=== PATIENT | female | born 1960 | race Caucasian/White ===

== ENCOUNTER 2019-03-14 04:57 | Observation (INO) | payer BC, OTHER ==
[2019-03-14] MEDS ORDERED: NA CHLORIDE 0.9% 2,000 ML ONE (05:56)
[2019-03-14] MEDS ORDERED: ONDANSETRON 4 MG/2 ML VIAL ONE (05:56)
[2019-03-14 05:59] LABS: Absolute Lymphocytes (CBC) 0.4 K/uL (0.7-4.9); Basophils % 0.5 % (0-1.3); Hematocrit 37.8 % (36.0-45.0); Lymphocytes % 5.3 % (15.3-44.8); MPV 9.5 fL (7.6-11.3); RBC Red Blood Cell Count 4.26 M/uL (3.86-4.86)
[2019-03-14 06:11] LABS: Albumin 3.9 g/dL (3.4-5.0); Bilirubin Direct 0.2 mg/dL (0-0.2); Bilirubin Total 0.5 mg/dL (0.2-1.0); Potassium 3.5 mmol/L (3.5-5.1); Protein, Total 7.3 g/dL (6.4-8.2)
[2019-03-14] MEDS ORDERED: PANTOPRAZOLE 40 MG INJ ONE (06:25)
[2019-03-14] MEDS ORDERED: PROMETHAZINE 25 MG/ML VIAL ONE ×2 (06:25→08:13)
[2019-03-14 06:44] LABS: Blood Morphology Comment NOT SEEN (NOT SEEN); Platelet Estimate ADEQ
--- NOTE | 2019-03-14 07:35 | EDPHYS ---
Physician Documentation [facility] Name: Treasure Varela Age: 58 yrs Sex: Female : 1960 Arrival Date: 03/14/2019 Time: 04:59 Bed 17 Private MD: ED Physician Geovanni Wolf HPI: 03/14 05:59 This 58 yrs old Female presents to ER via Wheelchair with complaints of tomy Vomiting. 05:59 The patient presents to the emergency department with nausea, vomiting, diarrhea, that tomy is intermittent. Onset: The symptoms/episode began/occurred yesterday. Possible causes: unknown. The symptoms are aggravated by nothing. The symptoms are alleviated by nothing. Severity of symptoms: At their worst the symptoms were. The patient has not experienced similar symptoms in the past. Historical: - Allergies: 05:00 No Known Allergies; cc3 - Home Meds: 05:00 Dexilant 60 mg Oral CpDB 1 cap once daily [Active]; cc3 - PMHx: 05:00 GERD; LOW POTASSIUM; cc3 - Immunization history:: Adult Immunizations up to date. - Social history:: Smoking status: Patient/guardian denies using tobacco, never smoked. - Ebola Screening: : No symptoms or risks identified at this time. - Family history:: not pertinent. ROS: 05:59 Constitutional: Negative for fever, chills, and weight loss, Eyes: Negative for injury, tomy pain, redness, and discharge, ENT: Negative for injury, pain, and discharge, Neck: Negative for injury, pain, and swelling, Cardiovascular: Negative for chest pain, palpitations, and edema, Respiratory: Negative for shortness of breath, cough, wheezing, and pleuritic chest pain, Back: Negative for injury and pain, : Negative for injury, bleeding, discharge, and swelling, MS/Extremity: Negative for injury and deformity, Skin: Negative for injury, rash, and discoloration, Neuro: Negative for headache, weakness, numbness, tingling, and seizure, Psych: Negative for depression, anxiety, suicide ideation, homicidal ideation, and hallucinations, Allergy/Immunology: Negative for hives, rash, and allergies, Endocrine: Negative for neck swelling, polydipsia, polyuria, polyphagia, and marked weight changes, Hematologic/Lymphatic: Negative for swollen nodes, abnormal bleeding, and unusual bruising. 05:59 Abdomen/GI: Positive for nausea and vomiting, diarrhea. Exam: 05:59 Constitutional: This is a well developed, well nourished patient who is awake, alert, tomy and in no acute distress. Head/Face: Normocephalic, atraumatic. Eyes: Pupils equal round and reactive to light, extra-ocular motions intact. Lids and lashes normal. Conjunctiva and sclera are non-icteric and not injected. Cornea within normal limits. Periorbital areas with no swelling, redness, or edema. ENT: Nares patent. No nasal discharge, no septal abnormalities noted. Tympanic membranes are normal and external auditory canals are clear. Oropharynx with no redness, swelling, or masses, exudates, or evidence of obstruction, uvula midline. Mucous membranes moist. Neck: Trachea midline, no thyromegaly or masses palpated, and no cervical lymphadenopathy. Supple, full range of motion without nuchal rigidity, or vertebral point tenderness. No Meningismus. Chest/axilla: Normal chest wall appearance and motion. Nontender with no deformity. No lesions are appreciated. Cardiovascular: Regular rate and rhythm with a normal S1 and S2. No gallops, murmurs, or rubs. Normal PMI, no JVD. No pulse deficits. Respiratory: Lungs have equal breath sounds bilaterally, clear to auscultation and percussion. No rales, rhonchi or wheezes noted. No increased work of breathing, no retractions or nasal flaring. Abdomen/GI: Soft, non-tender, with normal bowel sounds. No distension or tympany. No guarding or rebound. No evidence of tenderness throughout. Back: No spinal tenderness. No costovertebral tenderness. Full range of motion. Skin: Warm, dry with normal turgor. Normal color with no rashes, no lesions, and no evidence of cellulitis. MS/ Extremity: Pulses equal, no cyanosis. Neurovascular intact. Full, normal range of motion. Neuro: Awake and alert, GCS 15, oriented to person, place, time, and situation. Cranial nerves II-XII grossly intact. Motor strength 5/5 in all extremities. Sensory grossly intact. Cerebellar exam normal. Normal gait. Psych: Awake, alert, with orientation to person, place and time. Behavior, mood, and affect are within normal limits. 05:59 Neck: ROM/movement: is normal, no acute changes, Meningeal signs: are not present, Kernig's sign is negative, Brudzinski's sign is negative. Vital Signs: 05:00 BP 109 / 57; Pulse 81; Resp 18 S; Temp 99.2(O); Pulse Ox 100% on R/A; Weight 67.13 kg cc3 (R); Height 5 ft. 3 in. (160.02 cm) (R); Pain 8/10; 06:15 BP 117 / 69; Pulse 74; Resp 18 S; Pulse Ox 100% on R/A; cc3 08:28 BP 126 / 77; Pulse 76; Resp 18; Pulse Ox 99% on R/A; em 09:48 BP 119 / 68; Pulse 73; Resp 16; Temp 99.2(O); Pulse Ox 99% on R/A; Pain 6/10; em 05:00 Body Mass Index 26.22 (67.13 kg, 160.02 cm) cc3 MDM: 05:32 Patient medically screened. [facility] 05:59 Data reviewed: vital signs, nurses notes, lab test result(s), EKG, radiologic studies, [facility] CT scan, plain films. 03/14 05:19 Order name: Basic Metabolic Panel; Complete Time: 06:14 03/14 05:19 Order name: CBC with Diff; Complete Time: 06:52 03/14 05:19 Order name: Creatinine for Radiology; Complete Time: 06:14 03/14 05:19 Order name: Hepatic Function; Complete Time: 06:14 03/14 05:19 Order name: Lipase; Complete Time: 06:14 03/14 06:13 Order name: Troponin (emerg Dept Use Only); Complete Time: 06:52 [facility] 03/14 05:59 Order name: CT Head Brain wo Cont [facility] 03/14 05:59 Order name: Abdomen with Erect XRAY [facility] 03/14 06:45 Order name: Manual Differential; Complete Time: 06:52 EDMS 03/14 05:19 Order name: IV Saline Lock; Complete Time: 05:48 03/14 05:19 Order name: Labs collected and sent; Complete Time: 05:48 03/14 05:19 Order name: Urine Dipstick-Ancillary (obtain specimen); Complete Time: 05:36 bb Administered Medications: 05:31 CANCELLED (Duplicate Order): NS 0.9% 1000 ml IV at 1 bolus Per protocol; 1000 mL bolus tomy 05:40 Drug: Zofran 2 mg Route: IVP; Site: left antecubital; cc3 06:00 Follow up: Response: No adverse reaction; Nausea unchanged cc3 05:40 Drug: NS 0.9% 1000 ml Route: IV; Rate: 1 bolus; Site: left antecubital; cc3 09:00 Follow up: IV Status: Completed infusion iw 06:00 Drug: NS 0.9% 1000 ml Route: IV; Rate: 125 ml/hr; Site: left antecubital; cc3 10:09 Follow up: IV Status: Infusion continued upon admission iw 06:10 Drug: Phenergan 12.5 mg Route: IVP; Site: left antecubital; cc3 06:40 Follow up: Response: No adverse reaction; Nausea is decreased cc3 06:13 Drug: ProTONIX 40 mg Route: IVP; Site: left antecubital; cc3 06:17 Follow up: Response: No adverse reaction cc3 08:10 Drug: TORadol 30 mg Route: IVP; Site: left antecubital; iw 09:30 Follow up: Response: No adverse reaction em 08:10 Drug: Phenergan 12.5 mg Route: IVP; Site: left antecubital; iw 09:31 Follow up: Response: No adverse reaction; Nausea is decreased em 08:13 Drug: NS 0.9% 1000 ml Route: IV; Rate: 1 bolus; Site: left antecubital; em 09:50 Follow up: IV Status: Completed infusion; IV Intake: 1000ml em Disposition: 03/14/19 08:08 Hospitalization ordered by Edis Vergara for Inpatient Admission. Preliminary diagnosis are Vomiting - intractable, Diarrhea, unspecified, Headache. - Bed requested for Telemetry/MedSurg (Inpatient). - Status is Inpatient Admission. em - Condition is Fair. - Problem is new. - Symptoms have improved. UTI on Admission? No Signatures: Dispatcher [employer] Geovanni Warren MD MD cha Munoz, Edgar, PHYSICIAN EXECUTIVE PHYSICIAN EXECUTIVE em Tarah Sarmiento RN GLORIA bb Tori Yao RN RN iw Tony Perez RN RN ja1 Mirlande Ugarte cc3 Corrections: (The following items were deleted from the chart) 05:31 05:31 NS 0.9% 1000 ml IV at 1 bolus Per protocol; 1000 mL bolus ordered. pending sale to [facility] 07:46 07:03 MR STROKE PROTOCOL+MRI.RAD.BRZ ordered. EDMT EDMS 08:03 07:34 03/14/2019 07:34 Discharged to Home. Impression: Vomiting; Diarrhea, unspecified. [facility] Condition is Stable. Discharge Instructions: Food Choices to Help Relieve Diarrhea, Adult, Diarrhea, Adult, Nausea and Vomiting, Adult, Nausea and Vomiting, Adult, [id number], Diarrhea, Adult, [id number]. Prescriptions for promethazine 25 mg Oral Tablet - take 1 tablet by ORAL route every 6 hours As needed; 20 tablet. and Forms are Medication Reconciliation Form, Thank You Letter, Antibiotic Education, Prescription Opioid Use. Follow up: Private Physician; When: 2 - 3 days; Reason: Recheck today's complaints, Continuance of care, Re-evaluation by your physician. Problem is new. Symptoms have improved. [facility] 08:25 08:08 Hospitalization Ordered by Gentry Truong MD for Inpatient Admission. Preliminary tomy diagnosis is Vomiting - intractable; Diarrhea, unspecified; Headache. Bed requested for Telemetry/MedSurg (Inpatient). Status is Inpatient Admission. Condition is Fair. Problem is new. Symptoms have improved. UTI on Admission? No. tomy 09:37 08:25 03/14/2019 08:08 Hospitalization Ordered by Edis Vergara MD for Inpatient ja1 Admission. Preliminary diagnosis is Vomiting - intractable; Diarrhea, unspecified; Headache. Bed requested for Telemetry/MedSurg (Inpatient). Status is Inpatient Admission. Condition is Fair. Problem is new. Symptoms have improved. UTI on Admission? No. tomy 10:10 09:37 03/14/2019 08:08 Hospitalization Ordered by Edis Vergara MD for Inpatient em Admission. Preliminary diagnosis is Vomiting - intractable; Diarrhea, unspecified; Headache. Bed requested for Telemetry/MedSurg (Inpatient). Status is Inpatient Admission. Condition is Fair. Problem is new. Symptoms have improved. UTI on Admission? No. ja1
--- NOTE | 2019-03-14 07:35 | ER ---
Nurse's Notes [facility] Name: Treasure Varela Age: 58 yrs Sex: Female : 1960 Arrival Date: 03/14/2019 Time: 04:59 Bed 17 Private MD: Diagnosis: Vomiting-intractable;Diarrhea, unspecified;Headache Presentation: 03/14 05:00 Presenting complaint: Patient states: "I throw up more than 20x since 4PM yesterday and cc3 had two episodes of loose bowel motion. I don't have abdominal pain right now but I have a headache with NRS 8/10". Transition of care: patient was not received from another setting of care. Onset of symptoms was March 13, 2019. Risk Assessment: Do you want to hurt yourself or someone else? Patient reports no desire to harm self or others. Initial Sepsis Screen: Does the patient meet any 2 criteria? No. Patient's initial sepsis screen is negative. Does the patient have a suspected source of infection? No. Patient's initial sepsis screen is negative. Care prior to arrival: Medication(s) given: zofran taken at home at 0100H this morning. 05:00 Method Of Arrival: Wheelchair cc3 05:00 Acuity: AMANDA 3 cc3 Triage Assessment: 05:00 General: Appears in no apparent distress. uncomfortable, Behavior is calm, cooperative. cc3 Pain: Complains of pain in head Pain does not radiate. Pain currently is 8 out of 10 on a pain scale. Quality of pain is described as aching. EENT: No signs and/or symptoms were reported regarding the EENT system. Neuro: Level of Consciousness is awake, alert, obeys commands, Oriented to person, place, time, situation, Appropriate for age. Cardiovascular: Denies chest pain, Patient's skin is warm and dry. Respiratory: Airway is patent Respiratory effort is even, unlabored, Respiratory pattern is regular, symmetrical. GI: Reports nausea, vomiting, since yesterday afternoon. : No signs and/or symptoms were reported regarding the genitourinary system. Derm: Skin is intact, is healthy with good turgor, Skin is pink, warm \\T\\ dry. normal. Musculoskeletal: Circulation, motion, and sensation intact. Range of motion: intact in all extremities. Historical: - Allergies: 05:00 No Known Allergies; cc3 - Home Meds: 05:00 Dexilant 60 mg Oral CpDB 1 cap once daily [Active]; cc3 - PMHx: 05:00 GERD; LOW POTASSIUM; cc3 - Immunization history:: Adult Immunizations up to date. - Social history:: Smoking status: Patient/guardian denies using tobacco, never smoked. - Ebola Screening: : No symptoms or risks identified at this time. - Family history:: not pertinent. Screenin:00 Abuse screen: Denies threats or abuse. Denies injuries from another. Nutritional cc3 screening: No deficits noted. Tuberculosis screening: No symptoms or risk factors identified. Fall Risk Ambulatory Aid- None/Bed Rest/Nurse Assist (0 pts). Gait- Normal/Bed Rest/Wheelchair (0 pts) Mental Status- Oriented to own ability (0 pts). Assessment: 05:00 General: see triage assessment. cc3 06:15 Reassessment: Patient appears in no apparent distress at this time. Patient and/or cc3 family updated on plan of care and expected duration. Pain level reassessed. Patient is alert, oriented x 3, equal unlabored respirations, skin warm/dry/pink. Called lab at extension [id number] to add Troponin for it was newly ordered by Dr. Wolf and feed mill lab technician Gustavo said he will add the Troponin and no need to send the labels. 06:20 Reassessment: Patient appears in no apparent distress at this time. Patient and/or cc3 family updated on plan of care and expected duration. Pain level reassessed. Patient is alert, oriented x 3, equal unlabored respirations, skin warm/dry/pink. Patient taken by xray deployment technician to their department by wheelchair. 06:45 Reassessment: Patient appears in no apparent distress at this time. Patient and/or cc3 family updated on plan of care and expected duration. Pain level reassessed. Patient is alert, oriented x 3, equal unlabored respirations, skin warm/dry/pink. Patient came back from xray and CT scan department, awaiting result. Patient states symptoms have improved. 07:21 Reassessment: Patient appears in no apparent distress at this time. Patient and/or em family updated on plan of care and expected duration. Pain level reassessed. Patient is alert, oriented x 3, equal unlabored respirations, skin warm/dry/pink. currently states that nausea has returned, but does not want medication at this time. 08:00 Reassessment: Patient appears in no apparent distress at this time. I agree with above iw assessment by Gerson Encarnacion LVN. 08:28 Reassessment: Patient appears in no apparent distress at this time. Patient and/or em family updated on plan of care and expected duration. Pain level reassessed. Patient is alert, oriented x 3, equal unlabored respirations, skin warm/dry/pink. 09:48 Reassessment: Patient appears in no apparent distress at this time. Patient and/or em family updated on plan of care and expected duration. Pain level reassessed. Patient is alert, oriented x 3, equal unlabored respirations, skin warm/dry/pink. rates pain 6/10 Patient states feeling better. Patient states symptoms have improved. Vital Signs: 05:00 BP 109 / 57; Pulse 81; Resp 18 S; Temp 99.2(O); Pulse Ox 100% on R/A; Weight 67.13 kg cc3 (R); Height 5 ft. 3 in. (160.02 cm) (R); Pain 8/10; 06:15 BP 117 / 69; Pulse 74; Resp 18 S; Pulse Ox 100% on R/A; cc3 08:28 BP 126 / 77; Pulse 76; Resp 18; Pulse Ox 99% on R/A; em 09:48 BP 119 / 68; Pulse 73; Resp 16; Temp 99.2(O); Pulse Ox 99% on R/A; Pain 6/10; em 05:00 Body Mass Index 26.22 (67.13 kg, 160.02 cm) cc3 ED Course: 04:59 Patient arrived in ED. ds1 05:00 Patient has correct armband on for positive identification. Placed in gown. Bed in low cc3 position. Call light in reach. Side rails up X 1. Pulse ox on. NIBP on. 05:00 Arm band placed on right wrist. Patient notified of wait time. cc3 05:09 Mirlande Ugarte is Primary Nurse. cc3 05:18 Triage completed. cc3 05:30 Geovanni Wolf MD is Attending Physician. otmy 05:46 Missed attempt(s): 20 gauge in right antecubital area. lt1 05:46 Initial lab(s) drawn, by me, sent to lab. Inserted saline lock: 20 gauge in left lt1 antecubital area, using aseptic technique. 06:[address] via wheelchair. kw 06:29 Patient moved to radiology via wheelchair. kw 06:30 X-ray completed. Patient tolerated procedure well. kw 06:31 Abdomen with Erect XRAY In Process Unspecified. EDMS 06:31 Patient moved back from radiology. kw 06:37 CT completed. Patient tolerated procedure well. Patient moved back from CT. eh 06:41 CT Head Brain wo Cont In Process Unspecified. EDMS 07:00 Report given to MEAGHAN Nieto. cc3 07:16 Gerson Encarnacion LVN is Primary Nurse. em 08:06 Gentry Truong MD is Hospitalizing Provider. tomy 08:24 Edis Vergara MD is Hospitalizing Provider. tomy 10:08 No provider procedures requiring assistance completed. Patient admitted, IV remains in iw place. Administered Medications: 05:31 CANCELLED (Duplicate Order): NS 0.9% 1000 ml IV at 1 bolus Per protocol; 1000 mL bolus tomy 05:40 Drug: Zofran 2 mg Route: IVP; Site: left antecubital; cc3 06:00 Follow up: Response: No adverse reaction; Nausea unchanged cc3 05:40 Drug: NS 0.9% 1000 ml Route: IV; Rate: 1 bolus; Site: left antecubital; cc3 09:00 Follow up: IV Status: Completed infusion iw 06:00 Drug: NS 0.9% 1000 ml Route: IV; Rate: 125 ml/hr; Site: left antecubital; cc3 10:09 Follow up: IV Status: Infusion continued upon admission iw 06:10 Drug: Phenergan 12.5 mg Route: IVP; Site: left antecubital; cc3 06:40 Follow up: Response: No adverse reaction; Nausea is decreased cc3 06:13 Drug: ProTONIX 40 mg Route: IVP; Site: left antecubital; cc3 06:17 Follow up: Response: No adverse reaction cc3 08:10 Drug: TORadol 30 mg Route: IVP; Site: left antecubital; iw 09:30 Follow up: Response: No adverse reaction em 08:10 Drug: Phenergan 12.5 mg Route: IVP; Site: left antecubital; iw 09:31 Follow up: Response: No adverse reaction; Nausea is decreased em 08:13 Drug: NS 0.9% 1000 ml Route: IV; Rate: 1 bolus; Site: left antecubital; em 09:50 Follow up: IV Status: Completed infusion; IV Intake: 1000ml em Intake: 09:50 IV: 1000ml; Total: 1000ml. em Outcome: 07:34 Discharge ordered by . tomy 08:08 Decision to Hospitalize by Provider. tomy 10:09 Admitted to Med/surg accompanied by tech, via wheelchair, room 423, with chart. iw 10:09 Condition: good 10:09 Discharge instructions given to patient, family, Instructed on the need for admit, Demonstrated understanding of instructions. 10:10 Patient left the ED. em Signatures: Dispatcher [employer] Geovanni Warren MD MD cha Hagler, Wing Encarnacion, Gerson, ASSISTANT ART DIRECTOR ASSISTANT ART DIRECTOR em Kelly Phan ds1 Tori Yao, GLORIA RN Kristine Chan Charlene cc3 Lackey, Stacey lt1 Corrections: (The following items were deleted from the chart) 06:23 05:00 Pulse 81bpm; Resp 18bpm; Spontaneous; Pulse Ox 100% RA; Temp 99.2F Oral; 67.13 kg cc3 Reported; Height 5 ft. 3 in. Reported; BMI: 26.2; Pain 8/10; cc3
[2019-03-14] MEDS ORDERED: KETOROLAC 30 MG/ML INJ ONE (08:13)
--- NOTE | 2019-03-14 09:06 | RAD REPORT ---
EXAM DESCRIPTION: CT - Head Brain Wo Cont - 03/14/2019 6:40 am CLINICAL HISTORY: Dizziness COMPARISON: 2011 TECHNIQUE: Computed axial tomography of the head was obtained. IV contrast was not requested. All CT scans are performed using dose optimization technique as appropriate and may include automated exposure control or mA/KV adjustment according to patient size. FINDINGS: An intracranial bleed is not seen . The ventricles are normal in caliber. No extra-axial fluid collection is noted. Fluid within the sinuses/ mastoids is not seen. IMPRESSION: No acute intracranial abnormality is seen. If patient's symptoms persist MRI of the bra in would be recommended.
--- NOTE | 2019-03-14 09:24 | RAD REPORT ---
EXAM DESCRIPTION: RAD - Abdomen W Erect - 03/14/2019 6:35 am CLINICAL HISTORY: Abdominal pain FINDINGS: Mild dilatation of a loop of jejunum. Remainder the bowel gas pattern is unremarkable. This is a nonspecific bowel gas pattern. It probably represents an ileus or enteritis. If patient's symptoms persist followup abdominal plain film series would be recommended Free air is not seen beneath the diaphragm. . Multiple mostly round calcifications in the pelvis probably represent phleboliths
[2019-03-14] MEDS ORDERED: ONDANSETRON 4 MG/2 ML VIAL IV PRN (10:02)
[2019-03-14] MEDS ORDERED: NA CHLORIDE 0.9% 1,000 ML IV SCH (10:02)
[2019-03-14 10:28] VITALS: BMI 26.1
[2019-03-14 10:40] VITALS: O2SAT 96
[2019-03-14] MEDS ORDERED: KCL 20 MEQ/100 mL IVPB 20 MEQ/100 ML BAG IV SCH (12:00)
[2019-03-14 13:39] VITALS: BP 116/69; TEMP 97.9
--- NOTE | 2019-03-14 16:30 | P.HP ---
Certification for Inpatient Patient admitted to: Observation With expected LOS: <2 Midnights Practitioner: I am a practitioner with admitting privileges, knowledge of patient current condition, hospital course, and medical plan of care. Services: Services provided to patient in accordance with Admission requirements found in Title 42 Section 412.3 of the Code of Federal Regulations Patient History Date of Service: 03/14/19 Reason for admission: Intractable nausea and vomiting intractable nausea and vomiting History of Present Illness: This is a 58-year-old female with no oral past medical history other than migraine and dyspepsia admitted for intractable nausea and vomiting. Per patient this started 1 day ago, was unable to tolerate an oral diet therefore came to the ER. She states that she has a similar history, where she gets low potassium levels all the time. She has had a colonoscopy done over 8-10 years ago. She has not had any recent outpatient GI followup. She denies any abdominal pain, fevers, chills, complaints. In the ER, she was hemodynamically stable, labs were stable. Abdominal x-ray was done, showed questionable ileus versus enteritis. She continued to have nausea, vomiting did resolve. At the time of my exam, she was alert oriented x2, in mild to moderate distress due to nausea but hemodynamically stable. She was admitted as observation for intractable nausea, unable to take p.o.. Allergies No Known Allergies Allergy (Unverified 03/14/19 12:01) Home medications list reviewed: Yes Home Medications: Dexlansoprazole [Dexilant] 30 mg PO DAILY 03/14/19 - Past Medical/Surgical History Diabetic: No -: GERD -: Hypokalemia -: Tubal Ligation -: Appendectomy - Family History Mother -: Cancer Notes: - colon and pancreatic cancer, CABG Father Notes: - lung cancer, CABG - Social History Smoking Status: Never smoker Alcohol use: No CD- Drugs: No Caffeine use: Yes Place of Residence: Home Review of Systems 10-point ROS is otherwise unremarkable Physical Examination - Vital Signs Temperature: 97.9 F Blood Pressure: 116/69 Pulse: 74 Respirations: 14 Pulse Ox (%): 100 - Physical Exam General: Alert, Oriented x3, Mild distress, Moderate distress HEENT: Atraumatic, PERRLA, Mucous membr. moist/pink, EOMI, Sclerae nonicteric Neck: Supple, 2+ carotid pulse no bruit, No LAD, Without JVD or thyroid abnormality Respiratory: Clear to auscultation bilaterally, Normal air movement Cardiovascular: Regular rate/rhythm, Normal S1 S2 Gastrointestinal: Normal bowel sounds, No tenderness Musculoskeletal: No tenderness Integumentary: No rashes Neurological: Normal gait, Normal speech, Normal strength at 5/5 x4 extr, Normal tone, Normal affect Lymphatics: No axilla or inguinal lymphadenopathy - Studies Laboratory Data (last 24 hrs) 03/14/19 05:45: Creatinine 0.78 03/14/19 05:45: WBC 7.0, Hgb 12.7, Hct 37.8, Plt Count 329 03/14/19 05:45: Sodium 140, Potassium 3.5, BUN 15, Creatinine 0.81, Glucose 119 H, Total Bilirubin 0.5, AST 23, ALT 17, Alkaline Phosphatase 83, Lipase 140 Assessment and Plan - Problems (Diagnosis) (1) Intractable nausea and vomiting Current Visit: Yes Status: Acute Qualifiers: Vomiting type: unspecified Qualified Code(s): R11.2 - Nausea with vomiting , unspecified (2) GERD (gastroesophageal reflux disease) Current Visit: Yes Status: Acute - Plan Nausea likely secondary to GERD/dyspepsia. Admit patient for IV fluids, symptom management. Will start diet once patient's nausea improves. She can be discharged home once able to tolerate an oral diet. She will need outpatient GI followup once she is discharged from here. DVT prophylaxis: Lovenox GI prophylaxis: Protonix Diet: NPO, advance as tolerated Disposition: Pending symptomatic improvement. Anticipate discharge within the next 24 hr. Discharge Plan: Home Plan to discharge in: 24 Hours - Advance Directives Does patient have a Living Will: No Does patient have a Durable POA for Healthcare: No
--- NOTE | 2019-03-14 18:12 | P.SSS ---
Patient History Date of Service: 03/14/19 Reason for admission: Intractable nausea and vomiting intractable nausea and vomiting History of Present Illness: This is a 58-year-old female with no oral past medical history other than migraine and dyspepsia admitted for intractable nausea and vomiting. Per patient this started 1 day ago, was unable to tolerate an oral diet therefore came to the ER. She states that she has a similar history, where she gets low potassium levels all the time. She has had a colonoscopy done over 8-10 years ago. She has not had any recent outpatient GI followup. She denies any abdominal pain, fevers, chills, complaints. In the ER, she was hemodynamically stable, labs were stable. Abdominal x-ray was done, showed questionable ileus versus enteritis. She continued to have nausea, vomiting did resolve. At the time of my exam, she was alert oriented x2, in mild to moderate distress due to nausea but hemodynamically stable. She was admitted as observation for intractable nausea, unable to take p.o.. Allergies No Known Allergies Allergy (Unverified 03/14/19 12:01) Home Medications: Dexlansoprazole [Dexilant] 30 mg PO DAILY 03/14/19 - Past Medical/Surgical History Diabetic: No -: GERD -: Hypokalemia -: Tubal Ligation -: Appendectomy - Family History Mother -: Cancer Notes: - colon and pancreatic cancer, CABG Father Notes: - lung cancer, CABG - Social History Smoking Status: Never smoker Alcohol use: No CD- Drugs: No Caffeine use: Yes Place of Residence: Home Review of Systems 10-point ROS is otherwise unremarkable Physical Examination - Vital Signs Temperature: 97.9 F Blood Pressure: 116/69 Pulse: 74 Respirations: 14 Pulse Ox (%): 100 - Physical Exam General: Alert, In no apparent distress HEENT: Atraumatic, PERRLA, Mucous membr. moist/pink, EOMI, Sclerae nonicteric Neck: Supple, 2+ carotid pulse no bruit, No LAD, Without JVD or thyroid abnormality Respiratory: Clear to auscultation bilaterally, Normal air movement Cardiovascular: Regular rate/rhythm, Normal S1 S2 Gastrointestinal: Normal bowel sounds, No tenderness Musculoskeletal: No tenderness Integumentary: No rashes Neurological: Normal gait, Normal speech, Normal strength at 5/5 x4 extr, Normal tone, Normal affect Lymphatics: No axilla or inguinal lymphadenopathy - Studies Laboratory Data (last 24 hrs) 03/14/19 05:45: Creatinine 0.78 03/14/19 05:45: WBC 7.0, Hgb 12.7, Hct 37.8, Plt Count 329 03/14/19 05:45: Sodium 140, Potassium 3.5, BUN 15, Creatinine 0.81, Glucose 119 H, Total Bilirubin 0.5, AST 23, ALT 17, Alkaline Phosphatase 83, Lipase 140 - Diagnosis (Problem(s)) (1) Intractable nausea and vomiting Current Visit: Yes Status: Acute Qualifiers: Vomiting type: unspecified Qualified Code(s): R11.2 - Nausea with vomiting , unspecified (2) GERD (gastroesophageal reflux disease) Current Visit: Yes Status: Acute Treatment Summary: Patient was provided with IV fluids and IV Zofran. She felt better, she tolerated oral diet. . She will follow up with outpatient gastroenterology for further management if symptoms reappear or if they worsen. he remained hemodynamically stable throughout the stay Prior to discharge, his symptoms had completely resolved, she was tolerating oral diet and she was hemodynamically stable. She wanted to go home, therefore was discharged home in a safe and stable manner. - Disposition Disposition: ROUTINE DISCHARGE Condition: GOOD Diet: Regular Activity: Ad halina Time Spent Managing Pts Care (In Minutes): 45
[2019-03-14] MEDS ORDERED: PROMETHAZINE 25 MG TABLET PO ONE (18:46)
[2019-03-15] MEDS ORDERED: ENOXAPARIN 40 MG/0.4 ML SQ SCH (09:00)
== END 2019-03-14 18:59 | disposition home or self-care (01) ==
LOC: ER 04:57 → ERHOLD 09:15 → 4TH 10:01
PROVIDERS: ADMIT Family Medicine; ATTEND Family Medicine
DX: R11.2 Nausea with vomiting, unspecified (principal); K21.9 Gastro-esophageal reflux disease without esophagitis; R19.7 Diarrhea, unspecified; R51 Headache; Z86.69 Personal history of other diseases of the nervous system and sense organs
CPT/HCPCS: 36415; 70450; 74019; 80048; 80076; 83690; 84484; 85025; 94760; 96361; 96374; 96375; 99285; C9113; G0378; J2405; J2550; J7030

== ENCOUNTER 2020-01-21 11:45 | Emergency (ER) | payer BC ==
[2020-01-21] MEDS ORDERED: MORPHINE 4 MG/ML SYR ONE (12:06)
[2020-01-21] MEDS ORDERED: ASPIRIN 81 MG CHEWABLE TABLET ONE (12:06)
[2020-01-21] MEDS ORDERED: ONDANSETRON 4 MG/2 ML VIAL ONE ×2 (12:06→13:59)
[2020-01-21 12:11] LABS: Absolute Lymphocytes (CBC) 2.9 K/uL (0.7-4.9); Basophils % 1.1 % (0-1.3); Lymphocytes % 44.8 % (15.3-44.8); MPV 8.7 fL (7.6-11.3); RBC Red Blood Cell Count 4.04 M/uL (3.86-4.86)
[2020-01-21 12:25] LABS: Protime INR 0.93
[2020-01-21 12:31] LABS: ALT/SGPT 16 U/L (12-78); AST/SGOT 12 U/L (15-37); Albumin 3.9 g/dL (3.4-5.0); Alkaline Phosphatase 82 U/L (45-117); BUN Blood Urea Nitrogen 10 mg/dL (7-18); Bicarbonate 24 mmol/L (21-32); Bilirubin Direct < 0.1 mg/dL (0-0.2); Bilirubin Total 0.3 mg/dL (0.2-1.0); Glucose Level 114 mg/dL (74-106); Magnesium 2.1 mg/dL (1.8-2.4); NT PRO-BNP 148 pg/mL (<125); Potassium 3.1 mmol/L (3.5-5.1); Protein, Total 7.6 g/dL (6.4-8.2); Sodium Level 140 mmol/L (136-145); Troponin (Emerg Dept Use Only) < 0.02 ng/mL (0.0-0.045)
[2020-01-21] MEDS ORDERED: MECLIZINE HCL 12.5 MG TAB ONE (12:45)
--- OUTSIDE RECORDS SUMMARY | 2020-01-21 12:46 | XMS REPORT | Continuity of Care Document ---
:1960 Author Organization [facility] t Address [address] [place] [address] Care Team Providers Name Role Phone Juve AMEZCUA Attending Clinician Oren Hall Attending Clinician Yasir AMEZCUA Attending Clinician Yasir AMEZCUA Admitting Clinician Problems This patient has no known problems. Allergies, Adverse Reactions, Alerts This patient has no known allergies or adverse reactions. Medications This patient has no known medications. Procedures This patient has no known procedures. Encounters Start End Encounter Admission Attending Care Care Encounter Source Date/Time Date/Time Type Type Clinicians Facility Department ID 2019-12-03 2019-12-03 Telephone Juve [facility] [id number] 00:00:00 00:00:00 Elmo Villegas [id number] [place] [id number] [facility] [id number] [address] 2019-11-24 2019-11-25 [facility] Hector Prasad [facility] [id number] 10:55:57 14:00:00 Encounter Philip Cooley [id number] [place] [id number] [place] [id number] Results This patient has no known results.
--- OUTSIDE RECORDS SUMMARY | 2020-01-21 12:47 | XMS REPORT | Summary of Care ---
:1960 Author Organization [facility] Address [address] [place] [id number] Care Team Providers Name Role Phone Pcp, Patient Does Not Have A Insurance Hmo [phone] Paula Marrero Primary Care Provider Reason for Referral Other (Routine) Status Reason Specialty Diagnoses / Referred By Referred To Procedures Contact Contact New Request Diagnoses Chest pain, unspecified type Philip Cooley MD Cai, Qiangjun, MD Procedures Discharge Follow-up: Specialty Provider ELMO BEY; 4-6 Weeks [address] [facility] [address] [place], [place] [address] [address] [address] Phone: [place], [place] [phone] Fax: (Routine) Status Reason Specialty Diagnoses / Referred By Referred To Procedures Contact Contact Pending Review Diagnoses Chest pain, unspecified type Philip Cooley MD Burns, William E Procedures Discharge Follow-up: PCP KIMMIE MARRERO; [address] [place] [address] [address] [phone] [place], [place] Phone: [phone] Phone: Radiology Services (Routine) Status Reason Specialty Diagnoses / Procedures Referred By C cleo Referred To Contact Closed Radiology Diagnoses Chest pain, unspecified type Chest pain, unspecified type Elmo Bey MD Adc Nuclear Procedures NM MYOCARDIUM PERFUSION STRESS AND REST CHG MYOCARDIAL SPECT MULTIPLE STUDIES [address] [place] [address] [address] [facility] [address] [place] [phone] Phone: Fax: Radiology Services (STAT) Status Reason Specialty Diagnoses / Referred By Referred To Procedures Contact Contact New Request Diagnostic Diagnoses Chest pain, unspecified type Bahman Viera, Radiology Procedures XR CHEST 1 VW CARDIAC CARE NURSE [address] [place] [address] Reason for Visit Reason Comments Chest Pain Auth/Cert Status Reason Specialty Diagnoses / Referred By Referred To Procedures Contact Contact Emergency Medicine Diagnoses CHEST PAIN [facility] Emergency Dept [address] [place] [address] [place] [address] Fax: Encounter Details Date Type Department Care Team Description 11/24/2019 - Hospital Encounter [facility] Medicine Surgery OsmarRianna, CARDIAC CARE NURSE [address] [place] [address] Other chest pain 11/25/2019 Unit Philip Cooley MD [address] [place] [address] [place] [address] [place], [place] [phone] Allergies No Known Allergiesdocumented as of this encounter (statuses as of 11/25/2019) Medications Medication Sig Dispensed Refills Start Date End Date Status vitamin B-12 1,000 Take 1 30 tablet 0 11/25/2019 12/25/2019 Active mcg tablet by tabletIndications: mouth daily Vitamin B12 for 30 days. deficiency ferrous sulfate 325 Take 1 90 tablet 0 11/25/2019 0 Active mg (65 mg iron) tablet by tabletIndications: mouth 3 Iron deficiency (three) times daily with meals for 30 days. Dexlansoprazole Take 60 mg 0 11/25/2019 Di scontinued (DEXILANT) 60 mg by mouth capsule daily. documented as of this encounter (statuses as of 11/25/2019) Active Problems Problem Noted Date Other chest pain 11/24/2019 Family history of coronary artery disease 11/24/2019 Other hyperlipidemia 11/24/2019 Chest pain 11/24/2019 documented as of this encounter (statuses as of 11/25/2019) Resolved Problems Problem Noted Date Resolved Date V-tach 11/24/2019 11/24/2019 documented as of this encounter (statuses as of 11/25/2019) Social History Tobacco Use Types Packs/Day Years Used Date Former Smoker Smokeless Tobacco: Never Used Sex Assigned at Date Recorded Not on file Job Start Date Occupation Industry Not on file Not on file Not on file Travel History Travel Start Travel End No recent travel history available. documented as of this encounter Last Filed Vital Signs Vital Sign Reading Time Taken Comments Blood Pressure 153/89 11/25/2019 11:50 AM CDT Pulse 77 11/25/2019 11:50 AM CDT Temperature 36.6 C (97.8 F) 11/25/2019 11:50 AM CDT Respiratory Rate 20 11/25/2019 11:50 AM CDT Oxygen Saturation 98% 11/25/2019 11:50 AM CDT Inhaled Oxygen Concentration - - Weight 73.9 kg (163 lb) 11/25/2019 9:44 AM CDT Height 160 cm (5' 3") 11/25/2019 9:44 AM CDT Body Mass Index 28.87 11/25/2019 9:44 AM CDT documented in this encounter Discharge Summaries Philip Cooley MD - 11/25/2019 12:03 PM CDT [facility] Medicine Discharge Summary PATIENT NAME: Treasure Varela : 1960 AGE: [age] year old PRIMARY CARE PHYSICIAN: Kimmie Marrero ADMITTING PHYSICIAN: Philip Cooley MD DISCHARGE PHYSICIAN: Philip Cooley MD ADMISSION DATE: 11/24/2019 DISCHARGE DATE: 11/25/2019 DISCHARGE DIAGNOSES: Principal Problem: Other chest pain Active Problems: Family history of coronary artery disease Other hyperlipidemia Chest pain Vit B12 deficiency Iron deficiency HPI Treasure Varela is a 59 year old female with history of GERD who presents with gradual onset of chestpain and dizziness that started 2 days ago. Patient reports worsened lightheadedness, dizziness withincreased chest pressure. Patient denies, SOB, fever, leg or calf pain. Patient follows Dr Ventura. HOSPITAL COURSE: Pt was admitted for intermittent CP, chest heaviness, and dizziness. Troponin, EKG, and Echo were unremarkable. NM stress test was negative. Pt was cleared by cardiologyfor discharge. Found to have vitamin B12 deficiency and iron deficiency. She was not anemic. She has h/o GERD due to hiatal hernia, on Dexilant. It is possible that vitamin B12 deficiency and iron deficiency were related to dexilant. She also had chronic headache, which could be due to side effect of dexilant. Patient was instructed to hold dexilant on discharge. Iron and vit B12 suppl. Follow with PCP. REVIEW OF SYSTEMS: General: (-) fever, (-) chills, (-) weight loss, (-) weight gain, (-) fatigue, (-) malaise Skin: (-) rash, (-) lesion HEENT: (-) headache, (-) change in hearing, (-) change in vision, (-) nasal discharge, (-) sore throat Neck: (-) pain, (-) difficulty swallowing, (-) mass Heme: (-) bleeding disorder Resp: (-) cough, (-) shortness of breath, (-) dyspnea on exertion Cardio: (-) chest pain, (-) palpitations, (-) syncope GI: (-) abdominal pain, (-) nausea, (-) vomiting, (-) diarrhea, (-) constipation, (-) melena, (-) hematochezia, (-) hematemesis : (-) dysuria, (-) hematuria, (-) increased frequency, (-) difficulty urinating, (-) difficulty initiating Endo: (-) heat intolerance, (-) cold intolerance, (-) polyuria, (-) polydipsia Neuro: (-) numbness, (-) tingling, (-) weakness Back: (-) pain, (-)spasms CHRISTAL: (-) muscle pain, (-) joint pain, (-) claudication Psych: (-) anxiety, (-) depression, (-) psychiatric disorder DISCHARGE PHYSICAL EXAM: Most recent vital signs: Temp: (ALL VS noted in EKG recording) - BP: 127/90 - Pulse: 63 - Resp: 18 - SpO2: 97 % General: alert and oriented x 4 (person, place, date/time and situation); no apparent distress HEENT: pupils equal, round, reactive to light; extraocular movements intact; oropharynx clear; moistmucous membranes Neck: supple, no lymphadenopathy, no bruits, no JVD Lungs: clear to auscultation bilaterally Cardio: S1, S2 normal; no murmurs, rubs or gallops Abdomen: soft; non-tender; non-distended; normoactive bowel sounds Extremities: no clubbing, cyanosis, or edema Skin: no rashes Neuro: cranial nerves II through XII grossly intact; sensation grossly intact; muscle strength 5 outof 5 in all four extremities, no focal deficits, alert and oriented x 3 CONSULTS: Cardiology PROCEDURES: NM stress test LABS PENDING: None DIET: regular ACTIVITY: as tolerated MEDS: Current Discharge Medication List START taking these medications Details ferrous sulfate 325 mg Take 325 mg by mouth 3 (three) times daily with meals. Qty: 90 tablet, Refills: 0 Start date: 11/25/2019, End date: 12/25/2019 Associated Diagnoses: Iron deficiency vitamin B-12 (CYANOCOBALAMIN) 1,000 mcg Take 1,000 mcg by mouth daily. Qty: 30 tablet, Refills: 0 Start date: 11/25/2019, End date: 12/25/2019 Associated Diagnoses: Vitamin B12 deficiency STOP taking these medications Dexlansoprazole (DEXILANT) 60 mg Comments: Reason for Stopping: SIGNIFICANT LAB/X-RAYS: Lab results: CBC BMP PT/INR WBC (10*3/L) Date Value 11/24/2019 5.88 NA (mmol/L) Date Value 11/24/2019 140 No results found for: PT RBC (10*6/L) Date Value 11/24/2019 3.99 K (mmol/L) Date Value 11/24/2019 4.1 INR (no units) Date Value 11/24/2019 1.1 PLT (10*3/L) Date Value 11/24/2019 301 CALCIUM (mg/dL) Date Value 11/24/2019 9.3 HGB (g/dL) Date Value 11/24/2019 11.7 CL (mmol/L) Date Value 11/24/2019 104 aPTT HCT (%) Date Value 11/24/2019 35.9 BUN (mg/dL) Date Value 11/24/2019 11 APTT Patient (Seconds) Date Value 11/24/2019 24 CREATININE (mg/dL) Date Value 11/24/2019 0.72 GLUCOSE (mg/dL) Date Value 11/24/2019 99 CO2 TOTAL (mmol/L) Date Value 11/24/2019 30 Imaging results: No final results containing an impression from the past 30 days were found. DISPOSITION: home CONDITION: Good FOLLOW-UP: PCP Cardiology I spent 45 minutes including a [id number] visit, discussing the plan of care with the patient, patient education regarding medication compliance, exam, and coordination of discharge Electronically Signed by: Philip Cooley MD 11/25/2019 12:03 PM documented in this encounter Discharge Instructions InstructionsCoPrisca linder RN - 11/25/2019 Patient Discharge Instructions Discharge date: 11/25/2019 Procedure(s): Discharge Orders Discharge Follow-up: PCP KIMMIE MARRERO; 1 Week To PCP: KIMMIE MARRERO [[id number]] Patient's Preferred Location: [facility] - Specify Comments Discharge Disposition: HOME, (AHR) When (Patients with risk for unplanned readmission score over 16 or those noted as Hospital Dependent should follow up within 7 days with PCP or primary DX specialist): 1 Week Risk of Unplanned Readmission:( Score greater than 16 indicates high risk) 8 Regular Diet; Texture: Regular. Texture Regular. Diabetic: No Discharge Condition - Discharge Condition: GOOD Discharge Activity Discharge Activity: As Tolerated Discharge Follow-up: Specialty Provider ELMO BYE; 4-6 Weeks To Provider: ELMO BEY [[id number]] Patient's Preferred Location: [place] Discharge Disposition: HOME, (AHR) When (Patients with risk for unplanned readmission score over 16 or those noted as Hospital Dependent should follow up within 7 days with PCP or primary DX specialist): 4-6 Weeks Risk of Unplanned Readmission:( Score greater than 16 indicates high risk) 8 VTE Propylaxis- Was ordered during hospitalization WORK/SCHOOL RELEASE Date patient may return to work/school: 12/01/2019 Follow instructions as indicated below: 1. The medication that was used will be acting in your system for the next 24 hours, so you might feel a little drowsy, with impaired judgment and or motor function. This feeling should go wear off. Because the medication is still in your system for the next 24 hours you SHOULD NOT: Drive a car, operate machinery or power tool. Drink any alcohol beverages (including beer or wine). Make any important decisions or sign any legal documents. 2. You should rest the remainder of the day and not engage in any physical activity. Move slowly today. After lying down, sit on the edge of the bed for a moment before standing. YOU ARE RESPONSIBLEFOR HAVING SOMEONE AT HOME WITH YOU DURING THE AFTERNOON AND NIGHT IMMEDIATELY FOLLOWING YOUR SURGERY. Patient should cough and deep breathe every 2-4 hours while awake to avoid respiratory complications. 4. Lifting: {IP DISCHARGE INSTRUCTIONS LIFTIN::"No medical restrictions"} 5. Weight: In general, sudden weight gains or losses should be reported to your provider. Cardiac patients should weigh daily and notify their provider for a weight gain of 3 pounds per day or 5 pounds per week. 6. Tobacco Avoidance: Follow recommendations below 7. Because the medications used could procedure some residual nausea and vomiting after you go home,you should eat lightly today, starting with clear liquids (broth, soft drinks, apple juice, jello) and toast or crackers, progressing to bland solid foods and then to your normal diet as tolerated, unle ss otherwise stated by your surgeon. If you get sick, wait a couple of hours and then begin to eat. After 24 hours the nausea should be gone. 8. You may experience some pain and your physician will advise you on what to take for discomfort. This should be taken as directed. If the pain is not relieved, contact your physician. You may alsohave a sore throat from the airway that was in place. You may uses lozenges, throat spray (such as C hloraseptic), or warm salt water gargles for symptomatic relief. 9. If you feel warm, take your temperature. If it is 101 degrees or above call your physician. 10. If you are unable to urinate within five hours after your procedure, call your physician. 11. The type of surgery performed will determine how much bleeding (if any) to expect. Normally, some spotting might occur. If your dressing pad becomes saturated, notify your physician. Elevate surgical site, if applicable, to reduced swelling and pain. 12. Wound/dressing care: Tips on preventing a surgical site infection.. Dont smoke. It is best to quit at least 30 days before surgery, but quitting after surgery is also helpful. If you are diabetic, keep your blood sugar well controlled. WASH YOUR HANDS. Keep your wound clean and remember to wash your hands before and after contact with the area. All health care workers should also wash their hands or use an alcohol based hand rub prior to examining you. If antibiotics are prescribed, take them as directed. Finish the entire course of antibiotics. Call your doctor if you have signs of infection: ? Increased tenderness at the surgical site ? Red streaks or increased redness of the area ? Bad-smelling discharge from the incision ? Fever of 101F or higher ? General tired feeling that doesnt improve 13. Other discharge instructions: {DC IP DISCHARGE INSTRUCTIONS OTHER:17510} 14. Special Instructions: Take Home Medications These are medications ordered for you by your healthcare provider. Do not take any other medications or supplements unless advised by your healthcare provider. Current Discharge Medication List START taking these medications Details ferrous sulfate 325 mg (65 mg iron) tablet Take 1 tablet by mouth 3 (three) times daily with meals for 30 days. Qty: 90 tablet, Refills: 0 Associated Diagnoses: Iron deficiency vitamin B-12 1,000 mcg tablet Take 1 tablet by mouth daily for 30 days. Qty: 30 tablet, Refills: 0 Associated Diagnoses: Vitamin B12 deficiency STOP taking these medications Dexlansoprazole (DEXILANT) 60 mg capsule Comments: Reason for Stopping: Follow-up appointments: Your follow up appointment with your surgeon has been made. Appointment Date: , Appointment Time . For questions regarding follow-up instructions call the [employer] Hotline at or If you experience any of the following symptoms , please follow up with . For worsening symptoms/changing condition/problems or questions: Non-emergency/urgent: Call the [employer]line at or or Emergency: Go to the closest emergency room or call 604 Translated by Date Time If you receive the patient satisfaction survey by mail please complete and return and let us know how we are doing. TOBACCO AVOIDANCE Exposure to tobacco either from smoking or from second hand (environmental) smoke or smokeless tobacco (snuff) is damaging to your health. This information is to encourage everyone to avoid tobacco exposure. It is recommended that you: ? If you smoke or use smokeless tobacco, we encourage you to quit. ? If you have already quit smoking, continue your good work! ? If you do not smoke or use smokeless tobacco, do not start. ? Avoid secondhand smoke. Additional Resources You may want to contact these organizations for further information on smoking and how to quit. [place] [employer], http://www.lungusa.org/stop-smoking/ [place] [employer], http://www.cancer.org/Healthy/StayAwayfromTobacco/index [place] [employer], http://www.heart.org/HEARTORG/GettingHealthy/QuitSmoking/Quit-Smoking_[facility] _001085_SubHomePage.jsp AttachmentsThe following attachments cannot be sent through Care Everywhere. Chest Pain, Noncardiac (Palestinian)Iron tablets, capsules, extended-release tablets (Palestinian)Vitamin B12 oral (Palestinian)documented in this encounter Progress Notes Rocio Mata RN - 11/25/2019 10:50 AM CDTAny issues or concerns with obtaining/affording your medications at home: no. Are you or your support system able to sisal picker medications at discharge: yes. Describe: Pt will be able to sisal picker medications. JIMMY Landaverde, RN, [facility] Outpatient Computer Network Support SpecialistCasting And Locker Room ServicerPending Sale To [facility] O: [phone] M: [phone] Rocio Connelly RN - 11/25/2019 9:00 AM CDTHave you or family you live with or family that is with you here in the hospital had: ? Recent history of travel to a high-risk area: no (example [place], [place]) ? Recent sick contacts before or during admission: no ? Contact with a proven COVID-19 case: no ? Symptoms: fever, dry cough, fatigue, difficulty breathing: no ? Attended recent events with a gatherings of > 10 people: no Do you have at least 30 days of all your medications available? yes Do you have My Chart set up? no Patient notified that they may be receiving a call regarding a follow-up visit after discharge. Yes;patient's PCP is outside of [facility]. Visitor policy was reviewed with patient/family. yes Due to the no visitor policy is there anyone you would like to list that needs to be updated regarding your care and plan for discharge. No. JIMMY Landaverde, RN, [facility] Outpatient Computer Network Support SpecialistCasting And Locker Room ServicerPending Sale To [facility] O: [phone] M: [phone] TCElmo gaytan MD - 11/25/2019 8:33 AM CDT [facility] Cardiology progress note Date of Service: 11/25/2019 Treasure Varela is a 59 years old female hospitalized for chest pain. Still has right sided chest pain 11/27. NTG paste helped some but it was removed due to headache. PHYSICAL EXAM Vitals: 11/24/19200111/24/19 2325 11/25/19 0429 11/25/19 0800 BP: 109/74 124/80 (!) 145/84 127/90 Pulse: 67 64 69 63 Resp: 20 18 16 18 Temp: 36.1 C (97 F) 36.2 C (97.2 F) 36.6 C (97.9 F) 36.7 C (98.1 F) TempSrc: Temporal Artery Temporal Artery Temporal Artery Tympanic SpO2: 96% 97% 94% 97% Weight: Height: General: alert and oriented x 3 (person, place and date/time); no apparent distress HEENT: normocephalic atraumatic Neck: supple, no lymphadenopathy, no bruits, no JVD Lungs: clear to auscultation bilaterally Cardio: S1, S2, normal rate, regular; no murmurs, rubs or gallops Abdomen: non-distended : not examined Rectal: not examined Extremities: no clubbing, cyanosis, or edema Skin: no rashes Neuro: no focal deficits Medications: I have reviewed the patient's medications; see Medication Reconciliation. Labs: I have reviewed the patient's labs. ASSESSMENT AND PLAN Principal Problem: Other chest pain Active Problems: Family history of coronary artery disease Other hyperlipidemia Chest pain Risk factors of age, HLD and family history. Chest pain is atypical--constant for 2-3 days with normal EKG and troponin. ECHO showed normal LVEF and wall motion. Will get a treadmill nuclear stress test to assess ischemia today. Avoid caffeine. NPO. Elmo Bey MD, FAC, LAZARO Diffusion Furnace Operator, Division of Cardiology [facility] documented in this encounter Plan of Treatment Name Type Priority Associated Diagnoses Date/Ti me NM MYOCARDIUM PERFUSION IMAGING Routine Chest pain, unspe cified 11/25/2019 11:11 AM STRESS AND REST type CDT Name Type Priority Associated Diagnoses Order S chedule NM MYOCARDIUM IMAGING Routine Chest pain, unspecified ONC E for 1 Occurrences PERFUSION STRESS AND type startin g 11/25/2019 REST until 0 Health Maintenance Due Date Last Done Comments HEPATITIS C (HCV) SCREEN 1960 DTaP,Tdap,and Td Vaccines (1 - 11/06/1971 Tdap) PAP SMEAR 1981 Breast Cancer Screening 2000 (MAMMOGRAM) COLONOSCOPY 2010 Zoster Recombinant Vaccine 2010 (SHINGRIX) (1 of 2) LUNG CANCER SCREEN: Recommended 11/06/2015 for age 55-80 with 30 + pack year history INFLUENZA VACCINE (#1) 2019 PNEUMOCOCCAL 0-64 YEARS COMBINED Aged Out No longer eligible based on SERIES patient's age to complete this topic documented as of this encounter Procedures Procedure Name Priority Date/Time Associated Comments Diagnosis TROPONIN I Routine 11/25/2019 4:33 Results for this AM CDT procedure are i n the results section. VITAMIN B12, LEVEL Routine 11/24/2019 5:57 Resul ts for this PM CDT procedure are i n the results section. VITAMIN D, 25-OH Routine 11/24/2019 5:56 Results for this PM CDT procedure are i n the results section. IRON PANEL Routine 11/24/2019 5:56 Results for this PM CDT procedure are i n the results section. TROPONIN I Routine 11/24/2019 5:56 Results for this PM CDT procedure are i n the results section. ECHO ROUTINE Routine 11/24/2019 1:54 Chest pain, W/DOPPLER COLOR PM CDT unspecified type CORONAVIRUS COVID-19 STAT 11/24/2019 11:40 Chest pain, Res ults for this TESTING AM CDT unspecified type procedure a re in the results section. XR CHEST 1 VW STAT 11/24/2019 11:38 Chest pain, Results fo r this AM CDT unspecified type procedure a re in the results section. CBC WITH STAT 11/24/2019 11:11 Chest pain, Results for this DIFFERENTIAL AM CDT unspecified type procedure a re in the results section. N-TERMINAL PRO-BNP STAT Add-On 11/24/2019 11:11 Chest pain, Resul ts for this AM CDT unspecified type procedure a re in the results section. ACTIVATED PARTIAL STAT 11/24/2019 11:11 Chest pain, Result s for this THRMPLAS MARIELA AM CDT unspecified type procedure a re in the results section. PROTHROMBIN TIME / STAT 11/24/2019 11:11 Chest pain, Resul ts for this INR AM CDT unspecified type procedure a re in the results section. CBC WITH Routine 11/24/2019 11:11 Chest pain, Results for this DIFFERENTIAL AM CDT unspecified type procedure a re in the results section. LIPID PANEL Add-on 11/24/2019 11:11 Results for this (93915)(TOTAL AM CDT procedure are in CHOLESTEROL, the results TRIGLYCERIDES, HDL) section. COMP. METABOLIC STAT 11/24/2019 11:11 Chest pain, Results for this PANEL (68084) AM CDT unspecified type procedure are in the results section. THYROID STIMULATING Add-on 11/24/2019 11:11 Resu lts for this HORMONE AM CDT procedure are i n the results section. TROPONIN I STAT 11/24/2019 11:11 Chest pain, Results for this AM CDT unspecified type procedure a re in the results section. FERRITIN SERUM Add-on 11/24/2019 11:11 Results f or this AM CDT procedure are i n the results section. MAGNESIUM STAT Add-On 11/24/2019 11:11 Chest pain, Results for this AM CDT unspecified type procedure a re in the results section. LIPASE STAT 11/24/2019 11:11 Chest pain, Results for this AM CDT unspecified type procedure a re in the results section. EKG-12 LEAD STAT 11/24/2019 11:01 AM CDT documented in this encounter Results Troponin I (11/25/2019 4:33 AM CDT) Pathologist Sig nature TROPONIN I 0.005 <=0.034 ng/mL [facility] Specimen Blood - ARM, RIGHT Narrative Performed At Equal or Less than 0.034 ng/ml---Normal [facility] Note: Cardiac troponin begins to rise 3-4 hours after the onset of ischemia. Repeat in 4-6 hours if the sample was drawn within 3-4 hours of the onset of the symptom and found normal. Between 0.035 and 0.120 ng/mL--- Borderline. Questionable myocardial injury or necros is Note: Serial measurement may be necessary to confirm or exclude the diagnosis of myocardial injury or necrosis; Clinical correlation (symptoms, EKGs, imaging studies, and others) required; Repeat in 4-6 hours if clinically indicated. Equal or Higher than 0.121 ng/mL---Abnormal. Myocardial Injury or Necrosis Likely Biotin has been reported to cause a negative bias, interpret results relative to patient's use of biotin. Performing Organization Address [facility] Phone Number [facility] CLIA: [id number], [address] [place], [place] [address] [facility] [address] VITAMIN B12, LEVEL (11/24/2019 5:57 PM CDT) Pathologist Sig nature VIT B12 171 (L) 240 - 930 pg/mL [facility] Specimen Blood - ARM, RIGHT Narrative Performed At Biotin has been reported to cause a positive bias, int erpret [facility] results relative to patient's use of biotin. Performing Organization Address [facility] Phone Number [facility] CLIA: [id number], [address] [place] [address] [address] [facility] VITAMIN D, 25-OH (11/24/2019 5:56 PM CDT) Pathologist Sig nature VIT D 25OH 25 25 - 80 ng/mL [facility] Specimen Blood - ARM, RIGHT Narrative Performed At Deficiency: <20 ng/mL [facility] Insufficiency: 20-24 ng/mL Optimal: 25-80 ng/mL Performing Organization Address City/[facility] Phone Number [facility] CLIA: [id number], [address] [place] [address] [address] [facility] IRON PANEL (11/24/2019 5:56 PM CDT) Pathologist Sig nature IRON 41 (L) 50 - 160 ug/dL [facility] TIBC 386 250 - 410 ug/dL [facility] % FE SAT 11 (L) 20 - 50 % [facility] Specimen Blood - ARM, RIGHT Performing Organization Address [facility] Phone Number [facility] CLIA: [id number], [address] [place] [address] Troponin I (11/24/2019 5:56 PM CDT) Pathologist Sig nature TROPONIN I 0.003 <=0.034 ng/mL [facility] Specimen Blood - ARM, RIGHT Narrative Performed At Equal or Less than 0.034 ng/ml---Normal [facility] Note: Cardiac troponin begins to rise 3-4 hours after the onset of ischemia. Repeat in 4-6 hours if the sample was drawn within 3-4 hours of the onset of the symptom and found normal. Between 0.035 and 0.120 ng/mL--- Borderline. Questionable myocardial injury or necros is Note: Serial measurement may be necessary to confirm or exclude the diagnosis of myocardial injury or necrosis; Clinical correlation (symptoms, EKGs, imaging studies, and others) required; Repeat in 4-6 hours if clinically indicated. Equal or Higher than 0.121 ng/mL---Abnormal. Myocardial Injury or Necrosis Likely Biotin has been reported to cause a negative bias, interpret results relative to patient's use of biotin. Performing Organization Address [facility] Phone Number [facility] CLIA: [id number], [address] [place] [address] CORONAVIRUS COVID-19 TESTING (11/24/2019 11:40 AM CDT) Pathologist Sig nature SARS-CoV-2 Not Detected Not Detected [facility] Specimen Swab - NASOPHARYNGEAL SWAB Narrative Performed At ID NOW COVID-19 Assay is an isothermal nucleic [facility] LAB[facility] acid amplification test intended for the qualitative detection of nucleic acid from SARS-CoV-2 viral RNA in nasopharyngeal (ULTIMATE HOOPS REFEREE) specimens. It is used under Emergency Use Authorization (EUA) by FDA. The limit of detection (LOD) of the assay is 125 Genome Equivalents/mL. A positive result is indicative of the presence of SARS-CoV-2 RNA. Clinical correlation with patient history and other diagnostic information is necessary to determine patient infection status. A negative (Not Detected) result does not preclude SARS-CoV-2 infection and should not be used as the sole basis for patient management decisions. Invalid: Please collect a new specimen for repeat patient testing if clinically indicated. Performing Organization Address [facility]/Zipcode Phone Number [facility] CLIA: [id number], [address] [place] [address] XR CHEST 1 VW (11/24/2019 11:38 AM CDT) Specimen Narrative Performed At CHEST PORTABLE ONE VIEW PACS/VR/DOSE HISTORY:Chest pain TECHNIQUE: Frontal, portable projection of the chest is obtained. FINDINGS: The lungs are clear. The heart size and mediastinal silhouette are normal. No pleural effusion or pneum othorax is seen. CONCLUSIONS: No acute cardiopulmonary di sease. Procedure Note [facility], Radiant Results Inft User - 2019 11:58 AM CDT CHEST PORTABLE ONE VIEW HISTORY:Chest pain TECHNIQUE: Frontal, portable projection of the chest is obtained. FINDINGS: The lungs are clear. The heart size and mediastinal silhouette are normal. No pleural effusion or pneum othorax is seen. CONCLUSIONS: No acute cardiopulmonary di sease. Performing Organization Address [facility] Phone Number PACS/VR/DOSE FERRITIN SERUM (11/24/2019 11:11 AM CDT) Pathologist Sig nature FERRITIN 9.3 (L) 11.0 - 264.0 ng/mL [facility] LABORATORY Specimen Blood - VENOUS Narrative Performed At Biotin has been reported to cause a negative [facility] bias, interpret results relative to patient's use of biotin. Performing Organization Address [facility]/Zipcode Phone Number [facility] CLIA: [id number], [address] [place] [address] Thyroid Stimulating Hormone (TSH) (11/24/2019 11:11 AM CDT) Pathologist Sig nature TSH 5.75 (H)Comment: 0.45 - 4.70 [facility] Biotin has been mIU/L HOSPITAL LAB[facility]ATORY reported to cause a negative bias, interpret results relative to patient's use of biotin. Specimen Blood - VENOUS Performing Organization Address City/[facility] Phone Number [facility] CLIA: [id number], [address] [place] [place] [address] Lipid Panel (Total Cholesterol, Triglycerides, HDL) (11/24/2019 11:11 AM CDT) Pathologist Sig nature CHOL 222 (H) 120 - 200 mg/dL [facility] HDL 47 (L) >50 mg/dL [facility] HDLC RATIO 4.7 (H) <=4.5 [facility] TRIG 101 30 - 170 mg/dL [facility] LDL CHOL 155 <=160 mg/dL [facility] VLDL 20 5 - 60 mg/dL [facility] Specimen Blood - VENOUS Performing Organization Address [facility] Phone Number [facility] CLIA: [id number], [address] [place] [address] MAGNESIUM (11/24/2019 11:11 AM CDT) Pathologist Sig nature MAGNESIUM 2.0 1.7 - 2.4 mg/dL [facility] Specimen Blood - VENOUS Performing Organization Address [facility] Phone Number [facility] CLIA: [id number], [address] [place] [address] N-TERMINAL PRO-BNP (11/24/2019 11:11 AM CDT) Pathologist Sig nature NT-proBNP 182 (H) <=125 pg/mL [facility] Specimen Blood - VENOUS Narrative Performed At Biotin has been reported to cause a negative [facility] bias, interpret results relative to patient's use of biotin. Performing Organization Address [facility] Phone Number [facility] CLIA: [id number], [address] [place] [address] CBC WITH DIFFERENTIAL (11/24/2019 11:11 AM CDT) Pathologist Sig nature WBC 5.88 4.30 - 11.10 [facility] 10*3/L [facility] RBC 3.99 3.93 - 5.25 [facility] 10*6/L [facility] HGB 11.7 11.6 - 15.0 g/dL [facility] HCT 35.9 35.7 - 45.2 % [facility] MCV 90.0 80.6 - 95.5 fL [facility] MCH 29.3 25.9 - 32.8 pg [facility] MCHC 32.6 31.6 - 35.1 g/dL [facility] RDW-SD 43.3 39.0 - 49.9 fL [facility] RDW-CV 13.1 12.0 - 15.5 % [facility] PLT 301 166 - 358 [facility] 10*3/L [facility] MPV 10.4 9.5 - 12.9 fL [facility] NRBC/100 WBC 0.0 0.0 - 10.0 /100 [facility] WBCs [facility] NRBC x10^3 <0.01 10*3/L [facility] GRAN MAT (NEUT) % 62.2 % [facility] IMM GRAN % 0.20 % [facility] LYMPH % 27.0 % [facility] MONO % 7.7 % [facility] EOS % 2.0 % [facility] BASO % 0.9 % [facility] GRAN MAT x10^3(ANC) 3.66 1.88 - 7.09 [facility] 10*3/uL [facility] IMM GRAN x10^3 <0.03 0.00 - 0.06 [facility] 10*3/uL [facility] LYMPH x10^3 1.59 1.32 - 3.29 [facility] 10*3/uL [facility] MONO x10^3 0.45 0.33 - 0.92 [facility] 10*3/uL [facility] EOS x10^3 0.12 0.03 - 0.39 [facility] 10*3/uL [facility] BASO x10^3 0.05 0.01 - 0.07 [facility] 10*3/uL [facility] Specimen Blood - VENOUS Performing Organization Address City/State/Zipcode Phone Number [facility] CLIA: [id number], [address], [place] [address] LIPASE, SERUM (11/24/2019 11:11 AM CDT) Pathologist Sig alka LIPASE 61 0 - 220 U/L [facility] Specimen Blood - VENOUS Performing Organization Address City/State/Zipcode Phone Number [facility] CLIA: [id number], [address], [place] [address] COMP. METABOLIC PANEL ([id number]) (11/24/2019 11:11 AM CDT) Pathologist Sig alka NA 140 135 - 145 mmol/L [facility] K 4.1 3.5 - 5.0 mmol/L [facility] CL 104 98 - 108 mmol/L [facility] CO2 TOTAL 30 23 - 31 mmol/L [facility] AGAP 6 2 - 16 [facility] BUN 11 7 - 23 mg/dL [facility] GLUCOSE 99 70 - 110 mg/dL [facility] CREATININE 0.72 0.50 - 1.04 [facility] mg/[facility] LABORATORY TOTAL BILI 0.3 0.1 - 1.1 mg/dL [facility] CALCIUM 9.3 8.6 - 10.6 mg/dL [facility] T PROTEIN 7.1 6.3 - 8.2 g/dL [facility] ALBUMIN 4.3 3.5 - 5.0 g/dL [facility] ALK PHOS 63 34 - 122 U/L [facility] ALTv 11 5 - 35 U/L [facility] AST(SGOT) 22 13 - 40 U/L [facility] eGFR Calculation 82.9 mL/min/1.73m2 [facility] (Non-) [facility] Y eGFR Calculation 100.5 mL/min/1.73m2 [facility] () [facility] Specimen Blood - VENOUS Narrative Performed At Association of Glomerular Filtration Rate (GFR) [facility] and Staging of Kidney Disease* + + +- + | GFR (mL/min/1.73 m2) | With Kidney Damage | Without Kidney Damage + + +- + | >90 | Stage one | Normal + + +- + | 60-89 | Stage two | Decreased GFR + + +- + | 30-59 | Stage three | Stage three + + +- + | 15-29 | Stage four | Stage four + + +- + | <15 (or dialysis) | Stage five | Stage five + + +- + *Each stage assumes the associated GFR level has been in effect for at least three months. Stages 1 to 5, with or without kidney disease, indicate chronic kidney disease. Notes: Determination of stages one and two (with eGFR >59mL/min/1.73 m2) requires estimation of kidney damage for at least three months as defined by structural or functional abnormalities of the kidney, manifested by either: Pathological abnormalities or Markers of kidney damage (including abnormalities in the composition of the blood or urine or abnormalities in imaging tests). Performing Organization Address [facility] Phone Number [facility] CLIA: [id number], [address] [place] [address] PROTHROMBIN TIME / INR (11/24/2019 11:11 AM CDT) [facility] PROTIME PATIENT 13.4 12.0 - 14.7 [facility] LABORATORY INR 1.1Comment: Normal [facility] INR <1.1; [facility] Therapeutic range LABORATORY 2.0 to 3.0 or 2.5 to 3.5, depending upon the indications. Specimen Blood - VENOUS Performing Organization Address [facility] Phone Number [facility] CLIA: [id number], [address] [place] [address] aPTT (11/24/2019 11:11 AM CDT) [facility] nature APTT Patient 24 23 - 38 Seconds [facility] Specimen Blood - VENOUS Narrative Performed At The [facility] patient population mean normal value [facility] for aPTT is 30 seconds. Performing Organization Address [facility] Phone Number [facility] CLIA: [id number], [address] [place] [address] TROPONIN I (11/24/2019 11:11 AM CDT) [facility] TROPONIN I 0.003 <=0.034 ng/mL [facility] Specimen Blood - VENOUS Narrative Performed At Equal or Less than 0.034 ng/ml---Normal [facility] Note: Cardiac troponin begins to rise 3-4 hours after the onset of ischemia. Repeat in 4-6 hours if the sample was drawn within 3-4 hours of the onset of the symptom and found normal. Between 0.035 and 0.120 ng/mL--- Borderline. Questionable myocardial injury or necros is Note: Serial measurement may be necessary to confirm or exclude the diagnosis of myocardial injury or necrosis; Clinical correlation (symptoms, EKGs, imaging studies, and others) required; Repeat in 4-6 hours if clinically indicated. Equal or Higher than 0.121 ng/mL---Abnormal. Myocardial Injury or Necrosis Likely Biotin has been reported to cause a negative bias, interpret results relative to patient's use of biotin. Performing Organization Address City/State/Zipcode Phone Number [facility] CLIA: [id number], [address], [place] [address] documented in this encounter Visit Diagnoses Diagnosis Chest pain, unspecified type Vitamin B12 deficiency Other B-complex deficiencies Iron deficiency Other disorders of iron metabolism Family history of coronary artery diseas e Family history of ischemic heart disease Other hyperlipidemia documented in this encounter Administered Medications Medication Order MAR Action Action Date Dose Rate Site acetaminophen (TYLENOL) tablet Given 11/25/2019 4:33 AM CDT 500 mg 500 mg 500 mg, Oral, Q6HPRN, Starting Sun11/24/19 at 1522, Until Discontinued, Routine, Pain (scale 1-3), Temp > 38.5 C Given 11/24/2019 11:28 PM CDT 500 mg Given 11/24/2019 3:27 PM CDT 500 mg aspirin chewable tablet 81 mg Given 11/25/2019 11:59 AM CDT 81 mg 81 mg, Oral, DAILY, First dose on Sun11/25/19 at 0900, Until Discontinued, Routine oxeouegjkw-rlliytkbobumc-sflx (ESGIC) Given 11/25/2019 11:59 AM CDT 1 tablet 50-325-40 mg tablet 1 tablet 1 tablet, Oral, Q4HPRN, Starting Sun11/25/19 at 0031, Until Discontinued, Routine, migraine headache Given 11/25/2019 12:41 AM CDT 1 tablet ferrous sulfate tablet 325 mg Given 11/25/2019 12:00 PM CDT 325 mg 325 mg, Oral, TID MEALS, First dose on Sun11/25/19 at 0800, Until Discontinued, Routine nitroglycerin (NITROL) 2 % ointment 1 In ch Applied 11/24/2019 5:56 PM CDT 1 Inch 1 Inch, Transdermal (Apply To Skin), Q6HHOL, First dose on Sun11/24/19 at 1800, Until Discontinued, Routine pantoprazole (PROTONIX) EC tablet 40 mg Given 11/25/2019 11:59 AM CDT 40 mg 40 mg, Oral, DAILY, First dose on Sun11/24/19 at 1515, Until Discontinued, Routine Given 11/24/2019 3:27 PM CDT 40 mg vitamin B-12 (CYANOCOBALAMIN) tablet Given 11/25/2019 12:03 PM C DT 1,000 mcg 1,000 mcg 1,000 mcg, Oral, DAILY, First dose on Sun11/25/19 at 0900, Until Discontinued, Routine Medication Order MAR Action Action Date Dose Rate Site amiodarone 150 mg/100 mL Given 11/24/2019 12:33 PM CDT 150 mg (NEXTERONE) RTU infusion 150 mg 150 mg, IV Piggyback, ONCE, 1 dose, Sun11/24/19 at 1330 famotidine (PEPCID (PF)) injection 20 mg Given 11/24/2019 11:24 AM CDT 20 mg 20 mg, Slow IV Push, ONCE, 1 dose, Sun11/24/19 at 1215, СВЕТЛАНА ketorolac (TORADOL) injection 30 mg Given 11/24/2019 11:38 AM CDT 30 mg 30 mg, Slow IV Push, ONCE, 1 dose, Sun11/24/19 at 1215, СВЕТЛАНА, food service team member approving Restricted medication: BAHMAN VIERAx:diphenhydrAMINE:lidocaine 2 % viscous Given 01/2020 11:23 AM CDT 15 mL 1:1:1 (FIRST-MOUTHWASH BLM) oral suspension 15 mL 15 mL, Oral, ONCE, 1 dose, Sun11/24/19 at 1215, Routine metoprolol tartrate (LOPRESSOR) tablet 12.5 Given 01/2020 3:27 PM CDT 12.5 mg mg 12.5 mg, Oral, BID, First dose on 11/24/19 at 1330, Until Discontinued, Routine NaCl 0.9% (NS) bolus infusion New Bag 11/24/2019 11:29 AM CDT 1,000 mL 999 mL/hr 1,000 mL at 999 mL/hr, 1,000 mL, IV Infusion, ONCE, 1 dose, 11/24/19 at 1215, STAT tc 99m-tetrofosmin (MYOVIEW) Given 11/25/2019 8:15 AM CDT 16.5 millicuries injection 16.5 millicurie 16.5 millicurie, Intravenous, ONCE, 1 dose, 11/25/19 at 0815, Routine tc 99m-tetrofosmin (MYOVIEW) Given 11/25/2019 10:29 AM CDT 43.8 millicuries injection 43.8 millicurie 43.8 millicurie, Intravenous, ONCE, 1 dose, 11/25/19 at 1045, Routine documented in this encounter Insurance Payer Benefit Plan Subscriber ID Effective Dates Phone Address Type / Group [facility] [address] [id number] 2017-Brenda [phone] [address] PPO/POS [place] [employer] t 7 [id number] [place] [address] ([place]) [place] [address] documented as of this encounter
--- OUTSIDE RECORDS SUMMARY | 2020-01-21 12:47 | XMS REPORT | Summary of Care ---
:1960 Author Organization [facility] Address [address] [place] [address] Care Team Providers Name Role Phone Pcp, Patient Does Not Have A Insurance Hmo [phone] Paula Moreland Primary Care Provider Reason for Visit Reason Comments Appointment 4-6 wk cardio hfu Encounter Details Date Type Department Care Team Description 12/03/2019 Telephone [facility] An M D Appointment (4-6 wk Cardiology- [address] cardio hfu ) [address] [place], [place] [id number] [phone] Allergies No Known Allergiesdocumented as of this encounter (statuses as of 12/04/2019) Medications Medication Sig Dispensed Refills Start Date End Date Status vitamin B-12 1,000 Take 1 tablet by 30 tablet 0 11/25/201902/2020 Active mcg mouth daily for tabletIndications: 30 days. Vitamin B12 deficiency ferrous sulfate 325 Take 1 tablet by 90 tablet 0 11/25/2019 Active mg (65 mg iron) mouth 3 (three) tabletIndications: times daily with Iron deficiency meals for 30 days. documented as of this encounter (statuses as of 12/04/2019) Active Problems Problem Noted Date Other chest pain 11/24/2019 Family history of coronary artery disease 11/24/2019 Other hyperlipidemia 11/24/2019 Chest pain 11/24/2019 documented as of this encounter (statuses as of 12/04/2019) Resolved Problems Problem Noted Date Resolved Date V-tach 11/24/2019 11/24/2019 documented as of this encounter (statuses as of 12/04/2019) Social History Tobacco Use Types Packs/Day Years Used Date Former Smoker Smokeless Tobacco: Never Used Sex Assigned at Date Recorded Not on file Job Start Date Occupation Industry Not on file Not on file Not on file Travel History Travel Start Travel End No recent travel history available. documented as of this encounter Last Filed Vital Signs Not on filedocumented in this encounter Plan of Treatment Health Maintenance Due Date Last Done Comments [...] this topic documented as of this encounter Results Not on filedocumented in this encounter Insurance Payer Benefit Plan Subscriber ID Effective Dates Phone Address Type / Group [facility] [id number] 2017-Brenda [phone] [address] PPO/POS [place] [place] [employer] t 7 [id number] [place] [address] documented as of this encounter
--- NOTE | 2020-01-21 13:25 | RAD REPORT ---
EXAM DESCRIPTION: CT - Head Brain Wo Cont - 01/21/2020 12:51 pm CLINICAL HISTORY: DIZZINESS COMPARISON: Head Brain Wo Cont dated 03/14/2019 TECHNIQUE: Axial 5 mm thick images of the head were obtained without IV contrast. All CT scans are performed using dose optimization technique as appropriate and may include automated exposure control or mA/KV adjustment according to patient size. FINDINGS: No intracranial hemorrhage, mass, edema or shift of mid-line structures. No acute infarcti on changes seen. No abnormal extra-axial fluid collections. Ventricles are normal. Mastoid air cells and visualized portions of the paranasal sinuses are clear. No acute bony findings. No significant change from comparison. IMPRESSION: Negative non-contrast CT head examination.
--- NOTE | 2020-01-21 13:34 | RAD REPORT ---
EXAM DESCRIPTION: RAD - Chest Single View - 01/21/2020 12:54 pm CLINICAL HISTORY: CHEST PAIN COMPARISON: November 2011 TECHNIQUE: AP portable chest image was obtained 01/21/2020 12:54 pm . FINDINGS: Lung volumes are reduced compared to prior imaging but clear of focal abnormality. Interst itial pattern not clearly different from the comparison. Heart and vasculature are normal. No measura ble pleural effusion and no pneumothorax. No acute bony abnormality seen. No acute aortic findings pryor spected. IMPRESSION: No acute cardiopulmonary process. No suspicious interval change.
[2020-01-21] MEDS ORDERED: POTASSIUM CL SA 10 MEQ TAB PO ONE (13:53)
[2020-01-21] MEDS ORDERED: DIAZEPAM 5 MG TABLET ONE (13:59)
[2020-01-21] MEDS ORDERED: DIAZEPAM 10 MG/2 ML INJ SYRINGE ONE (14:05)
--- NOTE | 2020-01-21 15:53 | EDPHYS ---
Physician Documentation [facility] Name: Treasure Varela Age: 59 yrs Sex: Female : 1960 Arrival Date: 01/21/2020 Time: 11:47 Bed 8 Private MD: ED Physician Julien Saleh HPI: 01/20 18:30 This 59 yrs old Female presents to ER via EMS with complaints of Chest Pain, kdr Nausea/Vomiting. 18:30 The patient or guardian reports chest pain that is located primarily in the anterior kdr chest wall. Onset: suddenly, just prior to arrival. The pain does not radiate. Associated signs and symptoms: Pertinent positives: dizziness, The patient states that she became acutely dizzy and then began to have chest pain. She had a similar episode a few weeks ago and was seen at [facility]. After cardiac w/u, she was released. The chest pain is described as aching, burning. Duration: The patient or guardian reports a single episode, that is still ongoing, and unchanged. Severity of pain: At its worst the pain was moderate severe incapacitating in the emergency department the pain is unchanged. The patient has experienced similar episodes in the past, a few times. The patient has been recently seen by a physician: [facility] for similar problem. Historical: - Allergies: 12:03 No Known Allergies; sv - PMHx: 12:03 GERD; LOW POTASSIUM; sv - Immunization history:: Adult Immunizations unknown. - Social history:: Smoking status: . ROS: 18:30 Constitutional: Negative for fever, chills, and weight loss, Eyes: Negative for injury, kdr pain, redness, and discharge, ENT: Negative for injury, pain, and discharge, Neck: Negative for injury, pain, and swelling, Respiratory: Negative for shortness of breath, cough, wheezing, and pleuritic chest pain, Abdomen/GI: Negative for abdominal pain, nausea, vomiting, diarrhea, and constipation, Back: Negative for injury and pain, : Negative for injury, bleeding, discharge, and swelling, MS/Extremity: Negative for injury and deformity, Skin: Negative for injury, rash, and discoloration, Psych: Negative for depression, anxiety, suicide ideation, homicidal ideation, and hallucinations, Allergy/Immunology: Negative for hives, rash, and allergies, Endocrine: Negative for neck swelling, polydipsia, polyuria, polyphagia, and marked weight changes, Hematologic/Lymphatic: Negative for swollen nodes, abnormal bleeding, and unusual bruising. 18:30 Cardiovascular: Positive for chest pain, Negative for edema, orthopnea, palpitations, paroxysmal nocturnal dyspnea. 18:30 Neuro: Positive for dizziness, headache, Negative for altered mental status, numbness, seizure activity, speech changes, syncope, near syncope, visual changes, weakness. Exam: 18:30 Constitutional: This is a well developed, well nourished patient who is awake, alert, kdr and in moderate distress. Head/Face: Normocephalic, atraumatic. Eyes: Pupils equal round and reactive to light, extra-ocular motions intact. Lids and lashes normal. Conjunctiva and sclera are non-icteric and not injected. Cornea within normal limits. Periorbital areas with no swelling, redness, or edema. Neck: Trachea midline, no thyromegaly or masses palpated, and no cervical lymphadenopathy. Supple, full range of motion without nuchal rigidity, or vertebral point tenderness. No Meningismus. Chest/axilla: Normal chest wall appearance and motion. Nontender with no deformity. No lesions are appreciated. Cardiovascular: Regular rate and rhythm with a normal S1 and S2. No gallops, murmurs, or rubs. Normal PMI, no JVD. No pulse deficits. Respiratory: Lungs have equal breath sounds bilaterally, clear to auscultation and percussion. No rales, rhonchi or wheezes noted. No increased work of breathing, no retractions or nasal flaring. Abdomen/GI: Soft, non-tender, with normal bowel sounds. No distension or tympany. No guarding or rebound. No evidence of tenderness throughout. Back: No spinal tenderness. No costovertebral tenderness. Full range of motion. Skin: Warm, dry with normal turgor. Normal color with no rashes, no lesions, and no evidence of cellulitis. MS/ Extremity: Pulses equal, no cyanosis. Neurovascular intact. Full, normal range of motion. Neuro: Awake and alert, GCS 15, oriented to person, place, time, and situation. Cranial nerves II-XII grossly intact. Motor strength 5/5 in all extremities. Sensory grossly intact. Cerebellar exam normal. Normal gait. Psych: Awake, alert, with orientation to person, place and time. Behavior, mood, and affect are within normal limits. Vital Signs: 12:03 BP 138 / 73; Pulse 73; Resp 28; Pulse Ox 98% ; sv 13:01 BP 111 / 69; Pulse 54; Resp 19; Pulse Ox 97% on R/A; tw2 14:00 BP 122 / 73; Pulse 56; Resp 16; Pulse Ox 100% ; jl7 15:00 BP 119 / 76; Pulse 57; Resp 16; Pulse Ox 100% ; jl7 15:45 BP 118 / 71; Pulse 58; Resp 17; Pulse Ox 100% ; jl7 MDM: 15:51 Patient medically screened. kdr 18:35 Differential diagnosis: acute myocardial infarction, anxiety, coronary artery disease kdr esophagitis, gastritis. Data reviewed: vital signs, nurses notes, lab test result(s), EKG, radiologic studies. Counseling: I had a detailed discussion with the patient and/or guardian regarding: the historical points, exam findings, and any diagnostic results supporting the discharge/admit diagnosis, lab results, radiology results, the need for outpatient follow up. 01/20 12:01 Order name: Basic Metabolic Panel [facility] 01/20 12:01 Order name: CBC with Diff; Complete Time: 13:17 [facility] 01/20 12:01 Order name: LFT's; Complete Time: 13:17 [facility] 01/20 12:01 Order name: Magnesium; Complete Time: 13:17 [facility] 01/20 12:01 Order name: NT PRO-BNP; Complete Time: 13:17 [facility] 01/20 12:01 Order name: PT-INR; Complete Time: 13:17 [facility] 01/20 12:01 Order name: Troponin (emerg Dept Use Only); Complete Time: 13:17 [facility] 01/20 12:01 Order name: XRAY Chest (1 view); Complete Time: 15:24 [facility] 01/20 12:02 Order name: Basic Metabolic Panel; Complete Time: 13:17 EDMS 01/20 12:30 Order name: CT Head Brain wo Cont; Complete Time: 15:24 kdr 01/20 12:01 Order name: EKG; Complete Time: 12:02 [facility] 01/20 12:01 Order name: Cardiac monitoring; Complete Time: 12:08 [facility] 01/20 12:01 Order name: EKG - Nurse/Tech; Complete Time: 12:07 jl7 01/20 12:01 Order name: IV Saline Lock; Complete Time: 12: 7 01/20 12:01 Order name: Labs collected and sent; Complete Time: 12: 7 01/20 12:01 Order name: O2 Per Protocol; Complete Time: 12:07 7 01/20 12:01 Order name: O2 Sat Monitoring; Complete Time: 12: jl7 Administered Medications: 12:10 Drug: Zofran (Ondansetron) 4 mg Route: IVP; Site: right antecubital; jl7 12:26 Follow up: Response: No adverse reaction; Nausea is decreased jl7 12:10 Drug: Aspirin Chewable Tablet 324 mg Route: PO; jl7 12:27 Follow up: Response: No adverse reaction jl7 12:15 Drug: morphine 4 mg Route: IVP; Site: right antecubital; jl7 12:26 Follow up: Response: No adverse reaction; Pain is decreased jl7 12:42 Drug: Antivert 25 mg Route: PO; jl7 13:45 Follow up: Response: No adverse reaction; No change in condition jl7 13:50 Drug: Zofran (Ondansetron) 4 mg Route: IVP; Site: right antecubital; aa5 13:55 Follow up: Response: No adverse reaction aa5 13:56 Drug: Valium 5 mg Route: IVP; Site: right antecubital; aa5 14:05 Follow up: Pt's O2 sat decreased to 74% RA. Placed on 02 via NC at 4L aa5 14:05 Not Given (changed to IV ): Valium 5 mg PO once aa5 14:06 CANCELLED (Physician Discretion): Valium 5 mg IVP once; VO received at 1345 aa5 15:46 Drug: Potassium Chloride 40 mEq Route: PO; jl7 16:04 Follow up: Response: No adverse reaction jl7 Disposition: 01/21/20 15:51 Discharged to Home. Impression: Chest pain, unspecified, Headache. - Condition is Stable. - Discharge Instructions: Nonspecific Chest Pain, Qbhl-dz-Vnaw, Vertigo, Iziu-mz-Irpt. - Prescriptions for Meclizine 25 mg Oral Tablet - take 1 tablet by ORAL route every 8 hours As needed; 30 tablet. - Medication Reconciliation Form, Thank You Letter form. - Follow up: Private Physician; When: 2 - 3 days; Reason: If symptoms return, Further diagnostic work-up, Recheck today's complaints, Continuance of care, Re-evaluation by your physician. - Problem is an acute exacerbation. - Symptoms have improved. Signatures: Dispatcher [employer] EDKarla Escobar RN RN Julien Rivera MD MD kdr Calderon, Audri, RN RN aa5 Rickey Ibrahim RN RN jl7 Corrections: (The following items were deleted from the chart) 14:06 14:04 Valium 5 mg IVP once; VO received at 1345 ordered. aa5 aa5 16:27 15:51 01/21/2020 15:51 Discharged to Home. Impression: Chest pain, unspecified; jl7 Headache. Condition is Stable. Forms are Medication Reconciliation Form, Thank You Letter, Antibiotic Education, Prescription Opioid Use. Follow up: Private Physician; When: 2 - 3 days; Reason: If symptoms return, Further diagnostic work-up, Recheck today's complaints, Continuance of care, Re-evaluation by your physician. Problem is an acute exacerbation. Symptoms have improved. kdr
--- NOTE | 2020-01-21 15:53 | ER ---
Nurse's Notes [facility] Name: Treasure Varela Age: 59 yrs Sex: Female : 1960 Arrival Date: 01/21/2020 Time: 11:47 Bed 8 Private MD: Diagnosis: Chest pain, unspecified;Headache Presentation: 01/20 11:50 Chief complaint: Patient states: midsternal chest pain, n/v/, head pain and right arm sv numbness. 11:50 Acuity: AMANDA 2 sv 12:02 Coronavirus screen: Proceed with normal triage. Patient denies a cough. Patient denies sv shortness of breath or difficulty breathing. Patient denies measured and/or subjective temperature greater than 100.4F prior to today's visit. Patient denies travel on a cruise ship or to a country the [facility] currently lists as an affected area. Patient denies contact with known and/or suspected case of COVID-19. Ebola Screen: No symptoms or risks identified at this time. Risk Assessment: Do you want to hurt yourself or someone else? Patient reports no desire to harm self or others. Onset of symptoms was January 21, 2020. 12:02 Method Of Arrival: EMS sv 12:30 Initial Sepsis Screen: Does the patient meet any 2 criteria? No. Patient's initial jl7 sepsis screen is negative. Does the patient have a suspected source of infection? No. Patient's initial sepsis screen is negative. 12:30 Care prior to arrival: None. jl7 Triage Assessment: 11:50 General: Appears distressed, uncomfortable, Behavior is cooperative, appropriate for sv age, restless. Pain: Complains of pain in chest Pain radiates to right arm. Neuro: Level of Consciousness is awake, alert, obeys commands, Oriented to person, place, time, situation, Moves all extremities. Respiratory: Airway is patent Respiratory effort is even, unlabored, Respiratory pattern is regular, tachypnea. GI: Reports nausea. Derm: Skin is diaphoretic. Historical: - Allergies: 12:03 No Known Allergies; sv - PMHx: 12:03 GERD; LOW POTASSIUM; sv - Immunization history:: Adult Immunizations unknown. - Social history:: Smoking status: . Screenin:00 Abuse screen: Denies threats or abuse. Denies injuries from another. Nutritional jl7 screening: No deficits noted. Tuberculosis screening: No symptoms or risk factors identified. Fall Risk IV access (20 points). Total Parikh Fall Scale indicates No Risk (0-24 pts). Assessment: 12:00 General: Appears distressed, uncomfortable, ill, Behavior is cooperative, appropriate jl7 for age, anxious. Pain: Complains of pain in chest Pain radiates to right arm Pain currently is 10 out of 10 on a pain scale. Quality of pain is described as pressure, Pain began suddenly, Is continuous. Neuro: Level of Consciousness is awake, alert, obeys commands, Oriented to person, place, time, situation, Reports dizziness. Cardiovascular: Heart tones present Rhythm is regular. Respiratory: Airway is patent Respiratory effort is even, unlabored, Respiratory pattern is symmetrical, tachypnea. Derm: Skin is pink, warm \\T\\ dry. 12:03 GI: Pt is actively vomiting undigested food. sv 13:49 Reassessment: To bedside to administer potassium PO, pt c/o nausea and unable to take aa5 potassium PO at this time. Dr. Saleh at notified and Zofran and Valium ordered. . 13:55 Reassessment: Pt unable to take Valium PO, Dr. Saleh notified, Valium changed to IVP aa5 per Dr. Saleh. Pt vomited 50cc of bile. . 14:05 Reassessment: O2 sat decreased to 74% RA, O2 sat administered via NC at 4L and O2 sat aa5 increased to 95%. Pt states dizziness improved but "feels very sleepy". Pt easy to arouse to verbal stimuli. . 15:45 Reassessment: Pt reports "I feel better." Pt ambulated to bathroom with steady gate, jl7 denies discomfort. ERD notified. Vital Signs: 12:03 BP 138 / 73; Pulse 73; Resp 28; Pulse Ox 98% ; sv 13:01 BP 111 / 69; Pulse 54; Resp 19; Pulse Ox 97% on R/A; tw2 14:00 BP 122 / 73; Pulse 56; Resp 16; Pulse Ox 100% ; jl7 15:00 BP 119 / 76; Pulse 57; Resp 16; Pulse Ox 100% ; jl7 15:45 BP 118 / 71; Pulse 58; Resp 17; Pulse Ox 100% ; jl7 ED Course: 11:47 Patient arrived in ED. ag5 11:50 Triage completed. sv 11:55 Patient has correct armband on for positive identification. Bed in low position. Call sv light in reach. groundwater monitoring technician on. Pulse ox on. NIBP on. Door closed. Head of bed elevated. 11:55 EKG done, by ED staff, reviewed by Julien Saleh MD. sv 12:00 Initial lab(s) drawn, by ri, sent to lab. Inserted saline lock: 20 gauge in right jl7 antecubital area, using aseptic technique. Blood collected. Patient maintains SpO2 saturation greater than 95% on room air. 12:03 Julien Saleh MD is Attending Physician. kdr 12:03 Arm band placed on. sv 12:07 Basic Metabolic Panel Sent. sv 12:19 Meaghan Casarez RN is Primary Nurse. tw2 12:20 Primary Nurse role handed off by Meaghan Casarez RN jl7 12:20 Rickey Ibrahim RN is Primary Nurse. jl7 12:53 CT Head Brain wo Cont In Process Unspecified. EDMS 12:58 XRAY Chest (1 view) In Process Unspecified. EDMS 16:26 No provider procedures requiring assistance completed. IV discontinued, intact, jl7 bleeding controlled, No redness/swelling at site. Pressure dressing applied. Administered Medications: 12:10 Drug: Zofran (Ondansetron) 4 mg Route: IVP; Site: right antecubital; jl7 12:26 Follow up: Response: No adverse reaction; Nausea is decreased jl7 12:10 Drug: Aspirin Chewable Tablet 324 mg Route: PO; jl7 12:27 Follow up: Response: No adverse reaction jl7 12:15 Drug: morphine 4 mg Route: IVP; Site: right antecubital; jl7 12:26 Follow up: Response: No adverse reaction; Pain is decreased jl7 12:42 Drug: Antivert 25 mg Route: PO; jl7 13:45 Follow up: Response: No adverse reaction; No change in condition jl7 13:50 Drug: Zofran (Ondansetron) 4 mg Route: IVP; Site: right antecubital; aa5 13:55 Follow up: Response: No adverse reaction aa5 13:56 Drug: Valium 5 mg Route: IVP; Site: right antecubital; aa5 14:05 Follow up: Pt's O2 sat decreased to 74% RA. Placed on 02 via NC at 4L aa5 14:05 Not Given (changed to IV ): Valium 5 mg PO once aa5 14:06 CANCELLED (Physician Discretion): Valium 5 mg IVP once; VO received at 1345 aa5 15:46 Drug: Potassium Chloride 40 mEq Route: PO; jl7 16:04 Follow up: Response: No adverse reaction jl7 Intake: Outcome: 15:51 Discharge ordered by . kdr 16:26 Discharged to home ambulatory. jl7 16:26 Condition: stable 16:26 Discharge instructions given to patient, Instructed on discharge instructions, follow up and referral plans. medication usage, Demonstrated understanding of instructions, follow-up care, medications, Prescriptions given X 1. 16:27 Patient left the ED. jl7 Signatures: Dispatcher [employer] EDMS Karla Cullen RN RN sv Rittger, Kevin, MD MD kdr Calderon, Audri, RN RN aa5 Meaghan Casarez RN RN 2 Rickey Ibrahim RN RN jl7 Janessa Navarro ag5 Corrections: (The following items were deleted from the chart) 14:14 14:11 Reassessment: To bedside to administer potassium PO, pt c/o nausea and unable to aa5 take potassium PO at this time. Dr. Saleh at notified and Zofran and Valium ordered. . aa5 14:17 13:55 Reassessment: Pt unable to take Valium PO, Dr. Saleh notified, Valium changed aa5 to IVP per Dr. Saleh. . aa5
--- NOTE | 2020-01-21 16:28 | EKG ---
Test Date: 2020-01-21 Test Time: 11:59:16 [employer] Admin: LISS MEASUREMENT RESULTS: Intervals: Rate: 80 MO: 116 QRSD: 84 QT: 392 QTc: 452 [place]: P: 53 MO: 116 QRS: 20 T: 57 INTERPRETIVE STATEMENTS: Normal sinus rhythm Normal ECG Compared to ECG 11/20/2011 09:48:07 Sinus bradycardia no longer present Electronically Signed On 01-21-20 16:27:21 CDT by Yfn Obrien
[2020-01-21 16:38] VITALS: O2SAT 100
[2020-01-21 16:40] VITALS: BP 118/71
== END 2020-01-21 16:27 | disposition home or self-care (01) ==
LOC: ER 11:45
DX: R51 Headache (principal); K21.9 Gastro-esophageal reflux disease without esophagitis
CPT/HCPCS: 93005; 85025; 80048; 36415; 83735; 85610; 80076; 84484; 83880; 70450; 71045; 96375; 96374; 99285; J3360; J2405 ×2; J8597

== ENCOUNTER 2020-11-24 15:19 | Emergency (ER) | payer BC ==
--- OUTSIDE RECORDS SUMMARY | 2020-11-24 15:21 | XMS REPORT | Continuity of Care Document ---
:1960 Author Organization [facility] t Address [address] [place] [address] Care Team Providers Name Role Phone Ava CASTRO, L Attending Clinician Unavailable Frank AMEZCUA Attending Clinician Pascual AMEZCUA Attending Clinician Juve AMEZCUA Attending Clinician Osmar DUQUE R Attending Clinician Yasir AMEZCUA Attending Clinician Pascual AMEZCUA Admitting Clinician Yasir AMEZCUA Admitting Clinician Problems This patient has no known problems. Allergies, Adverse Reactions, Alerts This patient has no known allergies or adverse reactions. Medications This patient has no known medications. Procedures This patient has no known procedures. Encounters Start End Encounter Admission Attending Care Care Encounter Source Date/Time Date/Time Type Type Clinicians Facility Department ID 2020-10-27 2020-10-27 Transition Jany Escalante [id number] 00:00:00 00:00:00 of Care Sheila Yuan [id number] Lisa [id number] 2020-10-21 2020-10-26 [facility] Johnathan Marie [facility] [id number] 19:22:00 17:05:00 Encounter Vanessa Garner [id number] [place] [id number] [place] [id number] 2019-12-03 2019-12-03 Telephone Juve [facility] [id number] 00:00:00 00:00:00 Elmo Villegas [id number] [place] [id number] [facility] [id number] nal [id number] [facility] 2019-11-24 2019-11-25 [facility] Hector Prasad [facility] [id number] 10:55:57 14:00:00 Encounter Philip Cooley [id number] [place] [id number] [place] [id number] Results This patient has no known results.
[2020-11-24] MEDS ORDERED: levoFLOXacin 500 MG TAB ONE (18:14)
[2020-11-24] MEDS ORDERED: METOCLOPRAMIDE 10 MG/2mL INJ ONE (18:14)
[2020-11-24] MEDS ORDERED: NA CHLORIDE 0.9% 1,000 ML ONE (18:14)
[2020-11-24] MEDS ORDERED: METRONIDAZOLE 500mg IVPB 500 MG/100 ML BAG IV ONE (18:14)
[2020-11-24] MEDS ORDERED: ACETAMINOPHEN 325 MG TABLET ONE (18:16)
[2020-11-24 18:21] LABS: Absolute Lymphocytes (CBC) 1.2 K/uL (0.7-4.9); Basophils % 1.3 % (0-1.3); Hematocrit 33.6 % (36.0-45.0); Lymphocytes % 25.5 % (15.3-44.8); MPV 8.7 fL (7.6-11.3); RBC Red Blood Cell Count 3.84 M/uL (3.86-4.86)
[2020-11-24 18:32] LABS: ALT/SGPT 31 U/L (12-78); AST/SGOT 19 U/L (15-37); Albumin 3.5 g/dL (3.4-5.0); Alkaline Phosphatase 84 U/L (45-117); BUN Blood Urea Nitrogen 7 mg/dL (7-18); Bicarbonate 26 mmol/L (21-32); Bilirubin Direct < 0.1 mg/dL (0-0.2); Bilirubin Total 0.2 mg/dL (0.2-1.0); Glucose Level 89 mg/dL (74-106); Lipase 99 U/L (73-393); Protein, Total 7.1 g/dL (6.4-8.2); Sodium Level 140 mmol/L (136-145)
--- NOTE | 2020-11-24 19:20 | EDPHYS ---
Physician Documentation [facility] Name: Treasure Varela Age: 60 yrs Sex: Female : 1960 Arrival Date: 11/24/2020 Time: 15:21 Bed 14 Private MD: ED Physician Daljit Mcgovern HPI: 11/24 17:42 This 60 yrs old Female presents to ER via Ambulatory with complaints of jmm Abnormal Lab Results. 17:42 The patient presents to the emergency department with nausea, vomiting, diarrhea. jmm Onset: The symptoms/episode began/occurred gradually, 6 day(s) ago. Possible causes: unknown. The symptoms are aggravated by nothing. The symptoms are alleviated by nothing. Associated signs and symptoms: Pertinent positives: abdominal pain, diarrhea, vomiting, Pertinent negatives: fever. The patient has not experienced similar symptoms in the past. outpatient ct revealed colitis. advised to go to the ED for evaluation. . Historical: - Allergies: 15:28 Zofran; ca1 - Home Meds: 15:28 Dexilant 60 mg Oral CpDB 1 cap once daily [Active]; ca1 - PMHx: 15:28 LOW POTASSIUM; GERD; ca1 - PSHx: 15:28 Tubal ligation; Appendectomy; ca1 - Immunization history:: Flu vaccine is not up to date. - Social history:: Smoking status: Patient denies any tobacco usage or history of. ROS: 17:42 Constitutional: Negative for fever, chills, and weight loss, Cardiovascular: Negative jmm for chest pain, palpitations, and edema, Respiratory: Negative for shortness of breath, cough, wheezing, and pleuritic chest pain. 17:42 Abdomen/GI: Positive for abdominal pain, nausea and vomiting, diarrhea. 17:42 All other systems are negative. Exam: 17:42 Constitutional: This is a well developed, well nourished patient who is awake, alert, jmm and in no acute distress. Head/Face: atraumatic. Eyes: EOMI, no conjunctival erythema appreciated ENT: Moist Mucus Membranes Neck: Trachea midline, Supple Chest/axilla: Normal chest wall appearance and motion. Cardiovascular: Regular rate and rhythm. No edema appreciated Respiratory: Normal respirations, no respiratory distress appreciated Abdomen/GI: Non distended, soft Back: Normal ROM Skin: General appearance color normal MS/ Extremity: Moves all extremities, no obvious deformities appreciated, no edema noted to the lower extremities Neuro: Awake and alert, normal gait Psych: Behavior is normal, Mood is normal, Patient is cooperative and pleasant Vital Signs: 15:25 BP 144 / 88; Pulse 79; Resp 18; Temp 98.1(TE); Pulse Ox 99% on R/A; Weight 68.04 kg ca1 (R); Height 5 ft. 3 in. (160.02 cm) (R); Pain 8/10; 17:49 BP 146 / 84; Pulse 72; Resp 18; Temp 99.3(TE); Pulse Ox 100% on R/A; Weight 68.04 kg; ld1 Height 5 ft. 3 in. (160.02 cm); Pain 0/10; 18:25 BP 150 / 90; Pulse 63; Resp 16; Pulse Ox 99% on R/A; ld1 19:15 BP 150 / 81; Pulse 70; Resp 18; Pulse Ox 99% on R/A; ea 17:49 Body Mass Index 26.57 (68.04 kg, 160.02 cm) ld1 MDM: 17:42 Patient medically screened. [facility] 19:18 Data reviewed: vital signs, nurses notes. Counseling: I had a detailed discussion with [facility] the patient and/or guardian regarding: the historical points, exam findings, and any diagnostic results supporting the discharge/admit diagnosis, lab results, radiology results, the need for outpatient follow up, to return to the emergency department if symptoms worsen or persist or if there are any questions or concerns that arise at home. ED course: Patient is able to tolerate PO in the ED. Advised to follow up with pcp and otherwise given strict return precautions. patient understood and agrees with the plan of care. . 11/24 17:44 Order name: Basic Metabolic Panel; Complete Time: 18:33 [facility] 11/24 17:44 Order name: CBC with Diff; Complete Time: 18:33 [facility] 11/24 17:44 Order name: Hepatic Function; Complete Time: 18:33 [facility] 11/24 17:44 Order name: Lipase; Complete Time: 18:33 [facility] 11/24 17:44 Order name: IV Saline Lock; Complete Time: 18:25 [facility] 11/24 17:44 Order name: Labs collected and sent; Complete Time: 18:25 [facility] Administered Medications: 18:22 Drug: Flagyl 500 mg Volume: 100 ml; Route: IVPB; Rate: 200 ml/hr; Infused Over: 30 ld1 mins; Site: left hand; 19:20 Follow up: Response: No adverse reaction; IV Status: Completed infusion ea 18:22 Drug: LevaQUIN 500 mg Route: PO; ld1 19:20 Follow up: Response: No adverse reaction ea 18:22 Not Given (Patient Refused): Tylenol 650 mg PO once ld1 18:23 Drug: Reglan 10 mg Route: IVP; Site: left hand; ld1 19:20 Follow up: Response: No adverse reaction ea 18:24 Drug: NS 0.9% 1000 ml Route: IV; Rate: 1 bolus; Site: left hand; ld1 19:20 Follow up: Response: No adverse reaction; IV Status: Completed infusion ea Disposition: 11/24/20 19:19 Discharged to Home. Impression: Colitis. - Condition is Stable. - Discharge Instructions: Colitis. - Prescriptions for Flagyl 500 mg Oral Tablet - take 1 tablet by ORAL route every 6 hours for 10 days; 40 tablet. Levaquin 750 mg Oral Tablet - take 1 tablet by ORAL route once daily for 10 days; 10 tablet. promethazine 25 mg Oral Tablet - take 1 tablet by ORAL route every 6 hours As needed; 20 tablet. - Medication Reconciliation Form, Thank You Letter, Antibiotic Education, Prescription Opioid Use, Work release form form. - Follow up: Private Physician; When: 2 - 3 days; Reason: Recheck today's complaints, Continuance of care, Re-evaluation by your physician. Addendum: 11/27/2020 07:07 Co-signature as Attending Physician, Daljit Mcgovern MD. r n Signatures: Dispatcher [employer] EDMS Wil Gomez PA PA jmm Nieto, Roman, MD MD rn Antunez, Elena, RN RN ea Acob, Cheryl RN Cyndi Flores RN RN ld1 Corrections: (The following items were deleted from the chart) 11/24 19:28 19:19 11/24/2020 19:19 Discharged to Home. Impression: Colitis. Condition is Stable. ea Forms are Medication Reconciliation Form, Thank You Letter, Antibiotic Education, Prescription Opioid Use. Follow up: Private Physician; When: 2 - 3 days; Reason: Recheck today's complaints, Continuance of care, Re-evaluation by your physician. silvio
--- NOTE | 2020-11-24 19:20 | ER ---
Nurse's Notes [facility] Name: Treasure Varela Age: 60 yrs Sex: Female : 1960 Arrival Date: 11/24/2020 Time: 15:21 Bed 14 Private MD: Diagnosis: Colitis Presentation: 11/24 15:25 Chief complaint: Patient states: Had CT scan done today and PCP called and said I have ca1 colitis and to come to the ER to be treated. Vomiting and diarrhea x 3 days. Denies fever. Coronavirus screen: Client denies travel out of the [place] in the last 14 days. diarrhea, nausea, vomiting. Client presents with at least one sign or symptom that may indicate coronavirus-19. Standard/surgical mask placed on the client. Provider contacted for isolation considerations. Ebola Screen: Patient negative for fever greater than or equal to 101.5 degrees Fahrenheit, and additional compatible Ebola Virus Disease symptoms Patient denies exposure to infectious person. Patient denies travel to an Ebola-affected area in the 21 days before illness onset. No symptoms or risks identified at this time. Initial Sepsis Screen: Does the patient meet any 2 criteria? No. Patient's initial sepsis screen is negative. Does the patient have a suspected source of infection? No. Patient's initial sepsis screen is negative. Risk Assessment: Do you want to hurt yourself or someone else? Patient reports no desire to harm self or others. 15:25 Method Of Arrival: Ambulatory ca1 15:25 Acuity: AMANDA 3 ca1 15:25 Onset of symptoms was November 24, 2020. ca1 Historical: - Allergies: 15:28 Zofran; ca1 - Home Meds: 15:28 Dexilant 60 mg Oral CpDB 1 cap once daily [Active]; ca1 - PMHx: 15:28 LOW POTASSIUM; GERD; ca1 - PSHx: 15:28 Tubal ligation; Appendectomy; ca1 - Immunization history:: Flu vaccine is not up to date. - Social history:: Smoking status: Patient denies any tobacco usage or history of. Screenin:49 Abuse screen: Denies threats or abuse. Denies injuries from another. Nutritional ld1 screening: No deficits noted. Tuberculosis screening: No symptoms or risk factors identified. Fall Risk IV access (20 points). Total Parikh Fall Scale indicates No Risk (0-24 pts). Assessment: 17:47 General: Appears in no apparent distress. comfortable, Behavior is calm, cooperative, ld1 appropriate for age. Pain: Denies pain. Neuro: Level of Consciousness is awake, alert, obeys commands, Oriented to person, place, time, situation. Cardiovascular: Patient's skin is warm and dry. Respiratory: Airway is patent Respiratory effort is even, unlabored, Respiratory pattern is regular, symmetrical. GI: Abdomen is round non-distended, Bowel sounds present X 4 quads. : No signs and/or symptoms were reported regarding the genitourinary system. EENT: No signs and/or symptoms were reported regarding the EENT system. Derm: No deficits noted. No signs and/or symptoms reported regarding the dermatologic system. Musculoskeletal: No deficits noted. 18:27 Reassessment: No changes from previously documented assessment. Patient and/or family ld1 updated on plan of care and expected duration. Pain level reassessed. Patient is alert, oriented x 3, equal unlabored respirations, skin warm/dry/pink. 19:26 Reassessment: Patient and/or family updated on plan of care and expected duration. Pain ea level reassessed. Patient is alert, oriented x 3, equal unlabored respirations, skin warm/dry/pink. Discharge instruction given to patient, verbalized the understanding of instruction. Pt left ED ambulatory tolerating well . Vital Signs: 15:25 BP 144 / 88; Pulse 79; Resp 18; Temp 98.1(TE); Pulse Ox 99% on R/A; Weight 68.04 kg ca1 (R); Height 5 ft. 3 in. (160.02 cm) (R); Pain 8/10; 17:49 BP 146 / 84; Pulse 72; Resp 18; Temp 99.3(TE); Pulse Ox 100% on R/A; Weight 68.04 kg; ld1 Height 5 ft. 3 in. (160.02 cm); Pain 0/10; 18:25 BP 150 / 90; Pulse 63; Resp 16; Pulse Ox 99% on R/A; ld1 19:15 BP 150 / 81; Pulse 70; Resp 18; Pulse Ox 99% on R/A; ea 17:49 Body Mass Index 26.57 (68.04 kg, 160.02 cm) ld1 ED Course: 15:21 Patient arrived in ED. as 15:27 Triage completed. ca1 15:28 Arm band placed on right wrist. ca1 17:39 Cyndi Rodriguez, RN is Primary Nurse. ld1 17:40 Wil Gomez PA is PHCP. jmm 17:40 Daljit Mcgovern MD is Attending Physician. [facility] 17:49 Patient has correct armband on for positive identification. Placed in gown. Bed in low ld1 position. Call light in reach. Side rails up X 1. 17:49 No provider procedures requiring assistance completed. ld1 18:27 Door closed. Noise minimized. Lights dimmed. Warm blanket given. ld1 19:27 IV discontinued, intact, bleeding controlled, No redness/swelling at site. Pressure ea dressing applied. Administered Medications: 18:22 Drug: Flagyl 500 mg Volume: 100 ml; Route: IVPB; Rate: 200 ml/hr; Infused Over: 30 ld1 mins; Site: left hand; 19:20 Follow up: Response: No adverse reaction; IV Status: Completed infusion ea 18:22 Drug: LevaQUIN 500 mg Route: PO; ld1 19:20 Follow up: Response: No adverse reaction ea 18:22 Not Given (Patient Refused): Tylenol 650 mg PO once ld1 18:23 Drug: Reglan 10 mg Route: IVP; Site: left hand; ld1 19:20 Follow up: Response: No adverse reaction ea 18:24 Drug: NS 0.9% 1000 ml Route: IV; Rate: 1 bolus; Site: left hand; ld1 19:20 Follow up: Response: No adverse reaction; IV Status: Completed infusion ea Outcome: 19:19 Discharge ordered by . [facility] 19:27 Discharged to home ambulatory. ea 19:27 Condition: stable 19:27 Discharge instructions given to patient, Instructed on discharge instructions, follow up and referral plans. medication usage, Demonstrated understanding of instructions, follow-up care, medications, Prescriptions given X 3. 19:28 Patient left the ED. ea Signatures: Wil Gomez PA PA jmm Martinez, Amelia as Antunez, Elena, RN RN ea Acob, Cheryl, RN RN ca1 Cyndi Rodriguez RN RN ld1
== END 2020-11-24 19:28 | disposition home or self-care (01) ==
LOC: ER 15:19
DX: K52.9 Noninfective gastroenteritis and colitis, unspecified (principal); K21.9 Gastro-esophageal reflux disease without esophagitis; Z88.8 Allergy status to other drugs, medicaments and biological substances
CPT/HCPCS: 85025; 80048; 36415; 80076; 83690; J2765; J7030; 96365; 96375; 99283

== ENCOUNTER 2021-01-14 06:26 | Day surgery (SDC) | payer BC ==
[2021-01-13 13:33] LABS: Absolute Lymphocytes (CBC) 1.8 K/uL (0.7-4.9); Basophils % 1.3 % (0-1.3); Hematocrit 32.6 % (36.0-45.0); Lymphocytes % 31.5 % (15.3-44.8); MPV 8.7 fL (7.6-11.3); RBC Red Blood Cell Count 3.74 M/uL (3.86-4.86)
[2021-01-13 13:58] LABS: Potassium 3.9 mmol/L (3.5-5.1)
--- NOTE | 2021-01-13 14:08 | RAD REPORT ---
EXAM DESCRIPTION: RAD - Chest Pa And Lat (2 Views) - 01/13/2021 1:42 pm CLINICAL HISTORY: pre op, pending colonoscopy COMPARISON: Single-view chest January 2020 TECHNIQUE: Frontal and lateral views of the chest were obtained. FINDINGS: The lungs are clear of focal abnormality. Minimally prominent interstitial pattern matche s comparison. Heart size is normal and central vasculature is within normal limits. No pleural effus ion or pneumothorax seen. No acute bony finding noted. No aortic abnormality. IMPRESSION: No acute cardiopulmonary process. No significant change from comparison study.
[2021-01-14] MEDS ORDERED: Ringers Lactate 1,000 ML IV ONE (07:09)
[2021-01-14] MEDS ORDERED: propofoL 200 MG/20 ML VIAL IV ONE ×3 (07:39→08:37)
[2021-01-14] MEDS ORDERED: GLYCOPYRROLATE 0.2 MG/ML SYR ONE (07:39)
[2021-01-14] MEDS ORDERED: LIDOCAINE 1% MPF 5 ML VIAL ONE (07:39)
[2021-01-14] MEDS ORDERED: EPINEPHRINE/PF 1 MG/ML AMP ONE (08:06)
[2021-01-14 08:22] VITALS: TEMP 98
--- NOTE | 2021-01-14 09:04 | ENDO RPT ---
[address], [address] COLONOSCOPY PROCEDURE REPORT EXAM DATE: 01/14/2021 PATIENT NAME: Treasure Varela MR #: [id number] BIRTHDATE: 1960 ATTENDING: Acosta Hoskins M.D. STATUS: outpatient GED TEACHER: Eloisa Chi RN and Arpita Jaramillo RN INDICATIONS: The patient is a 60 yr old Female here for a colonoscopy due to history of polyps, family history of colon cancer, and history of polyps PROCEDURE PERFORMED: Colonoscopy with hot biopsy polypectomy and Colonoscopy with biopsy MEDICATIONS: Per Anesthesia. ESTIMATED BLOOD LOSS: None CONSENT: The patient understands the risks and benefits of the procedure and understands that these risks include, but are not limited to: sedation, allergic reaction, infection, perforation and/or bleeding. Alternative means of evaluation and treatment include, among others: physical exam, x-rays, and/or surgical intervention. The patient elects to proceed with this endoscopic procedure. DESCRIPTION OF PROCEDURE: During intra-op preparation period all mechanical medical equipment was checked for proper function. Hand hygiene and appropriate measures for infection prevention was taken. Procedure, possible complications, alternatives including, but not limited to possibility of bleeding, perforation, tear, infection, sepsis, need for surgery, need for blood transfusion, were explained to the patient. After the risks, benefits and alternatives of the procedure were thoroughly explained, Informed consent was verified, confirmed and timeout was successfully executed by the treatment team. The patient was placed in the left lateral position. A digital rectal exam was performed and revealed external hemorrhoids. After appropriate level of anesthesia, the scope was passed. The EC-[id number] ([id number]) endoscope was introduced through the anus and advanced to the cecum, which was identified by the ileocecal valve. The quality of the prep was fair. The instrument was then slowly withdrawn as the colon was fully examined. Scope withdrawal time was 80 minutes. COLON FINDINGS: Three small smooth sessile polyps were found in the ascending colon, descending colon, and sigmoid colon. Multiple biopsies were performed. A tumor/mass was seen in the sigmoid colon and rectosigmoid colon. The most likely pathology could not be predicted by colonoscopy. Moderate diverticulosis was noted throughout the entire examined colon. Retroflexed views revealed no abnormalities. The scope was then completely withdrawn from the patient and the procedure terminated. ADVERSE EVENTS: There were no complications. IMPRESSIONS: 1. Three small sessile polyps were found in the ascending colon, descending colon, and sigmoid colon; multiple biopsies were performed 2. Tumor/mass in the sigmoid colon and rectosigmoid colon RECOMMENDATIONS: 1. follow-up: office 1 week(s) 2. Monitor for any evidence of rectal bleeding. 3. fiber rich diet 4. await biopsy results 5. fiber rich diet 6. increase dietary water 7. no seeds in diet RECALL: Return in 1 year(s) for Colonoscopy. Acosta Hoskins M.D. eSigned: Acosta Hoskins M.D. 01/14/2021 9:04 AM cc: Yan Moreland M.D. CPT CODES: ICD9 CODES: PATIENT NAME: Treasure Varela MR#: [id number]
[2021-01-14] MEDS ORDERED: PROMETHAZINE INJ 25 MG/ML AMP ONE (09:33)
[2021-01-14 09:43] VITALS: BP 142/76; O2SAT 100
--- NOTE | 2021-01-14 11:56 | EKG ---
Test Date: 2021-01-13 Test Time: 12:43:01 Machine [employer]er: TG MEASUREMENT RESULTS: Intervals: Rate: 60 HI: 124 QRSD: 86 QT: 432 QTc: 432 [place]: P: 50 HI: 124 QRS: 27 T: 32 INTERPRETIVE STATEMENTS: Normal sinus rhythm Possible Left atrial enlargement Borderline ECG Compared to ECG 01/21/2020 11:59:16 No significant changes Electronically Signed On 01-14-21 11:54:07 CDT by Yfn Obrien
--- NOTE | 2021-01-14 12:33 | RAD REPORT ---
EXAM DESCRIPTION: CTAbdomen Pelvis W Contrast - 01/14/2021 12:17 pm CLINICAL HISTORY: Abdominal pain. SIGMOID MASS COMPARISON: Abdomen Pelvis W Contrast dated 11/24/2020 TECHNIQUE: Biphasic CT imaging of the abdomen and pelvis was performed with 100 ml non-ionic IV cont rast. All CT scans are performed using dose optimization technique as appropriate and may include automated exposure control or mA/KV adjustment according to patient size. FINDINGS: The lung bases are clear. Mild fatty liver is seen with small cysts in the liver parenchyma. No aggressive liver lesion or bili anam dilatation. The spleen, pancreas, adrenal glands and kidneys are within normal limits. No bowel obstruction, free air, free fluid or abscess. Appendix is nonvisualized. There is a moderat e thickening of the rectosigmoid colon present with multiple diverticula evident. No evidence of sign ificant lymphadenopathy. No suspicious bony findings. IMPRESSION: Moderate wall thickening of the rectosigmoid colon is seen. This may be related to colit is, however correlation with recent colonoscopy would be advised.
== END 2021-01-14 12:20 | disposition home or self-care (01) ==
LOC: OR 06:26
PROVIDERS: ATTEND Surgery
PROC: 0DBN8ZX Excision of Sigmoid Colon, Via Natural or Artificial Opening Endoscopic, Diagnostic (ICD-10-PCS; 2021-01-14)
PROC: 0DBM8ZX Excision of Descending Colon, Via Natural or Artificial Opening Endoscopic, Diagnostic (ICD-10-PCS; 2021-01-14)
PROC: 0DBK8ZX Excision of Ascending Colon, Via Natural or Artificial Opening Endoscopic, Diagnostic (ICD-10-PCS; principal; 2021-01-14 07:30)
DX: D12.2 Benign neoplasm of ascending colon (principal); D12.4 Benign neoplasm of descending colon; D12.5 Benign neoplasm of sigmoid colon; Z86.010 Personal history of colon polyps; Z80.0 Family history of malignant neoplasm of digestive organs; Z83.71 Family history of colonic polyps; Z20.822 Contact with and (suspected) exposure to COVID-19; K64.4 Residual hemorrhoidal skin tags; K57.30 Diverticulosis of large intestine without perforation or abscess without bleeding
CPT/HCPCS: 93005; 85025; 80048; 36415; 88305; 82378; 74177; 71046; 45384; U0003; Q9967; J2704 ×3; J2550; J7120; J0171

== ENCOUNTER 2022-07-06 06:38 | Day surgery (SDC) | payer BC ==
[2022-07-06] MEDS ORDERED: Ringers Lactate 1,000 ML IV ONE (06:57)
[2022-07-06] MEDS ORDERED: propofoL 200 MG/20 ML VIAL IV ONE (07:21)
[2022-07-06] MEDS ORDERED: GLYCOPYRROLATE 0.2 MG/ML SYR ONE (07:22)
[2022-07-06] MEDS ORDERED: LIDOCAINE 1% MPF 5 ML VIAL ONE (07:22)
[2022-07-06 10:25] VITALS: BP 127/78; TEMP 97.7; O2SAT 99
--- NOTE | 2022-07-06 18:41 | OP ---
Date of Procedure: 07/06/2022 Surgeon: Acosta Hoskins MD History: Patient is a 61-year-old female with a history of colon cancer that needed a routine follow up colonoscopy. She stated that prior to the procedure that she used some tap water enema and just w ater came out; however, when she was in the endoscopy suite, did a digital rectal exam, there was a l arge amount of solid stool present. So at this time, this patient has significant history of colon c ancer, I felt proceeding would not be adequate to be able to see the mucosal details required for a p atient with a history of colon cancer. Therefore, we cancelled this case and we stopped it, and the patient will get a 2-day prep and then we will re-attempt the procedure in the next week or 2. The f indings were discussed in detail with the patient's family. Disposition: Home. Condition: Stable. Resume home medications and diet. Follow up in my office and my office will arr hollis for followup colonoscopy in the near future. TAY/PATY Voice ID: [id number] Report ID: [id number]
== END 2022-07-06 08:30 | disposition home or self-care (01) ==
LOC: OR 06:38
PROVIDERS: ATTEND Surgery
PROC: 0DJD8ZZ Inspection of Lower Intestinal Tract, Via Natural or Artificial Opening Endoscopic (ICD-10-PCS; principal; 2022-07-06 07:30)
DX: Z85.038 Personal history of other malignant neoplasm of large intestine (principal); Z53.8 Procedure and treatment not carried out for other reasons
CPT/HCPCS: 45378; J2704; J2001; J7120

== ENCOUNTER 2022-07-23 07:50 | Inpatient (IN) | payer BC ==
--- OUTSIDE RECORDS SUMMARY | 2022-07-23 07:55 | XMS REPORT | Continuity of Care Document ---
:1960 Author Organization [facility] t Address [address] [place] [address] Care Team Providers Name Role Phone KIMMIE MARRERO JR Primary Care Physician Unavailable Stormy Aguila RN Attending Clinician Unavailable EbVelia Lucio Attending Clinician EBVELIA ASTUDILLO Attending Clinician Unavailable Unknown, Attending Attending Clinician Unavailable Nurse, [facility] Attending Clinician Unavailable Doctor Unassigned, [place] Attending Clinician Unavailable Chris Palacio MD Attending Clinician CHRIS PALACIO Attending Clinician Unavailable Geovanni Dhillon RN Attending Clinician Unavailable Only, Emigdio [facility] Test Attending Clinician Unavailable Cuauhtemoc Ruvalcaba MD Attending Clinician JAILENE MCKOY Attending Clinician Unavailable Ce AMEZCUA, Nixon Freeman Attending Clinician Teressa Aden MD Attending Clinician [phone] TERESSA ADEN Attending Clinician Unavailable Kathi West RN Attending Clinician Unavailable DENISE HADLEY Attending Clinician Unavailable Denise Hadley MD Attending Clinician Jailene Patel Attending Clinician [phone] JAYE BLUNT Attending Clinician Unavailable Ava CASTRO, Sheila Gonzalez Attending Clinician Unavailable Tiffanie Marie MD Attending Clinician Vanessa Garner MD Attending Clinician TIFFANIE MARIE Attending Clinician Unavailable Juve AMEZCUA, Madelainemarissa Attending Clinician Hector Hall Attending Clinician Yasir AMEZCUA, Philip Attending Clinician PHILIP COOLEY Attending Clinician Unavailable Vanessa Garner MD Admitting Clinician Philip Cooley MD Admitting Clinician PHILIP COOLEY Admitting Clinician Unavailable Payers Payer Name Policy Type Policy Number Effective Date Expiration Date S leta BCBS HMO [id number] 2017 BLUE/ESSENTIALS 00:00:00 [employer] [facility] [place] [id number] IN-AREA POS - BCBS Problems Condition Condition Condition Status Onset Resolution Last Treating Co mments Source Name Details Category Date Date Treatment Clinician Date Hypoxia Hypoxia Disease Active Univers 3-04 ity of 00:00: [place] [facility] Chest pain Chest pain Disease Active 2019-0 U nivers 4-06 ity of 00:00: [place] [facility] Family Family Disease Active 2019-0 Univers history of history of 4-06 it y of coronary coronary 00:00: [place] artery artery 00 Medical disease disease Branch Other Other Disease Active 2019-0 Univers hyperlipid hyperlipid 4-06 it y of emia emia 00:00: [place] [address] Medical Branch Allergies, Adverse Reactions, Alerts Allergy Allergy Status Severity Reaction(s) Onset Inactive Treating Comm ents Source Name Type Date Date Clinician ONDANSET Allergy Active Low 2020-[address] [facility] Center Ondanset Propensi Active Mild 2020-[address] memo Hcl ty to 2-13 [facility] adverse 00:00: Medical reaction 00 Center s Ondanset Propensi Active Other - See Gives U nivers memo Hcl ty to comments 3-05 patient a ity of (Pf) adverse 00:00: migraine [place] reaction 00 Medical s Branch ONDANSET DRUG Active Med Other-Cmnt Univ ers MEMO HCL 3-05 ity of (PF) 00:00: [place] [address] Medical Branch Social History Social Habit Start Date Stop Date Quantity Comments Source Exposure to Not sure University of SARS-CoV-2 [facility] (event) Branch Alcohol intake 2022-07-20 2022-07-20 Lifetime University of 00:00:00 00:00:00 non-drinker [facility] (finding) [place] Tobacco use and 2020-10-21 2020-10-21 Smokeless tobacco Un iversity of exposure 00:00:00 00:00:00 non-user [facility] Sex Assigned At [birth year] MARIEL Cherry 00:00:00 00:00:00 Medical Center Smoking Status Start Date Stop Date Source Never smoked tobacco [facility] Medications Ordered Filled Start Stop Current Ordering Indication Dosage Frequency Signature Comments Components Source Medication Medication Date Date Medication? Clinician (SIG) Name Name ipratropium 2021-08- No [id number] 6mL U nivers -albuteroL 09-20 ity of (DUONEB) 17:15: 16:27 [place] 0.5 mg-3 00 :00 Medical mg(2.5 mg Branch base)/3 mL nebulizer solution 6 mL methylpredn 2021-08- No [id number] 125mg Univers isolone sod 09-20 ity of succ 17:15: 16:27 [place] (SOLU-MEDRO 00 :00 Medical L) Branch injection 125 mg methylpredn 2021-08- No [id number] 125mg 125 mg, Univers isolone sod 09-20 Intramuscu i ty of succ 17:15: 16:27 lar, ONCE, [place] (SOLU-MEDRO 00 :00 1 dose, On Me dical L) [place] Branch injection 07/20/22 at 125 mg 1115, Routine ipratropium 2021-08- No [id number] 6mL 6 mL, Univers -albuteroL 09-20 Inhalation it y of (DUONEB) 17:15: 16:27 , ONCE, 1 [place] as 0.5 mg-3 00 :00 dose, On Medical mg(2.5 mg [place] Branch base)/3 mL 07/20/22 at nebulizer 1115, solution 6 Routine mL albuterol 2021-08 Yes [id number] 2{puff} Inhale 2 Univers 90 09-20 Puffs ity of mcg/actuati 00:00: every 6 [place] as on inhaler 00 (six) Medical hours as Branch needed for Wheezing or Bronchospa sm. albuterol 2021-08 Yes [id number] 2{puff} Inhale 2 Univers 90 2-01 Puffs ity of mcg/actuati 00:00: every 6 [place] as on inhaler 00 (six) Medical hours as Branch needed for Wheezing or Bronchospa sm. albuterol 2021-08 Yes [id number] 2{puff} Inhale 2 Univers 90 2-01 Puffs ity of mcg/actuati 00:00: every 6 [place] as on inhaler 00 (six) Medical hours as Branch needed for Wheezing or Bronchospa sm. albuterol 2021-08 Yes [id number] 2{puff} Inhale 2 Univers 90 2-01 Puffs ity of mcg/actuati 00:00: every 6 [place] as on inhaler 00 (six) Medical hours as Branch needed for Wheezing or Bronchospa sm. predniSONE 2021-08- Yes [id number] 40mg Take 2 Univers 20 mg 2-08 31- tablets by ity of tablet 00:00: 05:59 mouth in [place] 00 :00 the [facility] morning [place] for 5 days. predniSONE 2021-08- Yes [id number] 40mg Take 2 Univers 20 mg 2-07-26 tablets by ity of tablet 00:00: 05:59 mouth in [place] 00 :00 the [facility] for 5 days. predniSONE 2021-08- Yes [id number] 40mg Take 2 Univers 20 mg 2-08 31- tablets by ity of tablet 00:00: 05:59 mouth in [place] 00 :00 the [facility] for 5 days. predniSONE 2021-08- Yes [id number] 40mg Take 2 Univers 20 mg 2-08 31- tablets by ity of tablet 00:00: 05:59 mouth in [place] 00 :00 the [facility] for 5 days. ciprofloxac 2020-08- No 500mg Q.5D Take [address] [facility] 10-03 tablet [facility] (CIPRO) 500 00:00: 23:59 (500 mg Me dical MG tablet 00 :00 total) by Cente r mouth 2 (two) times daily for 7 days. ciprofloxac 2021-1 2021- No 500mg Q.5D Take [address] in HCl 2-14 12-21 tablet [facility] (CIPRO) 500 00:00: 23:59 (500 mg Me dical MG tablet 00 :00 total) by Cente r mouth 2 (two) times daily for 7 days. ciprofloxac 2020-08- No 500mg Q.5D Take [address] in HCl 2-14 12-21 tablet [facility] (CIPRO) 500 00:00: 23:59 (500 mg Me dical MG tablet 00 :00 total) by Cente r mouth 2 (two) times daily for 7 days. methylPREDN 2020-0 Yes [id number] Take by [place] [facility] 4 3-10 [id number] mouth ity of mg tablets 00:00: [place] CTIONS. Medical follow Branch package directions methylPREDN 2020-0 Yes [id number] Take by [place] [facility] 4 3-10 [id number] mouth ity of mg tablets 00:00: [place]-INSTRU [place] 00 CTIONS. Medical follow Branch package directions methylPREDN 2020-0 Yes [id number] Take by [place] [facility] 4 3-10 [id number] mouth ity of mg tablets 00:00: [place]-INSTRU [place] 00 CTIONS. Medical follow Branch package directions methylPREDN 2020-0 Yes [id number] Take by [place] [facility] 4 3-10 [id number] mouth ity of mg tablets 00:00: [place]-INSTRU [place] 00 CTIONS. Medical follow Branch package directions methylPREDN 2020-0 Yes [id number] Take by [place] [facility] 4 3-10 [id number] mouth ity of mg tablets 00:00: [place]-INSTRU [place] 00 CTIONS. Medical follow Branch package directions methylPREDN 2020-0 Yes [id number] Take by [place] [facility] 4 3-10 [id number] mouth ity of mg tablets 00:00: [place]-INSTRU [place] 00 CTIONS. Medical follow Branch package directions meclizine 2020-0 Yes [id number] 25mg Take 1 Univers 25 mg 3-09 [id number] tablet by ity of tablet 00:00: mouth 3 [place] 00 (three) Medical times Branch daily as needed for Dizziness. proMETHazin 2021-0 Yes [id number] 12.5mg Take 1 Univers e 12.5 mg 3- [id number] tablet by it y of tablet 00:00: mouth [place] 00 every 4 Medical (four) Branch hours as needed for Nausea and Vomiting (N/V). meclizine 0 Yes [id number] 25mg Take 1 Univers 25 mg 3- [id number] tablet by ity of tablet 00:00: mouth 3 00 (three) Medical times Branch daily as needed for Dizziness. proMETHazin Yes [id number] 12.5mg Take 1 Univers e 12.5 mg 3- [id number] tablet by it y of tablet 00:00: mouth [place] 00 every 4 Medical (four) Branch hours as needed for Nausea and Vomiting (N/V). meclizine Yes [id number] 25mg Take 1 Univers 25 mg - [id number] tablet by ity of tablet 00:00: mouth 3 00 (three) Medical times Branch daily as needed for Dizziness. proMETHazin Yes [id number] 12.5mg Take 1 Univers e 12.5 mg - [id number] tablet by it y of tablet 00:00: mouth [place] 00 every 4 Medical (four) Branch hours as needed for Nausea and Vomiting (N/V). meclizine Yes [id number] 25mg Take 1 Univers 25 mg - [id number] tablet by ity of tablet 00:00: mouth 3 00 (three) Medical times Branch daily as needed for Dizziness. proMETHazin Yes [id number] 12.5mg Take 1 Univers e 12.5 mg 3- [id number] tablet by it y of tablet 00:00: mouth [place] 00 every 4 Medical (four) Branch hours as needed for Nausea and Vomiting (N/V). meclizine 0 Yes [id number] 25mg Take 1 Univers 25 mg 3-09 [id number] tablet by ity of tablet 00:00: mouth 3 [place] 00 (three) Medical times Branch daily as needed for Dizziness. proMETHazin 0 Yes [id number] 12.5mg Take 1 Univers e 12.5 mg 3- [id number] tablet by it y of tablet 00:00: mouth [place] 00 every 4 Medical (four) Branch hours as needed for Nausea and Vomiting (N/V). meclizine Yes [id number] 25mg Take 1 Univers 25 mg [id number] tablet by ity of tablet 00:00: mouth 3 00 (three) Medical times Branch daily as needed for Dizziness. proMETHazin Yes [id number] 12.5mg Take 1 Univers e 12.5 mg [id number] tablet by it y of tablet 00:00: mouth [place] 00 every 4 Medical (four) Branch hours as needed for Nausea and Vomiting (N/V). Vital Signs Vital Name Observation Time Observation Value Comments Source Systolic blood 2022-07-20 15:45:00 136 mm[Hg] [facility] Diastolic blood 2022-07-20 15:45:00 90 [facility]Hg[facility] 2022-07-20 15:45:00 90 /min [facility] Body temperature 2022-07-20 15:45:00 37.11 Chrystal [facility] Respiratory rate 2022-07-20 15:45:00 24 /min [facility] Body height 2022-07-20 15:45:00 160 cm [facility] Body weight 2022-07-20 15:45:00 65.318 kg [facility] BMI 2022-07-20 15:45:00 25.51 kg/m2 [facility] Oxygen saturation in 2022-07-20 15:45:00 98 /min [facility] Arterial blood by [facility] Pulse oximetry Branch Systolic blood 2021-11-04 13:42:00 154 mm[Hg] Univer [facility] Diastolic blood 2021-11-04 13:42:00 89 mm[Hg] [facility] 2021-11-04 13:34:00 75 /min [facility] Body height 2021-11-04 13:34:00 160 cm [facility] Body weight 2021-11-04 13:34:00 70.761 kg [facility] BMI 2021-11-04 13:34:00 27.63 kg/m2 [facility] Oxygen saturation in 2021-11-04 13:34:00 97 /min [facility] Arterial blood by [facility] Pulse oximetry Branch HEIGHT 2021-08-01 20:21:00 160 cm WEIGHT 2021-08-01 20:21:00 68.04 kg HEIGHT 2021-08-01 20:21:00 160 cm WEIGHT 2021-08-01 20:21:00 68.04 kg HEIGHT 2021-08-01 20:21:00 160 cm WEIGHT 2021-08-01 20:21:00 68.04 kg Diastolic blood 2021-08-02 02:20:00 74 mm[Hg] [facility] Heart rate 2021-08-02 02:20:00 78 /min [facility] Body temperature 2021-08-02 02:20:00 37.28 Chrystal [facility] Respiratory rate 2021-08-02 02:20:00 17 /min [facility] Oxygen saturation in 2021-08-02 02:20:00 98 /min [facility] Arterial blood by Medical Mayelin nter Pulse oximetry Systolic blood 2021-08-02 02:20:00 131 mm[Hg] [facility] Body height 2021-08-01 20:21:00 160 cm [facility] Body weight 2021-08-01 20:21:00 68.04 kg [facility] BMI 2021-08-01 20:21:00 26.57 kg/m2 [facility] Procedures Procedure Date / Time Performing Clinician Source Performed XR CHEST 2 VW 2022-07-20 17:24:41 Velia Lara [place] o f [facility] EXTERNAL PROVIDER 2022-01-04 05:01:00 Doctor Unassigned, No Univ [facility] RECORDS Name Medical Branch CT ABDOMEN/PELVIS WITH 2021-08-02 00:20:00 Filiberto Orozco [facility] IV CONTRAST [facility] URINE CULTURE 2021-08-01 23:21:00 Nixon Encinas [facility] ECG 12-LEAD 2021-08-01 21:25:31 Unknown, [facility] ECG 12-LEAD 2021-08-01 21:25:31 Filiberto Orozco [facility] ECG 12-LEAD 2021-08-01 21:25:31 Unknown, [facility] URINALYSIS W/ REFLEX 2021-08-01 20:55:00 Filiberto Orozco [facility] URINE CULTURE [facility] CBC W/PLT COUNT & AUTO 2021-08-01 20:54:00 Filiberto Orozco [facility] DIFFERENTIAL [facility] COMPREHENSIVE METABOLIC 2021-08-01 20:54:00 Ernesto [facility] PANEL [facility] LIPASE 2021-08-01 20:54:00 Filiberot Orozco [facility] HIGH SENSITIVITY 2021-08-01 20:54:00 Filiberto Orozco [facility] TROPONIN I [facility] CBC W/PLT COUNT & AUTO 2021-08-01 20:54:00 Filiberto Orozco [facility] DIFFERENTIAL [facility] REPORT OF PROCEDURE - 2021-08-01 00:00:00 Provider [facility] ENDOSCOPY SCAN Scanning Center Plan of Care Planned Activity Planned Date Details Comments Source Future Scheduled 2024-11-23 Lipid panel (procedure) [facility] Test 00:00:00 [code = 83393903] Medical Ce nter Future Scheduled 2024-11-23 Lipid panel (procedure) [facility] Test 00:00:00 [code = 48288104] Medical Ce nter Future Scheduled 2024-11-23 Lipid panel (procedure) [facility] Test 00:00:00 [code = 25511308] Medical Ce nter Future Scheduled 2022-04-20 INFLUENZA VACCINE (#1) [facility] 00:00:00 [code = INFLUENZA Medical Ce nter VACCINE (#1)] Future Scheduled 2021-08-[address] [facility] Test 00:00:00 (12+) [code = Medical Center DEPRESSION SCREENING (12+)] Future Scheduled 2021-08-[address] [facility] Test 00:00:00 (12+) [code = Medical Center DEPRESSION SCREENING (12+)] Future Scheduled 2021-08-[address] [facility] Test 00:00:00 (12+) [code = [facility] Center DEPRESSION SCREENING (12+)] Future Scheduled 2021-04-20 INFLUENZA VACCINE (#1) [facility] 00:00:00 [code = INFLUENZA Medical Ce nter VACCINE (#1)] Future Scheduled 2021-04-20 INFLUENZA VACCINE (#1) [facility] 00:00:00 [code = INFLUENZA Medical Ce nter VACCINE (#1)] Future Scheduled 2010 SHINGLES VACCINES ([address] [facility] Test 00:00:00 2) [facility] Future Scheduled 2010 SHINGLES VACCINES ([address] [facility] Test 00:00:00 2) [facility] Future Scheduled 2010 SHINGLES VACCINES ([address] [facility] Test 00:00:00 2) [code = [facility] VACCINES (1 of 2)] Future Scheduled 1981 Screening for malignant [facility] Test 00:00:00 neoplasm of cervix Medical C enter (procedure) [code = 032599546] Future Scheduled 1981 Screening for malignant [facility] Test 00:00:00 neoplasm of cervix Medical C enter (procedure) [code = 566359778] Future Scheduled 1981 Screening for malignant [facility] Test 00:00:00 neoplasm of cervix Medical C enter (procedure) [code = 853033113] Future Scheduled 1979-11-06 DTAP/TDAP/TD VACCINES [facility] 00:00:00 (1 - Tdap) [code = Medical C enter DTAP/TDAP/TD VACCINES (1 - Tdap)] Future Scheduled 1979-11-06 DTAP/TDAP/TD VACCINES [facility] 00:00:00 (1 - Tdap) [code = Medical C enter DTAP/TDAP/TD VACCINES (1 - Tdap)] Future Scheduled 1979-11-06 DTAP/TDAP/TD VACCINES [facility] 00:00:00 (1 - Tdap) [code = Medical C enter DTAP/TDAP/TD VACCINES (1 - Tdap)] Future Scheduled 1978 HEPATITIS C SCREENING [facility] 00:00:00 [code = HEPATITIS C Medical Center SCREENING] Future Scheduled 1978 HEPATITIS C [facility]CRE[facility]ING [facility] 00:00:00 [code = HEPATITIS C Medical Center SCREENING] Future Scheduled 1978 HEPATITIS C [facility]CRE[facility]ING [facility] 00:00:00 [code = HEPATITIS C Medical Center SCREENING] Future Scheduled [address] [facility] Test 00:00:00 Counseling and Medical Cente r Screening (12+) [code = Tobacco Cessation Counseling and Screening (12+)] Future Scheduled 1972 COVID-19 VACCINE (1) [facility] Test 00:00:00 [code = COVID-[address] VACCINE (1)] Future Scheduled 1972 COVID-19 VACCINE (1) [facility] Test 00:00:00 [code = COVID-[address] VACCINE (1)] Future Scheduled 1961-05-08 COVID-19 VACCINE (#1) [facility] 00:00:00 [code = COVID-[address] VACCINE (#1)] Future Scheduled 1960 Screening for malignant [facility] Test 00:00:00 neoplasm of breast Medical C enter (procedure) [code = 268689043] Future Scheduled 1960 CT Colonography (combo) [facility] Test 00:00:00 [code = CT Colonography [facility] (combo)] Future Scheduled 1960 Screening for malignant [facility] Test 00:00:00 neoplasm of colon Medical Ce nter (procedure) [code = 680271860] Future Scheduled 1960 Screening for malignant [facility] Test 00:00:00 neoplasm of colon Medical Ce nter (procedure) [code = 422733907] Future Scheduled 1960 Screening for malignant [facility] Test 00:00:00 neoplasm of colon Medical Ce nter (procedure) [code = 171034921] Future Scheduled 1960 Screening for malignant [facility] Test 00:00:00 neoplasm of colon Medical Ce nter (procedure) [code = 734151529] Future Scheduled 1960 Sigmoidoscopy [code = [facility] 00:00:00 Sigmoidoscopy] Medical Bernadinee r Future Scheduled 1960 Screening for malignant [facility] Test 00:00:00 neoplasm of breast Medical C enter (procedure) [code = 185059120] Future Scheduled 1960 Screening for malignant [facility] Test 00:00:00 neoplasm of colon Medical Ce nter (procedure) [code = 692447450] Future Scheduled 1960 Screening for malignant [facility] Test 00:00:00 neoplasm of breast Medical C enter (procedure) [code = 103715426] Future Scheduled 1960 Screening for malignant [facility] Test 00:00:00 neoplasm of colon Medical Ce nter (procedure) [code = 814938698] Encounters Start End Encounter Admission Attending Care Care Encounter Source Date/Time Date/Time Type Type Clinicians Facility Department ID 2022-07-21 2022-07-21 JUSTIN Strickland [id number] Univers 00:00:00 00:00:00 (Out) Stormy PEREZ [id number] it y of HOSPITAL [id number] [place] as [phone] [address] 2022-07-20 2022-07-[address] [facility] [id number] Univers 10:13:24 23:59:00 Encounter [facility] [id number] ity of [place] 4.2.7.2.686 [place]aleb as ANTIONE?BLEA [phone] Tx will ESPINO [address] [place] MEDICAL OFFICE [facility] 2022-07-20 2022-07-20 Outpatient R AMANDA [facility] [id number] Univers 09:40:00 10:22:54 [facility] 2022-07-20 [facility] [id number] Univers 09:40:00 10:22:54 Care Unknown, [facility] HEALTH [id number] [facility] 4.2.7.2.686 [place] as ANTIONE?BLEA [phone] Tx will KINGSLEY [address] [place] MEDICAL OFFICE BUILDING 2022-07-202022-07-20 Telephone Nurse, Emigdio [facility] [id number] Univers 00:00:00 00:00:00 Db Urgent HEALTH 350.1.13.10 ity of Care [place] 4.2.7.2.686 [place]aleb as ANTIONE?BLEA [id number] Tx will ESPINO [address] [facility] OFFICE [facility] 2022-01-04 2022-01-04 Orders Doctor JUSTIN [id number] Univers 00:00:00 00:00:00 Only Unassigned, CHRIS 350.1.13.10 ity of [place] [facility] 4.2.7.2.686 Kaleb as [phone] [address] 2021-11-04 2021-11-04 Office Hakeem [facility] [id number] Univers 08:30:00 13:25:08 Visit Chris L [facility] [id number] it y of [facility] [id number] [place] as ANTIONE?BLEA [phone] Tx will [facility] [address] [facility] 2021-11-04 2021-11-04 Outpatient R HAKEEM [facility] [id number] Univers 08:30:00 13:25:08 CHRIS parker [facility] 2021-11-04 2021-11-04 Orders Doctor JUSTIN [id number] Univers 00:00:00 00:00:00 Only Unassigned, CHRIS 350.1.13.10 ity of [place] [facility] 4.2.7.2.686 Kaleb as [id number] [address] 2021-11-04 2021-11-04 Telephone Hakeem [facility] [id number] Univers 00:00:00 00:00:00 Chris L HEALTH [id number] it y of [place] 4.2.7.2.686 Kaleb as ANTIONE?BLEA [phone] Tx will ESPINO 198 [facility] OFFICE [facility] 2021-11-03 2021-11-03 [facility] [id number] Univers 00:00:00 00:00:[address] Chris Gonzalez [facility] [id number] it y [facility] 4.2.7.2.686 Kaleb as ANTIONE?BLEA [phone] Tx chrismarina ESPINO [address] MEDICAL OFFICE BUILDING 2021-09-17 2021-09-17 Letter JUSTIN Dhillon [id number] Univers 00:00:00 00:00:00 (Out) Geovanni CHRIS 350.1.13.10 it y of HOSPITAL 4.2.7.2.686 [place] as [phone] [facility] [address] [place] 2021-09-16 2021-09-16 Laboratory Only, Ang Db Test [facility] 1.2.8 40.114 [id number] Univers 14:00:00 14:15:00 Only Cuauhtemoc Ruvalcaba HEALTH 350.1.13.10 ity of [place] 4.2.7.2.686 [place] as ANTIONE?BLEA [phone] Tx chrismarina [facility] [address] [place] MEDICAL OFFICE [facility] 2021-09-16 2021-09-16 Outpatient R [facility] [id number] Univers 14:00:00 14:00:00 ity of [facility] 2021-09-16 2021-09-16 Orders Doctor ANDERSON [id number] [id number] Univers 00:00:00 00:00:00 Only Unassigned, CHRIS 350.1.13.10 ity of [place] [facility] 4.2.7.2.686 Kaleb as [phone] [facility] [address] 2021-08-29 2021-08-29 Outpatient NOBLE DE LEON [facility] [id number] [facility] 00:00:00 00:00:00 MAYAGUEZ 2021-08-29 2021-08-29 Outpatient DOMINICK MCKOY, [facility] [id number] [facility] 00:00:00 00:00:00 JAILENE 2021-08-01 2021-08-02 [facility] [id number] [facility] St 20:26:00 02:35:00 [facility] 2021-08-01 2021-08-02 Emergency [facility] [id number] 20:26:00 02:35:00 HamdanicalukasTeressa Waller [facility] 2021-08-01 2021-08-02 Emergency [facility] Emergency [id number] [facility] 20:26:00 02:35:00 MONESRRATRUDY CortésANA 2021-08-01 2021-08-01 Outpatient [facility] [id number] [facility] 00:00:00 23:59:00 [facility] e 2021-08-01 2021-08-01 Orders [facility] [id number] 00:00:00 00:00:00 Only [facility] 2021-08-01 2021-08-01 Orders [facility] [id number] 00:00:00 00:00:00 Only [facility] 2021-07-31 2021-07-31 Letter JUSTIN West [id number] Univers 00:00:00 00:00:00 (Out) Kathi Mauricio CHRIS 350.1.13.10 it y of [facility] 4.2.7.2.686 Kaleb as [id number] [address] 2021-07-30 2021-07-30 Outpatient R JOMAR [facility] [id number] Univers 11:15:00 11:23:11 [facility] 2021-07-30 Laboratory Only, Ang Db Test [facility] 1.2.8 40.114 [id number] Univers 11:07:18 11:22:18 Only Jomar [facility] [id number] ity [facility] 4.2.7.2.686 Kaleb as ANTIONE?BLEA [id number] [address] MEDICAL OFFICE BUILDING 2021-07-29 2021-07-29 Emergency X [facility] ERT [id number] Univers 15:58:00 15:59:00 ity [facility] 2021-07-29 2021-07-29 Emergency [facility] [id number] Univers 15:58:00 15:59:00 [place] 350.1.13.10 i ty of [place] 4.2.7.2.686 [facility] [id number] [facility] [address] 2021-07-01 2021-07-[address] [facility] [id number] 00:00[facility]00 00:00:[address] [facility] 2021-03-02 2021-03-02 Outpatient JAYE BL[facility]T [facility] [id number] [facility] 10:35:28 11:32:20 [facility] 2020-10-27 2020-10-27 Transition Jany Escalante 1.2.840.114 [id number] Univers 00:00:00 00:00:00 of Care Sheila Gonzalez Yuan [id number] i ty of [place] 4.2.7.2.[address] [facility] [id number] [facility] [address] 2020-10-27 2020-10-27 Transition Jany Escalante 1.2.840.114 [id number] 00:00:00 00:00:00 of Care Sheila L Kwabena 350.1.13.10 [place] 4.2.7.2.686 [id number] 2020-10-21 2020-10-26 [facility] Tiffanie Marie [facility] 1.2.840.1 14 [id number] Univers 19:22:00 17:05:00 Encounter Vanessa Garner [id number] ity of [place] 4.2.7.2.686 [facility] [id number] [facility] [address] 2020-10-21 2020-10-26 [facility] 1.2.840.1 14 [id number] 19:22:00 17:05:00 Encounter Vanessa Garner 350.1.13.10 [place] 4.2.7.2.686 D Hanis [id number] 2020-10-21 2020-10-21 Emergency X [facility] ERT [id number] Univers 19:22:00 19:22:00 TIFFANIE pakrer [facility] 2019-12-03 2019-12-03 Telephone Juve, [facility] [id number] Univers 00:00:00 00:00:00 Vincentradha Nelly 350.1.13.10 ity of [place] 4.2.7.2.686 [facility] [id number] T[place] dical [address] 2019-12-03 2019-12-03 Telephone Juve, [facility] [id number] 00:00:00 00:00:00 Vincentrahda Fontana 350.1.13.10 [place] 4.2.7.2.686 [facility] [id number] [address] 2019-11-24 2019-11-25 [facility] 1.2.840.11 4 [id number] [facility] 10:55:57 14:00:00 Encounter Philip Cooley 350.1.13.10 ity of [place] 4.2.7.2.686 [facility] [id number] [address] 2019-11-24 2019-11-25 Outpatient X PHILIP COOLEY [facility] [id number] [facility] 10:55:57 14:00:00 ity of [facility] 2019-11-24 2019-11-25 [facility] 1.2.840.11 4 [id number] 10:55:57 14:00:00 Encounter Philip Cooley 350.1.13.10 [place] 4.2.7.2.686 D Hanis [id number] 081 Results Test Description Test Time Test Comments Results Result Comments Source Urine culture 2021-08-05 10:14:17 Test Item Value Reference Range Interpretation Comme nts Result (test code = 6463-4) 10-19,000 col/mL Felicita dubliniensis A MIRANDA (test code = MIRANDA) <10,000 col/mL Gram Negative Hmhk33-09,000 col/mL skin rios Lab Interpretation (test code = 48122-3) [facility] [id number] 10:14:17 Test Item Value Reference Range Interpretation Comments Result (test code = 10-19,000 col/mL A 6463-4) Felicita dubliniensis MIRANDA (test code = MIRANDA) <10,000 col/mL Gram Negative Nhiz84-99,000 col/mL skin rios Lab Interpretation (test Abnormal code = 95688-7) [facility] [id number] 10:14:17 Test Item Value Reference Range Interpretation Comments Result (test code = 10-19,000 col/mL A 6463-4) Felicita dubliniensis MIRANDA (test code = MIRANDA) <10,000 col/mL Gram Negative Eldr15-59,000 col/mL skin rios Lab Interpretation (test Abnormal code = 87937-3) [facility] [id number] 10:14:17 Test Item Value Reference Range Interpretation Comments CULTURE (BEAKER) (test A 10-19 ,000 col/mL Felicita code = 1095) dubliniensis <10,000 col/mL Gram Negative Oyjf68-05,000 col/mL skin floraCT, ABDOMEN 2021-08-02 00:48:00Unlisted Reason for Exam - Click Yes and Enter Reason Below- >NoIs this for enterography?->NoWill this procedure require oral contrast?->NoALMSHOUSE SAN FRANCISCOName: LORENA DENTON : 1960 Sex: FFINAL REPORT EXAM: CT of the abdomen and pelvis, with contrast CLINICAL HISTORY: Abdominal distention. TECHNIQUE: CT of the abdomen and pelvis was performed with intravenous contrast administration. This exam was performed according to our departmental dose optimization program which includes automated exposure control, adjustment of the mA and/or kV according to patient's size and/or use of iterative reconstructive technique. COMPARISON: None FINDINGS: LOWER CHEST: Within normal limits.HEPATOBILIARY: 1.3 x 0.7 cm septated hypodensity in the medial segment of the left hepatic lobe which likely represents a cyst. Unremarkable gallbladder. No biliary ductal dilatation.PANCREAS: Within normal limits.SPLEEN: Within normal limits.ADRENALS: Within normal limits.KIDNEYS/URETERS: Within normal limits. URINARY BLADDER: Within normal limits.REPRODUCTIVE ORGANS: Within normal limits. BOWEL/MESENTERY: Diffuse mural thickening of the entire colon with mild mesenteric congestion and mild surrounding fatty stranding consistent with a pancolitis. Colonic diverticulosis without acute diverticulitis. No bowel pneumatosis No bowel obstruction. Normal appendix.PERITONEUM/RETROPERITONEUM: No free air, free fluid or fluid collection. VESSELS: Calcific atherosclerosis. No abdominal aortic aneurysm. LYMPH NODES: No abdominal or pelvic lymphadenopathy.SOFT TISSUES: Small fat-containing umbilical hernia.BONES: No suspicious osseous lesions. Mild degenerative changes of the visualized spine and bilateral hip joints. IMPRESSION: Pancolitis which may be infectious or inflammatory. Ischemia is a possibility but is considered less likely.Colonic diverticulosis without acute diverticulitis. Signed: Trenton Watson [facility] Verified Date/Time: 08/02/2021 00:48:37 [facility] ([facility]/Wu Only)2021-08-01 21:34:45 Test Item Value Reference Range Interpretation Comments Troponin I HS (test <4 See_Comment [[facility] code = 25196-7) message] The system which generated this result transmitted reference range : <=17 pg/ml. The reference range was not used to interpret this result as normal/abnormal . MIRANDA (test code = Professional System Administrator ID - MIRANDA) DBThe SALT MANAGER STAT High Sensitivity Troponin-I results should be used in conjunction with other diagnostic information such as ECG, clinical observations and information, and patient symptoms to aid in the diagnosis of NE. Lab Interpretation Normal (test code = 15596-0) [facility] ([facility]/Wu Only)2021-08-01 21:34:45 Test Item Value Reference Range Interpretation Comments Troponin I HS (test <4 See_Comment [Automa mayelin code = 06570-5) message] The system which generated this result transmitted reference range : <=17 pg/ml. The reference range was not used to interpret this result as normal/abnormal . MIRANDA (test code = Professional System Administrator ID - MIRANDA) DBThe SALT MANAGER STAT High Sensitivity Troponin-I results should be used in conjunction with other diagnostic information such as ECG, clinical observations and information, and patient symptoms to aid in the diagnosis of NE. Lab Interpretation Normal (test code = 96672-7) [facility] ([facility]Wu Only)2021-08-01 21:34:45 Test Item Value Reference Range Interpretation Comments Troponin I HS (test <4 See_Comment [Automa mayelin code = 79195-0) message] The system which generated this result transmitted reference range : <=17 pg/ml. The reference range was not used to interpret this result as normal/abnormal . MIRANDA (test code = Professional System Administrator ID - MIRANDA) DBThe SALT MANAGER STAT High Sensitivity Troponin-I results should be used in conjunction with other diagnostic information such as ECG, clinical observations and information, and patient symptoms to aid in the diagnosis of NE. Lab Interpretation Normal (test code = 62473-6) [facility] TROPONIN [id number] 21:34:45 Test Item Value Reference Range Interpretation Comments HIGH SENSITIVITY < pg/ml See_Comment [Automated message] TROPONIN I (test code = The system which 0409133) generated this result transmitted ref erence range: <=17. Th e reference range was not used to interpr et this result as normal/abnormal . Professional System Administrator ID - DBThe SALT MANAGER STAT High Sensitivity Troponin-I results should be used in conjunctionwith other diagnostic information such as ECG, clinical observations and information, and patient symptoms to aid in the diagnosis of NE.Comprehensive metabolic [id number] 21:30:43 Test Item Value Reference Range Interpretation Comments Protein, Total (test 7.7 See_Comment Specime n markedly code = 2885-2) hemolyzed [Automated message] The system which generated this result transmit mayelin reference range : 6.0 - 8.3 gm/dL . The reference range was not u sed to interpret th is result as normal/abnormal . Albumin (test code = 4.1 g/dL 3.5-5.0 Specime n markedly 95572-7) hemolyzed Alkaline Phosphatase 79 U/L 40-150 (test code = 6768-6) Total Bilirubin (test 0.4 mg/dL 0.2-1.2 Specim en markedly code = 1974-) hemolyzed Sodium (test code = 137 meq/L 919-910 2246-2) Potassium (test code 4.5 meq/L 3.5-5.1 Specime n markedly = 2823-3) hemolyzed Chloride (test code = 102 meq/L 98-107 2074-0) CO2 (test code = 22 meq/L 22-29 2027-9) BUN (test code = 7 mg/dL 7-21 3094-0) Creatinine (test code 0.82 mg/dL 0.57-1.25 Specim en markedly = 2160-0) hemolyzed Glucose (test code = 115 mg/dL 70-105 H 2345-7) Calcium (test code = 9.0 mg/dL 8.4-10.2 97499-2) AST (test code = 20 U/L 5-34 Specimen ma rkedly 1920-8) hemolyzed ALT (test code = 9 U/L 6-55 Specimen ma rkedly 1742-6) hemolyzed EGFR (test code = 71 mL/min/1.73 [place] [address]-3) NOT ACCURATE CREATININE CLEARANCE IN PREDICTING GLOMERULAR FILTRATION RATE . ESTIMATED GFR I S NOT APPLICABLE FOR DIALYSIS PATIEN TS. MIRANDA (test code = MIRANDA) Professional System Administrator ID - DB Lab Interpretation Abnormal (test code = 53785-6) [facility] 21:30:43 Test Item Value Reference Range Interpretation Comments Lipase (test code = 3040-3) 14 U/L 8-78 MIRANDA (test code = MIRANDA) Professional System Administrator ID - DB Lab Interpretation (test Normal code = 77990-2) [facility] [id number] 21:30:43 Test Item Value Reference Range Interpretation Comments Protein, Total (test 7.7 See_Comment Specime n markedly code = 2885-2) hemolyzed [Automated message] The system which generated this result transmit mayelin reference range : 6.0 - 8.3 gm/dL . The reference range was not u sed to interpret th is result as normal/abnormal . Albumin (test code = 4.1 g/dL 3.5-5.0 Specime n markedly 75623-8) hemolyzed Alkaline Phosphatase 79 U/L 40-150 (test code = 6768-6) Total Bilirubin (test 0.4 mg/dL 0.2-1.2 Specim en markedly code = 1974-) hemolyzed Sodium (test code = 137 meq/L 652-088 9181-2) Potassium (test code 4.5 meq/L 3.5-5.1 Specime n markedly = 2823-3) hemolyzed Chloride (test code = 102 meq/L 98-107 5-0) CO2 (test code = 22 meq/L 22-29 2027-9) BUN (test code = 7 mg/dL 7-21 3094-0) Creatinine (test code 0.82 mg/dL 0.57-1.25 Specim en markedly = 2160-0) hemolyzed Glucose (test code = 115 mg/dL 70-105 H 2345-7) Calcium (test code = 9.0 mg/dL 8.4-10.2 90218-5) AST (test code = 20 U/L 5-34 Specimen ma rkedly 1920-8) hemolyzed ALT (test code = 9 U/L 6-55 Specimen ma rkedly 1742-6) hemolyzed EGFR (test code = 71 mL/min/1.[place] [address]-4) NOT ACCURATE CREATININE CLEARANCE IN PREDICTING GLOMERULAR FILTRATION RATE . ESTIMATED GFR I S NOT APPLICABLE FOR DIALYSIS PATIEN TS. MIRANDA (test code = MIRANDA) Professional System Administrator ID - DB Lab Interpretation Abnormal (test code = 96849-0) [facility] 21:30:43 Test Item Value Reference Range Interpretation Comments Lipase (test code = 3040-3) 14 U/L 8-78 MIRANDA (test code = MIRANDA) Professional System Administrator ID - DB Lab Interpretation (test Normal code = 89764-1) [facility] [id number] 21:30:43 Test Item Value Reference Range Interpretation Comments Protein, Total (test 7.7 See_Comment Specime n markedly code = 2885-2) hemolyzed [Automated message] The system which generated this result transmit mayelin reference range : 6.0 - 8.3 gm/dL . The reference range was not u sed to interpret th is result as normal/abnormal . Albumin (test code = 4.1 g/dL 3.5-5.0 Specime n markedly 68314-5) hemolyzed Alkaline Phosphatase 79 U/L 40-150 (test code = 6768-6) Total Bilirubin (test 0.4 mg/dL 0.2-1.2 Specim en markedly code = 1975-2) hemolyzed Sodium (test code = 137 meq/L 077-796 7484-2) Potassium (test code 4.5 meq/L 3.5-5.1 Specime n markedly = 2823-3) hemolyzed Chloride (test code = 102 meq/L 98-107 2074-0) CO2 (test code = 22 meq/L 22-29 2027-9) BUN (test code = 7 mg/dL 7- 3094-0) Creatinine (test code 0.82 mg/dL 0.57-1.25 Specim en markedly = 2160-0) hemolyzed Glucose (test code = 115 mg/dL 70-105 H 2345-7) Calcium (test code = 9.0 mg/dL 8.4-10.2 36909-5) AST (test code = 20 U/L 5-34 Specimen ma rkedly 1920-8) hemolyzed ALT (test code = 9 U/L 6-55 Specimen co rkedly 1742-6) hemolyzed EGFR (test code = 71 mL/min/1.[place] [address]-2) NOT ACCURATE CREATININE CLEARANCE IN PREDICTING GLOMERULAR FILTRATION RATE . ESTIMATED GFR I S NOT APPLICABLE FOR DIALYSIS PATIEN TS. MIRANDA (test code = MIRANDA) Professional System Administrator ID - DB Lab Interpretation Abnormal (test code = 16377-7) [facility] 21:30:43 Test Item Value Reference Range Interpretation Comments Lipase (test code = 3040-3) 14 U/L 8-78 MIRANDA (test code = MIRANDA) Professional System Administrator ID - DB Lab Interpretation (test Normal code = 30659-0) [facility]COMPRE[facility]IVE METABOLIC [id number] 21:30:43 Test Item Value Reference Range Interpretation Comments TOTAL PROTEIN 7.7 gm/dL 6.0-8.3 Specimen marke dly (BEAKER) (test code = hemoly zed 770) ALBUMIN (BEAKER) 4.1 g/dL 3.5-5.0 Specimen ma rkedly (test code = 1145) hemolyzed ALKALINE PHOSPHATASE 79 U/L 40-150 (BEAKER) (test code = 346) BILIRUBIN TOTAL 0.4 mg/dL 0.2-1.2 Specimen mar kedly (BEAKER) (test code = hemoly zed 377) SODIUM (BEAKER) (test 137 meq/L 136-145 code = 381) POTASSIUM (BEAKER) 4.5 meq/L 3.5-5.1 Specimen markedly (test code = 379) hemolyzed CHLORIDE (BEAKER) 102 meq/L 98-107 (test code = 382) CO2 (BEAKER) (test 22 meq/L 22-29 code = 355) BLOOD UREA NITROGEN 7 mg/dL 7-21 (BEAKER) (test code = 354) CREATININE (BEAKER) 0.82 mg/dL 0.57-1.25 Specimen markedly (test code = 358) hemolyzed GLUCOSE RANDOM 115 mg/dL 70-105 H (BEAKER) (test code = 652) CALCIUM (BEAKER) 9.0 mg/dL 8.4-10.2 (test code = 697) AST (SGOT) (BEAKER) 20 U/L 5-34 Specimen markedly (test code = 353) hemolyzed ALT (SGPT) (BEAKER) 9 U/L 6-55 Specimen markedly (test code = 347) hemolyzed EGFR (BEAKER) (test 71 mL/min/1.73 ESTIMA MAYELIN GFR IS code = 1092) sq m NOT ACCURATE CREATININE CLEARANCE IN PREDICTING GLOMERULAR FILTRATION RATE . ESTIMATED GFR I S NOT APPLICABLE FOR DIALYSIS PATIEN TS. Professional System Administrator ID - [id number] 21:30:43 Test Item Value Reference Range Interpretation Comments LIPASE (BEAKER) (test code = 749) 14 U/L 8-78 Professional System Administrator ID - DBUrinalysis w/Microscopic + Reflex to [id number] 21:20:50 Test Item Value Reference Range Interpretation Comments Color, UA (test code Yellow = 5778-6) Clarity, UA (test Hazy code = 5767-9) Specific Mccaskill, UA 1.022 1.001-1.035 (test code = 5811-5) pH, UA (test code = 6.0 5.0-8.0 5803-2) Protein, UA (test 100 mg/dL Negative A code = 79355-6) Glucose, UA (test Negative Negative code = 365) Ketones, UA (test Trace Negative A code = 2514-8) Bilirubin, UA (test Negative Negative code = 22325-9) Blood, UA (test code Moderate Negative A = 41904-4) Nitrite, UA (test Negative Negative code = 5802-4) Leukocytes, UA (test Moderate Negative A code = 5799-2) Urobilinogen, UA 0.2 mg/dL 0.2-1.0 (test code = 56161-6) RBC, UA (test code = 78 See_Comment [Autom ated 80552-0) message] The system which generated this result transmitted reference range : /HPF. The reference range was not used to interpret this result as normal/abnormal . WBC, UA (test code = 8 See_Comment [Autom ated 5821-4) message] The system which generated this result transmitted reference range : /HPF. The reference range was not used to interpret this result as normal/abnormal . Bacteria, UA (test Occasional code = 36729-2) Mucus (test code = Many 8247-9) Squam Epithel, UA 5 See_Comment [Automate d (test code = 16895-7) messag e] The system which generated this result transmitted reference range : /HPF. The reference range was not used to interpret this result as normal/abnormal . Crystals, Urine (test None Seen code = 65248-0) Specimen Source (test code = 2795) MIRANDA (test code = MIRANDA) Professional System Administrator ID - [auto]Professional System Administrator ID - tech Lab Interpretation Abnormal (test code = 25895-4) [facility] w/Microscopic + Reflex to Culture 2021-08-01 21:20:50 Test Item Value Reference Range Interpretation Comments Color, UA (test code Yellow = 5778-6) Clarity, UA (test Hazy code = 5767-9) Specific Mccaskill, UA 1.022 1.001-1.035 (test code = 5811-5) pH, UA (test code = 6.0 5.0-8.0 5803-2) Protein, UA (test 100 mg/dL Negative A code = 04319-5) Glucose, UA (test Negative Negative code = 365) Ketones, UA (test Trace Negative A code = 2514-8) Bilirubin, UA (test Negative Negative code = 93150-8) Blood, UA (test code Moderate Negative A = 34646-1) Nitrite, UA (test Negative Negative code = 5802-4) Leukocytes, UA (test Moderate Negative A code = 5799-2) Urobilinogen, UA 0.2 mg/dL 0.2-1.0 (test code = 49081-8) RBC, UA (test code = 78 See_Comment [Autom ated 43172-4) message] The system which generated this result transmitted reference range : /HPF. The reference range was not used to interpret this result as normal/abnormal . WBC, UA (test code = 8 See_Comment [Autom ated 5821-4) message] The system which generated this result transmitted reference range : /HPF. The reference range was not used to interpret this result as normal/abnormal . Bacteria, UA (test Occasional code = 25351-4) Mucus (test code = Many 8247-9) Squam Epithel, UA 5 See_Comment [Automate d (test code = 15998-5) messag e] The system which generated this result transmitted reference range : /HPF. The reference range was not used to interpret this result as normal/abnormal . Crystals, Urine (test None Seen code = 76330-1) Specimen Source (test code = 2795) MIRANDA (test code = MIRANDA) Professional System Administrator ID - [auto]Professional System Administrator ID - tech Lab Interpretation Abnormal (test code = 21301-6) [facility]/Microscopic + Reflex to Culture 2021-08-01 21:20:50 Test Item Value Reference Range Interpretation Comments Color, UA (test code Yellow = 5778-6) Clarity, UA (test Hazy code = 5767-9) Specific Mccaskill, UA 1.022 1.001-1.035 (test code = 5811-5) pH, UA (test code = 6.0 5.0-8.0 5803-2) Protein, UA (test 100 mg/dL Negative A code = 06286-4) Glucose, UA (test Negative Negative code = 365) Ketones, UA (test Trace Negative A code = 2514-8) Bilirubin, UA (test Negative Negative code = 85544-7) Blood, UA (test code Moderate Negative A = 00082-4) Nitrite, UA (test Negative Negative code = 5802-4) Leukocytes, UA (test Moderate Negative A code = 5799-2) Urobilinogen, UA 0.2 mg/dL 0.2-1.0 (test code = 05983-1) RBC, UA (test code = 78 See_Comment [Autom ated 86016-7) message] The system which generated this result transmitted reference range : /HPF. The reference range was not used to interpret this result as normal/abnormal . WBC, UA (test code = 8 See_Comment [Autom ated 5821-4) message] The system which generated this result transmitted reference range : /HPF. The reference range was not used to interpret this result as normal/abnormal . Bacteria, UA (test Occasional code = 92895-2) Mucus (test code = Many 8247-9) Squam Epithel, UA 5 See_Comment [Automate d (test code = 75694-1) messag e] The system which generated this result transmitted reference range : /HPF. The reference range was not used to interpret this result as normal/abnormal . Crystals, Urine (test None Seen code = 45238-0) Specimen Source (test code = 2795) MIRANDA (test code = MIRANDA) Professional System Administrator ID - [auto]Professional System Administrator ID - tech Lab Interpretation Abnormal (test code = 02604-4) [facility]/ REFLEX URINE [id number] 21:20:50 Test Item Value Reference Range Interpretation Comments COLOR (BEAKER) (test code = 470) Yellow CLARITY (BEAKER) (test code = 469) Hazy SPECIFIC GRAVITY UA (BEAKER) (test 1.022 1.001-1.035 code = 468) PH UA (BEAKER) (test code = 467) 6.0 5.0-8.0 PROTEIN UA (BEAKER) (test code = 100 mg/dL Negative A 464) GLUCOSE UA (BEAKER) (test code = Negative Negative 365) KETONES UA (BEAKER) (test code = Trace Negative A 371) BILIRUBIN UA (BEAKER) (test code = Negative Negative 462) BLOOD UA (BEAKER) (test code = Moderate Negative A 461) NITRITE UA (BEAKER) (test code = Negative Negative 465) LEUKOCYTE ESTERASE UA (BEAKER) Moderate Negative A (test code = 466) UROBILINOGEN UA (BEAKER) (test 0.2 mg/dL 0.2-1.0 code = 463) RBC UA (BEAKER) (test code = 519) 78 /HPF WBC UA (BEAKER) (test code = 520) 8 /HPF BACTERIA (BEAKER) (test code = Occasional 517) MUCUS (BEAKER) (test code = 1574) Many SQUAMOUS EPITHELIAL (BEAKER) (test 5 /HPF code = 516) CRYSTALS, URINE (BEAKER) (test None Seen code = 1521) SOURCE(BEAKER) (test code = 2795) Professional System Administrator ID - [auto]Professional System Administrator ID - techCBC with platelet count + automated diff 2021-08-01 21:07:56 Test Item Value Reference Range Interpretation Comments WBC (test code = 6690-2) 9.0 See_Comment [A utomated message] The system [email or web address] generated this result transmitted ref erence range: 3.5 - 10 .5 K/L. The refe rence range was not u sed to interpret this result as normal/abnor mal. RBC (test code = 789-8) 3.96 See_Comment [Au tomated message] The system [email or web address] generated this result transmitted ref erence range: 3.93 - 5 .22 M/L. The refe rence range was not u sed to interpret this result as normal/abnor mal. MCHC (test code = 786-4) 32.0 See_Comment L [A utomated message] The system [email or web address] generated this result transmitted ref erence range: 32.2 - 3 5.5 GM/DL. The refe rence range was not u sed to interpret this result as normal/abnor mal. Hematocrit (test code = 35.9 % 34.1-44.9 4544-3) MCV (test code = 787-2) 90.7 fL 79.4-94.8 MCH (test code = 785-6) 29.0 pg 25.6-32.2 RDW (test code = 788-0) 13.8 % 11.7-14.4 Platelets (test code = 432 See_Comment [Aut omated message] 777-3) The system [email or web address] generated this result transmitted ref erence range: 150 - 45 0 K/CU MM. The referen ce range was not u sed to interpret this result as normal/abnor mal. MPV (test code = 10.6 fL 9.4-12.3 33386-6) nRBC (test code = 413) 0 See_Comment [Aut omated message] The system [email or web address] generated this result transmitted ref erence range: 0 - 0 /1 00 WBC. The refere nce range was not u sed to interpret this result as normal/abnor mal. % Neutros (test code = 67 % 429) % Lymphs (test code = 21 % 430) % Monos (test code = 10 % 431) % Eos (test code = 432) 1 % % Baso (test code = 437) 1 % # Neutros (test code = 6.05 See_Comment [Aut omated message] 670) The system [email or web address] generated this result transmitted ref erence range: 1.56 - 6 .13 K/L. The refe rence range was not u sed to interpret this result as normal/abnor mal. # Lymphs (test code = 1.86 See_Comment [Auto mated message] 414) The system [email or web address] generated this result transmitted ref erence range: 1.18 - 3 .74 K/L. The refe rence range was not u sed to interpret this result as normal/abnor mal. # Monos (test code = 0.93 See_Comment H [Autom ated message] 415) The system [email or web address] generated this result transmitted ref erence range: 0.24 - 0 .36 K/L. The refe rence range was not u sed to interpret this result as normal/abnor mal. # Eos (test code = 416) 0.11 See_Comment [Au tomated message] The system [email or web address] generated this result transmitted ref erence range: 0.04 - 0 .36 K/L. The refe rence range was not u sed to interpret this result as normal/abnor mal. # Baso (test code = 417) 0.06 See_Comment [A utomated message] The system [email or web address] generated this result transmitted ref erence range: 0.01 - 0 .08 K/L. The refe rence range was not u sed to interpret this result as normal/abnor mal. Immature 0 % 0-1 Granulocytes-Relative (test code = 2801) Lab Interpretation (test Abnormal code = 33378-7) [facility] with platelet count + automated [id number] 21:07:56 Test Item Value Reference Range Interpretation Comments WBC (test code = 6690-2) 9.0 See_Comment [A utomated message] The system [email or web address] generated this result transmitted ref erence range: 3.5 - 10 .5 K/L. The refe rence range was not u sed to interpret this result as normal/abnor mal. RBC (test code = 789-8) 3.96 See_Comment [Au tomated message] The system [email or web address] generated this result transmitted ref erence range: 3.93 - 5 .22 M/L. The refe rence range was not u sed to interpret this result as normal/abnor mal. MCHC (test code = 786-4) 32.0 See_Comment L [A utomated message] The system [email or web address] generated this result transmitted ref erence range: 32.2 - 3 5.5 GM/DL. The refe rence range was not u sed to interpret this result as normal/abnor mal. Hematocrit (test code = 35.9 % 34.1-44.9 4544-3) MCV (test code = 787-2) 90.7 fL 79.4-94.8 MCH (test code = 785-6) 29.0 pg 25.6-32.2 RDW (test code = 788-0) 13.8 % 11.7-14.4 Platelets (test code = 432 See_Comment [Aut omated message] 577-3) The system [email or web address] generated this result transmitted ref erence range: 150 - 45 0 K/CU MM. The referen ce range was not u sed to interpret this result as normal/abnor mal. MPV (test code = 10.6 fL 9.4-12.3 45309-6) nRBC (test code = 413) 0 See_Comment [Aut omated message] The system [email or web address] generated this result transmitted ref erence range: 0 - 0 /1 00 WBC. The refere nce range was not u sed to interpret this result as normal/abnor mal. % Neutros (test code = 67 % 429) % Lymphs (test code = 21 % 430) % Monos (test code = 10 % 431) % Eos (test code = 432) 1 % % Baso (test code = 437) 1 % # Neutros (test code = 6.05 See_Comment [Aut omated message] 670) The system [email or web address] generated this result transmitted ref erence range: 1.56 - 6 .13 K/L. The refe rence range was not u sed to interpret this result as normal/abnor mal. # Lymphs (test code = 1.86 See_Comment [Auto mated message] 414) The system [email or web address] generated this result transmitted ref erence range: 1.18 - 3 .74 K/L. The refe rence range was not u sed to interpret this result as normal/abnor mal. # Monos (test code = 0.93 See_Comment H [Autom ated message] 415) The system [email or web address] generated this result transmitted ref erence range: 0.24 - 0 .36 K/L. The refe rence range was not u sed to interpret this result as normal/abnor mal. # Eos (test code = 416) 0.11 See_Comment [Au tomated message] The system [email or web address] generated this result transmitted ref erence range: 0.04 - 0 .36 K/L. The refe rence range was not u sed to interpret this result as normal/abnor mal. # Baso (test code = 417) 0.06 See_Comment [A utomated message] The system [email or web address] generated this result transmitted ref erence range: 0.01 - 0 .08 K/L. The refe rence range was not u sed to interpret this result as normal/abnor mal. Immature 0 % 0-1 Granulocytes-Relative (test code = 2801) Lab Interpretation (test Abnormal code = 53461-2) [facility] with platelet count + automated [id number] 21:07:56 Test Item Value Reference Range Interpretation Comments WBC (test code = 6690-2) 9.0 See_Comment [A utomated message] The system [email or web address] generated this result transmitted ref erence range: 3.5 - 10 .5 K/L. The refe rence range was not u sed to interpret this result as normal/abnor mal. RBC (test code = 789-8) 3.96 See_Comment [Au tomated message] The system [email or web address] generated this result transmitted ref erence range: 3.93 - 5 .22 M/L. The refe rence range was not u sed to interpret this result as normal/abnor mal. MCHC (test code = 786-4) 32.0 See_Comment L [A utomated message] The system [email or web address] generated this result transmitted ref erence range: 32.2 - 3 5.5 GM/DL. The refe rence range was not u sed to interpret this result as normal/abnor mal. Hematocrit (test code = 35.9 % 34.1-44.9 4544-3) MCV (test code = 787-2) 90.7 fL 79.4-94.8 MCH (test code = 785-6) 29.0 pg 25.6-32.2 RDW (test code = 788-0) 13.8 % 11.7-14.4 Platelets (test code = 432 See_Comment [Aut omated message] 777-3) The system [email or web address] generated this result transmitted ref erence range: 150 - 45 0 K/CU MM. The referen ce range was not u sed to interpret this result as normal/abnor mal. MPV (test code = 10.6 fL 9.4-12.3 03742-3) nRBC (test code = 413) 0 See_Comment [Aut omated message] The system [email or web address] generated this result transmitted ref erence range: 0 - 0 /1 00 WBC. The refere nce range was not u sed to interpret this result as normal/abnor mal. % Neutros (test code = 67 % 429) % Lymphs (test code = 21 % 430) % Monos (test code = 10 % 431) % Eos (test code = 432) 1 % % Baso (test code = 437) 1 % # Neutros (test code = 6.05 See_Comment [Aut omated message] 670) The system [email or web address] generated this result transmitted ref erence range: 1.56 - 6 .13 K/L. The refe rence range was not u sed to interpret this result as normal/abnor mal. # Lymphs (test code = 1.86 See_Comment [Auto mated message] 414) The system [email or web address] generated this result transmitted ref erence range: 1.18 - 3 .74 K/L. The refe rence range was not u sed to interpret this result as normal/abnor mal. # Monos (test code = 0.93 See_Comment H [Autom ated message] 415) The system [email or web address] generated this result transmitted ref erence range: 0.24 - 0 .36 K/L. The refe rence range was not u sed to interpret this result as normal/abnor mal. # Eos (test code = 416) 0.11 See_Comment [Au tomated message] The system [email or web address] generated this result transmitted ref erence range: 0.04 - 0 .36 K/L. The refe rence range was not u sed to interpret this result as normal/abnor mal. # Baso (test code = 417) 0.06 See_Comment [A utomated message] The system [email or web address] generated this result transmitted ref erence range: 0.01 - 0 .08 K/L. The refe rence range was not u sed to interpret this result as normal/abnor mal. Immature 0 % 0-1 Granulocytes-Relative (test code = 2801) Lab Interpretation (test Abnormal code = 11353-0) [facility] W/PLT COUNT & AUTO [id number] 21:07:56 Test Item Value Reference Range Interpretation Comments WHITE BLOOD CELL COUNT (BEAKER) 9.0 K/ L 3.5-10.5 (test code = 775) RED BLOOD CELL COUNT (BEAKER) 3.96 M/ L 3.93-5.22 (test code = 761) HEMOGLOBIN (BEAKER) (test code = 11.5 GM/DL 11.2-15.7 410) HEMATOCRIT (BEAKER) (test code = 35.9 % 34.1-44.9 411) MEAN CORPUSCULAR VOLUME (BEAKER) 90.7 fL 79.4-94.8 (test code = 753) MEAN CORPUSCULAR HEMOGLOBIN 29.0 pg 25.6-32.2 (BEAKER) (test code = 751) MEAN CORPUSCULAR HEMOGLOBIN CONC 32.0 GM/DL 32.2-35.5 L (BEAKER) (test code = 752) RED CELL DISTRIBUTION WIDTH 13.8 % 11.7-14.4 (BEAKER) (test code = 412) PLATELET COUNT (BEAKER) (test 432 K/CU MM 150-450 code = 756) MEAN PLATELET VOLUME (BEAKER) 10.6 fL 9.4-12.3 (test code = 754) NUCLEATED RED BLOOD CELLS 0 /100 WBC 0-0 (BEAKER) (test code = 413) NEUTROPHILS RELATIVE PERCENT 67 % (BEAKER) (test code = 429) LYMPHOCYTES RELATIVE PERCENT 21 % (BEAKER) (test code = 430) MONOCYTES RELATIVE PERCENT 10 % (BEAKER) (test code = 431) EOSINOPHILS RELATIVE PERCENT 1 % (BEAKER) (test code = 432) BASOPHILS RELATIVE PERCENT 1 % (BEAKER) (test code = 437) NEUTROPHILS ABSOLUTE COUNT 6.05 K/ L 1.56-6.13 (BEAKER) (test code = 670) LYMPHOCYTES ABSOLUTE COUNT 1.86 K/ L 1.18-3.74 (BEAKER) (test code = 414) MONOCYTES ABSOLUTE COUNT (BEAKER) 0.93 K/ L 0.24-0.36 H (test code = 415) EOSINOPHILS ABSOLUTE COUNT 0.11 K/ L 0.04-0.36 (BEAKER) (test code = 416) BASOPHILS ABSOLUTE COUNT (BEAKER) 0.06 K/ L 0.01-0.08 (test code = 417) IMMATURE GRANULOCYTES-RELATIVE 0 % 0-1 PERCENT (BEAKER) (test code = 1661)
[2022-07-23] MEDS ORDERED: AZITHROMYCIN 250 MG TAB ONE (08:16)
[2022-07-23] MEDS ORDERED: HYDROCODONE/CHLORPHEN 5 ML/OSYR ONE (08:25)
[2022-07-23 08:49] LABS: SARS-COV-2 RT PCR NEGATIVE (NEGATIVE)
[2022-07-23 08:58] LABS: Absolute Lymphocytes (CBC) 2.4 K/uL (0.7-4.9); Hematocrit 33.9 % (36.0-45.0); Lymphocytes % 17.6 % (15.3-44.8); MCV 86.1 fL (80-100); MPV 8.7 fL (7.6-11.3); RBC Red Blood Cell Count 3.93 M/uL (3.86-4.86)
[2022-07-23] MEDS ORDERED: PROMETHAZINE INJ 25 MG/ML AMP ONE ×3 (09:03→10:46)
[2022-07-23] MEDS ORDERED: KETOROLAC 30 MG/ML INJ ONE (09:04)
[2022-07-23] MEDS ORDERED: ACETAMINOPHEN 500 MG TAB ONE ×2 (09:04→09:37)
[2022-07-23 09:16] LABS: Bilirubin Total 0.3 mg/dL (0.2-1.0); Protein, Total 6.9 g/dL (6.4-8.2); Troponin High Sensitivity 8.4 pg/mL (<58.9)
[2022-07-23] MEDS ORDERED: AMOX/K CLAV 875 MG TAB ONE (09:37)
[2022-07-23] MEDS ORDERED: CEFTRIAXONE 2000 MG/VIAL ONE (09:38)
[2022-07-23] MEDS ORDERED: NA CHLORIDE 0.9% 100 ML IV ONE (09:38)
--- NOTE | 2022-07-23 09:45 | RAD REPORT ---
EXAM DESCRIPTION: RAD - Chest Pa And Lat (2 Views) - 07/23/2022 8:56 am CLINICAL HISTORY: COUGH COMPARISON: None TECHNIQUE: Frontal and lateral views of the chest were obtained. FINDINGS: The lungs are fully aerated. Ill-defined increased opacification is present at the left hi lum and left mid lung field. Single most likely etiology is pneumonia. Presentation could be bacteria l or influenza pneumonia. Right lung field is clear. Trachea is in the midline. Heart size is normal and central vasculature is within normal limits. N o pleural effusion or pneumothorax seen. No acute bony finding noted. No aortic abnormality. IMPRESSION: Left lung field pneumonia as detailed. A repeat chest film in 4-6 weeks is recommended to assure clearing of the left lung field finding fol lowing medical management.
[2022-07-23] MEDS ORDERED: OSELTAMIVIR 75 MG CAP PO ONE (10:47)
[2022-07-23] MEDS ORDERED: LEVALBUTEROL 1.25 MG/3 ML NEB ONE (10:47)
[2022-07-23] MEDS ORDERED: predniSONE 20 MG TAB ONE (10:47)
[2022-07-23] MEDS ORDERED: IPRATROPIUM BROM 0.5MG/2.5ML ONE (10:48)
[2022-07-23] MEDS ORDERED: POTASSIUM 25 MEQ EFFERV TAB ONE (10:48)
--- NOTE | 2022-07-23 10:57 | RAD REPORT ---
EXAM DESCRIPTION: CT - Chest For Pe Angio - 07/23/2022 10:36 am CLINICAL HISTORY: pain COMPARISON: Chest Pa And Lat (2 Views) dated 07/23/2022 TECHNIQUE: Dynamically enhanced 3 mm thick images of the chest were obtained during administration o f approximately 150mL Isovue 370 IV contrast. Coronal and oblique MIP reconstruction images were gene rated and reviewed. Exam utilizes a protocol to evaluate the pulmonary arterial tree. All CT scans are performed using dose optimization technique as appropriate and may include automated exposure control or mA/KV adjustment according to patient size. FINDINGS: No pulmonary emboli are identified. The aorta as imaged shows no acute or suspicious finding. No pericardial thickening or effusion. No c ardiomegaly is present. Left ventricular wall thickening is questioned. CT imaging sensitivity for le ft ventricular hypertrophy is limited. Interstitial and airspace opacities are present in the mid and lower portion of the left upper lobe e xtending into the lingula. There is very minimal interstitial and airspace opacification in the poste rior aspect of each lower lobe. These are typical pneumonia findings. Occult malignancy is not suspec mayelin. Thickening of the bronchial ford is evident without an endobronchial lesion. No pleural effusio n or pleural thickening. Reactive type mediastinal and hilar small lymph nodes are present. Malignant mass or lymphadenopathy in the mediastinum not suspected. No chest wall masses or abnormal axillary lymphadenopathy. IMPRESSION: No pulmonary emboli identified. Moderate-sized left upper lobe pneumonia with very minimal pneumonia in the each posterior lung base. Bronchial wall thickening is also present. Small reactive lymph nodes are present. No occult malignan cy is identifiable.
--- NOTE | 2022-07-23 11:42 | ER ---
Nurse's Notes [facility] Name: Treasure Varela Age: 61 yrs Sex: Female : 1960 Arrival Date: 07/23/2022 Time: 07:52 Bed 16 Private MD: Diagnosis: Dyspnea-failed out patient;Elevated white blood cell count;Hypokalemia;Pneumonia due to other specified bacteria-bilateral lower lobe, left upper lobe moderate;Influenza due to identified novel influenza A virus;Weakness Presentation: 07/23 07:59 Chief complaint: Chief complaint: Patient states: has already been diagnosed with flu iw at urgent care and was told if she didn't get better to go to ER, she is coughing more and her ribs are hurting, and I've been taking prednisone, and she had a shot when she was there, she was diagnosed on the and went to urgent care on the , the cough is keeping her up at night. 08:00 Coronavirus screen: Client presents with at least one sign or symptom that may indicate iw coronavirus-19. Ebola Screen: Patient negative for fever greater than or equal to 101.5 degrees Fahrenheit, and additional compatible Ebola Virus Disease symptoms Patient denies exposure to infectious person. Patient denies travel to an Ebola-affected area in the 21 days before illness onset. No symptoms or risks identified at this time. Initial Sepsis Screen: Does the patient meet any 2 criteria? No. Patient's initial sepsis screen is negative. Does the patient have a suspected source of infection? No. Patient's initial sepsis screen is negative. Risk Assessment: Do you want to hurt yourself or someone else? Patient reports no desire to harm self or others. Onset of symptoms was July 17, 2022. 08:00 Method Of Arrival: Ambulatory iw 08:00 Acuity: AMANDA 3 iw Historical: - Allergies: 08:00 Zofran; iw - Home Meds: 08:00 Dexilant 60 mg Oral CpDB 1 cap once daily [Active]; iw - PMHx: 08:00 GERD; LOW POTASSIUM; iw - Immunization history:: Adult Immunizations unknown. - Family history:: not pertinent. - Social history:: Smoking status: Patient reports the use of cigarette tobacco products, smokes one-half pack cigarettes per day. Screenin:55 Abuse screen: Denies threats or abuse. Denies injuries from another. Nutritional db screening: No deficits noted. Tuberculosis screening: No symptoms or risk factors identified. Fall Risk None identified. No fall in past 12 months (0 pts). No secondary diagnosis (0 pts). IV access (20 points). Ambulatory Aid- None/Bed Rest/Nurse Assist (0 pts). Gait- Normal/Bed Rest/Wheelchair (0 pts) Mental Status- Oriented to own ability (0 pts). Total Parikh Fall Scale indicates No Risk (0-24 pts). Assessment: 08:34 Reassessment: Patient appears in no apparent distress at this time. patient reports db vomiting notified provider. 08:34 Reassessment:. db 09:30 Reassessment: Patient appears in no apparent distress at this time. Patient is alert, db oriented x 3, equal unlabored respirations, skin warm/dry/pink. patient reports nausea and vomiting, cough. General: Appears in no apparent distress. comfortable, Behavior is calm, cooperative, appropriate for age. Pain: Complains of pain in chest. Neuro: No deficits noted. Level of Consciousness is awake, alert, obeys commands, Oriented to person, place, time. Cardiovascular: No deficits noted. Respiratory: Reports cough that is productive, Breath sounds are coarse bilaterally. GI: Reports nausea, vomiting. : No deficits noted. No signs and/or symptoms were reported regarding the genitourinary system. EENT: No deficits noted. No signs and/or symptoms were reported regarding the EENT system. Derm: No deficits noted. No signs and/or symptoms reported regarding the dermatologic system. 10:30 Reassessment: Patient appears in no apparent distress at this time. Patient and/or db family updated on plan of care and expected duration. Pain level reassessed. Patient is alert, oriented x 3, equal unlabored respirations, skin warm/dry/pink. 11:30 Reassessment: Patient appears in no apparent distress at this time. No changes from db previously documented assessment. Patient and/or family updated on plan of care and expected duration. Pain level reassessed. Patient is alert, oriented x 3, equal unlabored respirations, skin warm/dry/pink. 12:30 Reassessment: Patient appears in no apparent distress at this time. No changes from db previously documented assessment. Patient and/or family updated on plan of care and expected duration. Pain level reassessed. 13:30 Reassessment: Patient appears in no apparent distress at this time. No changes from db previously documented assessment. Patient and/or family updated on plan of care and expected duration. Pain level reassessed. Patient is alert, oriented x 3, equal unlabored respirations, skin warm/dry/pink. 14:30 Reassessment: Patient appears in no apparent distress at this time. No changes from db previously documented assessment. Patient and/or family updated on plan of care and expected duration. Pain level reassessed. Patient is alert, oriented x 3, equal unlabored respirations, skin warm/dry/pink. 15:26 Reassessment: Patient appears in no apparent distress at this time. No changes from db previously documented assessment. Patient and/or family updated on plan of care and expected duration. Pain level reassessed. Vital Signs: 08:00 BP 138 / 88; Pulse 89; Resp 20; Temp 99.3; Pulse Ox 95% on R/A; iw 09:50 BP 107 / 78; Pulse 89; Resp 16; Pulse Ox 96% on R/A; db 10:45 BP 127 / 72; Pulse 85; Resp 20; Pulse Ox 94% ; db 11:30 BP 122 / 71; Pulse 96; Resp 20; Pulse Ox 97% on Nebulizer Mask; db 12:30 BP 123 / 76; Pulse 86; Resp 18; Pulse Ox 94% ; db 13:30 BP 111 / 74; Pulse 80; Resp 20; Pulse Ox 92% on R/A; db 14:35 BP 124 / 88; Pulse 73; Resp 20; Pulse Ox 93% on R/A; db 15:00 BP 119 / 72; Pulse 75; Resp 20; Pulse Ox 95% on R/A; db ED Course: 07:52 Patient arrived in ED. rg4 08:02 Triage completed. iw 08:02 Arm band placed on. iw 08:03 Geovanni Wolf MD is Attending Physician. tomy 08:04 COVID swab sent to lab. Flu and/or RSV swab sent to lab. tm3 08:08 Winter Zapata, GLORIA is Primary Nurse. db 08:55 Inserted saline lock: 20 gauge in right antecubital area, using aseptic technique. db Blood collected. Missed attempt(s): 20 gauge in left antecubital area. Bleeding controlled, band aid applied, catheter tip intact. 08:57 Chest Pa And Lat (2 Views) XRAY In Process Unspecified. EDMS 09:00 Patient has correct armband on for positive identification. Bed in low position. Side db rails up X 1. 09:00 No provider procedures requiring assistance completed. Patient admitted, IV remains in db place. 09:30 First set of blood cultures drawn by me. tm3 10:38 CT Chest For PE Angio In Process Unspecified. EDMS 11:14 EKG done, by ED staff. tm3 11:39 Ellen Mccauley MD is Hospitalizing Provider. [facility] 11:46 Solo Everett is Hospitalizing Provider. [facility] Administered Medications: 08:20 Drug: Zithromax (azithromycin) 500 mg Route: PO; db 15:15 Follow up: Response: No adverse reaction db 08:20 Drug: Tussionex Pennkinetic ER (chlorpheniramine-hydrocodone) Suspension 5 ml Route: PO;db 08:56 Follow up: Response: Vomiting increased db 08:57 Follow up: Response: No adverse reaction db 10:00 Drug: Rocephin (cefTRIAXone) 2 grams Route: IV; Rate: per protocol; Site: right iw antecubital; 15:15 Follow up: Response: No adverse reaction; IV Status: Completed infusion; IV Intake: db 100ml 10:00 Drug: Phenergan (promethazine) 12.5 mg Route: IVP; Site: right antecubital; iw 15:15 Follow up: Response: No adverse reaction; Vomiting decreased db 10:01 Drug: Ketorolac 15 mg Route: IVP; Site: right antecubital; iw 15:19 Follow up: Response: No adverse reaction db 10:55 Drug: Phenergan (promethazine) 12.5 mg Route: IVP; Site: right antecubital; iw 15:16 Follow up: Response: No adverse reaction db 11:00 Drug: Tylenol 1000 mg Route: PO; iw 15:18 Follow up: Response: No adverse reaction db 11:03 Drug: Tamiflu (oseltamivir) 75 mg Route: PO; iw 15:16 Follow up: Response: No adverse reaction db 11:03 Drug: Xopenex (levalbuterol) 2.5 mg Route: Inhalation; iw 15:16 Follow up: Response: No adverse reaction db 11:03 Drug: AtroVENT (ipratropium) Aerosol 0.5 mg Route: Inhalation; iw 15:16 Follow up: Response: No adverse reaction db 15:14 Drug: Augmentin (Amoxicillin-Clavulanate) 875 mg Route: PO; db 15:16 Follow up: Response: No adverse reaction db 15:14 Drug: predniSONE 60 mg Route: PO; db 15:16 Follow up: Response: No adverse reaction db 15:18 Drug: Potassium Effervescent Tablet 50 mEq Route: PO; db 15:19 Follow up: Response: Nausea is increased db Medication: 09:00 VIS not applicable for this client. db Intake: 15:15 IV: 100ml; Total: 100ml. db Outcome: 09:00 Admitted to Med/surg db 09:00 Condition: stable 09:00 Instructed on the need for admit. 11:41 Decision to Hospitalize by Provider. [facility] 16:07 Patient left the ED. ld1 Signatures: Dispatcher [employer] EDCollin Nails tm3 Geovanni Wolf MD MD cha Williams, Irene, RN Bella Christopher 4 Cyndi Rodriguez RN RN ld1 Winter Zapata RN RN db Corrections: (The following items were deleted from the chart) 08:02 07:59 Chief complaint: [facility]
--- NOTE | 2022-07-23 11:42 | EDPHYS ---
Physician Documentation [facility] Name: Treasure Varela Age: 61 yrs Sex: Female : 1960 Arrival Date: 07/23/2022 Time: 07:52 Bed 16 Private MD: SHELBY Physician Geovanni Wolf HPI: 07/23 10:00 This 61 yrs old Female presents to ER via Ambulatory with complaints of Flu tomy Symptoms. 10:00 The patient has shortness of breath at rest, with light activity. Onset: The tomy symptoms/episode began/occurred 8 day(s) ago. Duration: The symptoms are continuous, and are steadily getting worse. The patient's shortness of breath is aggravated by coughing, exertion, light activity, prone position, supine position. The patient presents to the emergency department with wheezing, Current therapy: None. Modifying factors: The symptoms are alleviated by cool environment, the symptoms are aggravated by nothing. The patient or guardian reports cough, difficulty breathing, flu symptoms, arthralgias, low-grade fever, myalgias. Modifying factors: The symptoms are alleviated by remaining still, the symptoms are aggravated by activity, lying flat. Historical: - Allergies: 08:00 Zofran; iw - Home Meds: 08:00 Dexilant 60 mg Oral CpDB 1 cap once daily [Active]; iw - PMHx: 08:00 GERD; LOW POTASSIUM; iw - Immunization history:: Adult Immunizations unknown. - Family history:: not pertinent. - Social history:: Smoking status: Patient reports the use of cigarette tobacco products, smokes one-half pack cigarettes per day. ROS: 10:00 Constitutional: Negative for fever, chills, and weight loss, Eyes: Negative for injury, tomy pain, redness, and discharge, ENT: Negative for injury, pain, and discharge, Neck: Negative for injury, pain, and swelling, Cardiovascular: Negative for chest pain, palpitations, and edema, Abdomen/GI: Negative for abdominal pain, nausea, vomiting, diarrhea, and constipation, Back: Negative for injury and pain, : Negative for injury, bleeding, discharge, and swelling, MS/Extremity: Negative for injury and deformity, Skin: Negative for injury, rash, and discoloration, Neuro: Negative for headache, weakness, numbness, tingling, and seizure, Psych: Negative for depression, anxiety, suicide ideation, homicidal ideation, and hallucinations, Allergy/Immunology: Negative for hives, rash, and allergies, Endocrine: Negative for neck swelling, polydipsia, polyuria, polyphagia, and marked weight changes, Hematologic/Lymphatic: Negative for swollen nodes, abnormal bleeding, and unusual bruising. 10:00 Respiratory: Positive for cough, pleurisy, shortness of breath, wheezing, expiratory. Exam: 10:00 Constitutional: This is a well developed, well nourished patient who is awake, alert, tomy and in no acute distress. Head/Face: Normocephalic, atraumatic. Eyes: Pupils equal round and reactive to light, extra-ocular motions intact. Lids and lashes normal. Conjunctiva and sclera are non-icteric and not injected. Cornea within normal limits. Periorbital areas with no swelling, redness, or edema. ENT: Nares patent. No nasal discharge, no septal abnormalities noted. Tympanic membranes are normal and external auditory canals are clear. Oropharynx with no redness, swelling, or masses, exudates, or evidence of obstruction, uvula midline. Mucous membranes moist. Neck: Trachea midline, no thyromegaly or masses palpated, and no cervical lymphadenopathy. Supple, full range of motion without nuchal rigidity, or vertebral point tenderness. No Meningismus. Chest/axilla: Normal chest wall appearance and motion. Nontender with no deformity. No lesions are appreciated. Cardiovascular: Regular rate and rhythm with a normal S1 and S2. No gallops, murmurs, or rubs. Normal PMI, no JVD. No pulse deficits. Abdomen/GI: Soft, non-tender, with normal bowel sounds. No distension or tympany. No guarding or rebound. No evidence of tenderness throughout. Back: No spinal tenderness. No costovertebral tenderness. Full range of motion. Female : Normal external genitalia. Skin: Warm, dry with normal turgor. Normal color with no rashes, no lesions, and no evidence of cellulitis. MS/ Extremity: Pulses equal, no cyanosis. Neurovascular intact. Full, normal range of motion. Neuro: Awake and alert, GCS 15, oriented to person, place, time, and situation. Cranial nerves II-XII grossly intact. Motor strength 5/5 in all extremities. Sensory grossly intact. Cerebellar exam normal. Normal gait. Psych: Awake, alert, with orientation to person, place and time. Behavior, mood, and affect are within normal limits. 10:00 Respiratory: the patient does not display signs of respiratory distress, Respirations: normal, Breath sounds: bronchial sounds, rhonchi, that are mild. 10:00 Musculoskeletal/extremity: DVT Exam: No signs of deep vein thrombosis. no pain, no swelling, no tenderness, negative Homans' sign noted on exam, no appreciated bluish discoloration, no erythema, no increased warmth. 11:44 ECG was reviewed by the Attending Physician. [facility] Vital Signs: 08:00 BP 138 / 88; Pulse 89; Resp 20; Temp 99.3; Pulse Ox 95% on R/A; iw 09:50 BP 107 / 78; Pulse 89; Resp 16; Pulse Ox 96% on R/A; db 10:45 BP 127 / 72; Pulse 85; Resp 20; Pulse Ox 94% ; db 11:30 BP 122 / 71; Pulse 96; Resp 20; Pulse Ox 97% on Nebulizer Mask; db 12:30 BP 123 / 76; Pulse 86; Resp 18; Pulse Ox 94% ; db 13:30 BP 111 / 74; Pulse 80; Resp 20; Pulse Ox 92% on R/A; db 14:35 BP 124 / 88; Pulse 73; Resp 20; Pulse Ox 93% on R/A; db 15:00 BP 119 / 72; Pulse 75; Resp 20; Pulse Ox 95% on R/A; db MDM: 08:03 Patient medically screened. [facility] 11:42 Differential diagnosis: Anemia asthma, Bronchitis CHF exacerbation, obstructed airway, tomy tracheal injury, bronchitis, flu, URI, acute asthma, reactive airway, URI, pneumonia, pulmonary edema, Pulmonary Embolism reactive airway disease, Sepsis Unstable Angina. Antibiotic administration: Rocephin and Zithromax given. The patient's Wells Deep Vein Thrombosis Score was calculated as follows: Total Score: 0-2 Pts- Low Risk. The patient's pulmonary embolism risk score was calculated as follows: Total Score: 0-2 points. This patient was found to be at low risk for a pulmonary embolism by using the Well's assessment criteria. Immunization status: Influenza vaccine:. Data reviewed: vital signs, nurses notes, lab test result(s), EKG, radiologic studies, CT scan, plain films. Data interpreted: monitor car operator: rate is 89 beats/min, Pulse oximetry: is not applicable for this patient encounter. on room air. Test interpretation: by ED physician or midlevel provider: ECG, plain radiologic studies. Counseling: I had a detailed discussion with the patient and/or guardian regarding: the historical points, exam findings, and any diagnostic results supporting the discharge/admit diagnosis, lab results, radiology results, the need for further work-up and treatment in the hospital. 07/23 07:59 Order name: COVID-19/FLU A+B/RSV; Complete Time: 09:34 07/23 08:33 Order name: CBC with Diff; Complete Time: 08:59 [facility] 07/23 08:05 Order name: Chest Pa And Lat (2 Views) XRAY; Complete Time: 09:58 [facility] 07/23 08:33 Order name: Comprehensive Metabolic Panel; Complete Time: 09:34 [facility] 07/23 08:33 Order name: Troponin High Sensitivity; Complete Time: 09:34 [facility] 07/23 09:00 Order name: Blood Culture Adult (2) [facility] 07/23 09:41 Order name: CT Chest For PE Angio; Complete Time: 11:35 [facility] 07/23 08:33 Order name: EKG; Complete Time: 08:34 [facility] 07/23 08:33 Order name: EKG - Nurse/Tech [facility] EC:44 Rate is 87 beats/min. Rhythm is regular. QRS Mize is Normal. NJ interval is prolonged tomy at 102 msec. QRS interval is normal. QT interval is normal. No Q waves. T waves are Normal. No ST changes noted. Clinical impression: Normal ECG and No evidence of ischemia. Interpreted by me. Reviewed by me. Administered Medications: 08:20 Drug: Zithromax (azithromycin) 500 mg Route: PO; db 15:15 Follow up: Response: No adverse reaction db 08:20 Drug: Tussionex Pennkinetic ER (chlorpheniramine-hydrocodone) Suspension 5 ml Route: PO;db 08:56 Follow up: Response: Vomiting increased db 08:57 Follow up: Response: No adverse reaction db 10:00 Drug: Rocephin (cefTRIAXone) 2 grams Route: IV; Rate: per protocol; Site: right iw antecubital; 15:15 Follow up: Response: No adverse reaction; IV Status: Completed infusion; IV Intake: db 100ml 10:00 Drug: Phenergan (promethazine) 12.5 mg Route: IVP; Site: right antecubital; iw 15:15 Follow up: Response: No adverse reaction; Vomiting decreased db 10:01 Drug: Ketorolac 15 mg Route: IVP; Site: right antecubital; iw 15:19 Follow up: Response: No adverse reaction db 10:55 Drug: Phenergan (promethazine) 12.5 mg Route: IVP; Site: right antecubital; iw 15:16 Follow up: Response: No adverse reaction db 11:00 Drug: Tylenol 1000 mg Route: PO; iw 15:18 Follow up: Response: No adverse reaction db 11:03 Drug: Tamiflu (oseltamivir) 75 mg Route: PO; iw 15:16 Follow up: Response: No adverse reaction db 11:03 Drug: Xopenex (levalbuterol) 2.5 mg Route: Inhalation; iw 15:16 Follow up: Response: No adverse reaction db 11:03 Drug: AtroVENT (ipratropium) Aerosol 0.5 mg Route: Inhalation; iw 15:16 Follow up: Response: No adverse reaction db 15:14 Drug: Augmentin (Amoxicillin-Clavulanate) 875 mg Route: PO; db 15:16 Follow up: Response: No adverse reaction db 15:14 Drug: predniSONE 60 mg Route: PO; db 15:16 Follow up: Response: No adverse reaction db 15:18 Drug: Potassium Effervescent Tablet 50 mEq Route: PO; db 15:19 Follow up: Response: Nausea is increased db Disposition Summary: 07/23/22 11:41 Hospitalization Ordered Hospitalization Status: Inpatient Admission tomy Location: Telemetry/MedSur (Inpatient) tomy Condition: Fair tomy Problem: new tomy Symptoms: have improved tomy Bed/Room Type: Standard tomy Provider: Solo Everett(07/23/22 11:46) tomy Room Assignment: 231(07/23/22 15:13) eb Diagnosis - Dyspnea - failed out patient tomy - Elevated white blood cell count tomy - Hypokalemia tomy - Pneumonia due to other specified bacteria - bilateral lower lobe, left upper lobe tomy moderate - Influenza due to identified novel influenza A virus tomy - Weakness tomy Discharge Instructions: - Discharge Summary Sheet tomy - Potassium Content of Foods tomy - Influenza, Adult tomy - Community-Acquired Pneumonia, Adult [facility] - Cool Mist Vaporizer tomy - Community-Acquired Pneumonia, Adult, [id number] tomy - Influenza, Adult, Nsmt-[id number]-Mjay tomy - Cough, Adult, [id number] tomy - Cough, Adult [facility] Forms: - Medication Reconciliation Form [facility] - SBAR form [facility] Prescriptions: - Tessalon Perles 100 mg Oral Capsule - take 1 capsule by ORAL route every 8 hours As needed; 15 capsule; Refills: 0, [facility] Product Selection Permitted - Medrol (Jaspal) 4 mg Oral Tablets, Dose Pack - take 1 tablet by ORAL route as directed - follow package instructions; 1 tomy packet; Refills: 0, Product Selection Permitted - Tamiflu 75 mg Oral Capsule - take 1 tablet by ORAL route every 12 hours for 5 days; 10 tablet; Refills: 0, [facility] Product Selection Permitted - Augmentin 875-125 mg Oral Tablet - take 1 tablet by ORAL route every 12 hours for 7 days; 14 tablet; Refills: 0, [facility] Product Selection Permitted - albuterol sulfate 90 mcg/actuation Inhalation HFA aerosol inhaler - inhale 2 puff by INHALATION route every 6 hours; 1 Pump; Refills: 0, Product tomy Selection Permitted - Guaifenesin AC 10-100 mg/5 mL Oral Liquid - take 10 milliliters by ORAL route every 6 hours As needed; 180 milliliter; tomy Refills: 0, Product Selection Permitted - Zithromax 500 mg Oral Tablet - take 1 tablet by ORAL route once daily for 5 days; 5 tablet; Refills: 0, [facility] Product Selection Permitted Signatures: Dispatcher [employer] Geovanni Warren MD MD cha Williams, Irene, RN RN iw Botello, Elizabeth eb Benton, Danielle, RN RN db Corrections: (The following items were deleted from the chart) 11:46 11:41 Ellen Mccauley cha [facility] 15:13 11:41 tomy thomas
--- NOTE | 2022-07-23 12:12 | P.HP ---
Certification for Inpatient Patient admitted to: Inpatient With expected LOS: >2 Midnights Practitioner: I am a practitioner with admitting privileges, knowledge of patient current condition, hospital course, and medical plan of care. Services: Services provided to patient in accordance with Admission requirements found in Title 42 Section 412.3 of the Code of Federal Regulations Patient History Date of Service: 07/23/22 Reason for admission: Generalized body pains, cough and chills. History of Present Illness: 61-year-old man with a history of GERD and colon cancer presented to the emergency department with a complaint of cough, fever and chills and generalized bodily pains. Symptoms has been present for about 12 days. She states that she went to the urgent care twice, was prescribed steroid and inhaler. Her symptoms did not improve and therefore presented to the ED today. CT chest done in the ED demonstrated left upper lobe pneumonia. Patient is not hypoxic. She has mild leukocytosis. She does not meet criteria for sepsis. Patient reports nausea and vomiting, unable to tolerate p.o. She is admitted for management of pneumonia. Allergies ondansetron [From Zofran] Adverse Reaction (Intermediate, Verified 07/06/22 07:17) causes a migraine Home Medications: Dexlansoprazole [Dexilant] 60 mg PO DAILY 03/14/19 No122/Iron/Folic Acid [ Multi Tablet] 1 each PO DAILY 07/03/22 hydroCHLOROthiazide [Hydrochlorothiazide] 12.5 mg PO DAILY 07/03/22 - Past Medical/Surgical History Diabetic: No -: GERD -: Hypokalemia -: Colon cancer -: Tubal Ligation -: Appendectomy - Family History Mother -: Cancer Notes: - colon and pancreatic cancer, CABG Father Notes: - lung cancer, CABG - Social History Alcohol use: No CD- Drugs: No Caffeine use: Yes Review of Systems Other: Patient denied any diarrhea or abdominal pain. She denied any chest pain. Except as documented, all other systems reviewed and negative. Physical Examination - Physical Exam General: Alert, In no apparent distress, Oriented x3 HEENT: Mucous membr. moist/pink Neck: JVD not distended Respiratory: Clear to auscultation bilaterally, Normal air movement Cardiovascular: No edema, Regular rate/rhythm, Normal S1 S2 Capillary refill: <2 Seconds Gastrointestinal: Normal bowel sounds, Soft and benign, Non-distended, No tenderness Musculoskeletal: No swelling, No tenderness Integumentary: No rashes, No cyanosis Neurological: Normal speech, Normal strength at 5/5 x4 extr Lymphatics: No axilla or inguinal lymphadenopathy - Studies Laboratory Data (last 24 hrs) 07/23/22 08:44: Sodium 139, Potassium 3.0 L, BUN 14, Creatinine 0.83, Glucose 85, Total Bilirubin 0.3, AST 19, ALT 19, Alkaline Phosphatase 78 07/23/22 08:44: WBC 13.80 H, Hgb 11.2 L, Hct 33.9 L, Plt Count 445 H Assessment and Plan - Problems (Diagnosis) (1) Pneumonia Current Visit: Yes Status: Acute (2) Influenza A Current Visit: Yes Status: Acute (3) Hypokalemia Current Visit: Yes Status: Acute - Plan Admit patient to the medical floor. Start Tamiflu for influenza A infection. Empiric antibiotic-IV Rocephin and Zithromax for community-acquired pneumonia. Supportive measures with antiemetics. IV hydration. Replete potassium. Monitor CBC to follow leukocytosis. Monitor BMP. Diet as tolerated. - Advance Directives Does patient have a Living Will: No Does patient have a Durable POA for Healthcare: No
[2022-07-23] MEDS ORDERED: ALBUTEROL 2.5 MG/3 ML NEB SOL NEB PRN (15:54)
[2022-07-23] MEDS ORDERED: ONDANSETRON 4 MG/2 ML VIAL IV PRN (15:54)
[2022-07-23 17:17] VITALS: BMI 26.2
[2022-07-23] MEDS: CEFTRIAXONE 1,000 MG in NA CHLORIDE 0.9% 50 ML IVPB SCH (20:00)
[2022-07-23] MEDS: BENZONATATE 100 MG CAP PO PRN (23:26)
[2022-07-24] MEDS: NA CHLORIDE 0.9% 1,000 ML IV SCH ×4 (01:54→18:18)
[2022-07-24 04:23] LABS: Absolute Lymphocytes (CBC) 2.1 K/uL (0.7-4.9); Hematocrit 31.5 % (36.0-45.0); Lymphocytes % 16.2 % (15.3-44.8); MCV 86.3 fL (80-100); MPV 8.6 fL (7.6-11.3); RBC Red Blood Cell Count 3.65 M/uL (3.86-4.86)
[2022-07-24 04:50] LABS: Phosphorus 3.4 mg/dL (2.5-4.9)
[2022-07-24 04:52] LABS: Magnesium 1.2 mg/dL (1.8-2.4)
[2022-07-24] MEDS ORDERED: Magnesium Sulfate 2gm IVPB 2 G/50 ML BAG IV ONE (05:09)
[2022-07-24] MEDS ORDERED: POTASSIUM 25 MEQ EFFERV TAB PO ONE (05:12)
[2022-07-24] MEDS: ACETAMINOPHEN 500 MG TAB PO PRN ×2 (05:41→20:42)
[2022-07-24] MEDS ORDERED: CEFTRIAXONE 1000 MG/VIAL ONE ×2 (09:15→21:14)
[2022-07-24] MEDS ORDERED: NA CHLORIDE 0.9% 50 ML ONE ×2 (09:20→21:24)
[2022-07-24] MEDS: ENOXAPARIN 40 MG/0.4 ML SQ SCH (09:25)
[2022-07-24] MEDS: BENZONATATE 100 MG CAP PO PRN ×2 (09:25→20:42)
[2022-07-24] MEDS: CEFTRIAXONE 1,000 MG in NA CHLORIDE 0.9% 50 ML IVPB SCH ×2 (09:26→21:45)
[2022-07-24] MEDS: AZITHROMYCIN IV 500 MG in NA CHLORIDE 0.9% 250 ML IVPB SCH (09:28)
[2022-07-24] MEDS: KCL 20 MEQ/100 mL IVPB 20 MEQ/100 ML BAG IV SCH ×2 (10:23→12:00)
[2022-07-24] MEDS: PROMETHAZINE INJ 25 MG/ML AMP IV PRN ×2 (11:55→16:59)
--- NOTE | 2022-07-24 13:47 | EKG ---
Test Date: 2022-07-23 Test Time: 11:11:15 Ux Developer Designer: ANASTACIO MEASUREMENT RESULTS: Intervals: Rate: 87 RI: 102 QRSD: 90 QT: 376 QTc: 452 Omar: P: 53 RI: 102 QRS: 31 T: 58 INTERPRETIVE STATEMENTS: Sinus rhythm with short RI Otherwise normal ECG Compared to ECG 07/23/2022 11:10:41 Ventricular premature complex(es) no longer present ST (T wave) deviation no longer present Electronically Signed On 07-24-22 13:45:22 WEASAND TRIMMER by Levi Dominguez
--- NOTE | 2022-07-24 13:47 | EKG ---
Test Date: 2022-07-23 Test Time: 11:10:41 Lead Vulcanizing Operator: TM MEASUREMENT RESULTS: Intervals: Rate: 89 MA: 108 QRSD: 88 QT: 382 QTc: 464 [place]: P: 51 MA: 108 QRS: 30 T: 53 INTERPRETIVE STATEMENTS: Sinus rhythm with short MA Nonspecific ST abnormality Abnormal ECG Compared to ECG 01/13/2021 12:43:01 Short MA interval now present Electronically Signed On 07-24-22 13:45:50 [employer]IFTER [employer]ACON by Levi Dominguez
[2022-07-24] MEDS: POTASSIUM CL SA 10 MEQ TAB PO ONE ×2 (14:39→14:52)
[2022-07-24] MEDS ORDERED: ALBUTEROL 2.5 MG/3 ML NEB SOL NEB PRN (15:00)
[2022-07-24] MEDS: OSELTAMIVIR 75 MG CAP PO SCH ×2 (16:12→21:45)
--- NOTE | 2022-07-24 16:15 | P.PN ---
Subjective Date of Service: 07/24/22 Chief Complaint: Generalized body pains, cough and chills. Patient is complaining of intermittent cough and shortness of breath. She is also complaining of diarrhea. No recorded fever. Physical Examination - Vital Signs Temperature: 99.0 F Blood Pressure: 144/81 Pulse: 86 Respirations: 16 Pulse Ox (%): 96 Assessment And Plan - Current Problems (Diagnosis) (1) Pneumonia Current Visit: Yes Status: Acute (2) Influenza A Current Visit: Yes Status: Acute (3) Hypokalemia Current Visit: Yes Status: Acute - Plan Physical Exam General: Alert, In no apparent distress, Oriented x3 Neck: JVD not distended Respiratory: Crackles left lung, no wheezes. Cardiovascular: No edema, Regular rate/rhythm, Normal S1 S2 Gastrointestinal: Normal bowel sounds, Soft and benign, Non-distended, No tenderness Musculoskeletal: No swelling, No tenderness Integumentary: No rashes, No cyanosis Neurological: Normal speech, Normal strength at 5/5 x4 extr Plan: Started on Tamiflu for influenza A infection. Continue IV Rocephin and Zithromax for community-acquired pneumonia. Supportive measures with antiemetics. Continue IV fluid Replete potassium and magnesium. Monitor CBC to follow leukocytosis. Monitor BMP and correct electrolytes as needed. Obtain stool studies. Diet as tolerated.
--- NOTE | 2022-07-24 17:36 | CON ---
History Of Present Illness: This is a 61-year-old female. I was consulted for evaluation and manage ment of urinary tract infection secondary to Proteus mirabilis. The patient is coming in with longst anding history of colon cancer, gastroesophageal reflux disease. Initial symptoms on arrival were co ugh, fever and chills. For more than a week, the patient continued to be in respiratory distress on mild exertion. Denies any chest pain, abdominal pain, back pain. Complains of nausea, improving sli ghtly. Her CT chest shows left upper lobe pneumonia with leukocytosis and anemia of chronic disease and moderate protein-calorie malnourishment. Currently, the patient is being treated with Zithromax and Rocephin. See MAR for other medication. Allergies: . Review of Systems: A 10-point review was performed. Physical Examination: General: This is a 61-year-old female, lying in bed, in moderate respiratory distress. Vital Signs: Temperature 99, pulse 77, respiration 24, blood pressure 138/81. HEENT: Unremarkable. Neck: Supple. Lungs: Basal crackles, left more than right. Heart: S1, S2. Regular. Abdomen: Soft, nontender. Bowel sounds present. Extremity: No edema. Laboratory Data: Shows WBC 13.1, hemoglobin 10.5, platelets 397. Chemistry shows BUN of 13, creatin ine 0.7, albumin is 3. Her influenza type A RNA is positive. Blood cultures are negative up to date . Chest x-ray done on July 23 shows left lung field pneumonia. Assessment And Plan: A 61-year-old female with significant history of colon cancer, have not receive d any chemo or radiation therapy. Coming in with shortness of breath and left lobe pneumonia. Curre ntly, the patient is on Zithromax and Rocephin. Her influenza A is positive, recommend to start Jayda flu. Leukocytosis, anemia of chronic disease, moderate protein-calorie malnourishment. Continue sup portive care and pulmonary hygiene. We will follow the patient closely. Thank you, Dr. Everett for consult. NF/MODL Voice ID: [id number] Report ID: [id number]
[2022-07-24] MEDS: ONDANSETRON 4 MG/2 ML VIAL IV PRN (18:49)
[2022-07-24] MEDS ORDERED: POTASSIUM CL SA 10 MEQ TAB PO ONE (19:16)
[2022-07-25] MEDS: ONDANSETRON 4 MG/2 ML VIAL IV PRN ×2 (03:40→12:38)
[2022-07-25] MEDS: NA CHLORIDE 0.9% 1,000 ML IV SCH (03:47)
[2022-07-25 06:20] LABS: Absolute Lymphocytes (CBC) 2.1 K/uL (0.7-4.9); Hematocrit 30.5 % (36.0-45.0); Lymphocytes % 16.6 % (15.3-44.8); MCV 86.2 fL (80-100); MPV 8.4 fL (7.6-11.3); RBC Red Blood Cell Count 3.54 M/uL (3.86-4.86)
[2022-07-25 06:31] LABS: Magnesium 1.9 mg/dL (1.8-2.4); Potassium 3.3 mmol/L (3.5-5.1)
[2022-07-25] MEDS ORDERED: POTASSIUM CL SA 10 MEQ TAB PO ONE (09:00)
[2022-07-25] MEDS: AZITHROMYCIN IV 500 MG in NA CHLORIDE 0.9% 250 ML IVPB SCH (09:02)
[2022-07-25] MEDS: ENOXAPARIN 40 MG/0.4 ML SQ SCH (09:02)
[2022-07-25] MEDS: CEFTRIAXONE 1,000 MG in NA CHLORIDE 0.9% 50 ML IVPB SCH (09:03)
[2022-07-25] MEDS: OSELTAMIVIR 75 MG CAP PO SCH ×2 (09:03→21:32)
--- NOTE | 2022-07-25 12:17 | P.CNS ---
Date of Consult: 07/25/22 Reason for Consult: Upper lobe pneumonia Chief Complaint: Generalized body pains, cough and chills. History of Present Illness: Patient is 61 years of age been sick for about 12 days was seen at urgent care was treated with prednisone nebulizers and inhalers continue to get worse ended up here in the hospital still complains of cough and congestion no prior history of cardiopulmonary problems denies any fever or chills admitted with left upper lobe pneumonia Allergies ondansetron [From Zofran] Adverse Reaction (Intermediate, Verified 07/06/22 07:17) causes a migraine Home Medications: Dexlansoprazole [Dexilant] 60 mg PO DAILY 03/14/19 No122/Iron/Folic Acid [ Multi Tablet] 1 each PO DAILY 07/03/22 hydroCHLOROthiazide [Hydrochlorothiazide] 12.5 mg PO DAILY 07/03/22 - Past Medical/Surgical History Diabetic: No -: GERD -: Hypokalemia -: Colon cancer -: Tubal Ligation -: Appendectomy -: Colon cancer - Family History Mother Medical History: Cancer Notes: - colon and pancreatic cancer, CABG Father Medical History: Heart disease, Lung disease, Cancer Notes: - lung cancer, CABG - Social History Smoking Status: Current every day smoker Alcohol use: No CD- Drugs: No Caffeine use: Yes Place of Residence: Home Review of Systems 10-point ROS is otherwise unremarkable Respiratory: Cough, Shortness of Breath Physical Examination Temp Pulse Resp BP Pulse Ox 98.6 F 82 16 140/77 96 07/25/22 08:00 07/25/22 08:00 07/25/22 08:00 07/25/22 08:00 07/25/22 08:00 General: Alert, In no apparent distress, Oriented x3, Mild distress Respiratory: Clear to auscultation bilaterally Cardiovascular: No edema, Regular rate/rhythm, Normal S1 S2 Gastrointestinal: Normal bowel sounds, Soft and benign, Non-distended Musculoskeletal: No clubbing, No swelling - Problems (1) Pneumonia Current Visit: Yes Status: Acute Plan: Patient is 61 years of age has been sick for about 12 days admitted with left upper lobe interstitial pneumonia seen in urgent care x2 still complaining of cough congestion labs chemistries reviewed patient was hypokalemic hypomagnesemic on admission I suspect a side effect of the diuretics evaluate for possible discharge tomorrow on levofloxacin and prednisone eluding an inhaler patient is influenza A positive Qualifiers: Pneumonia type: due to unspecified organism Lung location: upper lobe of lung (2) Hypokalemia Current Visit: Yes Status: Acute Plan: Patient has severe hypokalemia hypomagnesemia presumed side effect of hydrochlorothiazide replace potassium and magnesium
[2022-07-25] MEDS: POTASSIUM CL SA 10 MEQ TAB PO SCH ×2 (12:33→21:32)
[2022-07-25] MEDS: levoFLOXacin 750 MG TAB PO SCH (12:34)
[2022-07-25] MEDS: METHYLPREDNISOLONE 40 MG INJ IV SCH ×2 (12:34→21:33)
[2022-07-25] MEDS: IPRATROPIUM BROM 0.5MG/2.5ML IH SCH ×2 (13:50→20:45)
--- NOTE | 2022-07-25 20:43 | P.PN ---
Date of Service: 07/25/22 Subjective: no acute events overnight continues with cough, but improved slightly loose stool again yesterday, more formed this morning tolerated some liquids this morning ROS: A complete review of systems was performed and is negative except as mentioned above Physical Exam: Gen: AOx3, +cough HEENT: normal conjunctiva, sclera anicteric CV: regular rate & rhythm, no edema Pulm: non-labored respirations on RA, crackles left lung Abd: soft, non-tender, non-distended Neuro: normal speech, normal affect, moves all extremities vitals reviewed Problem List acute hypoxemic respiratory failure secondary to influenza A Viral pneumonia Hypokalemia slight improvement continue empiric antibiotics for CAP tamiflu for flu A pulm consulted continues with significant cough, but feels improvement continues with nausea, had some emesis yesterday unable to keep much down, and has loose stool when she does stool slightly more formed today VTE: lovenox Code: full Dispo: home, ~1-2 days Time Spent Managing Pts Care (In Minutes): 35
[2022-07-26] MEDS: ONDANSETRON 4 MG/2 ML VIAL IV PRN ×3 (00:36→17:58)
[2022-07-26] MEDS: BENZONATATE 100 MG CAP PO PRN ×2 (00:40→08:46)
[2022-07-26] MEDS: IPRATROPIUM BROM 0.5MG/2.5ML IH SCH ×4 (02:55→20:15)
[2022-07-26 06:06] LABS: Hematocrit 33.6 % (36.0-45.0); MCV 85.5 fL (80-100); MPV 8.1 fL (7.6-11.3); RBC Red Blood Cell Count 3.93 M/uL (3.86-4.86)
[2022-07-26 06:19] LABS: Potassium 4.1 mmol/L (3.5-5.1)
[2022-07-26] MEDS: METHYLPREDNISOLONE 40 MG INJ IV SCH ×2 (08:47→21:04)
[2022-07-26] MEDS: levoFLOXacin 750 MG TAB PO SCH (08:47)
[2022-07-26] MEDS: POTASSIUM CL SA 10 MEQ TAB PO SCH ×2 (08:48→21:03)
[2022-07-26] MEDS: OSELTAMIVIR 75 MG CAP PO SCH ×2 (08:49→21:02)
[2022-07-26] MEDS: ENOXAPARIN 40 MG/0.4 ML SQ SCH (08:50)
--- NOTE | 2022-07-26 12:28 | P.PN ---
Subjective Date of Service: 07/26/22 Chief Complaint: Pneumonia Subjective: Improving (Patient is improving doing well complaining of diarrhea) Review of Systems Respiratory: Cough, Shortness of Breath Physical Examination - Vital Signs Temperature: 98.1 F Blood Pressure: 144/94 Pulse: 96 Respirations: 18 Pulse Ox (%): 96 - Physical Exam General: Alert, Oriented x3 Neck: Supple Respiratory: Clear to auscultation bilaterally Cardiovascular: No edema, Regular rate/rhythm Assessment And Plan - Current Problems (Diagnosis) (1) Pneumonia Current Visit: Yes Status: Acute Plan: Patient is 61 years of age admitted with left upper lobe pneumonia currently doing better plan to discharge prednisone 10 mg twice a day for 10 days and levofloxacin 500 mg daily and count is declining back to normal planing of mild stomach upset diarrhea quite possible is from Zithromax he also benefit from an inhaled bronchodilator follow-up with me in 2 to 4 weeks signs stable oxygenation satisfactory Qualifiers: Pneumonia type: due to unspecified organism Lung location: upper lobe of lung (2) Hypokalemia Current Visit: Yes Status: Acute Plan: Patient has severe hypokalemia hypomagnesemia presumed side effect of hydrochlorothiazide replace potassium and magnesium
--- NOTE | 2022-07-26 21:08 | P.PN ---
Date of Service: 07/26/22 Subjective: no acute events overnight breathing, cough improved continues with upset stomach, loose stool, nausea; slightly improved compared to yesterday has not had anything more than jello/juice ROS: A complete review of systems was performed and is negative except as mentioned a terry Physical Exam: Gen: AOx3, +cough HEENT: normal conjunctiva, sclera anicteric CV: regular rate & rhythm, no edema Pulm: non-labored respirations on RA, crackles left lung, mild cough Abd: soft, non-tender, non-distended Neuro: normal speech, normal affect, moves all extremities vitals reviewed Problem List acute hypoxemic respiratory failure secondary to influenza A Viral pneumonia gastroenteritis, nausea/diarrhea Hypokalemia improving from respiratory standpoint, ambulating continue empiric antibiotics for CAP tamiflu for flu A pulm consulted continues with nausea, loose stool stool not as watery, initially sent for c. diff leukocytosis improved tolerated jello and some juice last night/this morning advance diet ensure patient can adequately hydrate / maintain caloric intake ambulate as tolerated unable to keep much down, and has loose stool when she does stool slightly more formed today VTE: lovenox Code: full Dispo: home, ~1 day Time Spent Managing Pts Care (In Minutes): 25
[2022-07-27] MEDS: IPRATROPIUM BROM 0.5MG/2.5ML IH SCH ×2 (01:20→08:30)
[2022-07-27] MEDS: ONDANSETRON 4 MG/2 ML VIAL IV PRN (07:39)
[2022-07-27] MEDS: levoFLOXacin 750 MG TAB PO SCH (08:01)
[2022-07-27] MEDS: POTASSIUM CL SA 10 MEQ TAB PO SCH (08:01)
[2022-07-27] MEDS: OSELTAMIVIR 75 MG CAP PO SCH (08:01)
[2022-07-27] MEDS: ENOXAPARIN 40 MG/0.4 ML SQ SCH (08:01)
[2022-07-27] MEDS: METHYLPREDNISOLONE 40 MG INJ IV SCH (08:45)
[2022-07-27 08:54] VITALS: O2SAT 99
[2022-07-27] MEDS ORDERED: ONDANSETRON 4 MG (ODT) TAB PO PRN (09:22)
[2022-07-27] MEDS ORDERED: ONDANSETRON 4 MG (ODT) TAB SL PRN (10:00)
[2022-07-27 10:17] VITALS: BP 158/98; TEMP 98.3
[2022-07-27 11:47] LABS: C.diff Antigen/Toxin Ag neg : Tox neg (NEG : NEG)
--- NOTE | 2022-07-29 07:31 | P.DS ---
Admission Date: 07/23/22 Discharge Date: 07/27/22 Disposition: ROUTINE DISCHARGE Discharge Condition: GOOD Reason for Admission: Pneumonia Consultations: Henry Skinner Brief History of Present Illness: 61-year-old F with a history of GERD and colon cancer presented to the emergency department with a complaint of cough, fever and chills and generalized bodily pains. Symptoms has been present for about 12 days. She states that she went to the urgent care twice, was prescribed steroid and inhaler. Her symptoms did not improve and therefore presented to the ED today. CT chest done in the ED demonstrated left upper lobe pneumonia. Patient is not hypoxic. She has mild leukocytosis. She does not meet criteria for sepsis. Patient reports nausea and vomiting, unable to tolerate p.o. She is admitted for management of pneumonia. Hospital Course: Problem List acute hypoxemic respiratory failure secondary to influenza A Viral pneumonia gastroenteritis, nausea/diarrhea Hypokalemia Patient presented with cough, shortness of breath, weakness, not feeling well. Found to have pneumonia secondary to influenza A. She also had nausea and diarrhea for several days. Pulmonology was consulted. She was treated for flu and covered for possible bacterial superinfection. She had improvement with her symptoms. On day of discharge, she was breathing more comfortably, strength improved, ambulating, tolerating PO diet with mild nausea, diarrhea improved. She is deemed stable for discharge home. To complete 10 days of levaquin, 2 more days of tamiflu. Discharged with prednisone for 1 week per Pulmonology recommendations. She was noted to be hypokalemic. Blood pressure was low - low-normal, so blood pressure medication was held (HCTZ). Suspect diarrhea lead to further potassium loss. Potassium has improved and stable, with daily potassium supplementation. She will continue on potassium supplementation for now. Follow up: PCP within 1 week, recommend repeat blood work to follow potassium levels Dr. Skinner - in ~1-2 weeks. Vital Signs/Physical Exam: Temp Pulse Resp BP Pulse Ox 98.3 F 82 18 158/98 H 96 07/27/22 08:00 07/27/22 08:00 07/27/22 08:00 07/27/22 08:00 07/27/22 08:00 Physical Exam: Gen: AOx3, +cough HEENT: normal conjunctiva, sclera anicteric CV: regular rate & rhythm, no edema Pulm: non-labored respirations on RA, clear bilaterally Abd: soft, non-tender, non-distended Neuro: normal speech, normal affect, moves all extremities Laboratory Data at Discharge: WBC 10.00 K/uL (4.3-10.9) 07/26/22 05:46 Hgb 11.2 g/dL (12.0-15.0) L D 07/26/22 05:46 Hct 33.6 % (36.0-45.0) L 07/26/22 05:46 Plt Count 541 K/uL (152-406) H D 07/26/22 05:46 Sodium 136 mmol/L (136-145) 07/26/22 05:46 Potassium 4.1 mmol/L (3.5-5.1) 07/26/22 05:46 BUN 10 mg/dL (7-18) 07/26/22 05:46 Creatinine 0.62 mg/dL (0.55-1.3) 07/26/22 05:46 Glucose 124 mg/dL (74-106) H 07/26/22 05:46 Phosphorus 3.4 mg/dL (2.5-4.9) 07/24/22 03:40 Magnesium 1.9 mg/dL (1.8-2.4) 07/25/22 05:51 Total Bilirubin 0.3 mg/dL (0.2-1.0) 07/23/22 08:44 AST 19 U/L (15-37) 07/23/22 08:44 ALT 19 U/L (12-78) 07/23/22 08:44 Alkaline Phosphatase 78 U/L (45-117) 07/23/22 08:44 Home Medications: Dexlansoprazole [Dexilant] 60 mg PO DAILY 03/14/19 No122/Iron/Folic Acid [ Multi Tablet] 1 each PO DAILY 07/03/22 Benzonatate [Tessalon Perle*] 1 cap PO TID PRN 5 Days #15 cap 07/27/22 Ondansetron [Zofran] 4 mg PO Q6H PRN #15 tab 07/27/22 Oseltamivir [Tamiflu*] 75 mg PO BID 2 Days #4 cap 07/27/22 Potassium Oral Tab [Klor-Con 10 mEq Tab*] 2 tab PO DAILY 30 Days #60 tab 07/27/22 levoFLOXacin [Levaquin*] 750 mg PO DAILY 6 Days #6 tab 07/27/22 predniSONE [Deltasone*] 10 mg PO BID 7 Days #14 tab 07/27/22 New Medications: predniSONE [Deltasone*] 10 mg PO BID 7 Days #14 tab Potassium Oral Tab [Klor-Con 10 mEq Tab*] 2 tab PO DAILY 30 Days #60 tab levoFLOXacin [Levaquin*] 750 mg PO DAILY 6 Days #6 tab Oseltamivir [Tamiflu*] 75 mg PO BID 2 Days #4 cap Benzonatate [Tessalon Perle*] 1 cap PO TID PRN 5 Days #15 cap PRN Reason: Cough Ondansetron [Zofran] 4 mg PO Q6H PRN #15 tab PRN Reason: Nausea / Vomiting Physician Discharge Instructions: Patient presented with cough, shortness of breath, weakness, not feeling well. Found to have pneumonia secondary to influenza A. She also had nausea and diarrhea for several days. Pulmonology was consulted. She was treated for flu and covered for possible bacterial superinfection. She had improvement with her symptoms. On day of discharge, she was breathing more comfortably, strength improved, ambulating, tolerating PO diet with mild nausea, diarrhea improved. She is deemed stable for discharge home. To complete 10 days of levaquin, 2 more days of tamiflu. Discharged with prednisone for 1 week per Pulmonology recommendations. She was noted to be hypokalemic. Blood pressure was low - low-normal, so blood pressure medication was held (HCTZ). Suspect diarrhea lead to further potassium loss. Potassium has improved and stable, with daily potassium supplementation. She will continue on potassium supplementation for now. Follow up: PCP within 1 week, recommend repeat blood work to follow potassium levels Dr. Skinner - in ~1-2 weeks. Followup: Mike Skinner MD [ACTIVE - CAN ADMIT] - 1-2 Weeks Yan Moreland MD [Primary Care Provider] - 1 Week Time spent managing pt's care (in minutes): 45
== END 2022-07-27 12:03 | disposition home or self-care (01) | DRG 193 ==
LOC: ER 07:50 → ERHOLD 12:01 → 2ND 15:32
PROVIDERS: ADMIT Internal Medicine; ATTEND Hospitalist
DX: J10.08 Influenza due to other identified influenza virus with other specified pneumonia (principal); J96.01 Acute respiratory failure with hypoxia; E44.0 Moderate protein-calorie malnutrition; N39.0 Urinary tract infection, site not specified; J12.9 Viral pneumonia, unspecified; K21.9 Gastro-esophageal reflux disease without esophagitis; K52.9 Noninfective gastroenteritis and colitis, unspecified; E87.6 Hypokalemia; D63.8 Anemia in other chronic diseases classified elsewhere; F17.210 Nicotine dependence, cigarettes, uncomplicated; B96.4 Proteus (mirabilis) (morganii) as the cause of diseases classified elsewhere; Z79.52 Long term (current) use of systemic steroids; Z68.26 Body mass index [BMI] 26.0-26.9, adult; Z90.49 Acquired absence of other specified parts of digestive tract; Z98.51 Tubal ligation status; Z88.8 Allergy status to other drugs, medicaments and biological substances; Z85.038 Personal history of other malignant neoplasm of large intestine; Z79.899 Other long term (current) drug therapy; Z20.822 Contact with and (suspected) exposure to COVID-19
CPT/HCPCS: 0241U; 36415; 71046; 71275; 80048; 80053; 83735; 84100; 84132; 84484; 85025; 85027; 87040; 87324; 93005; 94640; 94760; 96365; 96366; 96375; 99285; J0456; J0696; J1650; J2405; J2550; J2920; J3475; J3480; J7030; J7050; J7512; J7614; J7644; Q0144; Q0162; Q9967

== ENCOUNTER 2022-08-11 14:15 | Emergency (ER) | payer BC ==
--- OUTSIDE RECORDS SUMMARY | 2022-08-11 14:24 | XMS REPORT | Continuity of Care Document ---
:1960 Author Organization [facility] t Address [address] [place] [address] Care Team Providers Name Role Phone KIMMIE MARRERO JR Primary Care Physician Unavailable GM SHARMA Attending Clinician Unavailable GM SHARMA Attending Clinician Unavailable Mingo CASTRO, Stormy Attending Clinician Unavailable EbrahiVelia Roman Attending Clinician EBVELIA ASTUDILLO Attending Clinician Unavailable Unknown, Attending Attending Clinician Unavailable Nurse, [facility] Attending Clinician Unavailable Doctor Unassigned, [place] Attending Clinician Unavailable CHRIS PALACIO Attending Clinician Unavailable Chris Palacio MD Attending Clinician Alejo CASTRO, Geovanni Attending Clinician Unavailable Only, Emigdio Reynolds Test Attending Clinician Unavailable Cuauhtemoc Ruvalcaba MD Attending Clinician JAILENE MCKOY Attending Clinician Unavailable Ce AMEZCUA, Nixon Freeman Attending Clinician Teressa Aden MD Attending Clinician [phone] TERESSA ADEN Attending Clinician Unavailable Kathi West RN Attending Clinician Unavailable DENISE HADLEY Attending Clinician Unavailable Jomar AMEZCUA, Denise Attending Clinician Jailene Patel Attending Clinician [phone] JAYE BLUNT Attending Clinician Unavailable Sheila Escalante RN Attending Clinician Unavailable Tiffanie Marie MD Attending Clinician Vanessa Garner MD Attending Clinician TIFFANIE MARIE Attending Clinician Unavailable Juve AMEZCUA, Elmo Attending Clinician Hector Hall Attending Clinician Philip Cooley MD Attending Clinician PHILIP COOLEY Attending Clinician Unavailable Vanessa Garner MD Admitting Clinician Philip Cooley MD Admitting Clinician PHILIP COOLEY Admitting Clinician Unavailable Payers Payer Name Policy Type Policy Number Effective Date Expiration Date S leta [facility] [id number] 2017 00:00:00 BS HMO [id number] 2017 BLUE/ESSENTIALS 00:00:00 [facility] [id number] [place]-AREA POS - BCBS Problems Condition Condition Condition Status Onset Resolution Last Treating Co mments Source Name Details Category Date Date Treatment Clinician Date Hypoxia Hypoxia Disease Active Univers 3-04 ity of 00:00: [place] 00 Medical Branch Chest pain Chest pain Disease Active 2020-0 U nivers 4-06 ity of 00:00: [place] 00 Medical Branch Family Family Disease Active 2020-0 Univers history of history of 406 it y of coronary coronary 00:00: [place] artery artery 00 Medical disease disease Branch Other Other Disease Active 2019-0 Univers hyperlipid hyperlipid 4-06 it y of emia emia 00:00: [place] 00 Medical Branch Allergies, Adverse Reactions, Alerts Allergy Allergy Status Severity Reaction(s) Onset Inactive Treating Comm ents Source Name Type Date Date Clinician Ondanset Propensi Active Mild 2020-[address] [facility] [address] [facility] adverse [facility]: Medical reaction 00 Center s ONDANSET Allergy Active Low 2020-[address] [facility] [address] [facility]O HCL 2-13 [facility] 00:[facility]: Medical 00 Center Ondanset Propensi Active Other - See Gives U nivers memo Hcl ty to comments 3-05 patient a ity of (Pf) adverse 00:00: migraine [place] reaction 00 Medical s Branch ONDANSET DRUG Active Med Other-Cmnt Univ ers MEMO HCL 3-05 ity of (PF) 00:00: [address] Social History Social Habit Start Date Stop Date Quantity Comments Source Exposure to Not sure University SARS-CoV-2 [facility] (event) Branch Alcohol intake 2022-07-20 2022-07-20 Lifetime University of 00:00:00 00:00:00 non-drinker [facility] (finding) [place] Tobacco use and 2020-10-21 2020-10-21 Smokeless tobacco Un iversity of exposure 00:00:00 00:00:00 non-user [facility] Sex Assigned At [birth year] MARIEL [place] 00:00:00 00:00:00 [facility] Center Smoking Status Start Date Stop Date Source Never smoked tobacco [facility] Medications Ordered Filled Start Stop Current Ordering Indication Dosage Frequency Signature Comments Components Source Medication Medication Date Date Medication? Clinician (SIG) Name Name ipratropium 2021-08- No [id number] 6mL U nivers -albuteroL 09-20 ity of (DUONEB) 17:15: 16:27 [place] 0.5 mg-3 00 :00 Medical mg(2.5 mg Branch base)/3 mL nebulizer solution 6 mL methylpredn 2021-08- No [id number] 125mg Univers isolone sod 09-20 ity of succ 17:15: 16:27 [place] (SOLU-MEDRO 00 :00 Medical L) Branch injection 125 mg methylpredn 2021-08- No [id number] 125mg 125 mg, Univers isolone sod 09-20 Intramuscu i ty of succ 17:15: 16:27 lar, ONCE, [place] (SOLU-MEDRO 00 :00 1 dose, On Me dical L) [place] Branch injection 07/20/22 at 125 mg 1115, Routine ipratropium 2021-08- No [id number] 6mL 6 mL, Univers -albuteroL 09-20 Inhalation it y of (DUONEB) 17:15: 16:27 , ONCE, 1 Kaleb as 0.5 mg-3 00 :00 dose, On Medical mg(2.5 mg [place] Branch base)/3 mL 07/20/22 at nebulizer 1115, solution 6 Routine mL albuterol 2021-08 Yes [id number] 2{puff} Inhale 2 Univers 90 2-01 Puffs ity of mcg/actuati 00:00: every 6 Kaleb as on inhaler 00 (six) Medical hours as Branch needed for Wheezing or Bronchospa sm. albuterol 2021-08 Yes [id number] 2{puff} Inhale 2 Univers 90 2-01 Puffs ity of mcg/actuati 00:00: every 6 Kaleb as on inhaler 00 (six) Medical hours as Branch needed for Wheezing or Bronchospa sm. albuterol 2021-08 Yes [id number] 2{puff} Inhale 2 Univers 90 2-01 Puffs ity of mcg/actuati 00:00: every 6 Kaleb as on inhaler 00 (six) Medical hours as Branch needed for Wheezing or Bronchospa sm. albuterol 2021-08 Yes [id number] 2{puff} Inhale 2 Univers 90 2-01 Puffs ity of mcg/actuati 00:00: every 6 Kaleb as on inhaler 00 (six) Medical hours as Branch needed for Wheezing or Bronchospa sm. predniSONE 2021-08- Yes [id number] 40mg Take 2 Univers 20 mg 2-08 31- tablets by ity of tablet 00:00: 05:59 mouth in [place] 00 :00 the Medical morning Branch for 5 days. predniSONE 2021-08- Yes [id number] 40mg Take 2 Univers 20 mg 2-08 31- tablets by ity of tablet 00:00: 05:59 mouth in [place] 00 :00 the Medical morning Branch for 5 days. predniSONE 2021-08- Yes [id number] 40mg Take 2 Univers 20 mg 2-08 31- tablets by ity of tablet 00:00: 05:59 mouth in [place] 00 :00 the Medical morning Branch for 5 days. predniSONE 2021-08- Yes [id number] 40mg Take 2 Univers 20 mg 2-08 31- tablets by ity of tablet 00:00: 05:59 mouth in [place] 00 :00 the Medical morning Branch for 5 days. ciprofloxac 2020-08- No 500mg [...] daily for 7 days. methylPREDN 2020-0 Yes [id number] Take by [facility] [place] [facility] 4 3-10 [id number] mouth ity of mg tablets 00:00: [place] 00 CTIONS. Medical follow Branch package directions methylPREDN 2020-0 Yes [id number] Take by [facility] [place] [facility] 4 3-10 [id number] mouth ity of mg tablets 00:00: [place]-INSTRU [place] 00 CTIONS. Medical follow Branch package directions methylPREDN 2020-0 Yes [id number] Take by [facility] [place] [facility] 4 3-10 [id number] mouth ity of mg tablets 00:00: SEE-INSTRU [place] 00 CTIONS. Medical follow Branch package directions methylPREDN 2020-0 Yes [id number] Take by [facility] [place] [facility] 4 3-10 [id number] mouth ity of mg tablets 00:00: SEE-INSTRU [place] 00 CTIONS. Medical follow Branch package directions methylPREDN 2020-0 Yes [id number] Take by [facility] [place] [facility] 4 3-10 [id number] mouth ity of mg tablets 00:00: SEE-INSTRU [place] 00 CTIONS. Medical follow Branch package directions methylPREDN 2020-0 Yes [id number] Take by [facility] [place] [facility] 4 3-10 [id number] mouth ity of mg tablets 00:00: SEE-INSTRU [place] 00 CTIONS. Medical follow Branch package directions meclizine 2020-0 Yes [id number] 25mg Take 1 Univers 25 mg 3-09 [id number] tablet by ity of tablet 00:00: mouth 3 00 (three) Medical times Branch daily as needed for Dizziness. proMETHazin 2020-0 Yes [id number] 12.5mg Take 1 Univers e 12.5 mg 3-09 [id number] tablet by it y of tablet 00:00: mouth [place] 00 every 4 Medical (four) Branch hours as needed for Nausea and Vomiting (N/V). meclizine 2020-0 Yes [id number] 25mg Take 1 Univers 25 mg 3-09 [id number] tablet by ity of tablet 00:00: mouth 3 00 (three) Medical times Branch daily as needed for Dizziness. proMETHazin 2020-0 Yes [id number] 12.5mg Take 1 Univers e 12.5 mg 3- [id number] tablet by it y of tablet 00:00: mouth [place] 00 every 4 Medical (four) Branch hours as needed for Nausea and Vomiting (N/V). meclizine 2020-0 Yes [id number] 25mg Take 1 Univers 25 mg 3- [id number] tablet by ity of tablet 00:00: mouth 3 00 (three) Medical times Branch daily as needed for Dizziness. proMETHazin 2020-0 Yes [id number] 12.5mg Take 1 Univers e 12.5 mg 3- [id number] tablet by it y of tablet 00:00: mouth [place] 00 every 4 Medical (four) Branch hours as needed for Nausea and Vomiting (N/V). meclizine 2020-0 Yes [id number] 25mg Take 1 Univers 25 mg 3- [id number] tablet by ity of tablet 00:00: mouth 3 00 (three) Medical times Branch daily as needed for Dizziness. proMETHazin 2020-0 Yes [id number] 12.5mg Take 1 Univers e 12.5 mg 3-09 [id number] tablet by it y of tablet 00:00: mouth [place] 00 every 4 Medical (four) Branch hours as needed for Nausea and Vomiting (N/V). meclizine 2020-0 Yes [id number] 25mg Take 1 Univers 25 mg 3-09 [id number] tablet by ity of tablet 00:00: mouth 3 00 (three) Medical times Branch daily as needed for Dizziness. proMETHazin 2021-0 Yes [id number] 12.5mg Take 1 Univers e 12.5 mg 10-2602 tablet by it y of tablet 00:00: mouth 00 every 4 Medical (four) Branch hours as needed for Nausea and Vomiting (N/V). meclizine Yes [id number] 25mg Take 1 Univers 25 mg 10-2602 tablet by ity of tablet 00:00: mouth 3 00 (three) Medical times Branch daily as needed for Dizziness. proMETHazin Yes [id number] 12.5mg Take 1 Univers e 12.5 mg 10-2602 tablet by it y of tablet 00:00: mouth 00 every 4 Medical (four) Branch hours as needed for Nausea and Vomiting (N/V). Vital Signs Vital Name Observation Time Observation Value Comments Source Systolic blood 2022-07-20 15:45:00 136 mm[Hg] [facility]iver [facility] Diastolic blood 2022-07-20 15:45:00 90 [facility]Hg[facility] 2022-07-20 15:45:00 90 /min [facility] Body temperature 2022-07-20 15:45:00 37.11 [facility] Respiratory rate 2022-07-20 15:45:00 24 /min [facility] Body height 2022-07-20 15:45:00 160 cm [facility] Body weight 2022-07-20 15:45:00 65.318 kg [facility] BMI 2022-07-20 15:45:00 25.51 kg/m2 [facility] Oxygen saturation in 2022-07-20 15:45:00 98 /min [facility] Arterial blood by [facility] Pulse oximetry Branch Systolic blood 2021-11-04 13:42:00 154 mm[Hg] Univer sity [facility] Diastolic blood 2021-11-04 13:42:00 89 mm[Hg] [facility] 2021-11-04 13:34:00 75 /min [facility] Body height 2021-11-04 13:34:[address] [facility] Body weight 2021-11-04 13:34:00 70.761 kg [facility] BMI 2021-11-04 13:34:00 27.63 kg/m2 [facility] Oxygen saturation in 2021-11-04 13:34:00 97 /min University Arterial blood by [facility] Pulse oximetry Branch HEIGHT 2021-08-01 20:21:00 160 cm WEIGHT 2021-08-01 20:21:00 68.04 kg HEIGHT 2021-08-01 20:21:00 160 cm WEIGHT 2021-08-01 20:21:00 68.04 kg Systolic blood 2021-08-02 02:20:00 131 mm[Hg] [facility] Diastolic blood 2021-08-02 02:20:00 74 mm[Hg] [facility] Heart rate 2021-08-02 02:20:00 78 /min [facility] Body temperature 2021-08-02 02:20:00 37.28 Chrystal [facility] Respiratory rate 2021-08-02 02:20:00 17 /min [facility] Oxygen saturation in 2021-08-02 02:20:00 98 /min [facility] Arterial blood by Medical nter Pulse oximetry Body height 2021-08-01 20:21:[address] [facility] Body weight 2021-08-01 20:21:[address] [facility] BMI 2021-08-01 20:21:00 26.57 kg/m2 [facility] Procedures Procedure Date / Time Performing Clinician Source Performed XR CHEST 2 VW 2022-07-20 17:24:41 Velia Lara [place] o f [facility] EXTERNAL PROVIDER 2022-01-04 05:01:00 Doctor Unassigned, No Univ [facility] RECORDS Name Medical Branch CT ABDOMEN/PELVIS WITH 2021-08-02 00:20:00 Filiberto Orozco [facility] IV CONTRAST [facility] URINE CULTURE 2021-08-01 23:21:00 Nixon Encinas [facility] ECG 12-LEAD 2021-08-01 21:25:31 Filiberto Orozco [facility] ECG 12-LEAD 2021-08-01 21:25:31 Unknown, Hl7 Doctor [facility] URINALYSIS W/ REFLEX 2021-08-01 20:55:00 Filiberto Orozco [facility] URINE CULTURE [facility] CBC W/PLT COUNT & AUTO 2021-08-01 20:54:00 Filiberto Orozco [facility] DIFFERENTIAL [facility] COMPREHENSIVE METABOLIC 2021-08-01 20:54:00 Filiberto Orozco [facility] PANEL [facility] LIPASE 2021-08-01 20:54:00 Filiberto Orozco [facility] HIGH SENSITIVITY 2021-08-01 20:54:00 Filiberto Orozco [facility] TROPONIN I [facility] CBC W/PLT COUNT & AUTO 2021-08-01 20:54:00 Filiberto Orozco [facility] DIFFERENTIAL [facility] EKG-SCANNED 2021-08-01 00:00:00 ProviderMilli [facility] Medical Scanning [place] Plan of Care Planned Activity Planned Date Details Comments Source Future Scheduled 2024-11-23 Lipid panel (procedure) [facility] Test 00:00:00 [code = 08919738] Medical Ce nter Future Scheduled 2024-11-23 Lipid panel (procedure) [facility] Test 00:00:00 [code = 57581714] Medical Ce nter Future Scheduled 2024-11-23 Lipid panel (procedure) [facility] Test 00:00:00 [code = 20242821] Medical Ce nter Future Scheduled 2024-11-23 Lipid panel (procedure) [facility] Test 00:00:00 [code = 03300350] Medical Ce nter Future Scheduled 2022-04-20 INFLUENZA VACCINE (#1) [facility] 00:00:00 [code = INFLUENZA Medical Ce nter VACCINE (#1)] Future Scheduled 2022-04-20 INFLUENZA VACCINE (#1) C [...] Medical Center DEPRESSION SCREENING (12+)] Future Scheduled 2021-04-20 INFLUENZA VACCINE (#1) [facility] 00:00:00 [code = INFLUENZA Medical Ce nter VACCINE (#1)] Future Scheduled 2021-04-20 INFLUENZA VACCINE (#1) [facility] 00:00:00 [code = INFLUENZA Medical Ce nter VACCINE (#1)] Future Scheduled 2010 SHINGLES VACCINES ([address] [facility] Test 00:00:00 2) [code = SHINGLES [facility] VACCINES (1 of 2)] Future Scheduled 2010 SHINGLES VACCINES ([address] [facility] Test 00:00:00 2) [code = SHINGLES [facility] VACCINES (1 of 2)] Future Scheduled 2010 SHINGLES VACCINES ([address] [facility] Test 00:00:00 2) [code = SHINGLES [facility] VACCINES (1 of 2)] Future Scheduled 2010 SHINGLES VACCINES ([address] [facility] Test 00:00:00 2) [code = SHINGLES [facility] VACCINES (1 of 2)] Future Scheduled 1981 Screening for malignant [facility] Test 00:00:00 neoplasm of cervix Medical C enter (procedure) [code = 666144449] Future Scheduled 1981 Screening for malignant [facility] Test 00:00:00 neoplasm of cervix Medical C enter (procedure) [code = 297364701] Future Scheduled 1981 Screening for malignant [facility] Test 00:00:00 neoplasm of cervix Medical C enter (procedure) [code = 963724170] Future Scheduled 1981 Screening for malignant [facility] Test 00:00:00 neoplasm of cervix Medical C enter (procedure) [code = 443819415] Future Scheduled 1979-11-06 DTAP/TDAP/TD VACCINES CH I [...] C Medical Center SCREENING] Future Scheduled 1972 COVID-19 VACCINE (1) [facility] Test 00:00:00 [code = COVID-[address] VACCINE (1)] Future Scheduled 1972 COVID-19 VACCINE (1) [facility] Test 00:00:00 [code = COVID-[address] VACCINE (1)] Future Scheduled [address] [facility] Test 00:00:00 Counseling and Medical Cente r Screening (12+) [code = Tobacco Cessation Counseling and Screening (12+)] Future Scheduled [address] [facility] Test 00:00:00 Counseling and Medical Cente r Screening (12+) [code = Tobacco Cessation Counseling and Screening (12+)] Future Scheduled 1961-05-08 COVID-19 VACCINE (#1) [facility] 00:00:00 [code = COVID-[address] VACCINE (#1)] Future Scheduled 1961-05-08 COVID-19 VACCINE (#1) [facility] 00:00:00 [code = COVID-[address] VACCINE (#1)] Future Scheduled 1960 Screening for malignant [facility] Test 00:00:00 neoplasm of breast Medical C enter (procedure) [code = 127267356] Future Scheduled 1960 Screening for malignant [facility] Test 00:00:00 neoplasm of colon Medical Ce nter (procedure) [code = 025582711] Future Scheduled 1960 Screening for malignant [facility] Test 00:00:00 neoplasm of breast Medical C enter (procedure) [code = 200867435] Future Scheduled 1960 Screening for malignant [facility] Test 00:00:00 neoplasm of colon Medical Ce nter (procedure) [code = 931153533] Future Scheduled 1960 Screening for malignant [facility] Test 00:00:00 neoplasm of breast Medical C enter (procedure) [code = 470940367] Future Scheduled 1960 CT Colonography (combo) [facility] Test 00:00:00 [code = CT Colonography [facility] (combo)] Future Scheduled 1960 Screening for malignant [facility] Test 00:00:00 neoplasm of colon Medical Ce nter (procedure) [code = 624059007] Future Scheduled 1960 Screening for malignant [facility] Test 00:00:00 neoplasm of colon Medical Ce nter (procedure) [code = 938825187] Future Scheduled 1960 Screening for malignant [facility] Test 00:00:00 neoplasm of colon Medical Ce nter (procedure) [code = 822570350] Future Scheduled 1960 Screening for malignant [facility] Test 00:00:00 neoplasm of colon Medical Ce nter (procedure) [code = 207631468] Future Scheduled 1960 Sigmoidoscopy [code = [facility] S[facility]oscopy] Medical Cente r Future Scheduled 1960 Sigmoidoscopy [code = [facility] Sigmoidoscopy] Medical Sapna r Future Scheduled 1960 Screening for malignant [facility] Test 00:00:00 neoplasm of breast Medical C enter (procedure) [code = 621540571] Future Scheduled 1960 CT Colonography (combo) [facility] Test 00:00:00 [code = CT Colonography [facility] (combo)] Future Scheduled 1960 Screening for malignant [facility] Test 00:00:00 neoplasm of colon Medical Ce nter (procedure) [code = 477818974] Future Scheduled 1960 Screening for malignant [facility] Test 00:00:00 neoplasm of colon Medical Ce nter (procedure) [code = 058165793] Future Scheduled 1960 Screening for malignant [facility] Test 00:00:00 neoplasm of colon Medical Ce nter (procedure) [code = 524922724] Future Scheduled 1960 Screening for malignant [facility] Test 00:00:00 neoplasm of colon Medical Ce nter (procedure) [code = 676570061] Encounters Start End Encounter Admission Attending Care Care Encounter Source Date/Time Date/Time Type Type Clinicians Facility Department ID 2022-08-22 2022-08-22 Outpatient R GM SHARMA [facility] [id number] Univers 09:30:00 09:30:[address] [facility] 2022-07-21 2022-07-21 Letter JUSTIN Aguila [id number] Univers 00:00:00 00:00:00 (Out) Stormy CHRIS [id number] it y of [facility] [id number] Kaleb as [id number] [address] 2022-07-20 2022-07-20 [facility] [id number] [facility] 10:13:24 23:59:00 [facility] 350.1.13.10 ity of [place] 4.2.7.2.686 Kaleb as ANTIONE?BLEA [id number] La chris[address] MEDICAL OFFICE BUILDING 2022-07-20 2022-07-20 Outpatient R KARRIELILYKaroline [facility] [id number] Univers 09:40:00 10:22:54 VELIA ityeni [facility] 2022-07-20 2022-07-20 Urgent Velia Lara [facility] [id number] Univers 09:40:00 10:22:54 Care Unknown, Attending HEALTH 350.1.13.10 ity of [place] 4.2.7.2.686 Kaleb as ANTIONE?BLEA [phone] [facility] [address] [facility] OFFICE [facility] 2022-07-20 2022-07-20 Telephone Nurse, Emigdio [facility] [id number] Univers 00:00:00 00:00:00 Db Urgent HEALTH 350.1.13.10 ity of Care [place] 4.2.7.2.686 Kaleb as ANTIONE?BLEA [id number] [facility] [address] [facility] OFFICE [facility] 2022-01-04 2022-01-04 Orders Doctor JUSTIN [id number] Univers 00:00:00 00:00:00 Only Unassigned, CHRIS 350.1.13.10 ity of [place] [facility] 4.2.7.2.686 Kaleb as [phone] [address] 2021-11-04 2021-11-04 [facility] [id number] Univers 08:30:00 13:25:08 CHRIS parker [facility] 2021-11-04 2021-11-04 [facility] [id number] Univers 08:30:00 13:25:08 Visit Chris L HEALTH 350.1.13.10 it y of [place] 4.2.7.2.686 Kaleb as ANTIONE?BLEA [id number] [facility] [address] [facility] OFFICE [facility] 2021-11-04 2021-11-04 Orders Doctor JUSTIN [id number] Univers 00:00:00 00:00:00 Only Unassigned, CHRIS 350.1.13.10 ity of [place] [facility] 4.2.7.2.686 Kaleb as [id number] [facility] [address] [place] 2021-11-04 2021-11-04 Telephone Hakeem [facility] [id number] Univers 00:00:00 00:00:00 Chris Gonzalez HEALTH 350.1.13.10 it y [facility] 4.2.7.2.686 Kaleb as ANTIONE?BLEA [phone] La will ESPINO [address] [place] MEDICAL OFFICE BUILDING 2021-11-03 2021-11-03 Telephone Hakeem [facility] [id number] Univers 00:00:00 00:00:00 Chris Gonzalez HEALTH 350.1.13.10 it y of [place] 4.2.7.2.686 Kaleb as ANTIONE?BLEA [id number] La will ESPINO [address] [facility] OFFICE [facility] 2021-09-17 2021-09-17 Letter JUSTIN Dhillon [id number] Univers 00:00:00 00:00:00 (Out) Geovanni CHRIS 350.1.13.10 it y of HOSPITAL 4.2.7.2.686 Kaleb as [phone] [facility] 0[address] [place] 2021-09-16 2021-09-16 Laboratory Only, Ang Db Test [facility] 1.2.8 [id number] Univers 14:00:00 14:15:00 Only Jordon Cuauhtemoc Miles HEALTH 350.1.13.10 ity of [place] 4.2.7.2.686 Kaleb as ANTIONE?BLEA [id number] La will ESPINO [address] [place] MEDICAL OFFICE [facility] 2021-09-16 2021-09-16 Outpatient R [facility] [id number] Univers 14:00:00 14:00:00 ity of [facility] 2021-09-16 2021-09-16 Orders Doctor ANDERSON [id number] Univers 00:00:00 00:00:00 Only Unassigned, CHRIS 350.1.13.10 ity of [place] [facility] 4.2.7.2.686 Kaleb as [phone] [address] 2021-08-29 2021-08-29 Outpatient [facility] [id number] [facility] 00:00:00 00:00:00 JAILENE 2021-08-29 2021-08-29 Outpatient [facility] [id number] [facility] 00:00:00 00:00:00 JAILENE 2021-08-01 2021-08-02 Emergency ER Nixon Encinas [facility] [id number] 20:26:00 02:35:00 Teressa Aden [facility] 2021-08-01 2021-08-02 Emergency [facility] Emergency [id number] [facility] 20:26:00 02:35:00 TERESSA PATEL 2021-08-01 2021-08-01 Outpatient [facility] [id number] 00:00:00 23:59:00 [facility] 2021-08-01 2021-08-[address] [facility] [id number] 00:00:00 00:00:00 Only [facility] 2021-07-31 2021-07-31 Letter JUSTIN [place] [id number] [facility] 00:00:00 00:00:00 (Out) Kathi PEREZ 350.1.13.10 it y of [facility] 4.2.7.2.686 Kaleb as [phone] [address] [address] 2021-07-30 2021-07-30 Outpatient R [facility] [id number] Univers 11:15:00 11:23:11 DENISE ity [facility] 2021-07-30 2021-07-30 Laboratory Only, Ang Db Test [facility] 1.2.8 40.114 [id number] Univers 11:07:18 11:22:18 Only Denise Hadley [facility] 350..13.10 ity [facility] 4.2.7.2.686 Kaleb as ANTIONE?BLEA [id number] [address] MEDICAL OFFICE BUILDING 2021-07-29 2021-07-29 Emergency X [facility] ERT [id number] Univers 15:58:00 15:59:00 ity of [facility] 2021-07-29 2021-07-29 Emergency [facility] [id number] Univers 15:58:00 15:59:00 [place] 350.1.13.10 i ty of [place] 4.2.7.2.686 [place] [facility] [id number] [facility] [address] 2021-07-01 2021-07-01 [facility] [id number] [facility] 00:00:00 00:00:00 Orders [facility] 2021-03-02 2021-03-02 Outpatient JAYE BLUNT [facility] [id number] [place] 10:35:28 11:32:20 [facility] Medicin e 2020-10-27 2020-10-27 Transition Jany Escalante 1.2.840.114 [id number] 00:00:00 00:00:00 of Care Sheila Yuan 350.1.13.10 Kennan 4.2.7.2.686 [id number] 2020-10-27 2020-10-27 Transition Jany Escalante 1.2.840.114 [id number] Univers 00:00:00 00:00:00 of Care Sheila Yuan 350.1.13.10 i ty of [place] 4.2.7.2.686 [facility] [id number] [facility] [address] 2020-10-21 2020-10-26 [facility] Frank [facility] 1.2.840.1 14 [id number] 19:22:00 17:05:00 Encounter Vanessa Garner 350.1.13.10 [facility] 4.2.7.2.686 [place] [id number] 2020-10-21 2020-10-26 [facility] 1.2.840.1 14 [id number] [facility] 19:22:00 17:05:00 Encounter Vanessa Garner 350.1.13.10 ity of [facility] 4.2.7.2.686 [facility] [place] [phone] [address] 2020-10-21 2020-10-21 Emergency X FRANK [facility] ERT [id number] Univers 19:22:00 19:22:00 [facility] 2019-12-03 2019-12-03 Telephone [facility] [id number] 00:00:00 00:00:00 Elmo [place] 350.1.13.10 [facility] 4.2.7.2.686 Professio [id number] [address] 2019-12-03 2019-12-03 Telephone [facility] [id number] [facility] 00:00:00 00:00:00 Madelainemaguiradha [place] 350.1.13.10 ity of [facility] 4.2.7.2.686 [facility] [id number] [place] dical [address] 2019-11-24 2019-11-25 [facility] Fab[facility] 1.2.840.11 4 [id number] 10:55:57 14:00:00 Encounter Philip Cooley 350.1.13.10 [facility] 4.2.7.2.686 [place] [id number] [facility] 2019-11-24 2019-11-25 [facility] 1.2.840.11 4 [id number] Univers 10:55:57 14:00:00 Encounter Philip Cooley 350.1.13.10 ity of [facility] 4.2.7.2.686 [facility] [id number] [address] 2019-11-24 2019-11-25 Outpatient X PHILIP COOLEY [facility] [id number] Univers 10:55:57 14:00:00 [facility] Results Test Description Test Time Test Comments Results Result Comments Source Urine culture 2021-08-05 10:14:17 Test Item Value Reference Range Interpretation Comme nts Result (test code = 6463-4) 10-19,000 col/mL Felicita dubliniensis A MIRANDA (test code = MIRANDA) <10,000 col/mL Gram Negative Ghae00-25,000 col/mL skin rios Lab Interpretation (test code = 96819-6) Abnormal [facility] [id number] 10:14:17 Test Item Value Reference Range Interpretation Comments Result (test code = 10-19,000 col/mL A 6463-4) Felicita dubliniensis MIRANDA (test code = MIRANDA) <10,000 col/mL Gram Negative Altm83-68,000 col/mL skin rios Lab Interpretation (test Abnormal code = 88965-9) [facility] [id number] 10:14:17 Test Item Value Reference Range Interpretation Comments Result (test code = 10-19,000 col/mL A 6463-4) Felicita dubliniensis MIRANDA (test code = MIRANDA) <10,000 col/mL Gram Negative Pdey99-72,000 col/mL skin rios Lab Interpretation (test Abnormal code = 31230-6) [facility] [id number] 10:14:17 Test Item Value Reference Range Interpretation Comments CULTURE (BEAKER) (test A 10-19 ,000 col/mL Felicita code = 1095) dubliniensis <10,000 col/mL Gram Negative Mvzd08-23,000 col/mL skin floraCT, ABDOMEN 2021-08-02 00:48:00Unlisted Reason for Exam - Click Yes and Enter Reason Below- >NoIs this for enterography?->NoWill this procedure require oral contrast?->NoBEVERLY HOSPITALName: DENTON LORENA C : 1960 Sex: FFINAL REPORT EXAM: CT [...] diverticulosis without acute diverticulitis. Signed: Trenton Watson MDRepcox monett Verified Date/Time: 08/02/2021 00:48:37 High Sens Trop I ([facility]/Wu Only)2021-08-01 21:34:45 Test Item Value Reference Range Interpretation Comments Troponin I HS (test <4 See_Comment [Automa mayelin code = 28214-3) message] The system which generated this result transmitted reference range : <=17 pg/ml. The reference range was not used to interpret this result as normal/abnormal . MIRANDA (test code = Trade [employer] Official ID - MIRANDA) DBThe BREAKDOWN PERSON STAT High Sensitivity Troponin-I results should be used in conjunction with other diagnostic information such as ECG, clinical observations and information, and patient symptoms to aid in the diagnosis of NE. Lab Interpretation Normal (test code = 27256-7) [facility] ([facility]/Wu Only)2021-08-01 21:34:45 Test Item Value Reference Range Interpretation Comments Troponin I HS (test <4 See_Comment [Automa mayelin code = 79933-0) message] The system which generated this result transmitted reference range : <=17 pg/ml. The reference range was not used to interpret this result as normal/abnormal . MIRANDA (test code = Trade [employer] Official ID - MIRANDA) DBThe BREAKDOWN PERSON STAT High Sensitivity Troponin-I results should be used in conjunction with other diagnostic information such as ECG, clinical observations and information, and patient symptoms to aid in the diagnosis of NE. Lab Interpretation Normal (test code = 05853-5) [facility] ([facility]/Wu Only)2021-08-01 21:34:45 Test Item Value Reference Range Interpretation Comments Troponin I HS (test <4 See_Comment [Automa mayelin code = 76182-5) message] The system which generated this result transmitted reference range : <=17 pg/ml. The reference range was not used to interpret this result as normal/abnormal . MIRANDA (test code = Trade [employer] Official ID - MIRANDA) DBThe BREAKDOWN PERSON STAT High Sensitivity Troponin-I results should be used in conjunction with other diagnostic information such as ECG, clinical observations and information, and patient symptoms to aid in the diagnosis of NE. Lab Interpretation Normal (test code = 79864-3) [facility] Center[facility]IT[facility] TROPONIN [id number] 21:34:45 Test Item Value Reference Range Interpretation Comments HIGH SENSITIVITY < pg/ml See_Comment [Automated message] TROPONIN I (test code = The system which 3582253) generated this result transmitted ref erence range: <=17. Th e reference range was not used to interpr et this result as normal/abnormal . [employer] Official ID - DBThe BREAKDOWN PERSON STAT High Sensitivity Troponin-I results should be used in conjunctionwith other diagnostic information such as ECG, clinical observations and information, and patient symptoms to aid in the diagnosis of NE.Comprehensive metabolic [id number] 21:30:43 Test Item Value Reference Range Interpretation Comments Protein, Total (test 7.7 See_Comment Specime n markedly code = 2885-2) hemolyzed [Automated message] The system which generated this result transmit mayelin reference range : 6.0 - 8.3 gm/dL . The reference range was not u sed to interpret th is result as normal/abnormal . Albumin (test code = 4.1 g/dL 3.5-5.0 Specime n markedly 88880-8) hemolyzed Alkaline Phosphatase 79 U/L 40-150 (test code = 6768-6) Total Bilirubin (test 0.4 mg/dL 0.2-1.2 Specim en markedly code = 1974-2) hemolyzed Sodium (test code = 137 meq/L 547-130 2846-2) Potassium (test code 4.5 meq/L 3.5-5.1 Specime n markedly = 2823-3) hemolyzed Chloride (test code = 102 meq/L 98-107 5-0) CO2 (test code = 22 meq/L 22-29 8-9) BUN (test code = 7 mg/dL 7-21 3094-0) Creatinine (test code 0.82 mg/dL 0.57-1.25 Specim en markedly = 2160-0) hemolyzed Glucose (test code = 115 mg/dL 70-105 H 2345-7) Calcium (test code = 9.0 mg/dL 8.4-10.2 65003-2) AST (test code = 20 U/L 5-34 Specimen ma rkedly 1920-8) hemolyzed ALT (test code = 9 U/L 6-55 Specimen vt rkedly 1742-6) hemolyzed EGFR (test code = 71 mL/min/1.73 [place] [address]-9) NOT ACCURATE CREATININE CLEARANCE IN PREDICTING GLOMERULAR FILTRATION RATE . ESTIMATED GFR I S NOT APPLICABLE FOR DIALYSIS PATIEN TS. MIRANDA (test code = MIRANDA) Trade Union Official ID - DB Lab Interpretation Abnormal (test code = 18519-8) [facility] Center[facility]2021-[facility]-13 21:30:43 Test Item Value Reference Range Interpretation Comments Lipase (test code = 3040-3) 14 U/L 8-78 MIRANDA (test code = MIRANDA) Trade [employer] Official ID - DB Lab Interpretation (test Normal code = 23217-4) [facility] CenterComprehensive metabolic [id number] 21:30:43 Test Item Value Reference Range Interpretation Comments Protein, Total (test 7.7 See_Comment Specime n markedly code = 2885-2) hemolyzed [Automated message] The system which generated this result transmit mayelin reference range : 6.0 - 8.3 gm/dL . The reference range was not u sed to interpret th is result as normal/abnormal . Albumin (test code = 4.1 g/dL 3.5-5.0 Specime n markedly 00165-2) hemolyzed Alkaline Phosphatase 79 U/L 40-150 (test code = 6768-6) Total Bilirubin (test 0.4 mg/dL 0.2-1.2 Specim en markedly code = 1974-2) hemolyzed Sodium (test code = 137 meq/L 206-497 8150-2) Potassium (test code 4.5 meq/L 3.5-5.1 Specime [...] Calcium (test code = 9.0 mg/dL 8.4-10.2 17213-1) AST (test code = 20 U/L 5-34 Specimen ma rkedly 1920-8) hemolyzed ALT (test code = 9 U/L 6-55 Specimen ma rkedly 1742-6) hemolyzed EGFR (test code = 71 mL/min/1.[place] [address]-5) NOT ACCURATE CREATININE CLEARANCE IN PREDICTING GLOMERULAR FILTRATION RATE . ESTIMATED GFR I S NOT APPLICABLE FOR DIALYSIS PATIEN TS. MIRANDA (test code = MIRANDA) Trade Union Official ID - DB Lab Interpretation Abnormal (test code = 28536-1) [facility]2021-[facility] 21:30:43 Test Item Value Reference Range Interpretation Comments Lipase (test code = 3040-3) 14 U/L 8-78 MIRANDA (test code = MIRANDA) Trade Union Official ID - DB Lab Interpretation (test Normal code = 54398-3) [facility] CenterComprehensive metabolic [id number] 21:30:43 Test Item Value Reference Range Interpretation Comments Protein, Total (test 7.7 See_Comment Specime n markedly code = 2885-2) hemolyzed [Automated message] The system which generated this result transmit mayelin reference range : 6.0 - 8.3 gm/dL . The reference range was not u sed to interpret th is result as normal/abnormal . Albumin (test code = 4.1 g/dL 3.5-5.0 Specime n markedly 69594-4) hemolyzed Alkaline Phosphatase 79 U/L 40-150 (test code = 6768-6) Total Bilirubin (test 0.4 mg/dL 0.2-1.2 Specim en markedly code = 1975-2) hemolyzed Sodium (test code = 137 meq/L 577-280 6230-2) Potassium (test code 4.5 meq/L 3.5-5.1 Specime n markedly = 2823-3) hemolyzed Chloride (test code = 102 meq/L 98-107 2075-0) CO2 (test code = 22 meq/L 22-29 2027-9) BUN (test code = 7 mg/dL 7-21 3094-0) Creatinine (test code 0.82 mg/dL 0.57-1.25 Specim en markedly = 2160-0) hemolyzed Glucose (test code = 115 mg/dL 70-105 H 2345-7) Calcium (test code = 9.0 mg/dL 8.4-10.2 37662-6) AST (test code = 20 U/L 5-34 Specimen ma rkedly 1920-8) hemolyzed ALT (test code = 9 U/L 6-55 Specimen vt rkedly 1742-6) hemolyzed EGFR (test code = 71 mL/min/1.[place] [address]-1) NOT ACCURATE CREATININE CLEARANCE IN PREDICTING GLOMERULAR FILTRATION RATE . ESTIMATED GFR I S NOT APPLICABLE FOR DIALYSIS PATIEN TS. MIRANDA (test code = MIRANDA) Trade Union Official ID - DB Lab Interpretation Abnormal (test code = 25679-9) [facility] Center[facility]2021-[facility]-13 21:30:43 Test Item Value Reference Range Interpretation Comments Lipase (test code = 3040-3) 14 U/L 8-78 MIRANDA (test code = MIRANDA) Trade Union Official ID - DB Lab Interpretation (test Normal code = 44387-6) [facility] CenterCOMPREHENSIVE METABOLIC [id number] 21:30:43 Test Item Value Reference Range Interpretation Comments TOTAL PROTEIN 7.7 gm/dL 6.0-8.3 Specimen berna calix (BEAKER) (test code = hemoly zed 770) [...] S NOT APPLICABLE FOR DIALYSIS PATIEN TS. [employer] Official ID - [id number] 21:30:43 Test Item Value Reference Range Interpretation Comments LIPASE (BEAKER) (test code = 749) 14 U/L 8-78 [employer] Official ID - DBUrinalysis w/Microscopic + Reflex to [id number] 21:20:50 Test Item Value Reference Range Interpretation Comments Color, UA (test code Yellow = 5778-6) Clarity, UA (test Hazy code = 5767-9) Specific Jerome, UA 1.022 1.001-1.035 (test code = 5811-5) pH, UA (test code = 6.0 5.0-8.0 5803-2) Protein, UA (test 100 mg/dL Negative A code = 00192-6) Glucose, UA (test Negative Negative code = 365) Ketones, UA (test Trace Negative A code = 2514-8) Bilirubin, UA (test Negative Negative code = 45463-4) Blood, UA (test code Moderate Negative A = 95248-7) Nitrite, UA (test Negative Negative code = 5802-4) Leukocytes, UA (test Moderate Negative A code = 5799-2) Urobilinogen, UA 0.2 mg/dL 0.2-1.0 (test code = 09368-3) RBC, UA (test code = 78 See_Comment [Autom ated 63810-4) message] The system which generated this result [...] . Bacteria, UA (test Occasional code = 11684-5) Mucus (test code = Many 8247-9) Squam Epithel, UA 5 See_Comment [Automate d (test code = 72624-7) messag e] The system which generated this result transmitted reference range : /HPF. The reference range was not used to interpret this result as normal/abnormal . Crystals, Urine (test None Seen code = 80652-8) Specimen Source (test code = 2795) MIRANDA (test code = MIRANDA) Trade [employer] Official ID - [auto]Tr[employer] Official ID - tech Lab Interpretation Abnormal (test code = 83553-9) [facility] CenterUrinalysis w/Microscopic + Reflex to Culture 2021-08-01 21:20:50 Test Item Value Reference Range Interpretation Comments Color, UA (test code Yellow = 5778-6) Clarity, UA (test Hazy code = 5767-9) Specific Jerome, UA 1.022 1.001-1.035 (test code = 5811-5) pH, UA (test code = 6.0 5.0-8.0 5803-2) Protein, UA (test 100 mg/dL Negative A code = 19339-1) Glucose, UA (test Negative Negative code = 365) Ketones, UA (test Trace Negative A code = 2514-8) Bilirubin, UA (test Negative Negative code = 22951-3) Blood, UA (test code Moderate Negative A = 93851-5) Nitrite, UA (test Negative Negative code = 5802-4) Leukocytes, UA (test Moderate Negative A code = 5799-2) Urobilinogen, UA 0.2 mg/dL 0.2-1.0 (test code = 49318-0) RBC, UA (test code = 78 See_Comment [Autom ated 07406-4) message] The system which generated this result [...] . Bacteria, UA (test Occasional code = 32176-2) Mucus (test code = Many 8247-9) Squam Epithel, UA 5 See_Comment [Automate d (test code = 68207-9) messag e] The system which generated this result transmitted reference range : /HPF. The reference range was not used to interpret this result as normal/abnormal . Crystals, Urine (test None Seen code = 10701-4) Specimen Source (test code = 2795) MIRANDA (test code = MIRANDA) [employer] Official ID - [auto]Tr[employer] Official ID - tech Lab Interpretation Abnormal (test code = 07969-4) [facility] CenterUrinalysis w/Microscopic + Reflex to Culture 2021-08-01 21:20:50 Test Item Value Reference Range Interpretation Comments Color, UA (test code Yellow = 5778-6) Clarity, UA (test Hazy code = 5767-9) Specific Jerome, UA 1.022 1.001-1.035 (test code = 5811-5) pH, UA (test code = 6.0 5.0-8.0 5803-2) Protein, UA (test 100 mg/dL Negative A code = 89217-1) Glucose, UA (test Negative Negative code = 365) Ketones, UA (test Trace Negative A code = 2514-8) Bilirubin, UA (test Negative Negative code = 66119-1) Blood, UA (test code Moderate Negative A = 48603-1) Nitrite, UA (test Negative Negative code = 5802-4) Leukocytes, UA (test Moderate Negative A code = 5799-2) Urobilinogen, UA 0.2 mg/dL 0.2-1.0 (test code = 29161-5) RBC, UA (test code = 78 See_Comment [Autom ated 63380-4) message] The system which generated this result [...] . Bacteria, UA (test Occasional code = 66100-0) Mucus (test code = Many 8247-9) Squam Epithel, UA 5 See_Comment [Automate d (test code = 96998-4) messag e] The system which generated this result transmitted reference range : /HPF. The reference range was not used to interpret this result as normal/abnormal . Crystals, Urine (test None Seen code = 06752-0) Specimen Source (test code = 2795) MIRANDA (test code = MIRANDA) Trade [employer] Official ID - [auto]Tr[employer] Official ID - tech Lab Interpretation Abnormal (test code = 85129-6) [facility] CenterUR[facility]IS W/ REFLEX URINE [id number] 21:20:50 Test Item Value Reference Range Interpretation [...] = 1521) SOURCE(BEAKER) (test code = 2795) Trade [employer] Official ID - [auto][employer] Official ID - techCBC with platelet count + automated diff 2021-08-01 21:07:56 Test Item Value Reference Range Interpretation Comments WBC (test code = 6690-2) 9.0 See_Comment [A utomated message] The system [employer] generated this result transmitted ref erence range: 3.5 - 10 .5 K/L. The refe rence range was not u sed to interpret this result as normal/abnor mal. RBC (test code = 789-8) 3.96 See_Comment [Au tomated message] The system [employer] generated this result transmitted ref erence range: 3.93 - 5 .22 M/L. The refe rence range was not u sed to interpret this result as normal/abnor mal. MCHC (test code = 786-4) 32.0 See_Comment L [A utomated message] The system [employer] generated this result transmitted ref erence range: [...] See_Comment [Aut omated message] 777-3) The system [employer] generated this result transmitted ref erence range: 150 - 45 0 K/CU MM. The referen ce range was not u sed to interpret this result as normal/abnor mal. MPV (test code = 10.6 fL 9.4-12.3 77935-8) nRBC (test code = 413) 0 See_Comment [Aut omated message] The system [employer] generated this result transmitted ref erence range: [...] See_Comment [Aut omated message] 670) The system [employer] generated this result transmitted ref erence range: 1.56 - 6 .13 K/L. The refe rence range was not u sed to interpret this result as normal/abnor mal. # Lymphs (test code = 1.86 See_Comment [Auto mated message] 414) The system [employer] generated this result transmitted ref erence range: 1.18 - 3 .74 K/L. The refe rence range was not u sed to interpret this result as normal/abnor mal. # Monos (test code = 0.93 See_Comment H [Autom ated message] 415) The system [employer] generated this result transmitted ref erence range: 0.24 - 0 .36 K/L. The refe rence range was not u sed to interpret this result as normal/abnor mal. # Eos (test code = 416) 0.11 See_Comment [Au tomated message] The system [employer] generated this result transmitted ref erence range: 0.04 - 0 .36 K/L. The refe rence range was not u sed to interpret this result as normal/abnor mal. # Baso (test code = 417) 0.06 See_Comment [A utomated message] The system [employer] generated this result transmitted ref erence range: 0.01 - 0 .08 K/L. The refe rence range was not u sed to interpret this result as normal/abnor mal. Immature 0 % 0-1 Granulocytes-Relative (test code = 2801) Lab Interpretation (test Abnormal code = 47366-6) [facility] with platelet count + automated [id number] 21:07:56 Test Item Value Reference Range Interpretation Comments WBC (test code = 6690-2) 9.0 See_Comment [A utomated message] The system [employer] generated this result transmitted ref erence range: 3.5 - 10 .5 K/L. The refe rence range was not u sed to interpret this result as normal/abnor mal. RBC (test code = 789-8) 3.96 See_Comment [Au tomated message] The system [employer] generated this result transmitted ref erence range: 3.93 - 5 .22 M/L. The refe rence range was not u sed to interpret this result as normal/abnor mal. MCHC (test code = 786-4) 32.0 See_Comment L [A utomated message] The system [employer] generated this result transmitted ref erence range: [...] See_Comment [Aut omated message] 777-3) The system [employer] generated this result transmitted ref erence range: 150 - 45 0 K/CU MM. The referen ce range was not u sed to interpret this result as normal/abnor mal. MPV (test code = 10.6 fL 9.4-12.3 78756-8) nRBC (test code = 413) 0 See_Comment [Aut omated message] The system [employer] generated this result transmitted ref erence range: [...] See_Comment [Aut omated message] 670) The system [employer] generated this result transmitted ref erence range: 1.56 - 6 .13 K/L. The refe rence range was not u sed to interpret this result as normal/abnor mal. # Lymphs (test code = 1.86 See_Comment [Auto mated message] 414) The system [employer] generated this result transmitted ref erence range: 1.18 - 3 .74 K/L. The refe rence range was not u sed to interpret this result as normal/abnor mal. # Monos (test code = 0.93 See_Comment H [Autom ated message] 415) The system [employer] generated this result transmitted ref erence range: 0.24 - 0 .36 K/L. The refe rence range was not u sed to interpret this result as normal/abnor mal. # Eos (test code = 416) 0.11 See_Comment [Au tomated message] The system [employer] generated this result transmitted ref erence range: 0.04 - 0 .36 K/L. The refe rence range was not u sed to interpret this result as normal/abnor mal. # Baso (test code = 417) 0.06 See_Comment [A utomated message] The system [employer] generated this result transmitted ref erence range: 0.01 - 0 .08 K/L. The refe rence range was not u sed to interpret this result as normal/abnor mal. Immature 0 % 0-1 Granulocytes-Relative (test code = 2801) Lab Interpretation (test Abnormal code = 31735-0) [facility] Center[facility] with platelet count + automated [id number] 21:07:56 Test Item Value Reference Range Interpretation Comments WBC (test code = 6690-2) 9.0 See_Comment [A utomated message] The system [employer] generated this result transmitted ref erence range: 3.5 - 10 .5 K/L. The refe rence range was not u sed to interpret this result as normal/abnor mal. RBC (test code = 789-8) 3.96 See_Comment [Au tomated message] The system [employer] generated this result transmitted ref erence range: 3.93 - 5 .22 M/L. The refe rence range was not u sed to interpret this result as normal/abnor mal. MCHC (test code = 786-4) 32.0 See_Comment L [A utomated message] The system [employer] generated this result transmitted ref erence range: [...] See_Comment [Aut omated message] 777-3) The system [employer] generated this result transmitted ref erence range: 150 - 45 0 K/CU MM. The referen ce range was not u sed to interpret this result as normal/abnor mal. MPV (test code = 10.6 fL 9.4-12.3 73374-8) nRBC (test code = 413) 0 See_Comment [Aut omated message] The system [employer] generated this result transmitted ref erence range: [...] See_Comment [Aut omated message] 670) The system [employer] generated this result transmitted ref erence range: 1.56 - 6 .13 K/L. The refe rence range was not u sed to interpret this result as normal/abnor mal. # Lymphs (test code = 1.86 See_Comment [Auto mated message] 414) The system [employer] generated this result transmitted ref erence range: 1.18 - 3 .74 K/L. The refe rence range was not u sed to interpret this result as normal/abnor mal. # Monos (test code = 0.93 See_Comment H [Autom ated message] 415) The system [employer] generated this result transmitted ref erence range: 0.24 - 0 .36 K/L. The refe rence range was not u sed to interpret this result as normal/abnor mal. # Eos (test code = 416) 0.11 See_Comment [Au tomated message] The system [employer] generated this result transmitted ref erence range: 0.04 - 0 .36 K/L. The refe rence range was not u sed to interpret this result as normal/abnor mal. # Baso (test code = 417) 0.06 See_Comment [A utomated message] The system [employer] generated this result transmitted ref erence range: 0.01 - 0 .08 K/L. The refe rence range was not u sed to interpret this result as normal/abnor mal. Immature 0 % 0-1 Granulocytes-Relative (test code = 2801) Lab Interpretation (test Abnormal code = 90978-6) [facility] W/PLT COUNT & AUTO [id number] 21:07:56 Test Item Value Reference Range Interpretation [...] % 0-1 PERCENT (BEAKER) (test code = 2801)
[2022-08-11] MEDS ORDERED: IBUPROFEN 200 MG TAB PO ONE (14:35)
[2022-08-11] MEDS ORDERED: HYDROCODONE/APAP 7.5/325 MG TAB ONE (14:35)
--- NOTE | 2022-08-11 15:39 | RAD REPORT ---
EXAM DESCRIPTION: CT - Spine Lumbar Wo Con - 08/11/2022 2:48 pm CLINICAL HISTORY: pain, swelling, soft tissue hematoma COMPARISON: None. TECHNIQUE: Thin section 2 mm axial imaging of the lumbar spine was performed. Sagittal and coronal reconstruction images were generated and reviewed. Due to soft tissue hematoma in the posterior midli ne back the patient was scanned on her side. All CT scans are performed using dose optimization technique as appropriate and may include automated exposure control or mA/KV adjustment according to patient size. FINDINGS: Lumbar bodies are normal in height. No suspicious alignment finding. The very subtle right convex curvature is believed to be due to the patient's clsur-[id number]-ugcw decubitus positioning. Facet joint degenerative changes are present. No pars defects are identified. In the midline subcutaneous fatty tissues posterior to the L2-3 level there is a 6 x 5 x 3 cm ellipsoid mass. This has a typical appearance for a hematoma. There is some bruising in edema change in the surrounding fatty tissues. N o hematoma, edema or abnormal finding in the paraspinal musculature. Spinous processes near the hemat jose alfredo are intact. SI joint degenerative changes are present. Central canal detail is inherently limited but no disc her niation or significant central canal finding identifiable. There is no paraspinal mass. IMPRESSION: Approximately 6 centimeter hematoma in the subcutaneous fatty tissues midline spine post erior to L2-3. No fracture or acute bone finding identifiable.
--- NOTE | 2022-08-11 16:15 | EDPHYS ---
Physician Documentation [facility] Name: Treasure Varela Age: 61 yrs Sex: Female : 1960 Arrival Date: 08/11/2022 Time: 14:16 Bed 11 Private MD: ED Physician Jeffery Stinson HPI: 08/11 15:48 This 61 yrs old Female presents to ER via Ambulatory with complaints of Fall Injury, kb Back Pain - swelling. 15:48 Details of fall: The patient fell from an upright position, while standing. Onset: The kb symptoms/episode began/occurred just prior to arrival. Associated injuries: The patient sustained injury to the low back, pain, pain with movement, swelling, tenderness. Severity of symptoms: At their worst the symptoms were moderate, in the emergency department the symptoms are unchanged. The patient has not experienced similar symptoms in the past. The patient has not recently seen a physician. Pt reports she went to sit in a chair, missed and hit her lumbar area on the corner of the window sill. . Historical: - Allergies: 14:26 No Known Allergies; kb3 - Home Meds: 14:26 Dexilant 60 mg Oral CpDB 1 cap once daily [Active]; kb3 - PMHx: 14:26 GERD; LOW POTASSIUM; kb3 - PSHx: 14:26 None; kb3 - Immunization history:: Adult Immunizations up to date, Client reports having NOT received the Covid vaccine. Last tetanus immunization: unknown. - Social history:: Smoking status: Patient denies any tobacco usage or history of. ROS: 15:48 Constitutional: Negative for fever, chills, and weight loss. kb 15:48 Back: Positive for pain at rest, pain with movement, of the lumbar area. 15:48 Skin: Positive for hematoma, of the lumbar area. 15:48 All other systems are negative. Exam: 15:44 Constitutional: This is a well developed, well nourished patient who is awake, alert, kb and in no acute distress. Head/Face: Normocephalic, atraumatic. ENT: Moist Mucous membranes Cardiovascular: Regular rate and rhythm with a normal S1 and S2. No gallops, murmurs, or rubs. No pulse deficits. Respiratory: Respirations even and unlabored. No increased work of breathing. Talking in full sentences Abdomen/GI: Soft, non-tender. No distention Skin: Warm, dry with normal turgor. Normal color. MS/ Extremity: Pulses equal, no cyanosis. Neurovascular intact. Full, normal range of motion. Neuro: Awake and alert, GCS 15, oriented to person, place, time, and situation. Moves all extremities. Normal gait. Psych: Awake, alert, with orientation to person, place and time. Behavior, mood, and affect are within normal limits. 15:44 Back: pain, that is moderate, of the lumbar area, ROM is painful, vertebral tenderness, is appreciated at L1 and L2. 15:45 Skin: large hematoma to lumbar area near L1-L2. kb Vital Signs: 14:22 BP 158 / 89; Pulse 75; Resp 20; Temp 98.1; Pulse Ox 97% ; Weight 65.32 kg; Height 5 ft. kb3 3 in. (160.02 cm); Pain 8/10; 14:22 Body Mass Index 25.51 (65.32 kg, 160.02 cm) kb3 MDM: 14:25 Patient medically screened. kb 15:44 Data reviewed: vital signs, nurses notes. Data interpreted: Pulse oximetry: on room air kb is 97 %. Interpretation: normal. Counseling: I had a detailed discussion with the patient and/or guardian regarding: the historical points, exam findings, and any diagnostic results supporting the discharge/admit diagnosis, radiology results, the need for outpatient follow up, a family practitioner, to return to the emergency department if symptoms worsen or persist or if there are any questions or concerns that arise at home. 08/11 14:29 Order name: CT Lumbar Spine Wo Con; Complete Time: 15:44 kb 08/11 14:29 Order name: Ice pack; Complete Time: 14:37 kb Administered Medications: 14:37 Drug: Aurora (HYDROcodone-acetaminophen) (7.5 mg-325 mg) 1 tabs Route: PO; hb 14:37 Drug: Ibuprofen 600 mg Route: PO; hb Disposition: 18:02 Co-signature as Attending Physician, Jeffery Stinson DO I was immediately available on-site ms3 in the Emergency Department for consultation in the care of the patient. Disposition Summary: 08/11/22 16:14 Discharge Ordered Location: Home kb Condition: Stable kb Diagnosis - Fall on same level from slipping, tripping and stumbling with subsequent striking kb against object - Hematoma of back - lumbar area kb Followup: kb - With: Emergency Department - When: As needed - Reason: Worsening of condition Followup: kb - With: Private Physician - When: 2 - 3 days - Reason: Recheck today's complaints, Continuance of care, Re-evaluation by your physician Discharge Instructions: - Discharge Summary Sheet kb - Hematoma, [id number]-rz-[id number] kb Forms: - Medication Reconciliation Form kb - Thank You Letter kb - Antibiotic Education kb - Prescription Opioid Use kb Prescriptions: - Diclofenac Sodium 75 mg Oral tablet,delayed release (DR/EC) - take 1 tablet by ORAL route 2 times per day As needed; 30 tablet; Refills: 0, kb Product Selection Permitted Signatures: Dispatcher [employer] EDMS Sary Zuñiga, XI DUQUE-Aurora Lim, RN RN Jeffery Stinson DO DO ms3 Manuela Siegel, RN RN kb3 Corrections: (The following items were deleted from the chart) 14:28 14:26 Allergies: Zofran; kb3 kb3
--- NOTE | 2022-08-11 16:15 | ER ---
Nurse's Notes [facility] Name: Treasure Varela Age: 61 yrs Sex: Female : 1960 Arrival Date: 08/11/2022 Time: 14:16 Bed 11 Private MD: Diagnosis: Fall on same level from slipping, tripping and stumbling with subsequent striking against object;Hematoma of back - lumbar area Presentation: 08/11 14:22 Chief complaint: Patient states: Pt reports she went to sit in a chair and missed the kb3 chair and slipped to the ground, striking her lower back on the window sill. Pt reports pain and small area of swelling in middle lower back. Coronavirus screen: Vaccine status: Patient reports being unvaccinated. Client denies travel out of the [place] in the last 14 days. Ebola Screen: Patient negative for fever greater than or equal to 101.5 degrees Fahrenheit, and additional compatible Ebola Virus Disease symptoms Patient denies exposure to infectious person. Patient denies travel to an Ebola-affected area in the 21 days before illness onset. Initial Sepsis Screen: Does the patient meet any 2 criteria? No. Patient's initial sepsis screen is negative. Does the patient have a suspected source of infection? No. Patient's initial sepsis screen is negative. Risk Assessment: Do you want to hurt yourself or someone else? Patient reports no desire to harm self or others. Onset of symptoms was August 11, 2022 at 13:45. 14:22 Method Of Arrival: Ambulatory 3 14:22 Acuity: AMANDA 3 kb3 Triage Assessment: 14:26 General: Appears in no apparent distress. uncomfortable, Behavior is calm, cooperative. kb3 Pain: Complains of pain in lumbar area Pain does not radiate. Pain currently is 8 out of 10 on a pain scale. Quality of pain is described as aching, pressure. Historical: - Allergies: 14:26 No Known Allergies; kb3 - Home Meds: 14:26 Dexilant 60 mg Oral CpDB 1 cap once daily [Active]; kb3 - PMHx: 14:26 GERD; LOW POTASSIUM; kb3 - PSHx: 14:26 None; kb3 - Immunization history:: Adult Immunizations up to date, Client reports having NOT received the Covid vaccine. Last tetanus immunization: unknown. - Social history:: Smoking status: Patient denies any tobacco usage or history of. Screenin:38 [facility] ED Fall Risk Assessment (Adult) Score/Fall Risk Level 0 - 2 = Low Risk hb Oriented to surroundings, Maintained a safe environment, Used ambulatory aids as needed (educated on \T\ assisted with). Abuse screen: Denies threats or abuse. Denies injuries from another. Nutritional screening: No deficits noted. Tuberculosis screening: No symptoms or risk factors identified. Assessment: 14:38 General: Appears in no apparent distress. Behavior is calm, cooperative. Pain: Pain hb currently is 8 out of 10 on a pain scale. Neuro: Level of Consciousness is awake, alert, obeys commands, Oriented to person, place, time, situation. Cardiovascular: Patient's skin is warm and dry. Respiratory: Respiratory effort is even, unlabored, Respiratory pattern is regular, symmetrical. GI: No signs and/or symptoms were reported involving the gastrointestinal system. : No signs and/or symptoms were reported regarding the genitourinary system. EENT: No signs and/or symptoms were reported regarding the EENT system. Derm: Skin is pink, warm \T\ dry. Musculoskeletal: Reports low back pain. 15:36 Reassessment: Patient appears in no apparent distress at this time. Patient and/or hb family updated on plan of care and expected duration. Pain level reassessed. Patient is alert, oriented x 3, equal unlabored respirations, skin warm/dry/pink. Vital Signs: 14:22 BP 158 / 89; Pulse 75; Resp 20; Temp 98.1; Pulse Ox 97% ; Weight 65.32 kg; Height 5 ft. kb3 3 in. (160.02 cm); Pain 8/10; 14:22 Body Mass Index 25.51 (65.32 kg, 160.02 cm) kb3 ED Course: 14:16 Patient arrived in ED. as 14:24 Sary Zuñiga FNP-C [facility]. kb 14:24 Jeffery Stinson DO is Attending Physician. kb 14:26 Triage completed. kb3 14:26 Arm band placed on right wrist. kb3 14:37 Aurora Hatch, RN is Primary Nurse. hb 14:38 Patient has correct armband on for positive identification. hb 14:50 CT Lumbar Spine Wo Con In Process Unspecified. EDMS 16:26 No provider procedures requiring assistance completed. Patient did not have IV access hb during this emergency room visit. Administered Medications: 14:37 Drug: Mohler (HYDROcodone-acetaminophen) (7.5 mg-325 mg) 1 tabs Route: PO; hb 14:37 Drug: Ibuprofen 600 mg Route: PO; hb Medication: 14:38 VIS not applicable for this client. hb Outcome: 16:14 Discharge ordered by . lenka 16:26 Discharged to home ambulatory, with family. hb 16:26 Condition: stable 16:26 Discharge instructions given to patient, Instructed on discharge instructions, follow up and referral plans. medication usage, Demonstrated understanding of instructions, follow-up care, medications, Prescriptions given X 1. 16:27 Patient left the ED. hb Signatures: Dispatcher [employer] EDMS Sary Zuñiga, LINTING MACHINE OPERATOR-Ginger LINTING MACHINE OPERATOR-Yasmine Green as Aurora Hatch RN GLORIA Manuela Siegel RN RN kb3 Corrections: (The following items were deleted from the chart) 14:28 14:26 Allergies: Zofran; kb3 kb3
[2022-08-11 16:31] VITALS: BP 158/89; TEMP 98.1; O2SAT 97
== END 2022-08-11 16:27 | disposition home or self-care (01) ==
LOC: ER 14:15
DX: S30.0XXA Contusion of lower back and pelvis, initial encounter (principal); W07.XXXA Fall from chair, initial encounter
CPT/HCPCS: 72131; 99283

== ENCOUNTER 2023-03-31 09:45 | Emergency (ER) | payer BC ==
--- OUTSIDE RECORDS SUMMARY | 2023-03-31 09:52 | XMS REPORT | Clinical Summary ---
:1960 Author Organization [facility] Address [address] [place] [id number] Care Team Providers Name Role Phone Unavailable Primary Care Provider Unavailable Allergies Not on File Medications Not on file Active Problems Not on file Encounters Date Type Specialty Care Team Description 09/21/2022 Ancillary Procedure Radiology Cancer 09/21/2022 Ancillary Procedure Radiology Cancer 09/21/2022 Ancillary Procedure Radiology Cancer 09/21/2022 Ancillary Procedure Radiology Cancer 08/25/2022 Travel after 03/31/2022 Social History Tobacco Use Types Packs/Day Years Used Date Smoking Tobacco: Never Assessed Sex Assigned at Date Recorded Not on file Job Start Date Occupation Industry Not on file Not on file Not on file Last Filed Vital Signs Not on file Plan of Treatment Not on file Procedures Procedure Name Priority Date/Time Associated Diagnosis Comme nts OSI CT SPINE LUMBAR Routine 08/11/2022 4:52 AM Cancer Re sults for this EVENT HOST procedure are i n the results section. OSI CT CHEST Routine 07/23/2022 4:52 AM Cancer Results f or this EVENT HOST procedure are i n the results section. OSI CHEST Routine 07/23/2022 4:52 AM Cancer Results f or this EVENT HOST procedure are i n the results section. OSI CT ABDOMEN AND Routine 06/22/2022 4:53 AM Cancer Res ults for this PELVIS CDT procedure are i n the results section. after 03/31/[address] Spine Lumbar (08/11/2022 4:52 AM EVENT HOST) Specimen (Source) Anatomical Location Collection Method / Collectio n Time Received Time / Laterality Volume Narrative Systemgenerated, Documentation - 023 4:52 AM EVENT HOST Study acquired at another institution. For comparison only. No MD Wolf originated interpretation requested or a vailable. Shellie Neves MD IMG OUTSIDE IMAGE ORD ERABLES OSI Chest (07/23/2022 4:52 AM EVENT HOST) Specimen (Source) Anatomical Location Collection Method / Collectio n Time Received Time / Laterality Volume Narrative Systemgenerated, Documentation - 023 4:52 AM EVENT HOST Study acquired at another institution. For comparison only. No MD Wolf originated interpretation requested or a vailable. Shellie ALVARADOG OUTSIDE IMAGE ORD ERABLES OSI CT Chest (07/23/2022 4:52 AM EVENT HOST) Specimen (Source) Anatomical Location Collection Method / Collectio n Time Received Time / Laterality Volume Narrative Systemgenerated, Documentation - 023 4:52 AM EVENT HOST Study acquired at another institution. For comparison only. No MD Wolf originated interpretation requested or a vailable. Shellie ALVARADOG OUTSIDE IMAGE ORD ERABLES OSI CT Abdomen and Pelvis (06/22/2022 4:53 AM CDT) Specimen (Source) Anatomical Location Collection Method / Collectio n Time Received Time / Laterality Volume Narrative Systemgenerated, Documentation - 023 4:53 AM EVENT HOST Study acquired at another institution. For comparison only. No MD Wolf originated interpretation requested or a vailable. Shellie Neves MD IMG OUTSIDE IMAGE ORD ERABLES after 03/31/2022 Insurance Payer Benefit Plan / Subscriber ID Effective Dates Phone Addre ss Type Group [place] O [id number] 2021-Present [address] [id number] [facility] [place] [employer] [phone]
--- OUTSIDE RECORDS SUMMARY | 2023-03-31 09:54 | XMS REPORT | Continuity of Care Document ---
:1960 Author Organization [facility] t Address [address] [place] [address] Care Team Providers Name Role Phone KIMMIE MARRERO JR Primary Care Physician Unavailable SYSTEM, PROVIDER NOT IN Attending Clinician Unavailable GM SHARMA Attending Clinician Unavailable GM SHARMA Attending Clinician Unavailable Gm Sharma DO Attending Clinician Stormy Aguila RN Attending Clinician Unavailable Ebrahim SUPERVISOR FEED HOUSEVelia Attending Clinician EBVELIA ASTUDILLO Attending Clinician Unavailable Unknown, Attending Attending Clinician Unavailable Nurse, [facility] Attending Clinician Unavailable Doctor Unassigned, [place] Attending Clinician Unavailable CHRIS PALACIO Attending Clinician Unavailable Chris Palacio MD Attending Clinician Geovanni Dhillon RN Attending Clinician Unavailable Only, Ang Rodolfo Test Attending Clinician Unavailable Cuauhtemoc Ruvalcaba MD Attending Clinician JAILENE MCKOY Attending Clinician Unavailable TERESSA ADEN Attending Clinician Unavailable Ce AMEZCUA, Nixon Freeman Attending Clinician Teressa Aden MD Attending Clinician [phone] Kathi West RN Attending Clinician Unavailable DENISE HADLEY Attending Clinician Unavailable Denise Hadley MD Attending Clinician Jailene Patel Attending Clinician [phone] Ava CASTRO, Sheila Gonzalez Attending Clinician Unavailable Tiffanie Marie MD Attending Clinician Pascual AMEZCUA, Vanessa Attending Clinician TIFFANIE MARIE Attending Clinician Unavailable Juve AMEZCUA, Elmo Attending Clinician Osmar SUPERVISOR FEED HOUSEHector Avilez Attending Clinician Yasir AMEZCUA, Philip Attending Clinician PHILIP COOLEY Attending Clinician Unavailable Pascual AMEZCUA, Vanessa Admitting Clinician Philip Cooley MD Admitting Clinician PHILIP COOLEY Admitting Clinician Unavailable Payers Payer Name Policy Type Policy Number Effective Date Expiration Date [place] [facility] [id number] 2017 00:00:00 [id number] 2017 00:00:00 BLUE/ESSENTIALS Problems Condition Condition Condition Status Onset Resolution Last Treating Co mments Source Name Details Category Date Date Treatment Clinician Date Hypoxia Hypoxia Disease Active Univers 3-04 ity of 00:00: [place] 00 Medical Branch Chest pain Chest pain Disease Active 2019-0 U nivers 4-06 ity of 00:00: [place] 00 Medical Branch Family Family Disease Active 2020-0 Univers history of history of 4-06 it [...] 00:00: Medical 00 Center Ondanset Propensi Active 2020-[address] [facility] [address] [facility] H[facility] ty [facility] 2[facility]13 [facility] adverse 00:00: Medical reaction 00 Center s Ondanset Propensi Active Other - See Gives U nivers memo Hcl ty to comments 3-05 patient a ity of (Pf) adverse 00:00: migraine [place] reaction 00 Medical s Branch ONDANSET DRUG Active Med Other-Cmnt Univ ers MEMO HCL 3-05 ity of (PF) 00:00: [address] Social History Social Habit Start Date Stop Date Quantity Comments Source Exposure to 2022-08-12 2022-08-22 Not sure [facility]-CoV-2 00:00:00 09:25:00 [facility] (event) [place] Alcohol intake 2022-07-20 2022-07-20 Lifetime University of 00:00:00 00:00:00 non-drinker [facility] (finding) [place] Tobacco use and 2020-10-21 2020-10-21 Smokeless tobacco Un iversity of exposure 00:00:00 00:00:00 non-user [facility] Sex Assigned At [address] [facility] schwartz 00:00:00 00:[facility]:00 [facility] Smoking Status Start Date Stop Date Source Never smoked tobacco [facility] Medications Ordered Filled Start Stop Current Ordering Indication Dosage Frequency Signature Comments Components Source Medication Medication Date Date Medication? Clinician (SIG) Name Name dexlansopra Yes 60mg Take 60 mg Univers zole 1-03 by mouth ity of (DEXILANT 09:33: daily. [place] ORAL) [facility] Branch dexlansopra Yes 60mg Take 60 mg Univers zole 1-03 by mouth ity of (DEXILANT 09:33: daily. [place] ORAL) 57 [facility] Branch dexlansopra Yes 60mg Take 60 mg Univers zole 1-03 by mouth ity of (DEXILANT 09:33: daily. [place] ORAL) 57 [facility] ipratropium 2021-08- No [id number] 6mL U nivers -albuteroL 09-20 ity of (DUONEB) 17:15: 16:27 [place] 0.5 mg-3 00 :00 Medical mg(2.5 mg Branch base)/3 mL nebulizer solution 6 mL methylpredn 2021-08- No [id number] 125mg Univers isolone sod 09-20 ity of succ 17:15: 16:27 [place] (SOLU-MEDRO 00 :00 Medical L) Branch injection 125 mg methylpredn 2021-08- No [id number] 125mg 125 mg, Univers isolone sod 09-20 Intramuscu i ty of succ 17:15: 16:27 lar, ONCE, [place] (SOLU-MEDRO 00 :00 1 dose, On Me dical L) [place] Branch injection 07/20/22 at 125 mg 1115, Routine ipratropium 2021-08- No [id number] 6mL 6 mL, Univers -albuteroL 2-01 07-20 Inhalation it y of (DUONEB) 17:15: 16:27 , ONCE, 1 [place] as 0.5 mg-3 00 :00 dose, On Medical mg(2.5 mg [place] Branch base)/3 mL 07/20/22 at nebulizer 1115, solution 6 Routine mL albuterol 2021-08 Yes [id number] 2{puff} Inhale 2 Univers 90 2-01 Puffs ity of mcg/actuati 00:00: every 6 [place] as on inhaler 00 (six) Medical hours as Branch needed for Wheezing or Bronchospa sm. albuterol 2021-08 Yes [id number] 2{puff} Inhale 2 Univers 90 2-01 Puffs ity of mcg/actuati 00:00: every 6 [place] as on inhaler 00 (six) Medical hours as Branch needed for Wheezing or Bronchospa sm. albuterol 2021-08 Yes [id number] 2{puff} Inhale 2 Univers 90 2-01 Puffs ity of mcg/actuati 00:00: every 6 [place] as on inhaler 00 (six) Medical hours as Branch needed for Wheezing or Bronchospa sm. albuterol 2021-08 Yes [id number] 2{puff} Inhale 2 Univers 90 2-01 Puffs ity of mcg/actuati 00:00: every 6 [place] as on inhaler 00 (six) Medical hours as Branch needed for Wheezing or Bronchospa sm. albuterol 2021-08 Yes [id number] 2{puff} Inhale 2 Univers 90 2-01 Puffs ity of mcg/actuati 00:00: every 6 [place] as on inhaler 00 (six) Medical hours as Branch needed for Wheezing or Bronchospa sm. albuterol 2021-08 Yes [id number] 2{puff} Inhale 2 Univers 90 2-01 Puffs ity of mcg/actuati 00:00: every 6 [place] as on inhaler 00 (six) Medical hours as Branch needed for Wheezing or Bronchospa sm. albuterol 2021-08 Yes [id number] 2{puff} Inhale 2 Univers 90 2-01 Puffs ity of mcg/actuati 00:00: every 6 [place] as on inhaler 00 (six) Medical hours as Branch needed for Wheezing or Bronchospa sm. predniSONE 2021-08- No [id number] 40mg Take 2 Univers 20 mg 207-26 tablets by ity of tablet 00:00: 05:59 mouth in [place] 00 :00 the Medical morning Branch for 5 days. predniSONE 2021-08- No [id number] 40mg Take 2 Univers 20 mg 207-26 tablets by ity of tablet 00:00: 05:59 mouth in [place] 00 :00 the Medical morning Branch for 5 days. predniSONE 2021-08- No [id number] 40mg Take 2 Univers 20 mg 2-07-26 tablets by ity of tablet 00:00: 05:59 mouth in [place] 00 :00 the Medical morning Branch for 5 days. predniSONE 2021-08- No [id number] 40mg Take 2 Univers 20 mg 09-20 tablets by ity of tablet 00:00: 05:59 mouth in [place] 00 :00 the Medical morning Branch for 5 days. ciprofloxac 2020-08- No 500mg Q.5D Take [address] [facility] HCl 10-03 tablet [facility] (CIPRO) 500 00:00: 23:59 (500 mg Me dical MG tablet 00 :00 total) by Cente r mouth 2 (two) times daily for 7 days. ciprofloxac 2020-08- No 500mg Q.5D Take [address] in HCl 2-08-09 tablet [facility] (CIPRO) 500 00:00: 23:59 (500 mg Me dical MG tablet 00 :00 total) by Cente r mouth 2 (two) times daily for 7 days. ciprofloxac 2020-08- No 500mg Q.5D Take [address] in HCl 2-14 08-09 tablet [facility] (CIPRO) 500 00:00: 23:59 (500 mg Me dical MG tablet 00 :00 total) by Cente r mouth 2 (two) times daily for 7 days. methylPREDN 2021-0 Yes [id number] Take by [facility] 4 3-10 [id number] mouth ity of mg tablets 00:00: [place] CT[place]. Medical follow Branch package directions methylPREDN 2020-0 Yes [id number] Take by [facility] 4 3-10 [id number] mouth ity of mg tablets 00:00: [place]STRU [place] CTIONS. Medical follow Branch package directions methylPREDN 2021-0 Yes [id number] Take by [facility] 4 3-10 [id number] mouth ity of mg tablets 00:00: [place]-INSTRU [place] CTIONS. Medical follow Branch package directions methylPREDN 2020-0 Yes [id number] Take by [facility] 4 3-10 [id number] mouth ity of mg tablets 00:00: [place]-INSTRU [place] CTIONS. Medical follow Branch package directions methylPREDN 2021-0 Yes [id number] Take by [facility] 4 3-10 [id number] mouth ity of mg tablets 00:00: [place]-INSTRU [place] CTIONS. Medical follow Branch package directions methylPREDN 2020-0 Yes [id number] Take by [facility] 4 3-10 [id number] mouth ity of mg tablets 00:00: [place]-INSTRU [place] CTIONS. Medical follow Branch package directions methylPREDN 1-0 Yes [id number] Take by [facility] 4 3-10 [id number] mouth ity of mg tablets 00:00: [place]INSTRU [place] CTIONS. Medical follow Branch package directions methylPREDN 1-0 Yes [id number] Take by [facility] 4 3-10 [id number] mouth ity of mg tablets 00:00: SEE-INSTRU [place] CTIONS. Medical follow Branch package directions methylPREDN 2021-0 Yes [id number] [facility]10 [id number] mouth ity of mg tablets 00:00: [place]-INSTRU [place] CTIONS. Medical follow Branch package directions meclizine 1-0 Yes [id number] 25mg Take 1 Univers 25 mg 10-26 [id number] tablet by ity of tablet 00:00: mouth 3 (three) Medical times Branch daily as needed for Dizziness. proMETHazin 2020-0 Yes [id number] 12.5mg Take 1 Univers e 12.5 mg 3-09 [id number] tablet by it y of tablet 00:00: mouth 00 every 4 Medical (four) Branch hours as needed for Nausea and Vomiting (N/V). meclizine 0 Yes [id number] 25mg Take 1 Univers 25 mg 3-09 [id number] tablet by ity of tablet 00:00: mouth (three) Medical times Branch daily as needed for Dizziness. proMETHazin 0 Yes [id number] 12.5mg Take 1 Univers e 12.5 mg 3-09 [id number] tablet by it y of tablet 00:00: mouth 00 every 4 Medical (four) Branch hours as needed for Nausea and Vomiting (N/V). meclizine 0 Yes [id number] 25mg Take 1 Univers 25 mg 3- [id number] tablet by ity of tablet 00:00: mouth (three) Medical times Branch daily as needed for Dizziness. proMETHazin 0 Yes [id number] 12.5mg Take 1 Univers e 12.5 mg 3- [id number] tablet by it y of tablet 00:00: mouth 00 every 4 Medical (four) Branch hours as needed for Nausea and Vomiting (N/V). meclizine 0 Yes [id number] 25mg Take 1 Univers 25 mg 3-09 [id number] tablet by ity of tablet 00:00: mouth (three) Medical times Branch daily as needed for Dizziness. proMETHazin 0 Yes [id number] 12.5mg Take 1 Univers e 12.5 mg 3-09 [id number] tablet by it y of tablet 00:00: mouth 00 every 4 Medical (four) Branch hours as needed for Nausea and Vomiting (N/V). meclizine 2020-0 Yes [id number] 25mg Take 1 Univers 25 mg 3-09 [id number] tablet by ity of tablet 00:00: mouth 00 (three) Medical times Branch daily as needed for Dizziness. proMETHazin 2020-0 Yes [id number] 12.5mg Take 1 Univers e 12.5 mg 3-09 [id number] tablet by it y of tablet 00:00: mouth [place] 00 every 4 Medical (four) Branch hours as needed for Nausea and Vomiting (N/V). meclizine 2020-0 Yes [id number] 25mg Take 1 Univers 25 mg 3-09 [id number] tablet by ity of tablet 00:00: mouth 3 [place] 00 (three) Medical times Branch daily as needed for Dizziness. proMETHazin 2020-0 Yes [id number] 12.5mg Take 1 Univers e 12.5 mg 3- [id number] tablet by it y of tablet 00:00: mouth [place] 00 every 4 Medical (four) Branch hours as needed for Nausea and Vomiting (N/V). meclizine 2020-0 Yes [id number] 25mg Take 1 Univers 25 mg 3-09 [id number] tablet by ity of tablet 00:00: mouth 3 00 (three) Medical times Branch daily as needed for Dizziness. proMETHazin 2020-0 Yes [id number] 12.5mg Take 1 Univers e 12.5 mg 3-09 [id number] tablet by it y of tablet 00:00: mouth [place] 00 every 4 Medical (four) Branch hours as needed for Nausea and Vomiting (N/V). meclizine 2020-0 Yes [id number] 25mg Take 1 Univers 25 mg 3- [id number] tablet by ity of tablet 00:00: mouth 3 00 (three) Medical times Branch daily as needed for Dizziness. proMETHazin 2020-0 Yes [id number] 12.5mg Take 1 Univers e 12.5 mg 3- [id number] tablet by it y of tablet 00:00: mouth [place] 00 every 4 Medical (four) Branch hours as needed for Nausea and Vomiting (N/V). meclizine 2020-0 Yes [id number] 25mg Take 1 Univers 25 mg 3-09 [id number] tablet by ity of tablet 00:00: mouth 3 00 (three) Medical times Branch daily as needed for Dizziness. proMETHazin 2020-0 Yes [id number] 12.5mg Take 1 Univers e 12.5 mg 3-09 [id number] tablet by it y of tablet 00:00: mouth [place] 00 every 4 Medical (four) Branch hours as needed for Nausea and Vomiting (N/V). Vital Signs Vital Name Observation Time Observation Value Comments Source Systolic blood 2022-08-22 15:39:00 151 mm[Hg] Univer sity of pressure [place] [facility] Diastolic blood 2022-08-22 15:39:00 90 mm[Hg] Unive rsity of pressure [place] [facility] Heart rate 2022-08-22 15:39:00 74 /min Universi ty of [place] [facility] Respiratory rate 2022-08-22 15:39:00 17 /min Univ ersity of [place] [facility] Oxygen saturation in 2022-08-22 15:39:00 99 /min University of Arterial blood by [place] [employer] carla Pulse oximetry Branch Body height 2022-08-22 15:37:00 160 cm Universi ty [facility] [place] [facility] Body weight 2022-08-22 15:37:00 66.225 kg Universi ty [facility] [place] [facility] BMI 2022-08-22 15:37:00 25.86 kg/m2 [facility] [place] [facility] Systolic blood 2022-07-20 15:45:00 136 mm[Hg] Univer sity of pressure [place] [facility] Diastolic blood 2022-07-20 15:45:00 90 mm[Hg] Unive rsity of pressure [place] [facility] Heart rate 2022-07-20 15:45:00 90 /min [facility]i ty [facility] [place] [facility] Body temperature 2022-07-20 15:45:00 37.11 Chrystal Univ ersity of [place] [facility] Respiratory rate 2022-07-20 15:45:00 24 /min Univ ersity of [place] [facility] Body height 2022-07-20 15:45:00 160 cm [facility] [place] [facility] Body weight 2022-07-20 15:45:00 65.318 kg [facility] [place] [facility] BMI 2022-07-20 15:45:00 25.51 kg/m2 [facility] [place] [facility] Oxygen saturation in 2022-07-20 15:45:00 98 /min University of Arterial blood by [employer] carla Pulse oximetry Branch Systolic blood 2021-11-04 13:42:00 154 mm[Hg] Univer sity of pressure [place] [facility] Diastolic blood 2021-11-04 13:42:00 89 mm[Hg] Unive rsity of pressure [place] [facility] Heart rate 2021-11-04 13:34:00 75 [facility] 2021-11-04 13:34:00 160 cm [facility] Body weight 2021-11-04 13:34:00 70.761 kg [facility] BMI 2021-11-04 13:34:00 27.63 kg/m2 [facility] Oxygen saturation in 2021-11-04 13:34:00 97 /min [facility] Arterial blood by [facility] Pulse oximetry Branch HEIGHT 2021-08-01 20:21:00 160 cm WEIGHT 2021-08-01 20:21:00 68.04 kg HEIGHT 2021-08-01 20:21:00 160 cm WEIGHT 2021-08-01 20:21:00 68.04 kg Systolic blood 2021-08-02 02:20:00 131 mm[Hg] [facility] Diastolic blood 2021-08-02 02:20:00 74 mm[Hg] [facility] Heart rate 2021-08-02 02:20:00 78 /min [facility] Body temperature 2021-08-02 02:20:00 37.28 Chrystal [facility] Respiratory rate 2021-08-02 02:20:00 17 /min [facility] Oxygen saturation in 2021-08-02 02:20:00 98 /min [facility] Arterial blood by Medical nter Pulse oximetry Body height 2021-08-01 20:21:[address] [facility] Body weight 2021-08-01 20:21:[address] [facility] BMI 2021-08-01 20:21:00 26.57 kg/m2 [facility] Procedures Procedure Date / Time Performing Clinician Source Performed XR CHEST 2 VW 2022-08-22 17:10:20 Gm Sharma [facility] OSI CT SPINE LUMBAR 2022-08-11 10:52:00 Elio Neves [facility] Shellie Wolf [facility] OSI CHEST 2022-07-23 10:52:00 Elio Neves [facility] OSI CT CHEST 2022-07-23 10:52:00 Elio Neves [facility] [place] [facility] er Center XR CHEST 2 VW 2022-07-20 17:24:41 Velia Lara Index o f [place] [facility] OSI CT ABDOMEN AND 2022-06-22 09:53:00 Elio Neves, [facility] PELVIS [facility] er Center EXTERNAL PROVIDER 2022-01-04 05:01:00 Doctor Unassigned, No [facility] RECORDS Name Medical Branch CT ABDOMEN/PELVIS WITH 2021-08-02 00:20:00 Filiberto Orozco [facility] IV CONTRAST [facility] URINE CULTURE 2021-08-01 23:21:00 Nixon [facility]as [facility] ECG 12-LEAD 2021-08-01 21:25:31 OngFiliberto [facility] ECG 12-LEAD 2021-08-01 21:25:31 Unknown, Hl7 Doctor [facility] URINALYSIS W/ REFLEX 2021-08-01 20:55:00 OngFiliberto [facility] URINE CULTURE [facility] CBC W/PLT COUNT & AUTO 2021-08-01 20:54:00 OngFiliberto [facility] DIFFERENTIAL [facility] COMPREHENSIVE METABOLIC 2021-08-01 20:54:00 OngFiliberto [facility] PANEL [facility] LIPASE 2021-08-01 20:54:00 ErnestoFiliberto [facility] HIGH SENSITIVITY 2021-08-01 20:54:00 OngFiliberto [facility] TROPONIN I [facility] CBC W/PLT COUNT & AUTO 2021-08-01 20:54:00 OngFiliberto [facility] DIFFERENTIAL [facility] EKG-SCANNED 2021-08-01 00:00:00 Milli Shin [facility] Scanning [facility] Plan of Care Planned Activity Planned Date Details Comments Source Future Scheduled 2024-11-23 Lipid panel (procedure) [facility] Test 00:00:00 [code = 86954928] Medical Ce nter Future Scheduled 2024-11-23 Lipid panel (procedure) [facility] 00:00:00 [code = 55916320] Medical Ce nter Future Scheduled 2024-11-23 Lipid panel (procedure) [facility] Test 00:00:00 [code = 85368937] Medical Ce nter Future Scheduled 2024-11-23 Lipid panel (procedure) [facility] Test 00:00:00 [code = 41829679] Medical Ce nter Future Scheduled 2024-11-23 Lipid panel (procedure) [facility] Test 00:00:00 [code = 95773419] Medical Ce nter Future Scheduled 2023-04-20 Influenza Vaccine (#1) [facility] 00:[facility]:00 [code = Influenza Vaccine Me dical Center (#1)] Future Scheduled 2022-08-[address] [facility] Test 00:00:00 (12+) [code = DEPRESSION Med ical Center SCREENING (12+)] Future Scheduled 2022-04-20 INFLUENZA VACCINE (#1) [facility] 00:00:00 [code = INFLUENZA VACCINE Me dical Center (#1)] Future Scheduled 2022-04-20 INFLUENZA VACCINE (#1) [facility] 00:00:00 [code = INFLUENZA VACCINE Me dical Center (#1)] Future Scheduled 2021-08-[address] [facility] Test 00:00:00 (12+) [code = DEPRESSION Med ical Center SCREENING (12+)] Future Scheduled 2021-08-[address] [facility] Test 00:00:00 (12+) [code = DEPRESSION Med ical Center SCREENING (12+)] Future Scheduled 2021-08-[address] [facility] Test 00:00:00 (12+) [code = DEPRESSION Med ical Center SCREENING (12+)] Future Scheduled 2021-08-[address] [facility] Test 00:00:00 (12+) [code = DEPRESSION Med ical Center SCREENING (12+)] Future Scheduled 2021-04-20 INFLUENZA VACCINE (#1) [facility] 00:00:00 [code = INFLUENZA VACCINE Me dical Center (#1)] Future Scheduled 2021-04-20 INFLUENZA VACCINE (#1) [facility] 00:00:00 [code = INFLUENZA VACCINE Me dical Center (#1)] Future Scheduled 2010 SHINGLES VACCINES ([address] [facility] 00:00[facility]00 2[facility] Future Scheduled 2010 SHINGLES VACCINES ([address] [facility] 00:00:00 2) [facility] Future Scheduled 2010 SHINGLES VACCINES ([address] [facility] 00:00:00 2) [facility] Future Scheduled 2010 SHINGLES VACCINES ([address] [facility] 00:00:00 2) [facility] 2)] Future Scheduled 2010 SHINGLES VACCINES ([address] [facility] 00:00:00 2) [facility] 2)] Future Scheduled 1981 Screening for malignant [facility] 00:00:00 neoplasm of cervix Medical C enter (procedure) [code = 037041687] Future Scheduled 1981 Screening for malignant [facility] Test 00:00:00 neoplasm of cervix Medical C enter (procedure) [code = 118025013] Future Scheduled 1981 Screening for malignant [facility] Test 00:00:00 neoplasm of cervix Medical C enter (procedure) [code = 745246236] Future Scheduled 1981 Screening for malignant [facility] 00:00:00 neoplasm of cervix Medical C enter (procedure) [code = 071770001] Future Scheduled 1981 Screening for malignant [facility] Test 00:00:00 neoplasm of cervix Medical C enter (procedure) [code = 656532515] Future Scheduled 1979-11-06 DTAP/TDAP/TD VACCINES ([address] [facility] 00:00:00 - Tdap) [code = Medical Cent er DTAP/TDAP/TD VACCINES (1 - Tdap)] Future Scheduled 1979-11-06 DTAP/TDAP/TD VACCINES ([address] [facility] 00:00:00 - Tdap) [code = Medical Cent er DTAP/TDAP/TD VACCINES (1 - Tdap)] Future Scheduled 1979-11-06 DTAP/TDAP/TD VACCINES ([address] [facility] 00:00:00 - Tdap) [code = Medical Cent er DTAP/TDAP/TD VACCINES (1 - Tdap)] Future Scheduled 1979-11-06 DTAP/TDAP/TD VACCINES ([address] [facility] 00:00:00 - Tdap) [code = Medical Cent er DTAP/TDAP/TD VACCINES (1 - Tdap)] Future Scheduled 1979-11-06 DTAP/TDAP/TD VACCINES ([address] [facility] 00:00:00 - Tdap) [code = Medical Cent er DTAP/TDAP/TD VACCINES (1 - Tdap)] Future Scheduled [...] HEPATITIS C Medical Center SCREENING] Future Scheduled 1975-11-[address] Human [address] [facility] 00:[facility]:00 virus screening Medical Cent er (procedure) [code = 869417842] Future Scheduled [address] [facility] Test 00:00:00 Counseling and Screening Med ical Center (12+) [code = Tobacco Cessation Counseling and Screening (12+)] Future Scheduled 1972 COVID-19 VACCINE (1) [facility] 00:00:00 [code = COVID-19 VACCINE Med ical Center (1)] Future Scheduled 1972 COVID-19 VACCINE (1) [facility] 00:00:00 [code = COVID-19 VACCINE Med ical Center (1)] Future Scheduled [address] [facility] 00:00:00 Counseling and Screening Med ical Center (12+) [code = Tobacco Cessation Counseling and Screening (12+)] Future Scheduled [address] [facility] 00:00:00 Counseling and Screening [facility] ical Center (12+) [code = Tobacco Cessation Counseling and Screening (12+)] Future Scheduled 1961-05-08 COVID-19 VACCINE (#1) [facility]:00 [code = COVID-19 VACCINE Med ical Center (#1)] Future Scheduled 1961-05[birth year]08 COVID-19 VACCINE (#1) [facility] 00:00:00 [code = COVID-19 VACCINE Med ical Center (#1)] Future Scheduled 1961-05[birth year]08 COVID-19 VACCINE (#1) [facility] 00:00:00 [code = COVID-19 VACCINE Med ical Center (#1)] Future Scheduled 1960 Screening for malignant [facility] 00:00:00 neoplasm of breast Medical C enter (procedure) [code = 751539728] Future Scheduled 1960 CT Colonography (combo) [facility] 00:00:00 [code = CT Colonography [facility] (combo)] Future Scheduled 1960 Screening for malignant [facility] 00:00:00 neoplasm of colon Medical Ce nter (procedure) [code = 327545255] Future Scheduled 1960 Screening for malignant [facility] 00:00:00 neoplasm of colon Medical Ce nter (procedure) [code = 937637836] Future Scheduled 1960 Screening for malignant [facility] 00:00:00 neoplasm of colon Medical Ce nter (procedure) [code = 405115101] Future Scheduled 1960 Screening for malignant [facility] 00:00:00 neoplasm of colon Medical Ce nter (procedure) [code = 319813520] Future Scheduled 1960 Sigmoidoscopy [code = [facility]] Medical Cent[facility] Future Scheduled 1960 Screening for malignant [facility] 00:00:00 neoplasm of breast Medical C enter (procedure) [code = 814385674] Future Scheduled 1960 Screening for malignant [facility] 00:00:00 neoplasm of colon Medical Ce nter (procedure) [code = 529264355] Future Scheduled 1960 Screening for malignant [facility] 00:00:00 neoplasm of breast Medical C enter (procedure) [code = 271626602] Future Scheduled 1960 Screening for malignant [facility] 00:00:00 neoplasm of colon Medical Ce nter (procedure) [code = 321313073] Future Scheduled 1960 Screening for malignant [facility] 00:00:00 neoplasm of breast Medical C enter (procedure) [code = 635962638] Future Scheduled 1960 CT Colonography (combo) [facility] 00:00:00 [code = CT Colonography [facility] (combo)] Future Scheduled 1960 Screening for malignant [facility] 00:00:00 neoplasm of colon Medical Ce nter (procedure) [code = 575519972] Future Scheduled 1960 Screening for malignant [facility] 00:00:00 neoplasm of colon Medical Ce nter (procedure) [code = 524575077] Future Scheduled 1960 Screening for malignant [facility] 00:00:00 neoplasm of colon Medical Ce nter (procedure) [code = 106277264] Future Scheduled 1960 Screening for malignant [facility] 00:00:00 neoplasm of colon Medical Ce nter (procedure) [code = 306002993] Future Scheduled 1960 Sigmoidoscopy [code = [facility]oscopy] Medical Cente r Future Scheduled 1960 Sigmoidoscopy [code = [facility] Sigmoidoscopy] Medical Cente r Future Scheduled 1960 Screening for malignant [facility] 00:00:00 neoplasm of breast Medical C enter (procedure) [code = 014268735] Future Scheduled 1960 CT Colonography (combo) [facility] 00:00:00 [code = CT Colonography [facility] (combo)] Future Scheduled 1960 Screening for malignant [facility] 00:00:00 neoplasm of colon Medical Ce nter (procedure) [code = 530933476] Future Scheduled 1960 Screening for malignant [facility] 00:00:00 neoplasm of colon Medical Ce nter (procedure) [code = 404240235] Future Scheduled 1960 Screening for malignant [facility] 00:00:00 neoplasm of colon Medical Ce nter (procedure) [code = 117767545] Future Scheduled 1960 Screening for malignant [facility] 00:00:00 neoplasm of colon Medical Ce nter (procedure) [code = 417224297] Encounters Start End Encounter Admission Attending Care Care Encounter Source Date/Time Date/Time Type Type Clinicians Facility Department ID 2022-12-22 Outpatient SYSTEM, OSMAR PRASAD [id number] 20:33:32 PROVIDER Edison acevedo 2022-09-08 Outpatient SYSTEM, OSMAR PRASAD [id number] 14:39:46 PROVIDER Edisonvilma acevedo 2022-09-21 2022-09-21 Ancillary 1.2.840.1 [id number] Univers 02:10:00 02:15:00 Procedure 78627.1.1 it y of 3.412.2.7 [place] .3.553303 MD Jalloh [facility] 2022-09-21 2022-09-21 Ancillary 1.2.840.1 [id number] [id number] Univers 02:05:00 02:10:00 Procedure 02771.1.1 it y of 3.412.2.7 [place] .3.322861 MD Jalloh [facility] 2022-09-21 2022-09-21 Ancillary 1.2.840.1 [id number] [id number] Univers 02:00:00 02:05:00 Procedure 48879.1.1 it y of 3.412.2.7 [place] .3.572456 MD Jalloh [facility] 2022-09-21 2022-09-21 Ancillary 1.2.840.1 [id number] [id number] Univers 01:55:00 02:00:00 Procedure 32671.1.1 it y of 3.412.2.7 [place] .3.856944 MD Jalloh [facility] 2022-09-21 2022-09-21 Outpatient EL MDA MDA [id number] MD 01:56:44 01:56:44 Edison o n 2022-09-21 2022-09-21 Outpatient EL MDA MDA [id number] MD 01:56:41 01:56:41 Edison o n 2022-09-21 2022-09-21 Outpatient EL MDA MDA [id number] MD 01:56:38 01:56:38 Edison o n 2022-09-21 2022-09-21 Outpatient EL MDA MDA [id number] MD 01:56:33 01:56:33 Edison o n 2022-08-25 2022-08-25 Travel 1.2.840.1 1.2.384.281 [id number] Univers 00:00:00 00:00:00 39277.1.1 350.1.13.41 ity of 3.412.2.7 [place].3.698 [place] .3.357925 084.8 .8 [facility] 2022-08-22 2022-08-22 Outpatient R GM SHARMA [facility] 10 [id number] Univers 10:36:11 23:59:00 GM SHARMA i ty of [facility] 2022-08-22 2022-08-22 [facility] 1.2.840.114 [id number] Univers 10:30:00 23:59:00 Encounter Gm THOMAS 350.1.13.10 ity of [place] 4.2.7.2.686 [facility] [id number] [facility] [address] 2022-08-22 2022-08-22 Office [facility] 1.2.840.114 [id number] Univers 09:30:00 09:56:51 Visit Gm THOMAS 350.1.13.10 i ty of [place] 4.2.7.2.686 [phone] Id dical NAL 085 [facility] 2022-07-21 2022-07-21 JUSTIN Strickland 1.2.840.114 [id number] Univers 00:00:00 00:00:00 (Out) Stormy CHRIS 350.1.13.10 it y of HOSPITAL 4.2.7.2.686 Kaleb as [phone] [facility] [address] [place] 2022-07-20 2022-07-20 [facility] Evelinnabilsandro [facility] 1.2.772.859 [id number] Univers 10:13:24 23:59:00 Encounter Ranmd HEALTH 350.1.13.10 [facility] 4.2.7.2.686 Kaleb as ANTIONE?BLEA [phone] Id will MARIO [address] [place] MEDICAL OFFICE [facility] 2022-07-20 2022-07-20 Outpatient R AMANDA [facility] [id number] Univers 09:40:00 10:22:54 JOSESALVADOR [facility] 2022-07-20 2022-07-20 Urgent Velia Lara [facility] 1.2.840.114 [id number] Univers 09:40:00 10:22:54 Care Unknown, Attending HEALTH 350.1.13.10 ity [facility] 4.2.7.2.686 Kaleb as ANTIONE?BLEA [id number] [facility] [address] [place] MEDICAL OFFICE [facility] 2022-07-20 2022-07-20 Telephone NurseEmigdio [facility] 1.2.840.114 [id number] Univers 00:00:00 00:00:00 Db Urgent HEALTH 350.1.13.10 ity of Care [place] 4.2.7.2.686 Kaleb as ANTIONE?BLEA [id number] [facility] [address] [place] MEDICAL OFFICE [facility] 2022-01-04 2022-01-04 Orders Doctor JUSTIN 1.2.840.114 [id number] Univers 00:00:00 00:00:00 Only Unassigned, CHRIS 350.1.13.10 ity of [place] [facility] 4.2.7.2.686 Kaleb as [phone] [facility] [address] [place] 2021-11-04 2021-11-04 [facility] [id number] Univers 08:30:00 13:25:08 CHRIS [facility] 2021-11-04 2021-11-04 [facility] 1.2.196.885 [id number] Univers 08:30:00 13:25:08 Visit Chris Gonzalez [employer] 350.1.13.10 it y of [place] 4.2.7.2.686 Kaleb as ANTIONE?BLEA [phone] Id will ESPINO [address] [place] MEDICAL OFFICE [facility] 2021-11-04 2021-11-04 Orders Doctor JUSTIN 1.2.840.114 [id number] Univers 00:00:00 00:00:00 Only Unassigned, CHRIS 350.1.13.10 ity of [place] [facility] 4.2.7.2.686 Kaleb as [phone] [facility] [address] [place] 2021-11-04 2021-11-04 Telephone [facility] 1.2.840.114 [id number] Univers 00:00:00 00:00:00 Chris Gonzalez [employer] 350.1.13.10 it y [facility] 4.2.7.2.686 Kaleb as ANTIONE?BLEA [phone] Id will ESPINO [address] [place] MEDICAL OFFICE [facility] 2021-11-03 2021-11-03 Telephone Hakeem [facility] 1.2.840.114 [id number] Univers 00:00:00 00:00:00 Chris Gonzalez [employer] 350.1.13.10 it y [facility] 4.2.7.2.686 Kaleb as ANTIONE?BLEA [id number] Id will ESPINO 198 [facility] OFFICE [facility] 2021-09-17 2021-09-17 Letter JUSTIN Dhillon 1.2.440.442 [id number] Univers 00:00:00 00:00:00 (Out) Geovanni CHRIS 350.1.13.10 it y of HOSPITAL 4.2.7.2.686 Kaleb as [phone] [facility] [address] [place] 2021-09-16 2021-09-16 Laboratory Only, Ang Db Test [place] 1.2.8 40.114 [id number] Univers 14:00:00 14:15:00 Only Cuauhtemoc Ruvalcaba [employer] 350.1.13.10 ity of [facility] 4.2.7.2.686 Kaleb as ANTIONE?BLEA [id number] Id will ESPINO [address] [place] MEDICAL OFFICE [facility] 2021-09-16 2021-09-16 Outpatient R [facility] [id number] Univers 14:00:00 14:00:00 ity [facility] 2021-09-16 2021-09-16 Orders Doctor ANDERSON 1.2.840.114 [id number] Univers 00:00:00 00:00:00 Only UnassCHRIS sosa 350.1.13.10 [facility] 4.2.7.2.686 Kaleb as [phone] [address] 2021-08-29 2021-08-29 Outpatient DOMINICK MCKOY [facility] SLE [id number] [facility] 00:00:00 00:00:00 [place] 2021-08-29 2021-08-29 Outpatient DOMINICK MCKOY [facility] [id number] [facility] 00:00:00 00:00:00 [place] 2021-08-01 2021-08-02 Emergency ER [facility] Emergency 20 [id number] SLE 20:26:00 02:35:00 TERESSA PATEL 2021-08-01 2021-08-02 Emergency [facility] [id number] 20:26:00 02:35:00 Teressa Aden [facility] 2021-08-01 2021-08-01 Orders [facility] [id number] 00:00:00 00:00:00 Only [facility] 2021-07-31 2021-07-31 Letter JUSTIN [place] 1.2.840.114 [id number] Univers 00:00:00 00:00:00 (Out) Kathi PREEZ 350.1.13.10 it y of [facility] 4.2.7.2.686 Kaleb as [phone] [address] 2021-07-30 2021-07-30 Outpatient R JOMAR [facility] [id number] Univers 11:15:00 11:23:11 DENISE ity [facility] 2021-07-30 2021-07-30 Laboratory Only, Ang Db Test [facility] 1.2.8 40.114 [id number] Univers 11:07:18 11:22:18 Only Jomar [facility] 350.1.13.10 ity of [place] 4.2.7.2.686 Kaleb as ANTIONE?BLEA [phone] Id will [address] MEDICAL OFFICE BUILDING 2021-07-29 2021-07-29 Emergency X [facility] ERT [id number] Univers 15:58:00 15:59:00 ity of [facility] 2021-07-29 2021-07-29 Emergency [facility] 1.2.280.688 [id number] Univers 15:58:00 15:59:00 ANGLEDERIC 350.1.13.10 i ty [place] [id number] [facility] [address] 2021-07-01 2021-07-01 Outside Samantha [facility] [id number] 00:00:00 00:00:00 Orders [facility] 2020-10-27 2020-10-27 Transition Jany Escalante 1.2.840.114 [id number] 00:00:00 00:00:00 of Care Sheila L Yuan 350.1.13.10 [place] 4.2.7.2.686 [id number] 403 2020-10-27 2020-10-27 Transition Jany Escalante 1.2.840.114 [id number] Univers 00:00:00 00:00:00 of Care Sheila L Yuan 350.1.13.10 i [place] [id number] [facility] [address] 2020-10-21 2020-10-26 [facility] Frank [facility] 1.2.840.1 14 [id number] 19:22:00 17:05:00 Encounter Vanessa Garner 350.1.13.10 [place] 4.2.7.2.686 [place] [id number] 2020-10-21 2020-10-26 [facility] 1.2.840.1 14 [id number] [facility] 19:22:00 17:05:00 Encounter Vanessa Garner 350.1.13.10 ity of [place] 4.2.7.2.686 [facility] [id number] [address] 2020-10-21 2020-10-21 Emergency X FRANK [facility] ERT [id number] Univers 19:22:00 19:22:00 TIFFANIE ity [facility] 2019-12-03 2019-12-03 Telephone [facility] 1.2.139.893 [id number] 00:00:00 00:00:00 Elmo Thomas 350.1.13.10 [place] 4.2.7.2.686 Professio [phone] [address] 2019-12-03 2019-12-03 [facility] 1.2.079.695 [id number] [facility] 00:00:00 00:00:00 Elmo Mayeston 350.1.13.10 ity of [place] 4.2.7.2.686 [facility] Professio [phone] Id dical [address] 2019-11-24 2019-11-25 [facility] 1.2.840.11 4 [id number] 10:55:57 14:00:00 Encounter Philip Cooley 350.1.13.10 [place] 4.2.7.2.686 [place] [id number] [facility] 2019-11-24 2019-11-25 [facility] 1.2.840.11 4 [id number] [facility] 10:55:57 14:00:00 Encounter Philip Cooley 350.1.13.10 ity of [place] 4.2.7.2.686 [facility] [phone] [address] 2019-11-24 2019-11-25 Outpatient X PHILIP COOLEY [facility] [id number] [facility] 10:55:57 14:00[facility]00 [facility] Results Test Description Test Time Test Comments Results Result Comments Source Urine culture 2021-08-05 10:14:17 Test Item Value Reference Range Interpretation Comme nts Result (test code = 6463-4) 10-19,000 col/mL Felicita dubliniensis A MIRANDA (test code = MIRANDA) <10,000 col/mL Gram Negative Zvnz46-49,000 col/mL skin rios Lab Interpretation (test code = 25154-1) Abnormal [facility] [id number] 10:14:17 Test Item Value Reference Range Interpretation Comments Result (test code = 10-19,000 col/mL A 6463-4) Felicita dubliniensis MIRANDA (test code = MIRANDA) <10,000 col/mL Gram Negative Yrsj51-66,000 col/mL skin rios Lab Interpretation (test Abnormal code = 76699-6) [facility] [id number] 10:14:17 Test Item Value Reference Range Interpretation Comments Result (test code = 10-19,000 col/mL A 6463-4) Felicita dubliniensis MIRANDA (test code = MIRANDA) <10,000 col/mL Gram Negative Wqbf71-45,000 col/mL skin rios Lab Interpretation (test Abnormal code = 87035-9) [facility] [id number] 10:14:17 Test Item Value Reference Range Interpretation Comments CULTURE (BEAKER) (test A 10-19 ,000 col/mL Felicita code = 1095) dubliniensis <10,000 col/mL Gram Negative Lfdx91-29,000 col/mL skin floraCT, ABDOMEN 2021-08-02 00:48:00Unlisted Reason for Exam - Click Yes and Enter Reason Below- >NoIs this for enterography?->NoWill this procedure require oral contrast?->No[facility] : 1960 Sex: FFINAL REPORT [...] diverticulosis without acute diverticulitis. Signed: Trenton Watson MDRepeastern missouri state hospital Verified Date/Time: 08/02/2021 00:48:37 High Sens Trop I ([facility]/Wu Only)2021-08-01 21:34:45 Test Item Value Reference Range Interpretation Comments Troponin I HS (test <4 See_Comment [Automa mayelin code = 25625-0) message] The system which generated this result transmitted reference range : <=17 pg/ml. The reference range was not used to interpret this result as normal/abnormal . MIRANDA (test code = Manager Federal ID - MIRANDA) DBThe INSURANCE SALES AGENT STAT High Sensitivity Troponin-I results should be used in conjunction with other diagnostic information such as ECG, clinical observations and information, and patient symptoms to aid in the diagnosis of SC. Lab Interpretation Normal (test code = 99489-7) [facility] ([facility] Only)2021-08-01 21:34:45 Test Item Value Reference Range Interpretation Comments Troponin I HS (test <4 See_Comment [Automa mayelin code = 50741-0) message] The system which generated this result transmitted reference range : <=17 pg/ml. The reference range was not used to interpret this result as normal/abnormal . MIRANDA (test code = Manager Federal ID - MIRANDA) DBThe INSURANCE SALES AGENT STAT High Sensitivity Troponin-I results should be used in conjunction with other diagnostic information such as ECG, clinical observations and information, and patient symptoms to aid in the diagnosis of SC. Lab Interpretation Normal (test code = 07546-0) [facility] ([facility] Only)2021-08-01 21:34:45 Test Item Value Reference Range Interpretation Comments Troponin I HS (test <4 See_Comment [Automa mayelin code = 69439-7) message] The system which generated this result transmitted reference range : <=17 pg/ml. The reference range was not used to interpret this result as normal/abnormal . MIRANDA (test code = Manager Federal ID - MIRANDA) DBThe INSURANCE SALES AGENT STAT High Sensitivity Troponin-I results should be used in conjunction with other diagnostic information such as ECG, clinical observations and information, and patient symptoms to aid in the diagnosis of SC. Lab Interpretation Normal (test code = 59401-9) [facility]IT[facility] TROPONIN [id number] 21:34:45 Test Item Value Reference Range Interpretation Comments HIGH SENSITIVITY < pg/ml See_Comment [Automated message] TROPONIN I (test code = The system which 6816540) generated this result transmitted ref erence range: <=17. Th e reference range was not used to interpr et this result as normal/abnormal . Manager Federal ID - DBThe INSURANCE SALES AGENT STAT High Sensitivity Troponin-I results should be used in conjunctionwith other diagnostic information such as ECG, clinical observations and information, and patient symptoms to aid in the diagnosis of SC.Comprehensive metabolic [id number] 21:30:43 Test Item Value Reference Range Interpretation Comments Protein, Total (test 7.7 See_Comment Specime n markedly code = 2885-2) hemolyzed [Automated message] The system which generated this result transmit mayelin reference range : 6.0 - 8.3 gm/dL . The reference range was not u sed to interpret th is result as normal/abnormal . Albumin (test code = 4.1 g/dL 3.5-5.0 Specime n markedly 31660-0) hemolyzed Alkaline Phosphatase 79 U/L 40-150 (test code = 6768-6) Total Bilirubin (test 0.4 mg/dL 0.2-1.2 Specim en markedly code = 1974-) hemolyzed Sodium (test code = 137 meq/L 110-723 8176-2) Potassium (test code 4.5 meq/L 3.5-5.1 Specime [...] Calcium (test code = 9.0 mg/dL 8.4-10.2 76420-4) AST (test code = 20 U/L 5-34 Specimen ma rkedly 1920-8) hemolyzed ALT (test code = 9 U/L 6-55 Specimen ma rkedly 1742-6) hemolyzed EGFR (test code = 71 mL/min/1.73 [place] [address]-5) NOT ACCURATE CREATININE CLEARANCE IN PREDICTING GLOMERULAR FILTRATION RATE . ESTIMATED GFR I S NOT APPLICABLE FOR DIALYSIS PATIEN TS. MIRANDA (test code = MIRANDA) Manager Federal ID - DB Lab Interpretation Abnormal (test code = 58942-8) [facility]2021-[facility]-13 21:30:43 Test Item Value Reference Range Interpretation Comments Lipase (test code = 3040-3) 14 U/L 8-78 MIRANDA (test code = MIRANDA) Manager Federal ID - DB Lab Interpretation (test Normal code = 84020-4) [facility] CenterComprehensive metabolic [id number] 21:30:43 Test Item Value Reference Range Interpretation Comments Protein, Total (test 7.7 See_Comment Specime n markedly code = 2885-2) hemolyzed [Automated message] The system which generated this result transmit mayelin reference range : 6.0 - 8.3 gm/dL . The reference range was not u sed to interpret th is result as normal/abnormal . Albumin (test code = 4.1 g/dL 3.5-5.0 Specime n markedly 26261-2) hemolyzed Alkaline Phosphatase 79 U/L 40-150 (test code = 6768-6) Total Bilirubin (test 0.4 mg/dL 0.2-1.2 Specim en markedly code = 1975-2) hemolyzed Sodium (test code = 137 meq/L 858-986 3781-2) Potassium (test code 4.5 meq/L 3.5-5.1 Specime [...] Calcium (test code = 9.0 mg/dL 8.4-10.2 43959-7) AST (test code = 20 U/L 5-34 Specimen ma rkedly 1920-8) hemolyzed ALT (test code = 9 U/L 6-55 Specimen ma rkedly 1742-6) hemolyzed EGFR (test code = 71 mL/min/1.73 [place] [address]-4) NOT ACCURATE CREATININE CLEARANCE IN PREDICTING GLOMERULAR FILTRATION RATE . ESTIMATED GFR I S NOT APPLICABLE FOR DIALYSIS PATIEN TS. MIRANDA (test code = MIRANDA) Manager Federal ID - DB Lab Interpretation Abnormal (test code = 51113-8) [facility]2021-12-13 21:30:43 Test Item Value Reference Range Interpretation Comments Lipase (test code = 3040-3) 14 U/L 8-78 MIRANDA (test code = MIRANDA) Manager Federal ID - DB Lab Interpretation (test Normal code = 19680-0) [facility] CenterComprehensive metabolic [id number] 21:30:43 Test Item Value Reference Range Interpretation Comments Protein, Total (test 7.7 See_Comment Specime n markedly code = 2885-2) hemolyzed [Automated message] The system which generated this result transmit mayelin reference range : 6.0 - 8.3 gm/dL . The reference range was not u sed to interpret th is result as normal/abnormal . Albumin (test code = 4.1 g/dL 3.5-5.0 Specime n markedly 35753-2) hemolyzed Alkaline Phosphatase 79 U/L 40-150 (test code = 6768-6) Total Bilirubin (test 0.4 mg/dL 0.2-1.2 Specim en markedly code = 1975-2) hemolyzed Sodium (test code = 137 meq/L 076-810 9117-2) Potassium (test code 4.5 meq/L 3.5-5.1 Specime [...] Calcium (test code = 9.0 mg/dL 8.4-10.2 12931-2) AST (test code = 20 U/L 5-34 Specimen ma rkedly 1920-8) hemolyzed ALT (test code = 9 U/L 6-55 Specimen ma rkedly 1742-6) hemolyzed EGFR (test code = 71 mL/min/1.[place] [address]-0) NOT ACCURATE CREATININE CLEARANCE IN PREDICTING GLOMERULAR FILTRATION RATE . ESTIMATED GFR I S NOT APPLICABLE FOR DIALYSIS PATIEN TS. MIRANDA (test code = MIRANDA) Manager Federal ID - DB Lab Interpretation Abnormal (test code = 70948-0) [facility]2021-[facility] 21:30:43 Test Item Value Reference Range Interpretation Comments Lipase (test code = 3040-3) 14 U/L 8-78 MIRANDA (test code = MIRANDA) Manager Federal ID - DB Lab Interpretation (test Normal code = 51578-3) [facility] CenterCOMPREHENSIVE METABOLIC [id number] 21:30:43 Test Item Value Reference Range Interpretation [...] S NOT APPLICABLE FOR DIALYSIS PATIEN TS. Manager Federal ID - [id number] 21:30:43 Test Item Value Reference Range Interpretation Comments LIPASE (BEAKER) (test code = 749) 14 U/L 8-78 Manager Federal ID - DBUrinalysis w/Microscopic + Reflex to [id number] 21:20:50 Test Item Value Reference Range Interpretation Comments Color, UA (test code Yellow = 5778-6) Clarity, UA (test Hazy code = 5767-9) Specific [place], UA 1.022 1.001-1.035 (test code = 5811-5) pH, UA (test code = 6.0 5.0-8.0 5803-2) Protein, UA (test 100 mg/dL Negative A code = 97295-7) Glucose, UA (test Negative Negative code = 365) Ketones, UA (test Trace Negative A code = 2514-8) Bilirubin, UA (test Negative Negative code = 20393-0) Blood, UA (test code Moderate Negative A = 62076-1) Nitrite, UA (test Negative Negative code = 5802-4) Leukocytes, UA (test Moderate Negative A code = 5799-2) Urobilinogen, UA 0.2 mg/dL 0.2-1.0 (test code = 27206-9) RBC, UA (test code = 78 See_Comment [Autom ated 96050-2) message] The system which generated this result [...] . Bacteria, UA (test Occasional code = 16932-5) Mucus (test code = Many 8247-9) Squam Epithel, UA 5 See_Comment [Automate d (test code = 21803-2) messag e] The system which generated this result transmitted reference range : /HPF. The reference range was not used to interpret this result as normal/abnormal . Crystals, Urine (test None Seen code = 16631-0) Specimen Source (test code = 2795) MIRANDA (test code = MIRANDA) Manager Federal ID - [auto]Manager Federal ID - tech Lab Interpretation Abnormal (test code = 68109-6) [facility] CenterUrinalysis w/Microscopic + Reflex to Culture 2021-08-01 21:20:50 Test Item Value Reference Range Interpretation Comments Color, UA (test code Yellow = 5778-6) Clarity, UA (test Hazy code = 5767-9) Specific [place], UA 1.022 1.001-1.035 (test code = 5811-5) pH, UA (test code = 6.0 5.0-8.0 5803-2) Protein, UA (test 100 mg/dL Negative A code = 18929-2) Glucose, UA (test Negative Negative code = 365) Ketones, UA (test Trace Negative A code = 2514-8) Bilirubin, UA (test Negative Negative code = 69069-9) Blood, UA (test code Moderate Negative A = 66562-1) Nitrite, UA (test Negative Negative code = 5802-4) Leukocytes, UA (test Moderate Negative A code = 5799-2) Urobilinogen, UA 0.2 mg/dL 0.2-1.0 (test code = 61997-4) RBC, UA (test code = 78 See_Comment [Autom ated 77248-6) message] The system which generated this result [...] . Bacteria, UA (test Occasional code = 33349-4) Mucus (test code = Many 8247-9) Squam Epithel, UA 5 See_Comment [Automate d (test code = 76391-3) messag e] The system which generated this result transmitted reference range : /HPF. The reference range was not used to interpret this result as normal/abnormal . Crystals, Urine (test None Seen code = 09292-7) Specimen Source (test code = 2795) MIRANDA (test code = MIRANDA) Manager Federal ID - [auto]Manager Federal ID - tech Lab Interpretation Abnormal (test code = 84810-0) [facility] Reflex to Culture 2021-08-01 21:20:50 Test Item Value Reference Range Interpretation Comments Color, UA (test code Yellow = 5778-6) Clarity, UA (test Hazy code = 5767-9) Specific [place], UA 1.022 1.001-1.035 (test code = 5811-5) pH, UA (test code = 6.0 5.0-8.0 5803-2) Protein, UA (test 100 mg/dL Negative A code = 99028-0) Glucose, UA (test Negative Negative code = 365) Ketones, UA (test Trace Negative A code = 2514-8) Bilirubin, UA (test Negative Negative code = 67187-5) Blood, UA (test code Moderate Negative A = 32456-1) Nitrite, UA (test Negative Negative code = 5802-4) Leukocytes, UA (test Moderate Negative A code = 5799-2) Urobilinogen, UA 0.2 mg/dL 0.2-1.0 (test code = 25285-1) RBC, UA (test code = 78 See_Comment [Autom ated 05728-0) message] The system which generated this result [...] . Bacteria, UA (test Occasional code = 22607-3) Mucus (test code = Many 8247-9) Squam Epithel, UA 5 See_Comment [Automate d (test code = 91696-9) messag e] The system which generated this result transmitted reference range : /HPF. The reference range was not used to interpret this result as normal/abnormal . Crystals, Urine (test None Seen code = 16748-0) Specimen Source (test code = 2795) MIRANDA (test code = MIRANDA) Manager Federal ID - [auto]Manager Federal ID - tech Lab Interpretation Abnormal (test code = 78151-7) [facility] UR[facility] [id number] 21:20:50 Test Item Value Reference Range Interpretation [...] = 1521) SOURCE(BEAKER) (test code = 2795) Manager Federal ID - [auto]Manager Federal ID - techCBC with platelet count + automated diff 2021-08-01 21:07:56 Test Item Value Reference Range Interpretation Comments WBC (test code = 6690-2) 9.0 See_Comment [A utomated message] The system [employer] generated this result transmitted ref erence range: 3.5 - 10 .5 K/L. The refe rence range was not u sed to interpret this result as normal/abnor mal. RBC (test code = 789-8) 3.96 See_Comment [Au tomated message] The system [employer] generated this result transmitted ref erence range: 3.93 - 5 .22 M/L. The refe rence range was not u sed to interpret this result as normal/abnor mal. MCHC (test code = 786-4) 32.0 See_Comment L [A utomated message] The system [employer] generated this result transmitted ref erence range: [...] See_Comment [Aut omated message] 777-3) The system [employer] generated this result transmitted ref erence range: 150 - 45 0 K/CU MM. The referen ce range was not u sed to interpret this result as normal/abnor mal. MPV (test code = 10.6 fL 9.4-12.3 07943-0) nRBC (test code = 413) 0 See_Comment [Aut omated message] The system [employer] generated this result transmitted ref erence range: [...] See_Comment [Aut omated message] 670) The system [employer] generated this result transmitted ref erence range: 1.56 - 6 .13 K/L. The refe rence range was not u sed to interpret this result as normal/abnor mal. # Lymphs (test code = 1.86 See_Comment [Auto mated message] 414) The system [employer] generated this result transmitted ref erence range: 1.18 - 3 .74 K/L. The refe rence range was not u sed to interpret this result as normal/abnor mal. # Monos (test code = 0.93 See_Comment H [Autom ated message] 415) The system [employer] generated this result transmitted ref erence range: 0.24 - 0 .36 K/L. The refe rence range was not u sed to interpret this result as normal/abnor mal. # Eos (test code = 416) 0.11 See_Comment [Au tomated message] The system [employer] generated this result transmitted ref erence range: 0.04 - 0 .36 K/L. The refe rence range was not u sed to interpret this result as normal/abnor mal. # Baso (test code = 417) 0.06 See_Comment [A utomated message] The system [employer] generated this result transmitted ref erence range: 0.01 - 0 .08 K/L. The refe rence range was not u sed to interpret this result as normal/abnor mal. Immature 0 % 0-1 Granulocytes-Relative (test code = 2801) Lab Interpretation (test Abnormal code = 98904-0) [facility] with platelet count + automated [id number] 21:07:56 Test Item Value Reference Range Interpretation Comments WBC (test code = 6690-2) 9.0 See_Comment [A utomated message] The system [employer] generated this result transmitted ref erence range: 3.5 - 10 .5 K/L. The refe rence range was not u sed to interpret this result as normal/abnor mal. RBC (test code = 789-8) 3.96 See_Comment [Au tomated message] The system [employer] generated this result transmitted ref erence range: 3.93 - 5 .22 M/L. The refe rence range was not u sed to interpret this result as normal/abnor mal. MCHC (test code = 786-4) 32.0 See_Comment L [A utomated message] The system [employer] generated this result transmitted ref erence range: [...] code = 432 See_Comment [Aut omated message] 117-3) The system [employer] generated this result transmitted ref erence range: 150 - 45 0 K/CU MM. The referen ce range was not u sed to interpret this result as normal/abnor mal. MPV (test code = 10.6 fL 9.4-12.3 69788-1) nRBC (test code = 413) 0 See_Comment [Aut omated message] The system [employer] generated this result transmitted ref erence range: [...] See_Comment [Aut omated message] 670) The system [employer] generated this result transmitted ref erence range: 1.56 - 6 .13 K/L. The refe rence range was not u sed to interpret this result as normal/abnor mal. # Lymphs (test code = 1.86 See_Comment [Auto mated message] 414) The system [employer] generated this result transmitted ref erence range: 1.18 - 3 .74 K/L. The refe rence range was not u sed to interpret this result as normal/abnor mal. # Monos (test code = 0.93 See_Comment H [Autom ated message] 415) The system [employer] generated this result transmitted ref erence range: 0.24 - 0 .36 K/L. The refe rence range was not u sed to interpret this result as normal/abnor mal. # Eos (test code = 416) 0.11 See_Comment [Au tomated message] The system [employer] generated this result transmitted ref erence range: 0.04 - 0 .36 K/L. The refe rence range was not u sed to interpret this result as normal/abnor mal. # Baso (test code = 417) 0.06 See_Comment [A utomated message] The system [employer] generated this result transmitted ref erence range: 0.01 - 0 .08 K/L. The refe rence range was not u sed to interpret this result as normal/abnor mal. Immature 0 % 0-1 Granulocytes-Relative (test code = 2801) Lab Interpretation (test Abnormal code = 95980-8) [facility] with platelet count + automated [id number] 21:07:56 Test Item Value Reference Range Interpretation Comments WBC (test code = 6690-2) 9.0 See_Comment [A utomated message] The system [employer] generated this result transmitted ref erence range: 3.5 - 10 .5 K/L. The refe rence range was not u sed to interpret this result as normal/abnor mal. RBC (test code = 789-8) 3.96 See_Comment [Au tomated message] The system [employer] generated this result transmitted ref erence range: 3.93 - 5 .22 M/L. The refe rence range was not u sed to interpret this result as normal/abnor mal. MCHC (test code = 786-4) 32.0 See_Comment L [A utomated message] The system [employer] generated this result transmitted ref erence range: [...] See_Comment [Aut omated message] 777-3) The system [employer] generated this result transmitted ref erence range: 150 - 45 0 K/CU MM. The referen ce range was not u sed to interpret this result as normal/abnor mal. MPV (test code = 10.6 fL 9.4-12.3 38134-0) nRBC (test code = 413) 0 See_Comment [Aut omated message] The system [employer] generated this result transmitted ref erence range: [...] See_Comment [Aut omated message] 670) The system [employer] generated this result transmitted ref erence range: 1.56 - 6 .13 K/L. The refe rence range was not u sed to interpret this result as normal/abnor mal. # Lymphs (test code = 1.86 See_Comment [Auto mated message] 414) The system [employer] generated this result transmitted ref erence range: 1.18 - 3 .74 K/L. The refe rence range was not u sed to interpret this result as normal/abnor mal. # Monos (test code = 0.93 See_Comment H [Autom ated message] 415) The system [employer] generated this result transmitted ref erence range: 0.24 - 0 .36 K/L. The refe rence range was not u sed to interpret this result as normal/abnor mal. # Eos (test code = 416) 0.11 See_Comment [Au tomated message] The system [employer] generated this result transmitted ref erence range: 0.04 - 0 .36 K/L. The refe rence range was not u sed to interpret this result as normal/abnor mal. # Baso (test code = 417) 0.06 See_Comment [A utomated message] The system [employer] generated this result transmitted ref erence range: 0.01 - 0 .08 K/L. The refe rence range was not u sed to interpret this result as normal/abnor mal. Immature 0 % 0-1 Granulocytes-Relative (test code = 2801) Lab Interpretation (test Abnormal code = 14337-8) [facility] W/PLT COUNT & AUTO [id number] 21:07:56 Test Item Value Reference Range Interpretation [...]
[2023-03-31] MEDS ORDERED: MECLIZINE HCL 12.5 MG TAB ONE (10:14)
[2023-03-31] MEDS ORDERED: ONDANSETRON 4 MG (ODT) TAB ONE (10:23)
[2023-03-31] MEDS ORDERED: NA CHLORIDE 0.9% 1,000 ML ONE (10:25)
[2023-03-31] MEDS ORDERED: PROMETHAZINE INJ 25 MG/ML AMP ONE (10:25)
[2023-03-31 10:56] LABS: Absolute Lymphocytes (CBC) 1.6 K/uL (0.7-4.9); Hematocrit 41.1 % (36.0-45.0); Lymphocytes % 21.5 % (15.3-44.8); MCV 94.7 fL (80-100); MPV 8.1 fL (7.6-11.3); Platelets 331 thou/uL (152-406); RBC Red Blood Cell Count 4.34 M/uL (3.86-4.86)
[2023-03-31 11:08] LABS: Potassium 3.6 mEq/L (3.5-5.1)
--- NOTE | 2023-03-31 11:49 | RAD REPORT ---
EXAM DESCRIPTION: CT - Head Brain Wo Cont - 03/31/2023 11:10 am CLINICAL HISTORY: DIZZINESS COMPARISON: Head Brain Wo Cont dated 01/21/2020; Head Brain Wo Cont dated 03/14/2019 TECHNIQUE: Noncontrast head CT images were obtained without IV contrast. Multiplanar reformats were generated and reviewed. All CT scans are performed using dose optimization technique as appropriate and may include automated exposure control or mA/KV adjustment according to patient size. FINDINGS: No intracranial hemorrhage, mass, or edema. Midline structures are unremarkable. Normal ventricular caliber for age. Benitez-white matter differentiation is preserved, without evidence of acute infarct. No abnormal extra- axial fluid collections. Mastoid air cells and visualized portions of the paranasal sinuses are clear. No acute bony findings. IMPRESSION: No evidence of an acute intracranial process.
--- NOTE | 2023-03-31 12:05 | EDPHYS ---
Physician Documentation [facility] Name: Treasure Varela Age: 62 yrs Sex: Female : 1960 Arrival Date: 03/31/2023 Time: 09:45 Bed 7 Private MD: ED Physician Julien Saleh HPI: 03/31 15:39 This 62 yrs old Female presents to ER via Wheelchair with complaints of Vertigo. kdr 15:39 Patient has a history of intermittent dizziness and vertigo. This is the third such kdr episode. This is similar to her prior episodes. This time it began yesterday and was fairly severe. Through the course of the day it seemed to get better however last night it got worse again. At its most severe, the dizziness prompts significant vomiting. Patient states that she has been unable to keep anything down for the past few hours. This episode is similar to other prior episodes she has had in the past. She states this simply happens from time to time.. Onset: The symptoms/episode began/occurred yesterday. Severity of symptoms: At their worst the symptoms were in the emergency department the symptoms are unchanged. The patient has experienced similar episodes in the past, a few times. The patient has not recently seen a physician. Historical: - Allergies: 10:00 No Known Allergies; ss - PMHx: 10:00 GERD; LOW POTASSIUM; Vertigo; ss - Immunization history:: Adult Immunizations unknown. - Social history:: Smoking status: unknown. ROS: 15:39 Constitutional: Negative for fever, chills, and weight loss, Eyes: Negative for injury, kdr pain, redness, and discharge, ENT: Negative for injury, pain, and discharge, Neck: Negative for injury, pain, and swelling, Cardiovascular: Negative for chest pain, palpitations, and edema, Respiratory: Negative for shortness of breath, cough, wheezing, and pleuritic chest pain, Abdomen/GI: Negative for abdominal pain, nausea, vomiting, diarrhea, and constipation, Back: Negative for injury and pain, : Negative for injury, bleeding, discharge, and swelling, MS/Extremity: Negative for injury and deformity, Skin: Negative for injury, rash, and discoloration, Psych: Negative for depression, anxiety, suicide ideation, homicidal ideation, and hallucinations, Allergy/Immunology: Negative for hives, rash, and allergies, Endocrine: Negative for neck swelling, polydipsia, polyuria, polyphagia, and marked weight changes, Hematologic/Lymphatic: Negative for swollen nodes, abnormal bleeding, and unusual bruising. 15:39 Neuro: Positive for dizziness, weakness. Exam: 15:39 Constitutional: This is a well developed, well nourished patient who is awake, alert, kdr and in no acute distress. Head/Face: Normocephalic, atraumatic. Eyes: Pupils equal round and reactive to light, extra-ocular motions intact. Lids and lashes normal. Conjunctiva and sclera are non-icteric and not injected. Cornea within normal limits. Periorbital areas with no swelling, redness, or edema. Neck: Trachea midline, no thyromegaly or masses palpated, and no cervical lymphadenopathy. Supple, full range of motion without nuchal rigidity, or vertebral point tenderness. No Meningismus. Chest/axilla: Normal chest wall appearance and motion. Nontender with no deformity. No lesions are appreciated. Cardiovascular: Regular rate and rhythm with a normal S1 and S2. No gallops, murmurs, or rubs. Normal PMI, no JVD. No pulse deficits. Respiratory: Lungs have equal breath sounds bilaterally, clear to auscultation and percussion. No rales, rhonchi or wheezes noted. No increased work of breathing, no retractions or nasal flaring. Abdomen/GI: Soft, non-tender, with normal bowel sounds. No distension or tympany. No guarding or rebound. No evidence of tenderness throughout. Skin: Warm, dry with normal turgor. Normal color with no rashes, no lesions, and no evidence of cellulitis. MS/ Extremity: Pulses equal, no cyanosis. Neurovascular intact. Full, normal range of motion. Neuro: Awake and alert, GCS 15, oriented to person, place, time, and situation. Cranial nerves II-XII grossly intact. Motor strength 5/5 in all extremities. Sensory grossly intact. Cerebellar exam normal. Normal gait. Psych: Awake, alert, with orientation to person, place and time. Behavior, mood, and affect are within normal limits. Vital Signs: 09:58 BP 152 / 70; Pulse 67; Resp 18; Temp 97.3(TE); Pulse Ox 100% on R/A; Weight 61.23 kg; ss Height 5 ft. 3 in. ; Pain 0/10; 11:00 BP 132 / 67; Pulse 52; Resp 15; Pulse Ox 97% ; jl7 12:15 BP 150 / 91; Pulse 64; Resp 16; Pulse Ox 99% ; bp 09:58 Body Mass Index 23.91 (61.23 kg, 160.02 cm) ss 09:58 Pain Scale: Adult ss MDM: 12:05 Patient medically screened. kdr 17:01 Data reviewed: vital signs, nurses notes. kdr 03/31 10:31 Order name: CBC with Diff; Complete Time: 11:14 kdr 03/31 10:31 Order name: BMP; Complete Time: 11:14 kdr 03/31 09:59 Order name: CT Head Brain wo Cont; Complete Time: 11:58 kdr Administered Medications: 10:13 CANCELLED (Duplicate Order): Ondansetron Oral Disintegrating Tablet Oral Disintegrating kdr Tablet 4 mg PO once 10:32 Not Given (Patient Refused): Ondansetron Oral Disintegrating Tablet Oral Disintegrating jl7 Tablet 8 mg PO once; may repeat once in 8-12 hours 10:32 Drug: NS 0.9% IV 1000 ml Route: IV; Rate: 1 bolus; Site: right forearm; jl7 11:00 Follow up: IV Intake: 500ml jl7 11:00 Follow up: IV Status: Completed infusion jl7 10:32 Drug: Promethazine IVP 12.5 mg Route: IVP; Site: right forearm; jl7 12:18 Follow up: Response: No adverse reaction bp 11:00 Drug: Meclizine PO 25 mg Route: PO; jl7 12:00 Follow up: Response: No adverse reaction; Marked relief of symptoms jl7 12:20 Not Given (Duplicate Order): NS 0.9% IV 500 ml IV at bolus once jl7 12:20 Not Given (Pt dischargedd): predniSONE PO 20 mg PO once jl7 Disposition Summary: 03/31/23 12:05 Discharge Ordered Location: Home kdr Problem: an acute exacerbation kdr Symptoms: have improved kdr Condition: Stable kdr Diagnosis - Dizziness and giddiness kdr Followup: kdr - With: Private Physician - When: 2 - 3 days - Reason: If symptoms return, Further diagnostic work-up, Recheck today's complaints, Continuance of care, Re-evaluation by your physician Discharge Instructions: - Discharge Summary Sheet kdr - Nausea and Vomiting, Adult, [id number] kdr - Vertigo, [id number] kdr - Dizziness, [id number] kdr Forms: - Medication Reconciliation Form kdr - Thank You Letter kdr - Patient Portal Instructions kdr - Leadership Thank You Letter kdr Prescriptions: - Meclizine 25 mg Oral Tablet - take 1 tablet by ORAL route every 8 hours As needed; 15 tablet; Refills: 0, kdr Product Selection Permitted - Prednisone 20 mg Oral Tablet - take 1 tablet by ORAL route once daily for 5 days; 5 tablet; Refills: 0, kdr Product Selection Permitted - Reglan 10 mg Oral Tablet - take 1 tablet by ORAL route every 6 hours take 30 minutes before meals and at [facility] bedtime; 12 tablet; Refills: 0, Product Selection Permitted Signatures: Dispatcher [employer] EDMS Julien Saleh MD MD kdr Debi Macario RN RN ss Rickey Ibrahim RN RN jl7 Pio Bah RN bp Corrections: (The following items were deleted from the chart) 10:13 10:12 Ondansetron Oral Disintegrating Tablet Oral Disintegrating Tablet 4 mg PO once kdr ordered. kdr
--- NOTE | 2023-03-31 12:05 | ER ---
Nurse's Notes [facility] Name: Treasure Varela Age: 62 yrs Sex: Female : 1960 Arrival Date: 03/31/2023 Time: 09:45 Bed 7 Private MD: Diagnosis: Dizziness and giddiness Presentation: 03/31 09:58 Chief complaint: Patient states: Dizziness that is worse when moving head began ss yesterday, but got a little better, then worse again last night. Coronavirus screen: Client denies travel out of the [place] in the last 14 days. Ebola Screen: Patient denies exposure to infectious person. Patient denies travel to an Ebola-affected area in the 21 days before illness onset. Initial Sepsis Screen: Does the patient meet any 2 criteria? No. Patient's initial sepsis screen is negative. Does the patient have a suspected source of infection? No. Patient's initial sepsis screen is negative. Risk Assessment: Do you want to hurt yourself or someone else? Patient reports no desire to harm self or others. Onset of symptoms was March 30, 2023. 09:58 Method Of Arrival: Wheelchair ss 09:58 Acuity: AMANDA 2 ss Historical: - Allergies: 10:00 No Known Allergies; ss - PMHx: 10:00 GERD; LOW POTASSIUM; Vertigo; ss - Immunization history:: Adult Immunizations unknown. - Social history:: Smoking status: unknown. Screenin:35 [facility] ED Fall Risk Assessment (Adult) History of falling in the last 3 months, jl7 including since admission No falls in past 3 months (0 pts) Confusion or Disorientation No (0 pts) Intoxicated or Sedated No (0 pts) Impaired Gait Yes (1 pt) Mobility Assist Device Used No (0 pt) Altered Elimination No (0 pt) Score/Fall Risk Level 0 - 2 = Low Risk Oriented to surroundings, Maintained a safe environment. Abuse screen: Denies threats or abuse. Denies injuries from another. Nutritional screening: No deficits noted. On. Tuberculosis screening: No symptoms or risk factors identified. Assessment: 10:10 General: Appears in no apparent distress. uncomfortable, Behavior is cooperative, jl7 restless. Pain: Denies pain. Neuro: Level of Consciousness is awake, alert, obeys commands, Oriented to person, place, time, situation, Curtain Supervisor are equal bilaterally Moves all extremities. Full function Gait is unsteady, Speech is normal, Facial symmetry appears normal, Reports dizziness. Cardiovascular: Patient's skin is warm and dry. Respiratory: Airway is patent Respiratory effort is even, unlabored, Respiratory pattern is regular, symmetrical. GI: Reports nausea. Derm: Skin is pink, warm \T\ dry. 10:35 Reassessment: Pt actively vomiting, ERD notified, VO for 8 mg Zofran, pt refused jl7 reporting taking Zofran prior to arrival to ED. ERD gave VO for IV placement, 12.5 mg Phenergan IVP. While placing IV pt reported last time she had vertigo it was due to low potassium. ERD notified and labs ordered. 11:45 Reassessment: Patient appears in no apparent distress at this time. Patient and/or jl7 family updated on plan of care and expected duration. Pain level reassessed. Patient is alert, oriented x 3, equal unlabored respirations, skin warm/dry/pink. Patient states feeling better. Patient states symptoms have improved. 12:16 Reassessment: DC VIA WHEELCHAIR WITH FAMILY. bp Vital Signs: 09:58 BP 152 / 70; Pulse 67; Resp 18; Temp 97.3(TE); Pulse Ox 100% on R/A; Weight 61.23 kg; ss Height 5 ft. 3 in. ; Pain 0/10; 11:00 BP 132 / 67; Pulse 52; Resp 15; Pulse Ox 97% ; jl7 12:15 BP 150 / 91; Pulse 64; Resp 16; Pulse Ox 99% ; bp 09:58 Body Mass Index 23.91 (61.23 kg, 160.02 cm) ss 09:58 Pain Scale: Adult ss ED Course: 09:48 Patient arrived in ED. rg4 09:49 Julien Saleh MD is Attending Physician. kdr 09:57 Rickey Ibrahim RN is Primary Nurse. jl7 10:00 Triage completed. ss 10:00 Arm band placed on right wrist. ss 10:10 Patient has correct armband on for positive identification. Bed in low position. Call jl7 light in reach. Side rails up X 1. 10:10 Provided Education on: use of call barton. Pulse ox on. NIBP on. jl7 10:35 Initial lab(s) drawn, by me, sent to lab. Inserted saline lock: 22 gauge in right jl7 forearm, using aseptic technique. Blood collected. 11:11 CT Head Brain wo Cont In Process Unspecified. EDMS 12:16 No provider procedures requiring assistance completed. IV discontinued, intact, bp bleeding controlled, No redness/swelling at site. Pressure dressing applied. Administered Medications: 10:13 CANCELLED (Duplicate Order): Ondansetron Oral Disintegrating Tablet Oral Disintegrating kdr Tablet 4 mg PO once 10:32 Not Given (Patient Refused): Ondansetron Oral Disintegrating Tablet Oral Disintegrating jl7 Tablet 8 mg PO once; may repeat once in 8-12 hours 10:32 Drug: NS 0.9% IV 1000 ml Route: IV; Rate: 1 bolus; Site: right forearm; jl7 11:00 Follow up: IV Intake: 500ml jl7 11:00 Follow up: IV Status: Completed infusion jl7 10:32 Drug: Promethazine IVP 12.5 mg Route: IVP; Site: right forearm; jl7 12:18 Follow up: Response: No adverse reaction bp 11:00 Drug: Meclizine PO 25 mg Route: PO; jl7 12:00 Follow up: Response: No adverse reaction; Marked relief of symptoms jl7 12:20 Not Given (Duplicate Order): NS 0.9% IV 500 ml IV at bolus once jl7 12:20 Not Given (Pt dischargedd): predniSONE PO 20 mg PO once jl7 Medication: 10:35 VIS not applicable for this client. jl7 Intake: 11:00 IV: 500ml; Total: 500ml. jl7 Outcome: 12:05 Discharge ordered by . kdr 12:16 Discharged to home via wheelchair. bp 12:16 Condition: stable 12:16 Discharge instructions given to patient, Instructed on discharge instructions, follow up and referral plans. Demonstrated understanding of instructions, follow-up care. 12:22 Patient left the ED. jl7 Signatures: Dispatcher [employer] EDMS Julien Saleh MD MD kdr Blanchard, Shelby, RN RN Bella Woody rg4 Rickey Ibrahim RN RN jl7 Pio Bah RN RN bp Corrections: (The following items were deleted from the chart) 11:01 11:00 BP 130 / 99; Pulse 97bpm; Resp 15bpm; Pulse Ox 100%; jl7 jl7 12:20 12:17 IV Status: Completed infusion; IV Intake: 1000ml bp jl7
[2023-03-31 12:30] VITALS: TEMP 97.3
[2023-03-31 12:32] VITALS: BP 150/91; O2SAT 99
== END 2023-03-31 12:22 | disposition home or self-care (01) ==
LOC: ER 09:45
DX: R42 Dizziness and giddiness (principal); R53.1 Weakness
CPT/HCPCS: 85025; 80048; 36415; 70450; 96374; 99284; J2550; J8597; J7030; Q0162

== ENCOUNTER 2023-05-01 07:50 | Day surgery (SDC) | payer BC ==
[2023-05-01] MEDS ORDERED: Ringers Lactate 1,000 ML IV ONE (08:24)
[2023-05-01] MEDS ORDERED: LIDOCAINE 1% MPF 2 ML AMPULE ONE (09:21)
[2023-05-01] MEDS ORDERED: propofoL 200 MG/20 ML VIAL IV ONE ×4 (09:21→10:09)
[2023-05-01 11:16] VITALS: TEMP 97.6
[2023-05-01 11:17] VITALS: BP 163/85; O2SAT 98
== END 2023-05-01 11:00 | disposition home or self-care (01) ==
LOC: PRE 07:50 → OR 11:00
PROVIDERS: ATTEND Internal Medicine Gastroenterology
PROC: 0DBL8ZX Excision of Transverse Colon, Via Natural or Artificial Opening Endoscopic, Diagnostic (ICD-10-PCS; 2023-05-01)
PROC: 0DBM8ZX Excision of Descending Colon, Via Natural or Artificial Opening Endoscopic, Diagnostic (ICD-10-PCS; 2023-05-01)
PROC: 0DBH8ZX Excision of Cecum, Via Natural or Artificial Opening Endoscopic, Diagnostic (ICD-10-PCS; 2023-05-01)
PROC: 0DBK8ZX Excision of Ascending Colon, Via Natural or Artificial Opening Endoscopic, Diagnostic (ICD-10-PCS; principal; 2023-05-01 09:00)
DX: Z85.038 Personal history of other malignant neoplasm of large intestine (principal); K64.9 Unspecified hemorrhoids; Z80.0 Family history of malignant neoplasm of digestive organs; Z86.010 Personal history of colon polyps; D12.2 Benign neoplasm of ascending colon; D12.0 Benign neoplasm of cecum; D12.4 Benign neoplasm of descending colon; D12.3 Benign neoplasm of transverse colon; K57.30 Diverticulosis of large intestine without perforation or abscess without bleeding
CPT/HCPCS: 88305; 45385; J2704 ×3; J7120

== ENCOUNTER 2023-12-10 15:10 | Inpatient (IN) | payer BC ==
--- OUTSIDE RECORDS SUMMARY | 2023-12-10 15:12 | XMS REPORT | Clinical Summary ---
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
[2023-12-10] MEDS ORDERED: PROMETHAZINE INJ 25 MG/ML AMP ONE (15:40)
[2023-12-10] MEDS ORDERED: NA CHLORIDE 0.9% 1,000 ML ONE (15:45)
[2023-12-10 16:16] LABS: Albumin 3.7 g/dL (3.4-5.0); Albumin/Globulin Ratio 1.1 (1.1-1.8); Anion Gap 8.8 mEq/L (5.0-15.0); Bilirubin Total 0.6 mg/dL (0.2-1.0); Globulin 3.3 g/dL (2.3-3.5)
[2023-12-10 16:21] LABS: Potassium 3.8 mEq/L (3.5-5.1)
[2023-12-10 16:38] LABS: Absolute Basophils 0.1 K/uL (0-0.5); Absolute Eosinophils 0.1 K/uL (0-0.5); Absolute Lymphocytes (CBC) 0.6 K/uL (0.7-4.9); Absolute Monocytes 0.4 K/uL (0.1-1.3); Absolute Neutrophil 8.3 K/uL (1.8-8.0); Basophils % 0.7 % (0-1.3); Eosinophils % 0.9 % (0-4.4); Hematocrit 44.2 % (36.0-45.0); Hemoglobin 14.6 g/dL (12.0-15.0); Lymphocytes % 6.4 % (15.3-44.8); MCH 31.1 pg (27.0-35.0); MCV 94.3 fL (80-100); MPV 9.3 fL (7.6-11.3); Monocytes % 4.6 % (3.3-12.3); Neutrophils % 87.4 % (41.7-73.7); Platelets 323 thou/uL (152-406); RBC Red Blood Cell Count 4.68 M/uL (3.86-4.86)
--- NOTE | 2023-12-10 17:13 | RAD REPORT ---
EXAM DESCRIPTION: CTAbdomen Pelvis W Contrast - 12/10/2023 5:04 pm CLINICAL HISTORY: Abdominal pain. ABD PAIN COMPARISON: Abdomen Pelvis W Contrast dated 06/22/2022; Abdomen Pelvis W Contrast dated 01/14/2021 TECHNIQUE: Biphasic CT imaging of the abdomen and pelvis was performed with 100 ml non-ionic IV cont rast. All CT scans are performed using dose optimization technique as appropriate and may include automated exposure control or mA/KV adjustment according to patient size. FINDINGS: The lung bases are clear. The liver, spleen, pancreas, adrenal glands and kidneys are within normal limits. No bowel obstruction, free air, free fluid or abscess. There is moderate rectosigmoid wall thickening present with significant fecal retention present upstream. The appendix is normal. No evidence of s ignificant lymphadenopathy. No suspicious bony findings. IMPRESSION: Advanced fecal retention is present. Moderate thickening of the rectosigmoid colon could be related to infectious colitis or stercoral colitis.
[2023-12-10] MEDS ORDERED: NA CHLORIDE 0.9% 100 ML ONE (17:26)
[2023-12-10] MEDS ORDERED: PIPERACIL/TAZO 3.375 GM VIAL IV ONE (17:26)
[2023-12-10] MEDS ORDERED: ONDANSETRON 4 MG/2 ML VIAL ONE ×2 (17:27→19:53)
--- NOTE | 2023-12-10 17:31 | EDPHYS ---
Physician Documentation [facility] Name: Treasure Varela Age: 63 yrs Sex: Female : 1960 Arrival Date: 12/10/2023 Time: 15:10 Bed 8 Private MD: ED Physician Daljit Mcgovern HPI: 12/09 15:48 This 63 yrs old Female presents to ER via Wheelchair with complaints of rn Nausea/Vomiting, Dizziness. 15:48 The patient presents to the emergency department with nausea, vomiting, diarrhea, rn abdominal pain. Onset: The symptoms/episode began/occurred last night. Possible causes: unknown. The symptoms are aggravated by nothing. The symptoms are alleviated by nothing. Severity of symptoms: At their worst the symptoms were moderate in the emergency department the symptoms are unchanged. The patient has not experienced similar symptoms in the past. The patient has not recently seen a physician. Patient reports began last night with nausea/vomiting/diarrhea/abdominal pain. Patient states dizzy as well but feels different from vertigo she has had in the past. No medication changes. Patient reports more vomiting than diarrhea. Vague abdominal pain with nonfocal complaint. No chest pain or shortness of breath. No cough. Does report chills.. Historical: - Allergies: 15:22 No Known Allergies; ko1 - PMHx: 15:22 GERD; ko1 - Immunization history:: Adult Immunizations unknown. - Infectious Disease History:: Denies. - Social history:: Smoking status: Patient denies any tobacco usage or history of. - Family history:: not pertinent. - Hospitalizations: : No recent hospitalization is reported. ROS: 15:48 Constitutional: Negative for fever, chills, and weight loss, ENT: Negative for injury, rn pain, and discharge, Neck: Negative for injury, pain, and swelling, Cardiovascular: Negative for chest pain, palpitations, and edema, Respiratory: Negative for shortness of breath, cough, wheezing, and pleuritic chest pain, Abdomen/GI: Positive for abdominal pain/nausea/vomiting/diarrhea MS/Extremity: Negative for injury and deformity, Skin: Negative for injury, rash, and discoloration, Neuro: Positive for generalized weakness and dizziness Exam: 15:48 Constitutional: This is a well developed, well nourished patient who is awake, alert, rn and in no acute distress. ENT: Dry mucous membranes Cardiovascular: Regular rate and rhythm. No pulse deficits. Respiratory: No increased work of breathing, no retractions or nasal flaring. Abdomen/GI: Soft, no focal tenderness or guarding. No rebound. No masses. MS/ Extremity: Pulses equal, no cyanosis. Neuro: Awake and alert, GCS 15 Vital Signs: 15:20 BP 147 / 109; Pulse 98; Resp 18; Temp 98.9; Pulse Ox 100% ; ko1 15:44 BP 137 / 95; Pulse 78; Resp 18; Pulse Ox 100% on R/A; mb9 17:21 BP 141 / 85; Pulse 73; Resp 16; Pulse Ox 98% on R/A; mb9 17:24 Weight 65.77 kg; Height 5 ft. 2 in. ; mb9 18:46 BP 156 / 94; Pulse 78; Resp 18; Pulse Ox 98% on R/A; mb9 19:05 BP 138 / 73; Pulse 80; Resp 17 S; Pulse Ox 95% on R/A; ha1 17:24 Body Mass Index 26.52 (65.77 kg, 157.48 cm) 9 MDM: 15:12 Patient medically screened. rn 17:23 Differential diagnosis: Nonspecific abd pain, gastritis, pancreatitis, diverticulitis, rn viral gastroenteritis, gastroenteritis, Colitis. Data reviewed: vital signs, nurses notes. ED course: Patient does not meet septic criteria at this time, antibiotics ordered, will admit to hospitalist service.. 17:28 Counseling: I had a detailed discussion with the patient and/or guardian regarding the rn historical points, exam findings, and any diagnostic results supporting the discharge/admit diagnosis, lab results, radiology results, the need for further work-up and treatment in the hospital. ED course: Patient declines droperidol. Will try IV Zofran. CT shows rectosigmoid colitis and vomiting not controlled. Will admit to hospitalist service for further care.. 12/09 15:41 Order name: CBC with Diff rn 12/09 15:41 Order name: CMP; Complete Time: 16:51 rn 12/09 15:41 Order name: Lipase; Complete Time: 16:51 rn 12/09 19:44 Order name: Thyroid Stimulating Hormone EDMS 12/09 19:44 Order name: CBC with Automated Diff EDMS 12/09 19:44 Order name: CBC with Automated Diff EDMS 12/09 19:44 Order name: Comprehensive Metabolic Panel EDNE 12/09 19:44 Order name: Comprehensive Metabolic Panel EDNE 12/09 19:44 Order name: Ova and Parasites EDNE 12/09 19:52 Order name: CBC Smear Scan EDNE 12/09 20:55 Order name: T4 Free EDNE 12/09 15:41 Order name: CT Abd/Pelvis - IV Contrast Only; Complete Time: 17:18 rn 12/09 15:39 Order name: IV Start; Complete Time: 15:40 rn 12/09 15:41 Order name: Labs collected and sent; Complete Time: 15:43 rn Administered Medications: 15:43 Drug: Promethazine IVP 12.5 mg IVP once Route: IVP; Site: right forearm; mb9 18:20 Follow up: Response: No adverse reaction mb9 15:50 Drug: NS 0.9% IV 1000 ml IV at 1000 ml once Route: IV; Rate: 1000 ml; Site: right mb9 forearm; 18:20 Follow up: Response: No adverse reaction; IV Status: Completed infusion mb9 17:27 Not Given (Duplicate Order): droperidol2.5 mg IVP once rn 17:31 Drug: Ondansetron IVP 4 mg IVP once; over 2 minutes Route: IVP; Site: right forearm; mb9 18:20 Follow up: Response: No adverse reaction mb9 17:32 Drug: Piperacillin-Tazobactam IVPB 3.375 grams IVPB once over 60 mins; (mix in NS 100 mb9 mL) Route: IVPB; Infused Over: 60 mins; Site: right forearm; 18:20 Follow up: Response: No adverse reaction; IV Status: Completed infusion mb9 Disposition Summary: 12/10/23 17:31 Hospitalization Ordered Notes: Hospitalization Status: Inpatient Admission rn Provider: Pravin Guajardo rn Location: Telemetry/MedSurg (Inpatient) rn Condition: Stable rn Problem: new rn Symptoms: are unchanged rn Bed/Room Type: Standard rn Room Assignment: 207(12/10/23 20:16) as6 Diagnosis - Left sided colitis without complications rn - Intractable vomiting rn Forms: - Medication Reconciliation Form rn - SBAR form rn - Leadership Thank You Letter rn Signatures: Dispatcher [employer] EDMS McgovernDaljit recio MD MD rn Slawson, Ashby RN RN as6 Lorene Dewitt, RN RN ko1 Rocio Cullen, RN RN mb9 Corrections: (The following items were deleted from the chart) 15:42 15:42 CBC+H.LAB.BRZ ordered. EDMS EDMS 15:42 15:42 COMPREHENSIVE METABOLIC PANEL+C.LAB.BRZ ordered. EDMS EDMS 15:42 15:42 LIPASE+C.LAB.BRZ ordered. EDMS EDMS 15:50 15:48 Constitutional: Negative for fever, chills, and weight loss, Cardiovascular: rn Negative for chest pain, palpitations, and edema, Respiratory: Negative for shortness of breath, cough, wheezing, and pleuritic chest pain, Abdomen/GI: Positive for abdominal pain/nausea/vomiting/diarrhea MS/Extremity: Negative for injury and deformity, Skin: Negative for injury, rash, and discoloration, Neuro: Positive for generalized weakness and dizziness rn 20:16 17:31 rn as6
--- NOTE | 2023-12-10 17:31 | ER ---
Nurse's Notes [facility] Name: Treasure Varela Age: 63 yrs Sex: Female : 1960 Arrival Date: 12/10/2023 Time: 15:10 Bed 8 Private MD: Diagnosis: Left sided colitis without complications;Intractable vomiting Presentation: 12/09 15:20 Chief complaint: Patient states: Nausea, vomiting, diarrhea started this morning, took ko1 zofran but its not working. Coronavirus screen: At this time, the client does not indicate any symptoms associated with coronavirus-19. Ebola Screen: No symptoms or risks identified at this time. Initial Sepsis Screen: Does the patient meet any 2 criteria? No. Patient's initial sepsis screen is negative. Does the patient have a suspected source of infection? No. Patient's initial sepsis screen is negative. Risk Assessment: Do you want to hurt yourself or someone else? Patient reports no desire to harm self or others. Onset of symptoms was December 10, 2023. 15:20 Method Of Arrival: Wheelchair ko1 15:20 Acuity: AMANDA 3 ko1 Triage Assessment: 15:22 General: Appears distressed, ill, Behavior is appropriate for age. Pain: Denies pain. ko1 GI: Pt is actively vomiting Reports diarrhea, nausea, vomiting. Historical: - Allergies: 15:22 No Known Allergies; ko1 - PMHx: 15:22 GERD; ko1 - Immunization history:: Adult Immunizations unknown. - Infectious Disease History:: Denies. - Social history:: Smoking status: Patient denies any tobacco usage or history of. - Family history:: not pertinent. - Hospitalizations: : No recent hospitalization is reported. Screenin:28 [facility] ED Fall Risk Assessment (Adult) History of falling in the last 3 months, mb9 including since admission No falls in past 3 months (0 pts) Confusion or Disorientation No (0 pts) Intoxicated or Sedated No (0 pts) Impaired Gait No (0 pts) Mobility Assist Device Used No (0 pt) Altered Elimination No (0 pt) Score/Fall Risk Level 0 - 2 = Low Risk Oriented to surroundings, Maintained a safe environment, Educated pt \T\ family on fall prevention, incl call for assistance when getting out of bed. Abuse screen: Denies threats or abuse. Nutritional screening: No deficits noted. Tuberculosis screening: No symptoms or risk factors identified. Assessment: 15:43 General: Appears in no apparent distress. Behavior is calm, cooperative. Pain: Denies mb9 pain. Neuro: Harris Agitation-Sedation Scale (RASS): 0 - Alert and Calm Level of Consciousness is awake, alert, obeys commands, Oriented to person, place, time, situation, Appropriate for age. Cardiovascular: Patient's skin is warm and dry. Respiratory: Airway is patent Respiratory effort is even, unlabored, Respiratory pattern is regular, symmetrical. GI: Abdomen is round non-distended, Bowel sounds present X 4 quads. Abd is soft and non tender X 4 quads. Reports nausea, vomiting. : No signs and/or symptoms were reported regarding the genitourinary system. EENT: No signs and/or symptoms were reported regarding the EENT system. Derm: Skin is pink, warm \T\ dry. Musculoskeletal: Range of motion: intact in all extremities. 17:21 Reassessment: Patient appears in no apparent distress at this time. GI: Pt is actively mb9 vomiting bile. 17:45 Reassessment: Patient and/or family updated on plan of care and expected duration. Pain mb9 level reassessed. Patient is alert, oriented x 3, equal unlabored respirations, skin warm/dry/pink. Patient states feeling better. Patient states symptoms have improved. 18:47 Reassessment: Patient appears in no apparent distress at this time. No changes from mb9 previously documented assessment. Patient and/or family updated on plan of care and expected duration. Pain level reassessed. Patient is alert, oriented x 3, equal unlabored respirations, skin warm/dry/pink. 19:04 Reassessment: Patient and/or family updated on plan of care and expected duration. Pain ha1 level reassessed. Patient is alert, oriented x 3, equal unlabored respirations, skin warm/dry/pink. Patient states symptoms have not improved. 20:01 Reassessment: see [facility] for further charting. mb9 Vital Signs: 15:20 BP 147 / 109; Pulse 98; Resp 18; Temp 98.9; Pulse Ox 100% ; ko1 15:44 BP 137 / 95; Pulse 78; Resp 18; Pulse Ox 100% on R/A; mb9 17:21 BP 141 / 85; Pulse 73; Resp 16; Pulse Ox 98% on R/A; mb9 17:24 Weight 65.77 kg; Height 5 ft. 2 in. ; mb9 18:46 BP 156 / 94; Pulse 78; Resp 18; Pulse Ox 98% on R/A; mb9 19:05 BP 138 / 73; Pulse 80; Resp 17 S; Pulse Ox 95% on R/A; ha1 17:24 Body Mass Index 26.52 (65.77 kg, 157.48 cm) mb9 ED Course: 15:12 Patient arrived in ED. im 15:12 Daljit Mcgovern MD is Attending Physician. rn 15:22 Triage completed. ko1 15:22 Arm band placed on right wrist. Patient placed in an exam room, on a stretcher, on ko1 radiation monitor, on pulse oximetry, Patient notified of wait time. 15:27 Rocio Cullen, GLORIA is Primary Nurse. mb9 15:27 Placed in gown. Bed in low position. Call light in reach. Side rails up X 1. Provided mb9 Education on: press call light if needing anything. Client placed on continuous cardiac and pulse oximetry monitoring. NIBP monitoring applied. case monitor on. Door closed. Noise minimized. Warm blanket given. 15:28 No provider procedures requiring assistance completed. mb9 15:40 Inserted saline lock: 22 gauge in right forearm, using aseptic technique. Blood mb9 collected. 15:50 CMP Sent. mb9 15:50 Lipase Sent. mb9 15:50 Initial lab(s) drawn, by vt, sent to lab. mb9 17:06 CT Abd/Pelvis - IV Contrast Only In Process Unspecified. EDMS 17:30 Pravin Guajardo MD is Hospitalizing Provider. rn 18:47 Patient admitted, IV remains in place. mb9 Administered Medications: 15:43 Drug: Promethazine IVP 12.5 mg IVP once Route: IVP; Site: right forearm; mb9 18:20 Follow up: Response: No adverse reaction mb9 15:50 Drug: NS 0.9% IV 1000 ml IV at 1000 ml once Route: IV; Rate: 1000 ml; Site: right mb9 forearm; 18:20 Follow up: Response: No adverse reaction; IV Status: Completed infusion mb9 17:27 Not Given (Duplicate Order): droperidol2.5 mg IVP once rn 17:31 Drug: Ondansetron IVP 4 mg IVP once; over 2 minutes Route: IVP; Site: right forearm; mb9 18:20 Follow up: Response: No adverse reaction mb9 17:32 Drug: Piperacillin-Tazobactam IVPB 3.375 grams IVPB once over 60 mins; (mix in NS 100 mb9 mL) Route: IVPB; Infused Over: 60 mins; Site: right forearm; 18:20 Follow up: Response: No adverse reaction; IV Status: Completed infusion mb9 Medication: 15:27 VIS not applicable for this client. mb9 Outcome: 17:31 Decision to Hospitalize by Provider. rn 20:24 Admitted to Med/surg accompanied by tech, via wheelchair, room 207, mb9 20:24 Condition: stable 20:24 Instructed on the need for admit, 21:29 Patient left the ED. jb4 Signatures: Dispatcher [employer] EDMS Daljit Mcgovern MD MD rn Bryson, James RN RN jb4 Droothea Melvin RN RN kath1 Lorene Dewitt RN RN Rocio Davis, RN RN mb9 Maribel Trammell Corrections: (The following items were deleted from the chart) 17:21 17:01 Reassessment: No changes from previously documented assessment. Patient and/or mb9 family updated on plan of care and expected duration. Pain level reassessed. Patient is alert, oriented x 3, equal unlabored respirations, skin warm/dry/pink. mb9
[2023-12-10] MEDS ORDERED: MORPHINE 2 MG/ML SYR IV PRN (19:38)
--- NOTE | 2023-12-10 19:38 | P.HP ---
Certification for Inpatient Patient admitted to: Observation With expected LOS: <2 Midnights Patient will require the following post-hospital care: None Practitioner: I am a practitioner with admitting privileges, knowledge of patient current condition, hospital course, and medical plan of care. Services: Services provided to patient in accordance with Admission requirements found in Title 42 Section 412.3 of the Code of Federal Regulations Patient History Date of Service: 12/10/23 Reason for admission: Nausea and vomiting History of Present Illness: 63-year-old female with past medical history of hypertension, colon cancer in the remote past, recent EGD with chronic inactive gastritis 8 months ago, presenting with sudden onset nausea and vomiting as well as bouts of diarrhea since yesterday. Patient admits to intermittent dizziness and vertigo which she states she has but acute worsening of the symptoms since the last 1 day. She denies any fever or chills. She said diarrhea is nonbloody. She denies any sick contact. On arrival in the ED vital signs were stable, CT of the abdomen showed left- sided colitis. She has been admitted for possible colitis. Allergies No Known Allergies Allergy (Verified 05/11/23 11:03) Home Medications: ALPRAZolam [Xanax] 0.25 mg PO TID PRN 04/30/23 Esomeprazole Magnesium 40 mg PO DAILY 04/30/23 - Past Medical/Surgical History Diabetic: No -: GERD -: Hypokalemia -: Colon cancer -: Tubal Ligation -: Appendectomy -: Colon cancer - Family History Mother Notes: - colon and pancreatic cancer, CABG Father -: Heart disease, Lung disease, Cancer Notes: - lung cancer, CABG - Social History Smoking Status: Never smoker Alcohol use: No CD- Drugs: No Caffeine use: Yes Place of Residence: Home Review of Systems Unremarkable Cardiovascular: Light Headedness, Unremarkable Gastrointestinal: Nausea, Vomiting, Abdominal Pain, Diarrhea, Distention Genitourinary: Unremarkable Musculoskeletal: Unremarkable Neurological: Weakness Physical Examination - Physical Exam General: Alert, In no apparent distress, Oriented x3 HEENT: Atraumatic, Normocephalic, PERRLA Neck: Supple, 2+ carotid pulse no bruit, JVD not distended Respiratory: Clear to auscultation bilaterally, Normal air movement Cardiovascular: No edema, Normal pulses, Regular rate/rhythm, Normal S1 S2 Gastrointestinal: Normal bowel sounds, Soft and benign, Non-distended (Mild generalized discomfort) Musculoskeletal: No clubbing, No swelling Integumentary: No rashes, No breakdown, No significant lesion Neurological: Normal gait, Normal speech, Normal strength at 5/5 x4 extr, Sensation intact, Cranial nerves 3-12 intact External genitalia: No edema, No lesions - Studies Laboratory Data (last 24 hrs) 12/10/23 12/10/23 15:47 15:47 WBC 9.50 Hgb 14.6 Hct 44.2 Plt Count 323 Sodium 138 Potassium 3.8 BUN 16 Creatinine 0.84 Glucose 124 H Total Bilirubin 0.6 AST 15 ALT 22 Alkaline Phosphatase 79 Lipase 397 H Assessment and Plan - Problems (Diagnosis) (1) Colitis Current Visit: Yes Status: Acute - Plan Impression Left-sided colitis Hypertension History of colon cancerreported GERD Recurrent dizziness Plan Will admit to observation Start Fluid with lactated Ringer's Start empirical antibiotics with IV Flagyl and cefepime Obtain stool for ova and parasite Monitor dizziness post IV fluid Start meclizine if the persistent Lovenox DVT prophylaxis Continue PPI Resume home med - Advance Directives Does patient have a Living Will: No Does patient have a Durable POA for Healthcare: No
[2023-12-10] MEDS ORDERED: HYDRALAZINE HCL 20 MG/ML VIAL IV PRN (19:41)
[2023-12-10 19:52] LABS: Blood Morphology Comment NOT SEEN (NOT SEEN); Platelet Estimate ADEQ; White Blood Cell Scan OK (OK)
[2023-12-10] MEDS ORDERED: Ringers Lactate 1,000 ML IV ONE (19:54)
[2023-12-10] MEDS: ONDANSETRON 4 MG/2 ML VIAL IV PRN (19:57)
[2023-12-10] MEDS: Ringers Lactate 1,000 ML IV SCH (19:57)
[2023-12-10 20:27] VITALS: BMI 26.5
[2023-12-10 20:41] LABS: Thyroid Stimulating Hormone 3.95 uIU/mL (0.358-3.740)
[2023-12-10] MEDS: FAMOTIDINE 20 MG TAB PO SCH (21:35)
[2023-12-10] MEDS: ALPRAZOLAM 0.25 MG TABLET PO PRN (21:35)
[2023-12-11] MEDS: METRONIDAZOLE 500mg IVPB 500 MG/100 ML BAG IV SCH (00:20)
[2023-12-11 03:46] LABS: Absolute Lymphocytes (CBC) 0.8 K/uL (0.7-4.9); Absolute Monocytes 0.4 K/uL (0.1-1.3); Basophils % 0.5 % (0-1.3); Eosinophils % 0.2 % (0-4.4); Hematocrit 36.5 % (36.0-45.0); Hemoglobin 11.9 g/dL (12.0-15.0); Lymphocytes % 13.4 % (15.3-44.8); MCH 30.8 pg (27.0-35.0); MCHC 32.6 g/dL (32.0-36.0); MCV 94.7 fL (80-100); Monocytes % 5.9 % (3.3-12.3); Platelets 256 thou/uL (152-406); RBC Red Blood Cell Count 3.86 M/uL (3.86-4.86); Red Cell Distribution Width 13.1 % (12.1-15.2)
[2023-12-11] MEDS: ACETAMINOPHEN 325 MG TABLET PO ONE (03:58)
[2023-12-11 04:09] LABS: Albumin 2.9 g/dL (3.4-5.0); Albumin/Globulin Ratio 1.1 (1.1-1.8); Anion Gap 9.3 mEq/L (5.0-15.0); Bilirubin Total 0.3 mg/dL (0.2-1.0); Globulin 2.6 g/dL (2.3-3.5); Potassium 3.3 mEq/L (3.5-5.1); Protein, Total 5.5 g/dL (6.4-8.2)
--- NOTE | 2023-12-11 07:39 | P.PN ---
Date of Service: 12/11/23 Subjective: Reports n/v/d for ~1 day prior to admission. Last vomited overnight abd discomfort started after admission minimal to no stool output since arrival to ED; last formed BM 4-5+ days ago usually has formed BM ~2-3 days regularly afebrile ROS: 10 point ROS as noted above, otherwise negative Physical Exam: GEN: Alert, orientedx3, NAD HEENT: Normal conjunctiva, sclera anicteric CV: Regular rate and rhythm, no edema Pulm: Nonlabored respirations on room air, clear bilaterally ABD: Soft, moderate tenderness to palpation on left abdomen Neuro: Normal speech, normal affect vitals reviewed Problem List: Colitis; stercoral vs infectious Constipation, acute on chronic hx colon cancer s/p resection GERD Hypertension Recurrent dizziness/Vertigo, chronic Colitis; stercoral vs infectious Constipation, acute on chronic hx colon cancer s/p resection Reports sudden onset nausea/vomiting/diarrhea for ~1-2 days. +Intermittent dizziness/vertigo +abdominal discomfort/soreness that started after admission. Reports no BM since arrival to ED Had Recent EGD ~8 months ago and was told of chronic gastritis CT abd (12/09): Advanced fecal retention. Moderate rectosigmoid wall thickening would be related to infectious/stercoral colitis pt states that colon cancer / resection was in the sigmoid area no formed BM in >4-5+ days; only having some watery stool; suspect around the hard stool Continue empiric flagyl / cefepime (12/09-) for now continue LR@125 ml/hr Lipase 397 on admission; repeat 29 (12/10) afebrile, no leukocytosis Fleet enema x1 ordered (12/10) Start stool softener suspect n/v secondary to colitis; suspect more due to constipation/stercoral and less infectious - no fever, no leukocytosis GERD Hypertension confirm home meds, restart as appropriate Recurrent dizziness/Vertigo Reports intermittent dizziness/vertigo. Not new but feels worse last ~24 hours Monitor dizziness post fluids VTE: Lovenox Code: Full Dispo: Home, ~1-2 days Pending improvement of nausea/vomiting. +has BM tolerating PO
[2023-12-11] MEDS: CEFTRIAXONE 1,000 MG in NA CHLORIDE 0.9% 50 ML IVPB SCH (08:55)
[2023-12-11] MEDS: ENOXAPARIN 40 MG/0.4 ML SQ SCH (08:58)
[2023-12-11] MEDS: DOCUSATE NA 100 MG CAP PO SCH (10:59)
[2023-12-11] MEDS: FLEET ENEMA ADULT PR ONE ×2 (10:59→15:52)
[2023-12-12] MEDS: ONDANSETRON 4 MG/2 ML VIAL ONE (01:49)
[2023-12-12] MEDS: ONDANSETRON 4 MG/2 ML VIAL IV ONE (01:52)
[2023-12-12 04:21] LABS: Absolute Eosinophils 0.1 K/uL (0-0.5); Absolute Monocytes 0.5 K/uL (0.1-1.3); Absolute Neutrophil 3.3 K/uL (1.8-8.0); Basophils % 0.9 % (0-1.3); Eosinophils % 1.6 % (0-4.4); Hematocrit 32.5 % (36.0-45.0); Lymphocytes % 19.6 % (15.3-44.8); MCH 31.8 pg (27.0-35.0); MCHC 33.7 g/dL (32.0-36.0); MCV 94.2 fL (80-100); MPV 9.1 fL (7.6-11.3); Monocytes % 11.1 % (3.3-12.3); Neutrophils % 66.8 % (41.7-73.7); Platelets 236 thou/uL (152-406); RBC Red Blood Cell Count 3.45 M/uL (3.86-4.86); Red Cell Distribution Width 12.8 % (12.1-15.2)
[2023-12-12 04:35] LABS: Anion Gap 9.2 mEq/L (5.0-15.0); Magnesium 1.8 mg/dL (1.6-2.4); Potassium 3.2 mEq/L (3.5-5.1)
[2023-12-12] MEDS: NA CHLORIDE 0.9% 1,000 ML IV SCH (07:20)
[2023-12-12] MEDS: KCL 20 MEQ/100 mL IVPB 20 MEQ/100 ML BAG IV SCH (07:21)
--- NOTE | 2023-12-12 08:41 | P.PN ---
Date of Service: 12/12/23 Subjective: Feels nausea is a little better. no further reported episodes of vomiting abdominal discomfort/cramps feels ~same feels a little more bloated today minimal output after 2 enemas yesterday ROS: 10 point ROS as noted above, otherwise negative Physical Exam: GEN: Alert, orientedx3, NAD HEENT: Normal conjunctiva, sclera anicteric CV: Regular rate and rhythm, no edema Pulm: Nonlabored respirations on room air, clear bilaterally ABD: Soft, moderate tenderness to palpation on left abdomen Neuro: Normal speech, normal affect vitals reviewed Problem List: Colitis; stercoral vs infectious Constipation, acute on chronic hx colon cancer s/p resection GERD Hypertension Recurrent dizziness/Vertigo, chronic hx iron deficiency anemia Colitis; stercoral vs infectious Constipation, acute on chronic hx colon cancer s/p resection Reports sudden onset nausea/vomiting/diarrhea for ~1-2 days. +Intermittent dizziness/vertigo +abdominal discomfort/soreness that started after admission. Reports no BM since arrival to ED Had Recent EGD ~8 months ago and was told of chronic gastritis CT abd (12/09): Advanced fecal retention. Moderate rectosigmoid wall thickening would be related to infectious/stercoral colitis pt states that colon cancer / resection was in the sigmoid area no formed BM in >4-5+ days; only having some watery stool; suspect around the hard stool suspect n/v secondary to colitis; suspect more likely due to constipation/stercoral and less infectious - no fever, no leukocytosis s/p Fleet enema x2 with minimal relief/output (12/10) increase aggressiveness of bowel regimen senokot x1 added (12/11) continue stool softener will consider suppository if no improvement Continue empiric flagyl / rocephin (12/09-) for now afebrile, no leukocytosis continue IV fluids GERD Hypertension confirm home meds, restart as appropriate Recurrent dizziness/Vertigo, chronic Reports intermittent dizziness/vertigo. Not new but felt worse prior to admission Monitor dizziness post fluids hx iron deficiency anemia reports getting iron infusions every 3 months. VTE: Lovenox Code: Full Dispo: Home, ~1 day Pending improvement of nausea/vomiting. +has BM tolerating PO
[2023-12-12] MEDS: SENOSIDES 8.6 MG TAB PO ONE (09:11)
[2023-12-13 03:58] LABS: Absolute Eosinophils 0.1 K/uL (0-0.5); Absolute Lymphocytes (CBC) 1.5 K/uL (0.7-4.9); Absolute Monocytes 0.6 K/uL (0.1-1.3); Absolute Neutrophil 2.5 K/uL (1.8-8.0); Hematocrit 35.3 % (36.0-45.0); Hemoglobin 12.1 g/dL (12.0-15.0); Lymphocytes % 31.3 % (15.3-44.8); MCH 31.9 pg (27.0-35.0); MCHC 34.3 g/dL (32.0-36.0); MCV 93.1 fL (80-100); MPV 8.3 fL (7.6-11.3); Monocytes % 12.4 % (3.3-12.3); Neutrophils % 52.3 % (41.7-73.7); Nucleated Red Blood Cells % 0.1 % (0-0); Platelets 261 thou/uL (152-406); RBC Red Blood Cell Count 3.79 M/uL (3.86-4.86)
[2023-12-13 04:13] LABS: Anion Gap 7.1 mEq/L (5.0-15.0); Bilirubin Total 0.3 mg/dL (0.2-1.0); Globulin 2.9 g/dL (2.3-3.5); Magnesium 1.7 mg/dL (1.6-2.4); Potassium 3.1 mEq/L (3.5-5.1); Protein, Total 5.9 g/dL (6.4-8.2)
[2023-12-13] MEDS: SENOSIDES 8.6 MG TAB PO PRN (09:10)
[2023-12-13] MEDS: ONDANSETRON 4 MG (ODT) TAB PO ONE (09:11)
[2023-12-13] MEDS: KCL 20 MEQ/100 mL IVPB 20 MEQ/100 ML BAG IV SCH (09:18)
[2023-12-13] MEDS: POTASSIUM CL SA 10 MEQ TAB PO ONE (12:05)
[2023-12-13] MEDS ORDERED: NA CHLORIDE 0.9% 250 ML ONE (12:58)
[2023-12-13] MEDS ORDERED: FLEET ENEMA ADULT PR PRN (13:42)
[2023-12-13] MEDS: LACTULOSE 20 GM/30 ML UCUP PO PRN (16:41)
--- NOTE | 2023-12-13 17:00 | P.PN ---
Date of Service: 12/13/23 Subjective: no BM overnight, passing flatus feels slight more distended / burping more this morning, +nausea no vomiting ROS: 10 point ROS as noted above, otherwise negative Physical Exam: GEN: Alert, orientedx3, NAD HEENT: Normal conjunctiva, sclera anicteric CV: Regular rate and rhythm, no edema Pulm: Nonlabored respirations on room air, clear bilaterally ABD: Soft, mild tenderness to palpation on left abdomen Neuro: Normal speech, normal affect vitals reviewed Problem List: Colitis; stercoral Constipation, acute on chronic hx colon cancer s/p resection GERD Hypertension Recurrent dizziness/Vertigo, chronic hx iron deficiency anemia Colitis; stercoral Constipation, acute on chronic hx colon cancer s/p resection Reports sudden onset nausea/vomiting/diarrhea for ~1-2 days. +Intermittent dizziness/vertigo +abdominal discomfort/soreness that started after admission. Reports no BM since arrival to ED Had Recent EGD ~8 months ago and was told of chronic gastritis CT abd (12/09): Advanced fecal retention. Moderate rectosigmoid wall thickening would be related to infectious/stercoral colitis pt states that colon cancer / resection was in the sigmoid area battles with constipation since surgery, but this is worse, typically has BM every 2-3 days no formed BM in >4-5+ days; only having some watery stool; suspect around the hard stool suspect n/v secondary to colitis; suspect more likely due to constipation/stercoral and less infectious - no fever, no leukocytosis dc antibiotics - was on empiric rocephin/flagyl 12/09-12/12 s/p Fleet enema x2 with minimal relief/output (12/10) increase aggressiveness of bowel regimen senokot added (12/11) continue stool softener discussed due to ongoing symptoms, trial of enema suppository PRN lactulose PO as alternative option if patient would like to try - states doesn't tolerate po / liquid medicine very well afebrile, no leukocytosis continue IV fluids GERD Hypertension confirm home meds, restart as appropriate Recurrent dizziness/Vertigo, chronic Reports intermittent dizziness/vertigo. Not new but felt worse prior to admission Monitor dizziness post fluids hx iron deficiency anemia reports getting iron infusions every 3 months. VTE: Lovenox Code: Full Dispo: Home, ~1 day Pending improvement of nausea/vomiting. +has BM tolerating PO
[2023-12-14] MEDS: BISACODYL 10 MG RECTAL SUPP PR PRN (00:42)
[2023-12-14 04:00] LABS: Anion Gap 5.5 mEq/L (5.0-15.0); Potassium 3.5 mEq/L (3.5-5.1)
--- NOTE | 2023-12-14 09:23 | P.DS ---
Admission Date: 12/12/23 Discharge Date: 12/14/23 Disposition: ROUTINE DISCHARGE Discharge Condition: GOOD Reason for Admission: Nausea and vomiting Brief History of Present Illness: 63yo F, PMH: hypertension, colon cancer in the remote past, recent EGD with chronic inactive gastritis 8 months ago, Patient presented with sudden onset nausea and vomiting as well as bouts of diarrhea since yesterday. Patient admits to intermittent dizziness and vertigo which she states she has but acute worsening of the symptoms since the last 1 day. She denies any fever or chills. She said diarrhea is nonbloody. She denies any sick contact. On arrival in the ED vital signs were stable, CT of the abdomen showed left-sided colitis. She has been admitted for possible colitis. Hospital Course: Problem List: Colitis; stercoral Constipation, acute on chronic hx colon cancer s/p resection GERD Hypertension Recurrent dizziness/Vertigo, chronic hx iron deficiency anemia Physician Discharge Instructions: Patient presented to ED with nausea/vomiting/diarrhea and was found to have colitis, seen on CT abdomen. Suspect nausea/vomiting more secondary to constipation/stercoral colitis rather than infectious as patient reported she hasn't had a BM in several days and there were no findings to indicate an infective process. Patient was given an aggressive bowel regimen which included docusate, fleet enema x2, senokot x2, dulcolax suppository, lactulose, and was able to have some small-mod BMs with relief over a few days. Nausea/vomitting/abdominal discomfort improved after bowel movements. Diet was slowly advanced throughout hospitalization and patient was able to tolerate regular diet without issues with zofran on day of discharge with PO zofran. Patient was feeling better, abdominal pain improving, able to have BM with relief, nausea/vomiting improved, afebrile without leukocytosis, and deemed stable for discharge. Prescribed 5 more days of antibiotics (cirpo/flagy) to empirically cover for possible infectious etiology. Advised patient to continue over the counter stool softener, laxative as needed at home if feeling constipated / haven't had a bowel movement in 1-2 days. Can consider lactulose / suppository if no relief after laxative. Advised to maintain hydrated while using laxatives / suppository. Recommend to follow up with GI in 1-2 weeks for further discussion / workup and consider colonoscopy to further evaluate. Medications: Colace twice daily lactulose 30 ml daily as needed dulcolax suppository daily as needed zofran 4mg as needed every 6 hours for nausea Cipro/flagy x 5 days Follow up: PCP 3-5 days GI in ~1-2 weeks Please call to confirm / schedule appointments Physical Exam: GEN: Alert, orientedx3, NAD HEENT: Normal conjunctiva, sclera anicteric CV: Regular rate and rhythm, no edema Pulm: Nonlabored respirations on room air, clear bilaterally ABD: Soft, mild tenderness to palpation on left abdomen Neuro: Normal speech, normal affect Vital Signs/Physical Exam: Temp Pulse Resp BP Pulse Ox 97.4 F 64 16 151/77 H 96 12/14/23 04:00 12/14/23 04:00 12/14/23 04:00 12/14/23 04:00 12/14/23 04:00 Laboratory Data at Discharge: WBC 4.80 thou/uL (4.3-10.9) 12/13/23 02:54 Hgb 12.1 g/dL (12.0-15.0) D 12/13/23 02:54 Hct 35.3 % (36.0-45.0) L 12/13/23 02:54 Plt Count 261 thou/uL (152-406) 12/13/23 02:54 Sodium 139 mEq/L (136-145) 12/14/23 02:24 Potassium 3.5 mEq/L (3.5-5.1) 12/14/23 02:24 BUN 5 mg/dL (7-18) L 12/14/23 02:24 Creatinine 0.66 mg/dL (0.55-1.02) 12/14/23 02:24 Glucose 99 mg/dL (74-106) 12/14/23 02:24 Magnesium 2.0 mg/dL (1.6-2.4) 12/14/23 02:24 Total Bilirubin 0.3 mg/dL (0.2-1.0) 12/13/23 02:54 AST 19 U/L (15-37) 12/13/23 02:54 ALT 25 U/L (13-56) 12/13/23 02:54 Alkaline Phosphatase 62 U/L (45-117) 12/13/23 02:54 Lipase 29 U/L (13-75) 12/11/23 03:04 Home Medications: ALPRAZolam [Xanax*] 0.25 mg PO DAILY PRN 04/30/23 Esomeprazole Magnesium 40 mg PO BEDTIME 04/30/23 hydroCHLOROthiazide [Hydrochlorothiazide] 12.5 mg PO DAILY 12/11/23 Bisacodyl [Dulcolax*] 10 mg SD DAILY PRN 30 Days #30 supp 12/14/23 Ciprofloxacin HCl [Cipro 500 MG Tablet] 500 mg PO BID 5 Days #10 tab 12/14/23 Docusate [Colace Cap*] 100 mg PO BID 90 Days #180 cap 12/14/23 Lactulose [Cephulac*] 30 ml PO DAILY PRN 14 Days #300 ml 12/14/23 Ondansetron [Zofran] 4 mg PO Q6H PRN 14 Days #20 tab 12/14/23 metroNIDAZOLE [Flagyl] 500 mg PO Q8H 5 Days #15 tab 12/14/23 New Medications: Lactulose [Cephulac*] 30 ml PO DAILY PRN 14 Days #300 ml PRN Reason: CONSTIPATION - 1ST LINE Ciprofloxacin HCl [Cipro 500 MG Tablet] 500 mg PO BID 5 Days #10 tab Docusate [Colace Cap*] 100 mg PO BID 90 Days #180 cap Bisacodyl [Dulcolax*] 10 mg SD DAILY PRN 30 Days #30 supp PRN Reason: CONSTIPATION - 2ND LINE metroNIDAZOLE [Flagyl] 500 mg PO Q8H 5 Days #15 tab Ondansetron [Zofran] 4 mg PO Q6H PRN 14 Days #20 tab PRN Reason: Nausea / Vomiting Physician Discharge Instructions: Physician Discharge Instructions: Patient presented to ED with nausea/vomiting/diarrhea and was found to have colitis, seen on CT abdomen. Suspect nausea/vomiting more secondary to constipation/stercoral colitis rather than infectious as patient reported she hasn't had a BM in several days and there were no findings to indicate an infective process. Patient was given an aggressive bowel regimen which included docusate, fleet enema x2, senokot x2, dulcolax suppository, lactulose, and was able to have some small-mod BMs with relief over a few days. Nausea/vomitting/abdominal discomfort improved after bowel movements. Diet was slowly advanced throughout hospitalization and patient was able to tolerate regular diet without issues with zofran on day of discharge with PO zofran. Patient was feeling better, abdominal pain improving, able to have BM with relief, nausea/vomiting improved, afebrile without leukocytosis, and deemed stable for discharge. Prescribed 5 more days of antibiotics (cirpo/flagy) to empirically cover for possible infectious etiology. Advised patient to continue over the counter stool softener, laxative as needed at home if feeling constipated / haven't had a bowel movement in 1-2 days. Can consider lactulose / suppository if no relief after laxative. Advised to maintain hydrated while using laxatives / suppository. Recommend to follow up with GI in 1-2 weeks for further discussion / workup and consider colonoscopy to further evaluate. Medications: Colace twice daily lactulose 30 ml daily as needed dulcolax suppository daily as needed zofran 4mg as needed every 6 hours for nausea Cipro/flagy x 5 days Follow up: PCP 3-5 days GI in ~1-2 weeks Please call to confirm / schedule appointments Followup: NONE,NONE [UNKNOWN] - Time spent managing pt's care (in minutes): 45
[2023-12-14 10:20] VITALS: BP 147/96; TEMP 99.7; O2SAT 96
== END 2023-12-14 11:00 | disposition home or self-care (01) | DRG 386 ==
LOC: ER 15:10 → ERHOLD 19:38 → 2ND 21:09 → OBSVTOIN 12-12 16:57
PROVIDERS: ADMIT Internal Medicine; ATTEND Hospitalist
DX: K51.50 Left sided colitis without complications (principal); A09 Infectious gastroenteritis and colitis, unspecified; K59.09 Other constipation; I10 Essential (primary) hypertension; K29.50 Unspecified chronic gastritis without bleeding; R42 Dizziness and giddiness; Z98.51 Tubal ligation status; Z90.49 Acquired absence of other specified parts of digestive tract; Z85.038 Personal history of other malignant neoplasm of large intestine
CPT/HCPCS: 36415; 74177; 80048; 80053; 82947; 83690; 83735; 84439; 84443; 85025; 96361; 96365; 96375; 99285; G0378; J0696; J1650; J2405; J2543; J2550; J3480; J7030; J7050; J7120; Q0162; Q9967

== ENCOUNTER 2024-09-14 09:36 | Emergency (ER) | payer BC ==
--- OUTSIDE RECORDS SUMMARY | 2024-09-14 09:41 | XMS REPORT | Clinical Summary ---
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
[2024-09-14] MEDS ORDERED: MECLIZINE HCL 12.5 MG TAB ONE (10:19)
[2024-09-14] MEDS ORDERED: NA CHLORIDE 0.9% 500 ML ONE (10:20)
[2024-09-14] MEDS ORDERED: PROMETHAZINE INJ 25 MG/ML AMP ONE (10:20)
[2024-09-14 10:21] LABS: Absolute Basophils 0.1 K/uL (0-0.5); Absolute Eosinophils 0.1 K/uL (0-0.5); Absolute Lymphocytes (CBC) 1.5 K/uL (0.7-4.9); Absolute Monocytes 0.5 K/uL (0.1-1.3); Absolute Neutrophil 4.3 K/uL (1.8-8.0); Basophils % 1.3 % (0-1.3); Eosinophils % 1.6 % (0-4.4); Hematocrit 36.7 % (36.0-45.0); Hemoglobin 12.6 g/dL (12.0-15.0); MCH 31.2 pg (27.0-35.0); MCHC 34.4 g/dL (32.0-36.0); MCV 90.7 fL (80-100); MPV 8.7 fL (7.6-11.3); Monocytes % 7.6 % (3.3-12.3); Neutrophils % 66.5 % (41.7-73.7); Nucleated Red Blood Cells % 0.1 % (0-0); Platelets 329 thou/uL (152-406); RBC Red Blood Cell Count 4.05 M/uL (3.86-4.86); Red Cell Distribution Width 13.3 % (12.1-15.2)
[2024-09-14 10:32] LABS: PTT, Activated Partial Thromb 29.9 SECONDS (24.3-36.9); Protime INR 1.05
[2024-09-14 10:42] LABS: ALT/SGPT 23 U/L (13-56); AST/SGOT 13 U/L (15-37); Albumin 3.5 g/dL (3.4-5.0); Alkaline Phosphatase 80 U/L (45-117); Anion Gap 9.8 mEq/L (5.0-15.0); BUN Blood Urea Nitrogen 12 mg/dL (7-18); Bicarbonate 26 mEq/L (21-32); Bilirubin Total 0.3 mg/dL (0.2-1.0); Globulin 3.4 g/dL (2.3-3.5); Glomerular Filtration Rate 60 ml/min (=/>90); Glucose Level 123 mg/dL (74-106); Magnesium 1.9 mg/dL (1.6-2.4); Potassium 3.8 mEq/L (3.5-5.1); Protein, Total 6.9 g/dL (6.4-8.2); Sodium Level 139 mEq/L (136-145)
[2024-09-14 10:48] LABS: Bilirubin Direct < 0.2 mg/dL (0-0.2); Bilirubin Indirect, Calculated 0.1 mg/dL (0.2-0.8)
--- NOTE | 2024-09-14 10:57 | RAD REPORT ---
EXAM: Chest Single View HISTORY: dizziness COMPARISON: 07/23/2022 FINDINGS: LUNGS/PLEURA: The lungs are clear. No pleural effusions or pneumothorax. No pulmonary edema. MEDIASTINUM: The mediastinal silhouette is within normal limits. CARDIAC: The cardiac silhouette is within normal limits. UPPER ABDOMEN: No significant abnormality. BONES: No acute abnormality. LINES/TUBES/OTHER: N/A IMPRESSION: No evidence of acute cardiopulmonary disease.
--- NOTE | 2024-09-14 11:32 | RAD REPORT ---
EXAMINATION: CT HEAD WITHOUT CONTRAST CLINICAL INDICATION: Female, 63 years old.DIZZINESS TECHNIQUE: Axial CT images from the skull base to the vertex without intravenous contrast. Coronal an d sagittal reformatted images were created from the data set. One or more of the following dose reduction techniques were used: Automated exposure control, adjustment of the mA and/or kV according to patient size, and/or iterative reconstruction. Unless otherwise specified, incidental findings do not require dedicated imaging follow-up. [id number]. COMPARISON: No prior exam. FINDINGS: INTRACRANIAL: No acute intracranial hemorrhage. No hydrocephalus. No mass effect or midline shift. No significant white matter disease. VASCULATURE: No visualized abnormalities in the arteries or dural venous sinuses. SCALP/SKULL: No significant soft tissue or osseous abnormalities. SINUSES: The visualized paranasal sinuses and mastoid air cells are predominantly clear. IMPRESSION: No acute intracranial abnormality.
--- NOTE | 2024-09-14 11:34 | RAD REPORT ---
EXAMINATION: CTA NECK CLINICAL INDICATION: Female, 63 years old. dizziness TECHNIQUE: Axial CT images were obtained from the aortic arch to the skull base after intravenous con trast utilizing angiographic protocol with 3D post-processing (maximum intensity projection images, volume rendered images and/or shaded surface rendered images). One or more of the following dose redu ction techniques were used: Automated exposure control, adjustment of the mA and/or kV according to patient size, and/or iterative reconstruction. Unless otherwise specified, incidental findings do not require dedicated imaging follow-up. [id number]. NASCET criteria used. Mild 0-49% stenosis Moderate 50-69% stenosis Severe 70-99% stenosis COMPARISON: No prior exam. FINDINGS: AORTA: The imaged aortic arch is normal. CCA: The common carotid arteries are patent and normal in caliber. ICA/ECA: Bilateral internal and external carotid arteries are patent. There is no significant interna l carotid artery stenosis. Where applicable, degree of stenosis is measured using NASCET-like criteria. Mild calcified plaque at the carotid bifurcations. VERTEBRAL: The cervical vertebral arteries are patent and codominant. SOFT TISSUE: No significant neck soft tissue abnormalities. The visualized lung apices are clear. Mul tilevel cervical spondylosis. 3D images confirm these findings. IMPRESSION: No flow-limiting stenosis or dissection identified within neck. Mild atherosclerotic changes at the c arotid bifurcations.
--- NOTE | 2024-09-14 11:35 | RAD REPORT ---
EXAMINATION: CTA HEAD CLINICAL INDICATION: Female, 63 years old. DIZZINESS TECHNIQUE: Axial CT images were obtained through the head after intravenous contrast utilizing angiog raphic protocol with 3D post-processing (maximum intensity projection images, volume rendered images and/or shaded surface rendered images). One or more of the following dose reduction technique s were used: Automated exposure control, adjustment of the mA and/or kV according to patient size, and/or iterative reconstruction. Unless otherwise specified, incidental findings do not require dedic ated imaging follow-up. COMPARISON: No prior exam. FINDINGS: ICA: The petrous, cavernous, and supraclinoid segments of the bilateral internal carotid arteries are normal. The ophthalmic artery origins are visualized and normal. The posterior communicating arteries are patent. SHERRY: Anterior cerebral arteries are normal bilaterally. The anterior communicating artery is patent. MCA: Middle cerebral arteries are normal bilaterally. MACHINE SETTER SUPERVISOR: Posterior cerebral arteries are normal bilaterally. Vertebrobasilar: The vertebral arteries are patent. The basilar artery is normal in appearance. 3D images confirm these findings. IMPRESSION: No occlusion, aneurysm, or hemodynamically significant stenosis identified.
[2024-09-14 11:37] LABS: Specific Gravity 1.009 (1.005-1.030); Sqamous Epithelial <5 /HPF (None Seen); Urine Bacteria None Seen /HPF (<20); Urine Bilirubin NEGATIVE (Negative); Urine Blood Trace (Negative); Urine Clarity Clear (Clear); Urine Color Colorless (Yellow); Urine Culture Reflex Order NOT NEEDED; Urine Glucose NEGATIVE (Negative); Urine Ketones NEGATIVE (Negative); Urine Microscopic Reflex YN ORDER UMIC; Urine Nitrite NEGATIVE (Negative); Urine Protein NEGATIVE (Negative); Urine Urobilinogen Normal (Normal); Urine WBC <5 /HPF (<5)
--- NOTE | 2024-09-14 12:08 | ER ---
Nurse's Notes [facility] Name: Treasure Varela Age: 63 yrs Sex: Female : 1960 Arrival Date: 09/14/2024 Time: 09:36 Bed 8 Private MD: Diagnosis: Vertigo Presentation: 09/14 09:50 Chief complaint: Dizziness, headache, N/V and left sided chest pressure that started 2 hb hrs ago. Hx of vertigo. Coronavirus screen: At this time, the client does not indicate any symptoms associated with coronavirus-19. Ebola Screen: No symptoms or risks identified at this time. Initial Sepsis Screen: Does the patient meet any 2 criteria? No. Patient's initial sepsis screen is negative. Does the patient have a suspected source of infection? No. Patient's initial sepsis screen is negative. Risk Assessment: Do you want to hurt yourself or someone else? Patient reports no desire to harm self or others. Onset of symptoms was September 14, 2024. 09:50 Method Of Arrival: Wheelchair hb 09:50 Acuity: AMANDA 3 hb Historical: - Allergies: 10:11 No Known Allergies; hb - Home Meds: 10:11 Dexilant 60 mg Oral CpDB 1 cap once daily [Active]; hb - PMHx: 10:11 GERD; LOW POTASSIUM; Vertigo; hb - Immunization history:: Adult Immunizations up to date. - Infectious Disease History:: Denies. - Social history:: Smoking status: Patient/guardian denies using tobacco. - Family history:: not pertinent. - Hospitalizations: : No recent hospitalization is reported. Screenin:00 [facility] ED Fall Risk Assessment (Adult) History of falling in the last 3 months, aa5 including since admission No falls in past 3 months (0 pts) Confusion or Disorientation No (0 pts) Intoxicated or Sedated No (0 pts) Impaired Gait Yes (1 pt) Mobility Assist Device Used Yes (1 pt) Altered Elimination No (0 pt) Score/Fall Risk Level 3 or more points = High Risk Oriented to surroundings, Maintained a safe environment, Educated pt \T\ family on fall prevention, incl call for assistance when getting out of bed, Assessed \T\ reinforced patient's understanding of fall precautions. Abuse screen: Denies threats or abuse. Nutritional screening: No deficits noted. Tuberculosis screening: No symptoms or risk factors identified. Assessment: 10:00 General: Appears uncomfortable, Behavior is cooperative, anxious. Pain: Complains of aa5 pain in chest Pain currently is 5 out of 10 on a pain scale. Quality of pain is described as heavy, pressure, Pain began 2 hours ago. Is continuous. Neuro: Level of Consciousness is awake, alert, obeys commands, Oriented to person, place, time, situation, Senior Windows Engineer are equal bilaterally Moves all extremities. Speech is normal, Facial symmetry appears normal, Reports dizziness. Cardiovascular: Heart tones S1 S2 present Rhythm is sinus rhythm. Respiratory: Airway is patent Respiratory effort is even, unlabored, Respiratory pattern is regular, symmetrical. GI: Abdomen is non-distended, Bowel sounds present X 4 quads. Abd is soft and non tender X 4 quads. Reports nausea, vomited once today. : No signs and/or symptoms were reported regarding the genitourinary system. EENT: No signs and/or symptoms were reported regarding the EENT system. Derm: Skin is pink, warm \T\ dry. Musculoskeletal: Range of motion: intact in all extremities. 11:00 Reassessment: Patient states symptoms have improved. Pt assisted to restroom via aa5 wheelchair, pt tolerated well, pt now to CT via wheelchair. . 11:55 Reassessment: Patient is alert, oriented x 3, equal unlabored respirations, skin aa5 warm/dry/pink. Patient states feeling better. Patient states symptoms have improved. 12:34 Reassessment: Patient is alert, oriented x 3, equal unlabored respirations, skin aa5 warm/dry/pink. Patient states feeling better. Vital Signs: 09:50 BP 174 / 92; Pulse 71; Resp 23; Temp 98.9(O); Pulse Ox 100% on R/A; Weight 63.5 kg; hb Height 5 ft. 3 in. ; Pain 5/10; 11:55 BP 138 / 80; Pulse 62; Resp 16 S; Pulse Ox 99% on R/A; aa5 12:15 BP 151 / 86; Pulse 65; Resp 18 S; Pulse Ox 99% on R/A; aa5 09:50 Body Mass Index 24.80 (63.50 kg, 160.02 cm) hb 09:50 Pain Scale: Adult hb ED Course: 09:37 Patient arrived in ED. im 09:39 Daljit Mcgovern MD is Attending Physician. rn 10:00 Arm band placed on. aa5 10:00 Patient has correct armband on for positive identification. Placed in gown. Bed in low aa5 position. Call light in reach. Side rails up X2. Adult w/ patient. Client placed on continuous cardiac and pulse oximetry monitoring. NIBP monitoring applied. laboratory monitor on. Pulse ox on. NIBP on. 10:06 Karishma Brennan, GLORIA is Primary Nurse. aa5 10:11 Triage completed. hb 10:13 Initial lab(s) drawn, by fl, sent to lab. Inserted saline lock: 20 gauge in right aa5 forearm, using aseptic technique. Blood collected. Flushed with 10 mL NS. 10:34 No provider procedures requiring assistance completed. aa5 10:53 Chest Single View XRAY In Process Unspecified. EDMS 11:05 Urine collected: sent to lab. aa5 11:29 CT Head Brain wo Cont In Process Unspecified. EDMS 11:[address] In Process Unspecified. EDMS 11:[address] In Process Unspecified. EDMS 12:15 IV discontinued, intact, bleeding controlled, No redness/swelling at site. Pressure aa5 dressing applied. Administered Medications: 10:25 Drug: NS 0.9% IV 500 ml 500 ml IV at 1 bolus once; to be given as a bolus over 30 aa5 minutes Volume: 500 ml; Route: IV; Rate: 1 bolus; Site: right forearm; 11:00 Follow up: IV Status: Completed infusion; IV Intake: 500ml aa5 10:25 Drug: Promethazine IVP 12.5 mg IVP once Route: IVP; Site: right forearm; aa5 10:45 Follow up: Response: No adverse reaction aa5 10:29 Drug: Meclizine PO 50 mg PO once Route: PO; aa5 10:45 Follow up: Response: No adverse reaction aa5 Medication: 10:34 VIS not applicable for this client. aa5 Intake: 11:00 IV: 500ml; Total: 500ml. aa5 Outcome: 12:08 Discharge ordered by . rn 12:34 Patient left the ED. aa5 12:34 Discharged to home ambulatory, with family, aa5 12:34 Condition: improved 12:34 Discharge instructions given to patient, Instructed on discharge instructions, follow up and referral plans. medication usage, Demonstrated understanding of instructions, follow-up care, medications, Prescriptions given X 2, Signatures: Dispatcher [employer] EDDaljit Reed MD MD rn Calderon, Audri RN RN aa5 Aurora Hatch RN RN Maribel Trammell Corrections: (The following items were deleted from the chart) 10:32 10:11 Arm band placed on hb aa5 12:36 12:35 Reassessment: Patient is alert, oriented x 3, equal unlabored respirations, skin aa5 warm/dry/pink. Patient states feeling better. aa5 12:37 12:34 Patient left the ED. rn pamela
--- NOTE | 2024-09-14 12:08 | EDPHYS ---
Physician Documentation [facility] Name: Treasure Varela Age: 63 yrs Sex: Female : 1960 Arrival Date: 09/14/2024 Time: 09:36 Bed 8 Private MD: ED Physician Daljit Mcgovern HPI: 09/14 10:13 This 63 yrs old Female presents to ER via Wheelchair with complaints of Dizziness. rn 10:13 The patient presents with vertigo. Onset: The symptoms/episode began/occurred rn yesterday. Modifying factors: The symptoms are alleviated by nothing, the symptoms are aggravated by movement of head, standing up, changing position. Severity of symptoms: At their worst the symptoms were moderate in the emergency department the symptoms are unchanged. The patient has experienced similar episodes in the past. Patient reports started to feel little off yesterday with small dizzy spells, got worse this morning after eating breakfast, family member confirms that she started feeling bad yesterday. Shortly after breakfast she states has dizziness, feels like her vertigo in the past, associated with nausea and vomiting. Upon arrival and prior to triage she started to feel chest heaviness. No cardiac history in the past. Patient reports has had this happen several times and has either been vertigo or due to low potassium. No focal weakness or numbness. No vision changes.. Historical: - Allergies: 10:11 No Known Allergies; hb - Home Meds: 10:11 Dexilant 60 mg Oral CpDB 1 cap once daily [Active]; hb - PMHx: 10:11 GERD; LOW POTASSIUM; Vertigo; hb - Immunization history:: Adult Immunizations up to date. - Infectious Disease History:: Denies. - Social history:: Smoking status: Patient/guardian denies using tobacco. - Family history:: not pertinent. - Hospitalizations: : No recent hospitalization is reported. ROS: 10:13 Constitutional: Negative for fever, chills, and weight loss, Eyes: Negative for injury, rn pain, redness, and discharge, Cardiovascular: Positive for chest pain Respiratory: Negative for shortness of breath, cough, wheezing, and pleuritic chest pain, Abdomen/GI: Positive for nausea and vomiting, negative for abdominal pain MS/Extremity: Negative for injury and deformity, Skin: Negative for injury, rash, and discoloration, Neuro: Negative for headache, negative for focal weakness or numbness, negative for seizure Exam: 10:15 Constitutional: This is a well developed, well nourished patient who is awake, alert, rn laying in bed with wet towel over her eyes Head/Face: Normocephalic, atraumatic. Eyes: Pupils equal round and reactive to light, extra-ocular motions intact. Cardiovascular: Regular rate and rhythm. No pulse deficits. Respiratory: No increased work of breathing, no retractions or nasal flaring. Abdomen/GI: Soft, non-tender MS/ Extremity: Pulses equal, no cyanosis. Neuro: Awake and alert, GCS 15, oriented to person, place, time, and situation. Cranial nerves II-XII grossly intact. Motor strength 5/5 in all extremities. Sensory grossly intact. 11:30 ECG was reviewed by the Attending Physician. rn Vital Signs: 09:50 BP 174 / 92; Pulse 71; Resp 23; Temp 98.9(O); Pulse Ox 100% on R/A; Weight 63.5 kg; hb Height 5 ft. 3 in. ; Pain 5/10; 11:55 BP 138 / 80; Pulse 62; Resp 16 S; Pulse Ox 99% on R/A; aa5 12:15 BP 151 / 86; Pulse 65; Resp 18 S; Pulse Ox 99% on R/A; aa5 09:50 Body Mass Index 24.80 (63.50 kg, 160.02 cm) hb 09:50 Pain Scale: Adult hb MDM: 09:39 Medical Screening Exam initiated rn 11:35 ED course: Patient feels much better, markedly improved with Phenergan and meclizine. rn Still waiting the majority of her results including CTs.. 12:06 Differential diagnosis: cardiac arrhythmia, CVA, generalized weakness, hypovolemia, rn idiopathic dizziness, TIA, vertigo. Data reviewed: vital signs, nurses notes, lab test result(s), EKG, radiologic studies, CT scan, and as a result, I will discharge patient. Counseling: I had a detailed discussion with the patient and/or guardian regarding the historical points, exam findings, and any diagnostic results supporting the discharge/admit diagnosis, lab results, radiology results, the need for outpatient follow up, to return to the emergency department if symptoms worsen or persist or if there are any questions or concerns that arise at home. Response to treatment: the patient's symptoms have markedly improved after treatment, and as a result, I will discharge patient. Special discussion: I discussed with the patient/guardian in detail that at this point there is no indication for admission to the hospital. It is understood, however, that if the symptoms persist or worsen the patient needs to return immediately for re-evaluation. Based on the history and exam findings, there is no indication for further emergent testing or inpatient evaluation. I discussed with the patient/guardian the need to see the neurologist for further evaluation of the symptoms. I discussed with the patient/guardian the need to see the primary care provider for further evaluation of the symptoms. ED course: No acute findings and workup today. No hypokalemia noted. CT head and angio head and neck negative for acute findings as well. Patient feels much better. I have personally reviewed all of the results, including but not limited to blood tests and imaging deemed necessary to safely discharge this patient at this time. All results given to and printed out for patient. I personally went over all the results with the patient and answered all questions. Patient will follow-up with PCP and or specialist as discussed. Return precautions given and understood.. 09/14 10:11 Order name: Basic Metabolic Panel; Complete Time: 09/14 10:11 Order name: CBC with Diff; Complete Time: 09/14 10:11 Order name: Hepatic Function; Complete Time: 09/14 10:11 Order name: Magnesium; Complete Time: 09/14 10:11 Order name: Protime (+inr); Complete Time: 09/14 10:11 Order name: Ptt, Activated; Complete Time: 09/14 10:11 Order name: Troponin High Sensitivity; Complete Time: 09/14 10:11 Order name: Urinalysis w/ reflexes; Complete Time: 09/14 10:11 Order name: CT Head Brain wo Cont; Complete Time: 09/14 10:11 Order name: Chest Single View XRAY; Complete Time: 09/14 10:12 Order name: Head Angio CT; Complete Time: 09/14 10:12 Order name: Neck Angio CT; Complete Time: 09/14 10:11 Order name: EKG; Complete Time: 10:12 rn 09/14 10:11 Order name: Cardiac monitoring; Complete Time: rn 09/14 10:11 Order name: EKG - Nurse/Tech; Complete Time: 10 rn 09/14 10:11 Order name: IV Saline Lock; Complete Time: 10: rn 09/14 10:11 Order name: Labs collected and sent; Complete Time: rn 09/14 10:11 Order name: NPO; Complete Time: 10: rn 09/14 10:11 Order name: O2 Per Protocol; Complete Time: 10:15 rn 09/14 10:11 Order name: O2 Sat Monitoring; Complete Time: :15 rn EC:30 Rate is 71 beats/min. Rhythm is regular. QRS Flora is Normal. QRS interval is normal. QT rn interval is normal. No Q waves. T waves are Normal. No ST changes noted. Clinical impression: NSR w/ Non-specific ST/T Changes. Interpreted by me. Reviewed by me. Administered Medications: 10:25 Drug: NS 0.9% IV 500 ml 500 ml IV at 1 bolus once; to be given as a bolus over 30 aa5 minutes Volume: 500 ml; Route: IV; Rate: 1 bolus; Site: right forearm; 11:00 Follow up: IV Status: Completed infusion; IV Intake: 500ml aa5 10:25 Drug: Promethazine IVP 12.5 mg IVP once Route: IVP; Site: right forearm; aa5 10:45 Follow up: Response: No adverse reaction aa5 10:29 Drug: Meclizine PO 50 mg PO once Route: PO; aa5 10:45 Follow up: Response: No adverse reaction aa5 Disposition Summary: 09/14/24 12:08 Discharge Ordered Notes: Location: Home rn Problem: an acute exacerbation rn Symptoms: have improved rn Condition: Stable rn Diagnosis - Vertigo rn Followup: rn - With: Private Physician - When: As needed - Reason: Recheck today's complaints, Re-evaluation by your physician Discharge Instructions: - Discharge Summary Sheet rn - Vertigo rn Forms: - Medication Reconciliation Form 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
[2024-09-14 12:43] VITALS: TEMP 98.9
[2024-09-14 12:49] VITALS: BP 138/80; O2SAT 99
--- NOTE | 2024-09-17 12:41 | EKG ---
Test Date: 2024-09-14 Test Time: 10:03:59 Herpetology Teacher: FELICIANO MEASUREMENT RESULTS: Intervals: Rate: 71 WA: 108 QRSD: 88 QT: 406 QTc: 441 Cecil: P: 64 WA: 108 QRS: 47 T: 45 INTERPRETIVE STATEMENTS: Sinus rhythm with short WA Otherwise normal ECG Compared to ECG 07/23/2022 11:11:15 No significant changes Electronically Signed On 09-17-24 12:33:56 [employer] by Connor Herrera
== END 2024-09-14 12:34 | disposition home or self-care (01) ==
LOC: ER 09:36
DX: R42 Dizziness and giddiness (principal); R11.2 Nausea with vomiting, unspecified
CPT/HCPCS: 85025; 81001; 80048; 36415; 83735; 85610; 80076; 85730; 84484; 70450; 70496; 70498; 71045; Q9967; J2550; J8597; J7040; 93005; 96361; 96374; 99285

== ENCOUNTER 2024-10-01 09:25 | Emergency (ER) | payer BC ==
--- OUTSIDE RECORDS SUMMARY | 2024-10-01 09:28 | XMS REPORT | Clinical Summary ---
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
[2024-10-01] MEDS ORDERED: ACETAMINOPHEN 500 MG TAB ONE (10:04)
[2024-10-01] MEDS ORDERED: NA CHLORIDE 0.9% 500 ML ONE (10:04)
[2024-10-01 10:14] LABS: PT Prothrombin Time 11.1 SECONDS (9.4-12.5); Protime INR 1.06
[2024-10-01 10:18] LABS: ALT/SGPT 15 U/L (13-56); Albumin 3.6 g/dL (3.4-5.0); Albumin/Globulin Ratio 0.9 (1.1-1.8); Alkaline Phosphatase 91 U/L (45-117); Anion Gap 7.4 mEq/L (5.0-15.0); BUN Blood Urea Nitrogen 11 mg/dL (7-18); Bicarbonate 30 mEq/L (21-32); Bilirubin Total 0.4 mg/dL (0.2-1.0); Glomerular Filtration Rate 77 ml/min (=/>90); Glucose Level 114 mg/dL (74-106); Magnesium 2.2 mg/dL (1.6-2.4); NT PRO-BNP 389 pg/mL (<125); Potassium 3.4 mEq/L (3.5-5.1); Protein, Total 7.6 g/dL (6.4-8.2); Sodium Level 138 mEq/L (136-145); Troponin High Sensitivity 4.9 pg/mL (<58.9)
[2024-10-01 10:24] LABS: Specific Gravity 1.006 (1.005-1.030); Sqamous Epithelial <5 /HPF (None Seen); Urine Bacteria None Seen /HPF (<20); Urine Bilirubin NEGATIVE (Negative); Urine Blood 1+ (Negative); Urine Clarity Clear (Clear); Urine Color Colorless (Yellow); Urine Culture Reflex Order NOT NEEDED; Urine Glucose NEGATIVE (Negative); Urine Ketones NEGATIVE (Negative); Urine Microscopic Reflex YN ORDER UMIC; Urine Nitrite NEGATIVE (Negative); Urine Protein TRACE (Negative); Urine RBC <5 /HPF (None Seen); Urine Urobilinogen Normal (Normal); Urine WBC <5 /HPF (<5); Urine pH 6.5 (5.0-7.0)
[2024-10-01 10:24] LABS: AST/SGOT < 10 U/L (15-37); Bilirubin Direct < 0.2 mg/dL (0-0.2); Bilirubin Indirect, Calculated 0.2 mg/dL (0.2-0.8)
--- NOTE | 2024-10-01 10:24 | RAD REPORT ---
Procedure: Chest Single View HISTORY: Cough COMPARISON: August 2024 FINDINGS: The lungs appear clear of acute infiltrate. No significant pleural effusion noted. The heart is normal size. IMPRESSION: No acute abnormality is displayed.
--- NOTE | 2024-10-01 10:35 | RAD REPORT ---
EXAM: CT brain without contrast HISTORY: Headache COMPARISON: August 2024 TECHNIQUE: Multiple contiguous axial images were obtained and a CT of the brain without contrast.. Sagittal and coronal reconstruction performed. Automated exposure control, adjustment of the mA and/or kV according to patient size, and/or iterative reconstruction. Unless otherwise specified, incidental f indings do not require dedicated imaging follow-up FINDINGS: An intracranial bleed is not seen Ventricles are normal caliber No extra-axial fluid collection noted No significant hypodensity within the brain No fluid within the visualized sinuses or mastoids noted. IMPRESSION: No acute intracranial abnormality noted. If the patient continues to have symptoms to suggest an acute intracranial abnormality then MRI of th e brain would be recommended.
[2024-10-01 10:51] LABS: Absolute Basophils 0.1 K/uL (0-0.5); Absolute Eosinophils 0.1 K/uL (0-0.5); Absolute Lymphocytes (CBC) 1.6 K/uL (0.7-4.9); Absolute Monocytes 0.6 K/uL (0.1-1.3); Absolute Neutrophil 4.7 K/uL (1.8-8.0); Eosinophils % 1.7 % (0-4.4); Hematocrit 34.8 % (36.0-45.0); Hemoglobin 11.8 g/dL (12.0-15.0); Lymphocytes % 22.1 % (15.3-44.8); MCH 31.2 pg (27.0-35.0); MCHC 33.9 g/dL (32.0-36.0); MCV 91.8 fL (80-100); Monocytes % 9.1 % (3.3-12.3); Neutrophils % 66.1 % (41.7-73.7); Nucleated Red Blood Cells % 0.1 % (0-0); Platelets 296 thou/uL (152-406); RBC Red Blood Cell Count 3.79 M/uL (3.86-4.86); Red Cell Distribution Width 13.3 % (12.1-15.2)
[2024-10-01] MEDS ORDERED: AMLODIPINE 5 MG TAB ONE (12:16)
[2024-10-01] MEDS ORDERED: POTASSIUM 25 MEQ EFFERV TAB ONE (12:16)
--- NOTE | 2024-10-01 12:18 | EDPHYS ---
Physician Documentation [facility] Name: Treasure Varela Age: 63 yrs Sex: Female : 1960 Arrival Date: 10/01/2024 Time: 09:25 Bed 4 Private MD: ED Physician Geovanni Wolf HPI: 10/01 09:59 This 63 yrs old Female presents to ER via Ambulatory with complaints of High tomy Blood Pressure, Nausea, Headache, Palpitations. 09:59 The patient has elevated blood pressure and discovered this at home, with a home tomy device. Onset: The symptoms/episode began/occurred 2 day(s) ago. Modifying factors: The symptoms are aggravated by activity, The symptoms are alleviated by remaining still. Associated signs and symptoms: The patient has no apparent associated signs or symptoms. Severity of symptoms: At its worst the blood pressure was moderate, in the emergency department the blood pressure is unchanged. The patient has experienced similar episodes in the past. Historical: - Allergies: 09:42 No Known Allergies; ph - Home Meds: 09:42 Omeprazole Oral [Active]; Hydrochlorothiazide Oral [Active]; ph - PMHx: 09:42 GERD; LOW POTASSIUM; Vertigo; ph - Immunization history:: Adult Immunizations unknown. - Infectious Disease History:: Denies. - Social history:: Smoking status: Patient denies any tobacco usage or history of. - Family history:: not pertinent. ROS: 09:59 Constitutional: Negative for fever, chills, and weight loss, Eyes: Negative for injury, tomy pain, redness, and discharge, ENT: Negative for injury, pain, and discharge, Neck: Negative for injury, pain, and swelling, Cardiovascular: Negative for chest pain, palpitations, and edema, Respiratory: Negative for shortness of breath, cough, wheezing, and pleuritic chest pain, Abdomen/GI: Negative for abdominal pain, nausea, vomiting, diarrhea, and constipation, Back: Negative for injury and pain, : Negative for injury, bleeding, discharge, and swelling, MS/Extremity: Negative for injury and deformity, Skin: Negative for injury, rash, and discoloration, Psych: Negative for depression, anxiety, suicide ideation, homicidal ideation, and hallucinations, Allergy/Immunology: Negative for hives, rash, and allergies, Endocrine: Negative for neck swelling, polydipsia, polyuria, polyphagia, and marked weight changes, Hematologic/Lymphatic: Negative for swollen nodes, abnormal bleeding, and unusual bruising, 09:59 Neuro: Positive for dizziness, Exam: 09:59 Constitutional: This is a well developed, well nourished patient who is awake, alert, tomy and in no acute distress. Head/Face: Normocephalic, atraumatic. Eyes: Pupils equal round and reactive to light, extra-ocular motions intact. Lids and lashes normal. Conjunctiva and sclera are non-icteric and not injected. Cornea within normal limits. Periorbital areas with no swelling, redness, or edema. ENT: Nares patent. No nasal discharge, no septal abnormalities noted. Tympanic membranes are normal and external auditory canals are clear. Oropharynx with no redness, swelling, or masses, exudates, or evidence of obstruction, uvula midline. Mucous membranes moist. Neck: Trachea midline, no thyromegaly or masses palpated, and no cervical lymphadenopathy. Supple, full range of motion without nuchal rigidity, or vertebral point tenderness. No Meningismus. Chest/axilla: Normal chest wall appearance and motion. Nontender with no deformity. No lesions are appreciated. Cardiovascular: Regular rate and rhythm with a normal S1 and S2. No gallops, murmurs, or rubs. Normal PMI, no JVD. No pulse deficits. Respiratory: Lungs have equal breath sounds bilaterally, clear to auscultation and percussion. No rales, rhonchi or wheezes noted. No increased work of breathing, no retractions or nasal flaring. Abdomen/GI: Soft, non-tender, with normal bowel sounds. No distension or tympany. No guarding or rebound. No evidence of tenderness throughout. Back: No spinal tenderness. No costovertebral tenderness. Full range of motion. MS/ Extremity: Pulses equal, no cyanosis. Neurovascular intact. Full, normal range of motion., bilateral aka Neuro: Awake and alert, GCS 15, oriented to person, place, time, and situation. Cranial nerves II-XII grossly intact. Motor strength 5/5 in all extremities. Sensory grossly intact. Cerebellar exam normal. Normal gait. Psych: Awake, alert, with orientation to person, place and time. Behavior, mood, and affect are within normal limits. 09:59 Neuro: Orientation: is normal, appropriate for stated age, no acute changes, Mentation: is normal, appropriate for stated age, no acute changes, Memory: is normal, appropriate for stated age, no acute changes, Cranial nerves: grossly normal, is grossly normal based on the patient's age, no acute changes, Motor: is normal, is grossly normal based on the patient's age, Gait: is steady, appropriate for age, seizure activity, is not displayed by the patient, 10:05 ECG was reviewed by the Attending Physician. [facility] Vital Signs: 09:39 BP 157 / 94; Pulse 83; Resp 18; Temp 97.9; Pulse Ox 100% on R/A; Weight 63.5 kg; Height ph 5 ft. 3 in. ; 11:03 BP 130 / 69; Pulse 57; Resp 18; Pulse Ox 96% on R/A; ph 12:30 BP 159 / 91; Pulse 58; Resp 18; Temp 97.5; Pulse Ox 98% on R/A; ph 09:39 Body Mass Index 24.80 (63.50 kg, 160.02 cm) ph MDM: 09:27 Medical Screening Exam initiated tomy 10:04 Differential diagnosis: hypertensive crisis, Malignant HTN, CVA, intracerebral tomy hemorrhage. Data reviewed: vital signs, nurses notes, lab test result(s), EKG, radiologic studies, CT scan, plain films. Consideration of Admission/Observation Escalation of care including admission/observation considered. I considered the following discharge prescriptions or medication management in the emergency department Medications were administered in the Emergency Department. See MAR. Independent interpretation of the following test(s) in the Emergency Department EKG: See my EKG interpretation above. Test considered but Not performed: Ultrasound no 2 d echo. Care significantly affected by the following chronic conditions: Hypertension, vertigo. 10/01 08: Order name: Basic Metabolic Panel; Complete Time: 12:10 [facility] 10/01 08:28 Order name: CBC with Diff; Complete Time: 12:10 [facility] 10/01 08: Order name: LFT's; Complete Time: 12:10 [facility] 10/01 08:28 Order name: Magnesium; Complete Time: 12:10 [facility] 10/01 08:28 Order name: NT PRO-BNP; Complete Time: 12:10 [facility] 10/01 08:28 Order name: PT-INR; Complete Time: 12:10 [facility] 02/12 09:28 Order name: Troponin HS; Complete Time: 12:10 [facility] 10/01 09:28 Order name: Urinalysis w/ reflexes; Complete Time: 12:10 [facility] 10/01 09:59 Order name: Lipase; Complete Time: 12:10 [facility] 10/01 09:28 Order name: XRAY Chest (1 view); Complete Time: 12:10 [facility] 10/01 09:28 Order name: CT Head Brain wo Cont; Complete Time: 12:10 [facility] 10/01 09:28 Order name: Cardiac monitoring; Complete Time: 09:45 [facility] 10/01 09:28 Order name: EKG - Nurse/Tech; Complete Time: 09:45 [facility] 10/01 09:28 Order name: IV Saline Lock; Complete Time: 11:18 [facility] 10/01 09:28 Order name: Labs collected and sent; Complete Time: 09:45 [facility] 10/01 09:28 Order name: O2 Per Protocol; Complete Time: 09:45 [facility] 10/01 09:28 Order name: O2 Sat Monitoring; Complete Time: 09:45 [facility] 10/01 10:25 Order name: Labs - recollect needed: recollect lavender top; Complete Time: 11:03 bd EC:05 Rate is 82 beats/min. Rhythm is regular. QRS [place] is Normal. NM interval is normal. QRS tomy interval is normal. QT interval is normal. No Q waves. T waves are Normal. No ST changes noted. Clinical impression: NSR w/ Non-specific ST/T Changes and No evidence of ischemia. Interpreted by me. Reviewed by me. Administered Medications: 10:35 Drug: Acetaminophen PO 1000 mg PO once Route: PO; ph 11:03 Follow up: Response: No adverse reaction ph 10:36 Drug: NS 0.9% IV 500 ml 500 ml IV at 1 bolus once; to be given as a bolus over 30 ph minutes Volume: 500 ml; Route: IV; Rate: 1 bolus; Site: right forearm; 11:03 Follow up: Response: No adverse reaction; IV Status: Completed infusion; IV Intake: ph 500ml 12:18 Drug: Potassium PO Effervescent Tablet 25 mEq PO once; dissolve in 4 ounces of water or ph juice Route: PO; 12:19 Follow up: Response: No adverse reaction; Medication administered at discharge. ph 12:18 Drug: Norvasc PO 5 mg PO once Route: PO; ph 12:19 Follow up: Response: No adverse reaction; Medication administered at discharge. ph Disposition Summary: 10/01/24 12:17 Discharge Ordered Notes: Location: Home tomy Problem: new tomy Symptoms: have improved tomy Condition: Stable tomy Diagnosis - Essential (primary) hypertension tomy - Hypokalemia tomy Followup: tomy - With: Private Physician - When: 2 - 3 days - Reason: Recheck today's complaints, Continuance of care, Re-evaluation by your physician Followup: tomy - With: Levi Dominguez MD - When: 2 - 3 days - Reason: Recheck today's complaints, Re-evaluation by your physician Followup: tomy - With: Phyllis Ventura MD - When: 2 - 3 days - Reason: Recheck today's complaints, Re-evaluation by your physician Discharge Instructions: - Discharge Summary Sheet tomy - Potassium Content of Foods tomy - Hypertension, Adult tomy - Hypertension, Adult, [id number] tomy - How to Take Your Blood Pressure, [id number] tomy - Aspirin and Your Heart tomy - Hypokalemia tomy - Managing Your Hypertension tomy Forms: - Medication Reconciliation Form tomy - Antibiotic Education tomy - Prescription Opioid Use tomy - Patient Portal Instructions tomy - Leadership Thank You Letter tomy Prescriptions: - Norvasc 5 mg Oral Tablet - take 1 tablet ORAL route once daily; 20 tablet; Refills: 0, Product Selection tomy Permitted Signatures: Dispatcher [employer] EDMS Ilene Jo Corey, MD MD cha Hall, Patricia RN RN ph Corrections: (The following items were deleted from the chart) 09: 09:29 BASIC METABOLIC PANEL+C.LAB.BRZ ordered. EDMS EDMS 09:29 09:29 CBC+H.LAB.BRZ ordered. EDMS EDMS 09:29 09:29 HEPATIC FUNCTION+C.LAB.BRZ ordered. EDMS EDMS 09:29 09:29 MAGNESIUM+C.LAB.BRZ ordered. EDMS EDMS 09:29 09:29 PROBNP+C.LAB.BRZ ordered. EDMS EDMS 09:29 09:29 PROTIME (+INR)+COAG.LAB.BRZ ordered. EDMS EDMS 09:29 09:29 Troponin High Sensitivity+C.LAB.BRZ ordered. EDMS EDMS 09:29 09:29 Urinalysis+U.LAB.BRZ ordered. EDMS EDMS : Chest Single View+RAD.RAD.BRZ ordered. EDMS EDMS : Head Brain Wo Cont+CT.RAD.BRZ ordered. EDMS EDMS
--- NOTE | 2024-10-01 12:18 | ER ---
Nurse's Notes [facility] Name: Treasure Varela Age: 63 yrs Sex: Female : 1960 Arrival Date: 10/01/2024 Time: 09:25 Bed 4 Private MD: Diagnosis: Essential (primary) hypertension;Hypokalemia Presentation: 10/01 09:39 Chief complaint: Patient states: High BP readings at home x 3 days, also reports ph intermittent headache, dizziness and nausea, states that readings have been 140s-170s systolic, diastolic has been close to 100, denies chest pain. Coronavirus screen: Vaccine status: Patient reports being unvaccinated. Ebola Screen: No symptoms or risks identified at this time. Initial Sepsis Screen: Does the patient meet any 2 criteria? No. Patient's initial sepsis screen is negative. Does the patient have a suspected source of infection? No. Patient's initial sepsis screen is negative. Risk Assessment: Do you want to hurt yourself or someone else? Patient reports no desire to harm self or others. Onset of symptoms was October 01, 2024. 09:39 Method Of Arrival: Ambulatory ph 09:39 Acuity: AMANDA 3 ph Triage Assessment: 09:43 General: Appears in no apparent distress. comfortable, well groomed, Behavior is calm, ph cooperative, appropriate for age. Pain: Complains of pain in headache. Neuro: Level of Consciousness is awake, alert, obeys commands, Oriented to person, place, time, situation, Reports dizziness, headache. Cardiovascular: Capillary refill < 3 seconds in bilateral fingers Patient's skin is warm and dry. Respiratory: Airway is patent Respiratory effort is even, unlabored. GI: Reports nausea, Patient currently denies abdominal pain, vomiting. Derm: Skin is pink, warm \T\ dry. Historical: - Allergies: 09:42 No Known Allergies; ph - Home Meds: 09:42 Omeprazole Oral [Active]; Hydrochlorothiazide Oral [Active]; ph - PMHx: 09:42 GERD; LOW POTASSIUM; Vertigo; ph - Immunization history:: Adult Immunizations unknown. - Infectious Disease History:: Denies. - Social history:: Smoking status: Patient denies any tobacco usage or history of. - Family history:: not pertinent. Screenin:44 [facility] ED Fall Risk Assessment (Adult) History of falling in the last 3 months, ph including since admission No falls in past 3 months (0 pts) Confusion or Disorientation No (0 pts) Intoxicated or Sedated No (0 pts) Impaired Gait No (0 pts) Mobility Assist Device Used No (0 pt) Altered Elimination No (0 pt) Score/Fall Risk Level 0 - 2 = Low Risk Oriented to surroundings, Maintained a safe environment, Hourly rounding (assess needs \T\ fall precautionary measures) done. Abuse screen: Denies threats or abuse. Denies injuries from another. Nutritional screening: No deficits noted. Tuberculosis screening: No symptoms or risk factors identified. Assessment: 10:00 General: SEE TRIAGE ASSESSMENT. ph Vital Signs: 09:39 BP 157 / 94; Pulse 83; Resp 18; Temp 97.9; Pulse Ox 100% on R/A; Weight 63.5 kg; Height ph 5 ft. 3 in. ; 11:03 BP 130 / 69; Pulse 57; Resp 18; Pulse Ox 96% on R/A; ph 12:30 BP 159 / 91; Pulse 58; Resp 18; Temp 97.5; Pulse Ox 98% on R/A; ph 09:39 Body Mass Index 24.80 (63.50 kg, 160.02 cm) ph Vitals: 11:03 Cardiac Rhythm Assessment Sinus boni. ph ED Course: 09:27 Patient arrived in ED. im 09:27 Geovanni Wolf MD is Attending Physician. tomy 09:34 Sharmila Mclean, RN is Primary Nurse. ph 09:42 Triage completed. ph 09:43 Arm band placed on Patient placed in an exam room, on a stretcher, on monitoring analyst, ph on pulse oximetry. 09:44 Patient has correct armband on for positive identification. Bed in low position. Call ph light in reach. Side rails up X 1. Client placed on continuous cardiac and pulse oximetry monitoring. NIBP monitoring applied. alarm security or surveillance monitor on. 09:54 Basic Metabolic Panel Sent. ty 09:54 CBC with Diff Sent. ty 09:54 LFT's Sent. ty 09:54 Magnesium Sent. ty 09:54 NT PRO-BNP Sent. ty 09:54 PT-INR Sent. ty 09:54 Troponin HS Sent. ty 09:54 Missed attempt(s): 22 gauge Bleeding controlled, band aid applied, catheter tip intact. ty 10:00 XRAY Chest (1 view) In Process Unspecified. EDMS 10:00 Inserted saline lock: 22 gauge in right wrist, using aseptic technique. ph 10:15 CT Head Brain wo Cont In Process Unspecified. EDCT 12:12 Levi Dominguez MD is Referral Physician. [facility] 12:12 Phyllis Ventura MD is Referral Physician. tomy 12:30 No provider procedures requiring assistance completed. IV discontinued, intact, ph bleeding controlled, No redness/swelling at site. Pressure dressing applied. Administered Medications: 10:35 Drug: Acetaminophen PO 1000 mg PO once Route: PO; ph 11:03 Follow up: Response: No adverse reaction ph 10:36 Drug: NS 0.9% IV 500 ml 500 ml IV at 1 bolus once; to be given as a bolus over 30 ph minutes Volume: 500 ml; Route: IV; Rate: 1 bolus; Site: right forearm; 11:03 Follow up: Response: No adverse reaction; IV Status: Completed infusion; IV Intake: ph 500ml 12:18 Drug: Potassium PO Effervescent Tablet 25 mEq PO once; dissolve in 4 ounces of water or ph juice Route: PO; 12:19 Follow up: Response: No adverse reaction; Medication administered at discharge. ph 12:18 Drug: Norvasc PO 5 mg PO once Route: PO; ph 12:19 Follow up: Response: No adverse reaction; Medication administered at discharge. ph Medication: 09:44 VIS not applicable for this client. ph Intake: 11:03 IV: 500ml; Total: 500ml. ph Outcome: 12:17 Discharge ordered by . [facility] 12:30 Discharged to home ambulatory, ph 12:30 Condition: good 12:30 Discharge instructions given to patient, Instructed on discharge instructions, follow up and referral plans. medication usage, Demonstrated understanding of instructions, follow-up care, medications, Prescriptions given X 1, 12:32 Patient left the ED. ph Signatures: Dispatcher [employer] Geovanni Warren MD MD cha Hall, Patricia, RN RN Maribel Trammell Tylor ty
[2024-10-01 13:39] VITALS: BP 159/91; TEMP 97.5; O2SAT 98
== END 2024-10-01 12:32 | disposition home or self-care (01) ==
LOC: ER 09:25
DX: I10 Essential (primary) hypertension (principal); E87.6 Hypokalemia
CPT/HCPCS: 85025; 81001; 80048; 36415; 83735; 85610; 80076; 84484; 83690; 83880; 70450; 71045; J7040; 93005